=== PATIENT | male | born 1955 | race African-American/Black ===

== ENCOUNTER 2021-01-29 11:24 | Outpatient (REF) | payer OTHER, SELFPAY ==
[2021-01-29 13:28] LABS: Erythrocyte Sedimentation Rate 13 MM/HR (0-15)
[2021-01-29 13:47] LABS: Folate 12.8 ng/mL (> or = 4.0); Vitamin B12 262 pg/mL (200-900)
[2021-01-29 13:53] LABS: Alanine Aminotransferase 11 U/L (0-40); Albumin Level 4.1 g/dL (3.5-5.0); Alkaline Phosphatase 73 U/L (39-117); Anion Gap 12 (12-20); Aspartate Amino Transferase 15 U/L (5-37); Bilirubin Direct 0.2 mg/dL (0.0-0.5); Bilirubin Total 0.5 mg/dL (0.0-1.0); Blood Urea Nitrogen 13 mg/dL (9-16); Calcium 9.1 mg/dL (8.4-10.2); Carbon Dioxide 23 mmol/L (22-29); Chloride 106 mmol/L (96-108); Estimated Glomerular Filt Rate 39; Glucose Random 99 mg/dL (60-115); Potassium 3.8 mmol/L (3.3-5.1); Rheumatoid Factor < 15.0 IU/mL (<15.0); Sodium 137 mmol/L (135-145); Total Protein 6.8 g/dL (6.5-8.0)
[2021-01-30 08:43] LABS: HIV AB/AG Nonreactive (Nonreactive); HIV Num 1 0.06 S/CO (0.00-0.99)
[2021-01-30 08:47] LABS: Syphilis Screen Nonreactive (Nonreactive)
[2021-01-30 12:16] LABS: Lyme Abs Screen <0.90 index
[2021-02-02 14:41] LABS: IgA 234 mg/dL (70-320); IgG 887 mg/dL (600-1540); IgM 450 mg/dL (50-300)
== END 2021-01-29 11:25 | disposition home or self-care (01) ==
LOC: HO.LAB 11:24
PROVIDERS: Visit Provider Psychiatry & Neurology Neurology
DX: G62.9 Polyneuropathy, unspecified (principal); Z11.3 Encounter for screening for infections with a predominantly sexual mode of transmission
CPT/HCPCS: 36415; 80048; 80076; 82607; 82746; 82784; 85652; 86334; 86431; 86617; 86618; 86780; 87389

== ENCOUNTER → 2021-02-04 09:27 | Day surgery (SDC) | payer OTHER, SELFPAY ==
[2021-02-04 09:46] VITALS: BMI 32.1
--- NOTE | 2021-02-04 10:07 | PC.NURSE ---
PATIENT WAS SEEN ABOUT THREE WEEKS AGO TO HAVE HIS PACEMAKER CHECKED DENIES ANY SYMPTOMS OF WHY HE WAS GOING TO HIS APPT. ASYMPTOMATIC. VAGUE HISTORIAN.
[2021-02-04 10:43] LABS: MANUAL DIFF FLAG NO
[2021-02-04 10:45] LABS: Basophils Percent Auto 0.5 % (0-2); Eosinophils Absolute Auto 0.1 X10*3/uL (0.0-0.4); Eosinophils Percent Auto 1.4 % (0-4); Hemoglobin 9.8 g/dl (14.0-18.0); Imm Gran Abs Auto 0.02 X10*3/uL (0.00-0.03); Imm Gran Pct Auto 0.3 % (0.0-0.4); Lymphocytes Absolute Auto 1.7 X10*3/uL (1.2-4.9); Lymphocytes Percent Auto 28.4 % (20-40); Mean Corpuscular HGB Conc 29.7 g/dl (31.0-36.0); Mean Corpuscular Hemoglobin 24.9 pg (27.0-33.0); Mean Platelet Volume 10.2 fL (9.4-12.4); Monocytes Absolute Auto 0.5 X10*3/uL (0.1-1.2); Monocytes Percent Auto 9.1 % (2-11); Neutrophils Absolute Auto 3.5 X10*3/uL (2.0-8.3); Neutrophils Percent Auto 60.3 % (45-73); Platelet Count 307 X10*3/uL (160-400); Red Blood Count 3.93 X10*6/uL (4.60-5.80); Red Cell Distribution Width 17.4 % (11.0-16.0); White Blood Count 5.8 X10*3/uL (4.8-10.8)
[2021-02-04 10:55] LABS: INTERNATIONAL NORM RATIO 2.1 (0.9-1.1); Prothrombin Time 25.3 SEC (10.8-13.0)
[2021-02-04 10:57] LABS: Partial Thromboplastin Time 44.5 SEC (24.1-38.0)
== END ==
PROVIDERS: Visit Provider Radiology Diagnostic Radiology
PROC: 009U3ZZ Drainage of Spinal Canal, Percutaneous Approach (ICD-10-PCS; CPT 62270; principal; 2021-02-04 11:00)
DX: G62.9 Polyneuropathy, unspecified (principal); Z53.8 Procedure and treatment not carried out for other reasons; Z95.2 Presence of prosthetic heart valve; Z79.01 Long term (current) use of anticoagulants
CPT/HCPCS: 36415; 85025; 85610; 85730

== ENCOUNTER 2021-02-16 10:01 | Day surgery (SDC) | payer OTHER, SELFPAY ==
--- NOTE | ~2021-02-16 | FL_ITS ---
EXAMINATION: FL-GUIDED LUMBAR PUNCTURE CLINICAL INFORMATION: Polyneuropathy. COMPARISON: None TECHNIQUE: Following explaining fluoroscopy-guided lumbar puncture procedure, benefits and risk, a written consent was obtained. Patient was placed prone on fluoroscopy table and low back area was cleaned and draped in usual sterile manner. 1% lidocaine was administered in left para midline region overlying the L3-L4 disc level. A 22-gauge spinal needle was then inserted with a left-sided approach intrathecally at the 3-4 disc level. After observing CSF return following removal of stylet, the patient was placed in left lateral decubitus view, opening CSF pressure was obtained. Subsequently fluid was collected in 3 test tubes. Stylet was reintroduced and needle withdrawn. Complete hemostasis achieved at puncture site. Patient tolerated procedure extremely well. FINDINGS: The opening CSF pressure measured 14 cm/water. An approximate 9 mL of clear CSF fluid was collected in 3 test tubes. Initial test was slightly blood-tinged, likely initial traumatic puncture. FLUOROSCOPY TIME: 1.1 minute DOSE AREA PRODUCT: 8.090 uGy-m2 (microgray-meter squared) FL/FL guided lumbar puncture LP IMPRESSION: Successful fluoroscopy-guided lumbar puncture performed at L3-L4 disc level.
[2021-02-16 10:14] VITALS: BMI 32.1
[2021-02-16 10:52] LABS: Basophils Percent Auto 0.5 % (0-2); Eosinophils Absolute Auto 0.2 X10*3/uL (0.0-0.4); Eosinophils Percent Auto 2.9 % (0-4); Hematocrit 35.2 % (42-52); Hemoglobin 10.6 g/dl (14.0-18.0); Imm Gran Abs Auto 0.01 X10*3/uL (0.00-0.03); Imm Gran Pct Auto 0.2 % (0.0-0.4); Lymphocytes Absolute Auto 1.7 X10*3/uL (1.2-4.9); MANUAL DIFF FLAG NO; Mean Corpuscular HGB Conc 30.1 g/dl (31.0-36.0); Mean Corpuscular Hemoglobin 25.4 pg (27.0-33.0); Mean Corpuscular Volume 84.2 fL (80-98); Mean Platelet Volume 10.8 fL (9.4-12.4); Monocytes Absolute Auto 0.5 X10*3/uL (0.1-1.2); Monocytes Percent Auto 9.2 % (2-11); Neutrophils Absolute Auto 3.2 X10*3/uL (2.0-8.3); Neutrophils Percent Auto 57.2 % (45-73); Platelet Count 305 X10*3/uL (160-400); Red Blood Count 4.18 X10*6/uL (4.60-5.80); Red Cell Distribution Width 17.8 % (11.0-16.0); White Blood Count 5.6 X10*3/uL (4.8-10.8)
[2021-02-16 11:01] LABS: INTERNATIONAL NORM RATIO 1.2 (0.9-1.1); Prothrombin Time 13.7 SEC (10.8-13.0)
[2021-02-16 11:04] LABS: Partial Thromboplastin Time 47.8 SEC (24.1-38.0)
[2021-02-16 12:27] VITALS: BP 124/89; PULSE 64; RESP 17; TEMP 36.6; O2SAT 99
[2021-02-16 12:42] VITALS: BP 132/86; PULSE 65; RESP 17; O2SAT 96
[2021-02-16 13:12] VITALS: BP 139/82; PULSE 65; RESP 17; O2SAT 99
[2021-02-16 13:27] LABS: CSF Appearance Cloudy; CSF Tube # 1
[2021-02-16 13:38] LABS: Glucose CSF 48 mg/dL; Total Protein CSF 145.2 mg/dL (15-45)
[2021-02-16 13:42] VITALS: BP 140/92; PULSE 65; RESP 17; O2SAT 97
[2021-02-16 13:55] LABS: Appearance CSF HAZY; CSF Tube # 3; Color CSF COLORLESS; Red Blood Cell CSF 451 MM*3; White Blood Cell CSF 0 MM*3
[2021-02-16 14:09] VITALS: BP 132/83; PULSE 69; RESP 16; O2SAT 97
[2021-02-16 14:36] VITALS: BP 131/77; PULSE 74; RESP 16; O2SAT 97
== END 2021-02-16 15:10 | disposition home or self-care (01) ==
PROVIDERS: Psychiatry & Neurology Neurology; Visit Provider Radiology Diagnostic Radiology
PROC: 009U3ZZ Drainage of Spinal Canal, Percutaneous Approach (ICD-10-PCS; CPT 62270; principal; 2021-02-16 11:00)
DX: G62.9 Polyneuropathy, unspecified (principal); R20.2 Paresthesia of skin; I25.10 Atherosclerotic heart disease of native coronary artery without angina pectoris; Z95.0 Presence of cardiac pacemaker; Z95.2 Presence of prosthetic heart valve; Z79.01 Long term (current) use of anticoagulants; Z88.8 Allergy status to other drugs, medicaments and biological substances
CPT/HCPCS: 36415; 62328; 82945; 84157; 85025; 85610; 85730; 87015; 87070; 87205; 89051

== ENCOUNTER 2021-03-23 09:16 | Outpatient (REF) | payer MEDICARE, SELFPAY | END 2021-03-23 09:17 | disposition home or self-care (01) | LOC: HO.MDS 09:16 | PROVIDERS: Visit Provider Psychiatry & Neurology Neurology | DX: G61.81 Chronic inflammatory demyelinating polyneuritis (principal) | CPT/HCPCS: 96365; 96366; J1569 ==

== ENCOUNTER 2021-03-24 09:02 | Outpatient (REF) | payer MEDICARE, SELFPAY | END 2021-03-24 09:03 | disposition home or self-care (01) | LOC: HO.MDS 09:02 | PROVIDERS: Visit Provider Psychiatry & Neurology Neurology | DX: G61.81 Chronic inflammatory demyelinating polyneuritis (principal) | CPT/HCPCS: 96365; 96366; J1569 ==

== ENCOUNTER 2021-03-25 08:57 | Outpatient (REF) | payer MEDICARE, SELFPAY | END 2021-03-25 08:58 | disposition home or self-care (01) | LOC: HO.MDS 08:57 | PROVIDERS: Visit Provider Psychiatry & Neurology Neurology | DX: G61.81 Chronic inflammatory demyelinating polyneuritis (principal) | CPT/HCPCS: 96365; 96366; J1569 ==

== ENCOUNTER 2021-03-26 07:52 | Outpatient (REF) | payer MEDICARE, SELFPAY | END 2021-03-26 07:53 | disposition home or self-care (01) | LOC: HO.MDS 07:52 | PROVIDERS: Visit Provider Psychiatry & Neurology Neurology | DX: G61.81 Chronic inflammatory demyelinating polyneuritis (principal) | CPT/HCPCS: 96365; 96366; J1569 ==

== ENCOUNTER 2021-03-27 08:57 | Outpatient (REF) | payer MEDICARE, SELFPAY | END 2021-03-27 08:58 | disposition home or self-care (01) | LOC: HO.MDS 08:57 | PROVIDERS: Visit Provider Psychiatry & Neurology Neurology | DX: G61.81 Chronic inflammatory demyelinating polyneuritis (principal) | CPT/HCPCS: 96365; 96366; J1569 ==

== ENCOUNTER 2021-07-21 08:04 | Outpatient (REF) | payer MEDICARE, MEDICAID, SELFPAY | END 2021-07-21 08:05 | disposition home or self-care (01) | LOC: HO.MDS 08:04 | PROVIDERS: Visit Provider Psychiatry & Neurology Neurology | DX: G61.81 Chronic inflammatory demyelinating polyneuritis (principal) | CPT/HCPCS: 96365; 96366; J1569 ==

== ENCOUNTER 2021-10-22 10:00 | Outpatient (REF) | payer MEDICARE, SELFPAY | END 2021-10-22 10:01 | disposition home or self-care (01) | LOC: HO.MDS 10:00 | PROVIDERS: Visit Provider Psychiatry & Neurology Neurology | DX: G61.81 Chronic inflammatory demyelinating polyneuritis (principal) | CPT/HCPCS: 96365; 96366; J1569 ==

== ENCOUNTER 2022-01-20 09:48 | Outpatient (REF) | payer OTHER, SELFPAY | END 2022-01-20 09:49 | disposition home or self-care (01) | LOC: HO.MDS 09:48 | PROVIDERS: Visit Provider Psychiatry & Neurology Neurology | DX: G61.81 Chronic inflammatory demyelinating polyneuritis (principal) | CPT/HCPCS: 96365; 96366; J1569 ==

== ENCOUNTER 2022-04-05 10:04 | Outpatient (REF) | payer OTHER, SELFPAY | END 2022-04-05 10:05 | disposition home or self-care (01) | LOC: HO.MDS 10:04 | PROVIDERS: Visit Provider Psychiatry & Neurology Neurology | DX: G61.81 Chronic inflammatory demyelinating polyneuritis (principal) | CPT/HCPCS: 96365; 96366; J1569 ==

== ENCOUNTER 2022-05-07 10:33 | Outpatient (REF) | payer OTHER, SELFPAY | END 2022-05-07 10:34 | disposition home or self-care (01) | LOC: HO.MDS 10:33 | PROVIDERS: Visit Provider Psychiatry & Neurology Neurology | DX: G61.81 Chronic inflammatory demyelinating polyneuritis (principal); Z95.2 Presence of prosthetic heart valve; Z95.0 Presence of cardiac pacemaker | CPT/HCPCS: 96365; 96366; J1569 ==

== ENCOUNTER 2022-06-21 08:53 | Outpatient (REF) | payer OTHER, SELFPAY | END 2022-06-21 08:54 | disposition home or self-care (01) | LOC: HO.MDS 08:53 | PROVIDERS: Visit Provider Psychiatry & Neurology Neurology | DX: G61.81 Chronic inflammatory demyelinating polyneuritis (principal) | CPT/HCPCS: 96365; 96366; J1569 ==

== ENCOUNTER 2022-09-16 10:53 | Outpatient (REF) | payer OTHER, SELFPAY | END 2022-09-16 10:54 | disposition home or self-care (01) | LOC: HO.MDS 10:53 | PROVIDERS: Visit Provider Psychiatry & Neurology Neurology | DX: G61.81 Chronic inflammatory demyelinating polyneuritis (principal) | CPT/HCPCS: 96365; 96366; J1569 ==

== ENCOUNTER 2022-09-28 11:23 | Outpatient (REF) | payer OTHER, SELFPAY | END 2022-09-28 11:24 | disposition home or self-care (01) | LOC: HO.MDS 11:23 | PROVIDERS: Visit Provider Psychiatry & Neurology Neurology | DX: G61.81 Chronic inflammatory demyelinating polyneuritis (principal) | CPT/HCPCS: 96365; 96366; J1569 ==

== ENCOUNTER 2022-09-29 10:32 | Outpatient (REF) | payer OTHER, SELFPAY | END 2022-09-29 10:33 | disposition home or self-care (01) | LOC: HO.MDS 10:32 | PROVIDERS: Visit Provider Psychiatry & Neurology Neurology | DX: G61.81 Chronic inflammatory demyelinating polyneuritis (principal) | CPT/HCPCS: 96365; 96366; J1569 ==

== ENCOUNTER 2022-09-30 11:02 | Outpatient (REF) | payer OTHER, SELFPAY | END 2022-09-30 11:03 | disposition home or self-care (01) | LOC: HO.MDS 11:02 | PROVIDERS: Visit Provider Psychiatry & Neurology Neurology | DX: G61.81 Chronic inflammatory demyelinating polyneuritis (principal) | CPT/HCPCS: 96365; 96366; J1569 ==

== ENCOUNTER 2022-10-01 12:04 | Outpatient (REF) | payer OTHER, SELFPAY | END 2022-10-01 12:05 | disposition home or self-care (01) | LOC: HO.MDS 12:04 | PROVIDERS: Visit Provider Psychiatry & Neurology Neurology | DX: G61.81 Chronic inflammatory demyelinating polyneuritis (principal) | CPT/HCPCS: 96365; 96366; J1569 ==

== ENCOUNTER 2022-11-29 10:48 | Outpatient (REF) | payer OTHER, SELFPAY | END 2022-11-29 10:49 | disposition home or self-care (01) | LOC: HO.MDS 10:48 | PROVIDERS: Visit Provider Psychiatry & Neurology Neurology | DX: G61.81 Chronic inflammatory demyelinating polyneuritis (principal) | CPT/HCPCS: 96365; 96366; J1569 ==

== ENCOUNTER 2022-11-30 10:56 | Outpatient (REF) | payer OTHER, SELFPAY | END 2022-11-30 10:57 | disposition home or self-care (01) | LOC: HO.MDS 10:56 | PROVIDERS: Visit Provider Psychiatry & Neurology Neurology | DX: G61.81 Chronic inflammatory demyelinating polyneuritis (principal) | CPT/HCPCS: 96365; 96366; J1569 ==

== ENCOUNTER 2022-12-01 10:57 | Outpatient (REF) | payer OTHER, SELFPAY | END 2022-12-01 10:58 | disposition home or self-care (01) | LOC: HO.MDS 10:57 | PROVIDERS: Visit Provider Psychiatry & Neurology Neurology | DX: G61.81 Chronic inflammatory demyelinating polyneuritis (principal) | CPT/HCPCS: 96365; 96366; J1569 ==

== ENCOUNTER 2022-12-02 10:51 | Outpatient (REF) | payer OTHER, SELFPAY | END 2022-12-02 10:52 | disposition home or self-care (01) | LOC: HO.MDS 10:51 | PROVIDERS: Visit Provider Psychiatry & Neurology Neurology | DX: G61.81 Chronic inflammatory demyelinating polyneuritis (principal) | CPT/HCPCS: 96365; 96366; J1569 ==

== ENCOUNTER 2022-12-03 10:44 | Outpatient (REF) | payer OTHER, SELFPAY | END 2022-12-03 10:45 | disposition home or self-care (01) | LOC: HO.MDS 10:44 | PROVIDERS: Visit Provider Psychiatry & Neurology Neurology | DX: G61.81 Chronic inflammatory demyelinating polyneuritis (principal) | CPT/HCPCS: 96365; 96366; J1569 ==

== ENCOUNTER 2023-04-04 11:19 | Outpatient (REF) | payer OTHER, SELFPAY | END 2023-04-04 11:20 | disposition home or self-care (01) | LOC: HO.MDS 11:19 | PROVIDERS: Visit Provider Psychiatry & Neurology Neurology | DX: G61.81 Chronic inflammatory demyelinating polyneuritis (principal) | CPT/HCPCS: 96365; 96366; J1569 ==

== ENCOUNTER 2023-04-05 11:22 | Outpatient (REF) | payer OTHER, SELFPAY | END 2023-04-05 11:23 | disposition home or self-care (01) | LOC: HO.MDS 11:22 | PROVIDERS: Visit Provider Psychiatry & Neurology Neurology | DX: G61.81 Chronic inflammatory demyelinating polyneuritis (principal) | CPT/HCPCS: 96365; 96366; J1569 ==

== ENCOUNTER 2023-04-06 11:25 | Outpatient (REF) | payer OTHER, SELFPAY | END 2023-04-06 11:26 | disposition home or self-care (01) | LOC: HO.MDS 11:25 | PROVIDERS: Visit Provider Psychiatry & Neurology Neurology | DX: G61.81 Chronic inflammatory demyelinating polyneuritis (principal) | CPT/HCPCS: 96365; 96366; J1569 ==

== ENCOUNTER 2023-04-07 12:05 | Outpatient (REF) | payer OTHER, SELFPAY | END 2023-04-07 12:06 | disposition home or self-care (01) | LOC: HO.MDS 12:05 | PROVIDERS: Visit Provider Psychiatry & Neurology Neurology | DX: G61.81 Chronic inflammatory demyelinating polyneuritis (principal) | CPT/HCPCS: 96365; 96366; J1569 ==

== ENCOUNTER 2023-04-08 11:23 | Outpatient (REF) | payer OTHER, SELFPAY | END 2023-04-08 11:24 | disposition home or self-care (01) | LOC: HO.MDS 11:23 | PROVIDERS: Visit Provider Psychiatry & Neurology Neurology | DX: G61.81 Chronic inflammatory demyelinating polyneuritis (principal) | CPT/HCPCS: 96365; 96366; J1569 ==

== ENCOUNTER 2023-07-25 07:38 | Outpatient (REF) | payer OTHER, SELFPAY | END 2023-07-25 07:39 | disposition home or self-care (01) | LOC: HO.MDS 07:38 | PROVIDERS: Visit Provider Psychiatry & Neurology Neurology | DX: G61.81 Chronic inflammatory demyelinating polyneuritis (principal) | CPT/HCPCS: 96365; 96366; J1569 ==

== ENCOUNTER 2023-07-26 09:24 | Outpatient (REF) | payer OTHER, SELFPAY | END 2023-07-26 09:25 | disposition home or self-care (01) | LOC: HO.MDS 09:24 | PROVIDERS: Visit Provider Psychiatry & Neurology Neurology | DX: G61.81 Chronic inflammatory demyelinating polyneuritis (principal) | CPT/HCPCS: 96365; 96366; J1569 ==

== ENCOUNTER 2023-07-27 08:56 | Outpatient (REF) | payer OTHER, SELFPAY | END 2023-07-27 08:57 | disposition home or self-care (01) | LOC: HO.MDS 08:56 | PROVIDERS: Visit Provider Psychiatry & Neurology Neurology | DX: G61.81 Chronic inflammatory demyelinating polyneuritis (principal) | CPT/HCPCS: 96365; 96366; J1569 ==

== ENCOUNTER 2023-07-28 08:50 | Outpatient (REF) | payer OTHER, SELFPAY | END 2023-07-28 08:51 | disposition home or self-care (01) | LOC: HO.MDS 08:50 | PROVIDERS: Visit Provider Psychiatry & Neurology Neurology | DX: G61.81 Chronic inflammatory demyelinating polyneuritis (principal) | CPT/HCPCS: 96365; 96366; J1569 ==

== ENCOUNTER 2023-07-29 08:54 | Outpatient (REF) | payer OTHER, SELFPAY | END 2023-07-29 08:55 | disposition home or self-care (01) | LOC: HO.MDS 08:54 | PROVIDERS: Visit Provider Psychiatry & Neurology Neurology | DX: G61.81 Chronic inflammatory demyelinating polyneuritis (principal) | CPT/HCPCS: 96365; 96366; J1569 ==

== ENCOUNTER 2023-10-17 08:56 | Outpatient (REF) | payer OTHER, SELFPAY | END 2023-10-17 08:57 | disposition home or self-care (01) | LOC: HO.MDS 08:56 | PROVIDERS: Visit Provider Psychiatry & Neurology Neurology | DX: G61.81 Chronic inflammatory demyelinating polyneuritis (principal) | CPT/HCPCS: 96365; 96366; J1569 ==

== ENCOUNTER 2023-10-18 08:55 | Outpatient (REF) | payer OTHER, SELFPAY ==
[2023-10-18] VITALS (7 sets, daily range): BP systolic 101–114; BP diastolic 70–75; PULSE 57–62; RESP 18–20; TEMP 36.3; O2SAT 96; BMI 34.3
[2023-10-18] MEDS: diphenhydrAMINE HCL 25 MG CAPSULE PO (09:32)
[2023-10-18] MEDS: Immun Glob G(IgG)/Gly/IGA Ov50 300 ML IV (09:36)
== END 2023-10-18 08:56 | disposition home or self-care (01) ==
LOC: HO.MDS 08:55
PROVIDERS: Visit Provider Psychiatry & Neurology Neurology
DX: G61.81 Chronic inflammatory demyelinating polyneuritis (principal)
CPT/HCPCS: 96365; J1569

== ENCOUNTER 2023-10-19 09:23 | Outpatient (REF) | payer OTHER, SELFPAY ==
[2023-10-19] VITALS (7 sets, daily range): BP systolic 110–132; BP diastolic 70–78; PULSE 61–68; RESP 18; TEMP 37.6; O2SAT 94–95; BMI 34.3
[2023-10-19] MEDS: Immun Glob G(IgG)/Gly/IGA Ov50 300 ML IV (09:29)
[2023-10-19] MEDS: diphenhydrAMINE HCL 25 MG CAPSULE PO (09:40)
== END 2023-10-19 09:24 | disposition home or self-care (01) ==
LOC: HO.MDS 09:23
PROVIDERS: Visit Provider Psychiatry & Neurology Neurology
DX: G61.81 Chronic inflammatory demyelinating polyneuritis (principal)
CPT/HCPCS: 96365; 96366; J1569

== ENCOUNTER 2023-10-20 09:00 | Outpatient (REF) | payer OTHER, SELFPAY ==
[2023-10-20 09:09] VITALS: BP 139/87; PULSE 59; RESP 18; TEMP 36.9; O2SAT 96
[2023-10-20 09:30] VITALS: BP 134/87; PULSE 57; RESP 18
[2023-10-20] MEDS: Immun Glob G(IgG)/Gly/IGA Ov50 300 ML IV (09:31)
[2023-10-20 09:32] VITALS: BP 131/85; PULSE 58; RESP 18
[2023-10-20 10:00] VITALS: BP 139/80; PULSE 55; RESP 18
[2023-10-20 10:24] VITALS: BP 124/75; PULSE 58
[2023-10-20 10:33] VITALS: BP 124/78; PULSE 61
== END 2023-10-20 09:01 | disposition home or self-care (01) ==
LOC: HO.MDS 09:00
PROVIDERS: Visit Provider Psychiatry & Neurology Neurology
DX: G61.89 Other inflammatory polyneuropathies (principal)
CPT/HCPCS: 96365; J1569

== ENCOUNTER 2023-10-21 09:08 | Outpatient (REF) | payer OTHER, SELFPAY ==
[2023-10-21 09:15] VITALS: BP 166/100; PULSE 56; RESP 18; TEMP 36.6
[2023-10-21] MEDS: diphenhydrAMINE HCL 25 MG TABLET PO (09:43)
[2023-10-21] MEDS: Immun Glob G(IgG)/Gly/IGA Ov50 300 ML IV (09:49)
[2023-10-21 10:00] VITALS: BP 143/85; PULSE 61
[2023-10-21 10:16] VITALS: BP 143/76; PULSE 58
[2023-10-21 10:53] VITALS: BP 134/78; PULSE 64
[2023-10-21 11:20] VITALS: BP 140/81; PULSE 52
== END 2023-10-21 09:09 | disposition home or self-care (01) ==
LOC: HO.MDS 09:08
PROVIDERS: Visit Provider Psychiatry & Neurology Neurology
DX: G61.81 Chronic inflammatory demyelinating polyneuritis (principal)
CPT/HCPCS: 96365; 96366; J1569

== ENCOUNTER 2025-02-07 10:11 | Outpatient (REF) | payer OTHER, SELFPAY ==
--- OUTSIDE RECORDS SUMMARY | 2025-02-07 11:32 | XMS_ITS | Clinical Summary ---
Author Organization [facility] Address [address] [place] [address] Phone Care Team Providers Care Ticket Sorter Name Role Phone Andrea Huitron PA-C Primary Care Provider Allergies Active Allergy Reactions Criticality Noted Date Comments Bee Venom 01/20/2021 Other reaction(s): anaphalaxis Hydrochlorothiazide Other (see comments) 2012 Lisinopril Other (see comments) 05/16/2013 Losartan Other (see comments) Medium 05/22/2020 Other Other (see comments) 05/18/2005 Spironolactone 11/30/2021 Other reaction(s): gynecomastia Medications acetaminophen (TYLENOL) 500 MG tablet if needed 0 Active albuterol HFA (PROVENTIL HFA;VENTOLIN HFA) 108 (90 Base) MCG/ACT inhaler Inhale 0 Active Fluticasone-Ume clidin-Vilant (Trelegy Ellipta) 100-62.5-25 MCG/INH aerosol powder Inhale 1 puff 0 Active mometasone-form oterol (Dulera) 200-5 MCG/ACT inhaler 1 puff by Other route 2 (two) times a day Active warfarin (COUMADIN) 1 MG tablet Active torsemide (DEMADEX) 20 MG tablet Take 1 tablet by mouth 1 (one) time each day 8 Active hydrALAZINE 25 MG tablet Take 25 mg by mouth in the morning and 25 mg in the evening. 1 Active famotidine (PEPCID) 40 MG tablet Take 40 mg by mouth 1 (one) time each day 1 Active fluticasone (FLONASE) 50 MCG/ACT nasal spray Administer 100 mcg into affected nostril(s) 1 Active clotrimazole (LOTRIMIN) 1 % cream APPLY TO AFFECTED AREA TWICE A DAY FOR 14 DAYS 1 Active atorvastatin (LIPITOR) 40 MG tablet Take 40 mg by mouth 1 (one) time each day 1 Active amiodarone (PACERONE) 200 MG tablet Take 200 mg by mouth 1 (one) time each day 1 Active Rhopressa 0.02 % solution 2 Active carvedilol (COREG) 12.5 MG tablet Take 12.5 mg by mouth in the morning and 12.5 mg in the evening. Take with meals. 2 Active valsartan (DIOVAN) 80 MG tablet Take 80 mg by mouth 1 (one) time each day 2 Active latanoprost (XALATAN) 0.005 % ophthalmic solution Administer 1 drop into both eyes at bed time 2 Active fexofenadine (DEVONTE) 180 MG tablet Take 180 mg by mouth if needed 2 Active eplerenone (INSPRA) 50 MG tablet Take 50 mg by mouth 3 Active warfarin (COUMADIN) 2 MG tablet TAKE 1-2 TABLETS BY MOUTH EVERY DAY DIRECTED BY [facility] 3 Active DULoxetine (CYMBALTA) [address] capsule Take 20 mg by mouth 3 Active Jardiance 10 MG tablet Take by mouth 3 Active ketorolac (ACULAR) 0.5 % ophthalmic solution INSTILL STARTING TWO DAYS BEFORE SURGERY 1 DROP TWICE A DAY IN OPERATIVE EYE 3 Active Diclofenac Sodium 1 % gel 3 Active predniSONE 5 MG tablet TAKE 1 TABLET BY MOUTH EVERY DAY FOR 90 DAYS 3 Active ramelteon (ROZEREM) 8 MG tablet Take 8 mg by mouth at night if needed 3 Active Ozempic, 0.25 or 0.5 MG/DOSE, 2 MG/3ML solution pen-injector INJECT 0.25 MG INTO THE SKIN ONCE A WEEK FOR 28 DAYS, THEN 0.5 MG ONCE A WEEK FOR 180 DAYS. 3 Active timolol (TIMOPTIC) 0.5 % ophthalmic solution Administer 1 drop into both eyes 3 Active traZODone (DESYREL) 50 MG tablet 3 Active Active Problems Problem Noted Date Diagnosed Date Alcohol abuse 04/09/2022 Iron deficiency anemia 12/14/2021 Aneurysm of aortic root 11/30/2021 Mitral valve regurgitation 11/30/2021 Cardiac murmur 11/30/2021 Ex-smoker 11/30/2021 Fracture of humerus 11/30/2021 Obese class I 11/30/2021 Aneurysm of iliac artery 08/11/2021 Overview (07/01/2023): Last Assessment & Plan: -Status post aortic root graft repair at the time of the aortic valve replacement in November 2018, Aorta was documented to be normal in size on last echocardiogram from July 2021 Dyspnea 08/07/2021 Ventricular premature complex 08/07/2021 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 De Paz's note scanned into chart 05/2021, treated with IVIG and was better. On immunoglobulin solution, prednisone Paroxysmal ventricular tachycardia 03/09/2021 Overview (05/11/2021): Last Assessment & Plan: Patient does have a history of VT terminated with ATP. He was started on sotalol. Appears to be tolerating this. ECG from December demonstrate that the QTc interval is 498msec. We will be checking his electrolytes including potassium level. Polyneuropathy 02/26/2021 Degeneration of lumbar intervertebral disc 01/02 Vitamin D deficiency 01/02/2021 Heart failure with reduced ejection fraction 01/2021 Acute nontraumatic kidney injury 10/15/2020 Hypertension 08/27/2020 Abdominal aortic aneurysm 09/05/2018 Overview (07/01/2023): 3.1 cm, interrenal; f/u sono in aug 2019 showed no evidence of AAA 3.5 - 01/2023 Cyst of kidney 09/05/2018 Overview (10/15/2020): Right sided 3.2 cm cyst, benign appearing; f/u sono in aug 2019 showed slightly decreased in size. Repeat sono in aug 2020 Chronic kidney disease 05/19/2017 Overview (10/15/2020): Sees dr. Aguilera Sees dr. Aguilera Sees dr. Aguilera Benign essential hypertension 05/18/2005 Resolved Problems Problem Noted Date Diagnosed Date Resolved Date Aortic valve disorder 10/15/20202020 Atrial fibrillation 10/15/2020 10/15/19 Chronic systolic heart failure 10/15/2020 10/15/2020 History of polyp of colon 10/15/2020 Cardiomyopathy 07/28/2020 10/15/2020 Overview (10/15/2020): Cardiomyopathy Presence of prosthetic heart valve 07/14/2020 10/15/2020 Chest pain 05/19/2020 10/15/2020 Overview (10/15/2020): Chest pain Postnasal drip 03/27/2020 10/15/2020 Cardiac defibrillator in situ 08/09/2019 10/15/2020 Overview (10/15/2020): History of decreased ejection fraction History of decreased ejection fraction History of decreased ejection fraction Snoring 07/05/2019 10/15/2020 Overview (10/15/2020): 06/2019 Diagnostic polysomnogram did not reveal MARY or nocturnal hypoxia. + PLMD. Periodic limb movement disorder 07/05/2019 10/15/2020 Overview (10/15/2020): 06/2019 Polysomnogram History of aortic valve replacement 11/17/2018 10/15/2020 Overview (10/15/2020): 09/2018 for severe aortic insufficiency; aortic root grafting including coronary reimplantation 09/2018 for severe aortic insufficiency; aortic root grafting including coronary reimplantation 09/2018 for severe aortic insufficiency; aortic root grafting including coronary reimplantation Mural thrombus of left ventricle 10/10/2018 10/15/2020 Chronic obstructive pulmonary disease 06/10/2017 10/15/2020 Allergic rhinitis 05/25/2017 10/15/2020 Asthma 05/25/2017 10/15/2020 Congestive heart failure due to left ventricular systolic dysfunction 05/25/2017 021 Overview (10/15/2020): ECHO 2014 LVEF 15-20% Follows with Dr. Nury NELSON S/p cardiac cath 04/2015 ECHO 2014 LVEF 15-20% Follows with Dr. Nury NELSON S/p cardiac cath 04/2015 ECHO 2014 LVEF 15-20% Follows with Dr. Nury NELSON S/p cardiac cath 04/2015 History of alcohol abuse 05/25/2017 Tobacco use and exposure - finding 05/06/2017 10/15/2020 Overview (10/15/2020): Quit 2018 Quit 2018 Quit 2019 Hyperlipidemia 05/20/2008 10/15/2020 Cocaine abuse, in remission 03/05/2008 10/15/2020 Immunizations Immunization Administration Dates Next Due Influenza (IM) Preservative Free 05/14/2016 Influenza Split High Dose Pr eservative Free IM 04/29/2023,05/27/2022,07/01/2021,05/25 Influenza TIV (IM) 07/23/2020, 9,05/20/2008,06/16 Influenza, MDCK, Quadrivalen t, with preservative 06/21/2018 Influenza, Unspecified 07/01/2021,2017,05/14/2016,06/17,06/17/2014 PPD Test 02/06/2001,02/03/2001 Pfizer SARS-COV-2 06/04/2021,11/20/2020,10/31/19 21 Pneumococcal Polysaccharide 03/08/2020 Td 04/29/2023,02/03/2001 Td, Unspecified 02/03/2001 Tdap 04/24/2013,04/24/2013,02/03/2001 Family History Medical History Relation Comments Hypertension Mother Diabetes Sibling 1 sister Hypertension Sibling 2 sister Relation Status Comments Mother Sibling 1 Sibling 2 Social History Tobacco Use Types Packs/Day Years Used Date Smoking Tobacco: Former Passive Smoke Exposure: Never Smokeless Tobacco: Never Tobacco Cessation:Counseling Given: No Alcohol Use Standard Drinks/Week Comments Never 0 (1 standard drink = 0.6 oz pur e alcohol) Sex and Gender Information Value Date Recorded Sex Assigned at Not on file Legal Sex Male 4:50 PM EST Gender Identity Not on file Sexual Orientation Not on file Last Filed Vital Signs Vital Sign Reading Time Taken Comments Blood Pressure 110/70 07/01/2023 9:50 AM EST Pulse 71 07/01/2023 9:50 AM EST Temperature - - Respiratory Rate - - Oxygen Saturation 98% 07/01/2023 9:50 AM EST Inhaled Oxygen Concentration - - Weight 113 kg (249 lb) 07/01/2023 9:50 AM EST Height 180.3 cm (5' 11 ) 08/11/2020 12:00 PM EST Body Mass Index 34.73 08/11/2020 12:00 PM EST Plan of Treatment Health Maintenance Due Date Last Done Comments Colorectal Cancer Screening: Annual FOBT 2004 Colorectal Cancer Screening: Colonoscopy 2004 Colorectal Cancer Screening: Sigmoidoscopy 2004 Pneumococcal Vaccine: 50+ Years (2 of 2 - PCV) 03/08/2021 03/08/2020 Influenza Vaccine (Season Ended) 2025 04/29/2023, 05/27/2022, 07/01/2021, Additional history exists Pneumococcal Vaccine: Peds (0 to 5 Years) and At-Risk Patients (6 to 49 Years) Discontinued 03/08/2020 Hepatitis B Vaccine Aged Out No longe r eligible based on patient's age to complete this topic Insurance ([id number]) [place] [address] ([id number]) Care Teams Ticket Sorter Relationship Specialty Start Date End Date Andrea Huitron PA-C PCP - General Physician [employer] Laborer 05/11/21
[2025-02-07 11:53] LABS: Alanine Aminotransferase 11 U/L (0-40); Albumin Level 3.3 g/dL (3.5-5.0); Alkaline Phosphatase 65 U/L (39-117); Anion Gap 12 (12-20); Aspartate Amino Transferase 21 U/L (5-37); Bilirubin Direct 0.1 mg/dL (0.0-0.5); Bilirubin Total 0.3 mg/dL (0.0-1.0); Blood Urea Nitrogen 14 mg/dL (9-16); Calcium 8.8 mg/dL (8.4-10.2); Carbon Dioxide 25 mmol/L (22-29); Chloride 105 mmol/L (96-108); Estimated Glomerular Filt Rate 37; Glucose Random 84 mg/dL (60-115); Sodium 138 mmol/L (135-145)
== END 2025-02-07 10:12 | disposition home or self-care (01) ==
LOC: HO.LAB 10:11
PROVIDERS: Visit Provider Psychiatry & Neurology Neurology
DX: G61.81 Chronic inflammatory demyelinating polyneuritis (principal)
CPT/HCPCS: 36415; 80048; 80076

== ENCOUNTER 2025-05-14 15:39 | Outpatient (AMB) | payer OTHER, SELFPAY ==
[2025-05-14 15:44] VITALS: BP 112/72; PULSE 66; O2SAT 94; BMI 34.0
--- NOTE | 2025-05-14 15:44 | A.OFFVIS_ITS ---
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 Allergies hydrochlorothiazide Allergy (Mild, Verified 05/14/25 15:56) Cough Medication List - Last Reconciled 05/14/25 by Jef Mansfield MD albuterol sulfate 90 mcg/actuation 2 puffs inhalation Q6H PRN amiodarone 200 mg PO DAILY atorvastatin 40 mg PO DAILY carvedilol 25 mg PO BID codeine-guaifenesin 10-100 mg/5 mL 15 mL PO QID duloxetine 30 mg PO DAILY empagliflozin (Jardiance) 10 mg PO QAM eplerenone 50 mg PO BID ferrous sulfate 325 mg PO DAILY fluticasone propionate 50 mcg/actuation 2 sprays intranasal gdmdmduojkf-jodlavnqx-mdjajuyy 200-62.5-25 mcg (Trelegy Ellipta) 1 ea inhalation DAILY gabapentin 100 mg PO TID multivit-iron sulf-folic acid 15 mg iron- 400 mcg (Tab-A-Rashaun Multivitamin w- iron) 1 tab PO DAILY nystatin PO prednisone 2.5 mg PO DAILY PRN sacubitril-valsartan 97-103 mg (Entresto) 1 tab PO BID timolol maleate 0.5% 1 drp ophthalmic (eye) BID torsemide 20 mg PO DAILY warfarin 2 - 4 mg PO DAILY Do you need a note to return to daycare/school/sports/work: No HPI HPI copd: Details: This 69 years old gentleman is being seen for the 1st time for pulmonary evaluation and management. His primary care is being provided at [facility] in [place]( [facility]) He is a vague historian, states that his main symptom is chronic cough for which he is referred to me for pulmonary, evaluation and follow-up. He does have history of chronic obstructive pulmonary disease, from the fact that he is already on Trelegy Ellipta 1 inhalation daily, He has albuterol to be used as rescue inhaler, and he complains that it does not help his cough. In the list of his previous medications ,I see Codeine-guaifenesin syrup, listed which has been prescribed for him off and on. I suspect that he may have become somewhat dependent on this. This gentleman has significant cardiac history, apparently has had cardiac arrhythmias and has AICD in place. He is on amiodarone 200 mg daily carvedilol 25 mg b.i.d. and other medications as listed. Pertaining to his lung problem , he has history of smoking for 30+ years, 1- 1 and half pack a day. Claims that he quit smoking about 12 years ago ,. And now does not smoke anymore I asked him if he has been in lung screening program and he does not know anything about this. I asked him if he has had any CAT scan of the chest and he does not know about this . He also told me that he has past history of heavy drinking of alcohol and developed polyneuropathy . For which he has been getting infusion therapy ( probably high-dose steroids) over here at [facility]. And claimed that he quit drinking alcohol about 12 years ago However I see in the records that in February of this year he was admitted to [facility], when he was found on conscious, and the diagnosis was possible alcohol withdrawal. So this indicate that he still has the intermittent bouts of drinking. [facility] Medical History (Updated 05/15/25 @ 08:46 by Jef Mansfield MD) Restrictive lung disease Cough present for greater than 3 weeks History of smoking at least 1 pack per day for at least 30 years COPD (chronic obstructive pulmonary disease) HTN (hypertension) Chronic inflammatory demyelinating polyneuropathy Pacemaker Surgical History Heart valve replaced Social History Patient Tobacco Use Status: Former Tobacco user Review of Systems Const All systems reviewed & are unremarkable except as noted in HPI and below Eyes Reports no additional complaints ENT Reports no additional complaints Card Denies leg edema and Reports dyspnea on exertion (mild ) Resp Reports as per HPI and Reports dyspnea on exertion (mild ) GI Reports no additional complaints Reports no additional complaints Musc Reports back pain and Reports numbness Skin/Breast Reports system reviewed and no additional complaints, except as documented Neuro Reports numbness and Reports paresthesias Psych Reports no additional complaints Endo Reports no additional complaints Tommy/Lymph Reports no additional complaints Physical Exam Vital Signs: Last Vital Signs Pulse 66 05/14/25 15:44 BP 112/72 05/14/25 15:44 Pulse Ox 94 05/14/25 15:44 Oxygen Delivery Method Room Air 05/14/25 15:44 BMI result Body Mass Index 34.0 Const General: comfortable, no acute distress, alert and awake Orientation/consciousness: patient oriented x3 HEENT Head: Yes normal to inspection General nose exam: No nasal polyps present and No nasal discharge present Face and sinus: Yes sinuses nontender Mouth: oropharynx normal Teeth and gingiva: edentulous Throat: Yes posterior oropharynx normal Eyes General: appearance normal, both eyes and all related structures Neck Neck: Yes normal visual inspection, Yes no lymphadenopathy, Yes trachea midline and Yes no JVD Thyroid: Thyroid normal Chest Chest palpation & inspection: normal inspection of the chest, normal palpation of entire chest wall, no tenderness and Pacemaker present (lt. upper chest ) Resp Other: Chest is symmetrical. Percussion note is resonant. Breath sounds slightly distant. I did not hear any wheezes or crepitations. Cardio Palpation: normal PMI Rate: regular rate Rhythm: regular rhythm Heart sounds: no gallops and no murmurs GI Palpation (GI): Soft to palpation, nontender, No hepatosplenomegaly present and no masses Auscultation: normal bowel sounds Back/Spine/Pelvis Thoracic/Lumbar Spine: thoracic and lumbar spine normal to inspection Skin General skin exam: no rashes or lesions noted Neuro General: patient oriented x3 and no focal motor deficits Cranial nerves: Yes CN's II-XII intact bilaterally Extrem General: Yes normal to inspection, Yes no clubbing, cyanosis or edema and Yes no calf tenderness Psych Appearance: grossly normal Speech and movement: Normal speech and movement present Office Procedures Spirometry Testing Spirometry Comments: SPIROMETRY DONE - Spirometry Results Reviewed Results Reviewed: SPIROMETRY PERFORMED IN THE OFFICE: FVC 68%, FEV1 70% , FEV1/FVC 78. [id number] = 114% C/W MODERATE DEGREE OF RESTRICTIVE PULMONARY DISORDER, THERE IS NO EVIDENCE OF OBSTRUCTIVE DISORDER. Assessment & Plan Assessment & Plan (1) Restrictive lung disease: Comment: PATIENT IS MODERATELY OBESE. SPIROMETRY SHOWS MODERATE DEGREE OF RESTRICTIVE LUNG DISORDER, PROBABLY DUE TO MODERATE OBESITY BUT PATIENT COULD HAVE CHRONIC PARENCHYMAL DISEASE. Code(s): J98.4 - Other disorders of lung Category: Medical Plan: DISCUSSED WITH HIM ABOUT DOING DEEP BREATHING EXERCISES [address] SCAN OF THE LUNGS TO CHECK FOR ANY CHRONIC FIBROTIC DISEASE. (2) COPD (chronic obstructive pulmonary disease): Comment: THIS GENTLEMAN DOES HAVE HISTORY OF SMOKING IN THE PAST, HE HAS HISTORY OF COUGH. HE HAS BEEN TREATED FOR OBSTRUCTIVE AIRWAY DISORDER, AND IS ON MAXIMUM TREATMENT AT THIS TIME INCLUDING TRELEGY ELLIPTA 1 INHALATION DAILY Code(s): J44.9 - Chronic obstructive pulmonary disease, unspecified Category: Medical Plan: I THINK SLOWLY WE HAVE TO DOWNGRADE THE INTESITY OF TREATMENT FOR COPD . HER THE TIME BEING CONTINUE TO USE TRELEGY ELLIPTA ONCE A DAY AND ALBUTEROL 2 PUFFS Q 6 HOURS P.R.N.. ON HIS NEXT VISIT I PLAN TO DISCUSS WITH HIM ABOUT DOWN ADJUSTING THE TREATMENT REGIMEN. (3) History of smoking at least 1 pack per day for at least 30 years: Comment: THIS GENTLEMAN CLAIMS THAT HE HAS QUIT SMOKING, SINCE 2019 , BUT HE DOES HAVE PAST HISTORY OF SMOKING AT LEAST FOR 47 PACK YEARS. Code(s): Z87.891 - Personal history of nicotine dependence Category: Social Hx Plan: ADVISE THAT HE SHOULD NOT GO NEAR THE CIGARETTE. HE SHOULD BE PARTICIPATING IN ANNUAL LUNG SCREENING PROGRAM. TO START WITH I WOULD GET A REGULAR CT SCAN OF THE CHEST. (4) Cough present for greater than 3 weeks: Comment: HE HAS CHRONIC COUGH, PROBABLY RELATED TO PREVIOUS SMOKING. HE IS ON AMIODARONE AND I WOULD LIKE TO RULE OUT INTERSTITIAL LUNG DISEASE, PATIENT HAS USED CODEINE-GUAIFENESIN SYRUP IN THE PAST. I THINK HE CAME WITH THE EXPECTATION THAT HE CAN GET THIS RENEWED. Code(s): R05.8 - Other specified cough Category: Medical Plan: I EXPLAINED TO HIM THAT THERE IS NO INDICATION OF USING CODEINE-GUAIFENESIN. HE CAN USE OTC COUGH SYRUP SUCH ROBITUSSIN PLAIN ROBITUSSIN DM 1 TSP T.I.D.. HE CAN ALSO USE ALBUTEROL 1 OR 2 PUFFS IF HE HAS A PERSISTENT BOUT OF COUGH. HE CAN ALSO USE COUGH DROPS P.R.N.. Orders: Orders AMB Spirometry Testing 05/14/25 Eugenia Nichols, J44.9 - Chronic obstructive pulmonary disease, unspecified CT chest wo IV con 05/14/25 Jef Mansfield MD J44.9 - Chronic obstructive pulmonary disease, unspecified, R05.8 - Other specified cough, Z87.891 - Personal history of nicotine dependence Coding Level of Care Code New Pt Level 4 (22715) Diagnoses Restrictive lung disease J98.4 COPD (chronic obstructive pulmonary disease) J44.9 History of smoking at least 1 pack per day for at least 30 years Z87.891 Cough present for greater than 3 weeks R05.8 CPT Codes Spirometry - CPT: 20973- Spirometry ([id number])
--- OUTSIDE RECORDS SUMMARY | 2025-05-14 18:23 | XMS_ITS | Encounter Summary ---
Author Organization [facility] Address [address] [place] [address] Care Team Providers Care Credit Collections Rep Name Role Phone Andrea Huitron Primary Care Provider [phone] Reason for Visit * Reason Onset Date Comments Medication Problem 05/08/2025 Encounter Details Date Type Department Care Team ([facility] st Contact Info) Description 05/08/2025 Telephone Adult Medicine [address] [phone] Andrea Huitron PA [address] [place] [phone] Social History Tobacco Use Types Packs/Day Years Used Date Smoking Tobacco: Former Cigarettes 1 47 0 08/22/1971 - 08/22/2018 Smokeless Tobacco: Never Alcohol Use Standard Drinks/Week Comments Never 0 (1 standard drink = 0.6 oz pur e alcohol) Housing Instability Answer Date Recorde d Are you worried that in the next 2 months you may not have stable housing? No 07/13/2024 Food Access & Nutrition Answer Date Rec orded Do you have access to a vari ety of food including fruits and vegetables? Yes 07/13/2024 Access to Healthcare Answer Date Record ed Within the last 3 months, ho w many times did you visit the emergency department for your medical care? 1 07/13/2024 Health Literacy Answer Date Recorded How often do you need to hav e someone help you when you read instructions, pamphlets, or other written material from your doctor or pharmacy? Never 07/13/2024 Caregiver: How often do you need to have someone help you when you read instructions, pamphlets, or other written material from your doctor or pharmacy? Not on file 07/13/2024 Financial Risk Answer Date Recorded How hard is it for you to pa y for the very basics like food, housing, medical care, and air conditioning / heating? Not very hard 07/13/2024 Transportation Answer Date Recorded Has the lack of transportati on kept you from meetings, work, or from getting things needed for daily living? No Has the lack of transportati on kept you from medical appointments or from getting medications? No 07/13/2024 Social Isolation Answer Date Recorded How often do you feel lonely or isolated from th ose around you? Never 07/13/2024 Food Risk Answer Date Recorded Within the past 12 months we worried whether our food would run out before we got money to buy more. Never true 07/13/2024 Within the past 12 months th e food we bought just didn't last and we didn't have money to get more. Never true 07/13/2024 Dependent Care Answer Date Recorded Do you need help finding or paying for care for your loved ones. For example, children's literature professor or elderly care for an older adult? No 07/13/2024 Education Answer Date Recorded Do you think completing more education or training, like finishing a GED, going to college, or learning a trade, would be helpful for you? No 07/13/2024 Employment and Income Answer Date Recor ded During the last four weeks, have you been actively looking for work? No 07/13/2024 Living Situation Answer Date Recorded What is your living situation? 1 09/12/2023 Sex and Gender Information Value Date Recorded Sex Assigned at Male 10/26/2024 3:34 PM EST Legal Sex Male 10:37 PM EST Gender Identity Male 10/26/2024 3:34 PM EST Sexual Orientation Straight 10/26/2024 3: 34 PM EST documented as of this encounter Functional Status * Are you deaf or do you have serious difficulty hearing? Answer Date of Assessment Author No 12/28/2024 11:39 AM José Miguel Posadas, MADDIE * Are you blind or do you have serious difficulty seeing, even when wearing glasses? Answer Date of Assessment Author No 12/28/2024 11:39 AM José Miguel Posadas RN * Do you have serious difficulty walking or climbing stairs? Answer Date of Assessment Author No 12/28/2024 11:39 AM EDT José Miguel Oneil RN * Do you have serious difficulty dressing or bathing? Answer Date of Assessment Author No 12/28/2024 11:39 AM EDT José Miguel Oneil RN * Because of a physical, mental, or emotional condition, do you have serious difficulty doing errandsalone such as visiting the doctor? Answer Date of Assessment Author No 12/28/2024 11:39 AM EDT José Miguel Oneil RN documented as of this encounter Mental Status * Because of a physical, mental, or emotional condition, do you have serious difficulty concentrating, remembering, or making decisions? (5 years old or older) Answer Entry Date Author No 12/28/2024 11:39 AM EDT José Miguel Oneil RN documented in this encounter Progress Notes * Nora Jang - 05/08/2025 4:00 PM EDT Medication Problem: What is the name of the medication patient is having a problem with?: carvediloL (COREG) 25 mg tablet What is the problem?: Patient was seen at the ENT and they want to send him off for allergy testing. But they are hesitant as the patient is taking this medication and needs the all clear before doing so. He is seen at [facility]. Who is calling about the problem? : The patient Is this a NEW medication?: no How long has the patient been taking this medication? Who prescribed this medication for the patient? PETER Fink Who is patients PCP?: PETER Fink Payor: [facility] / Plan: [facility] / Product Type: *No Product type* / documented in this encounter Plan of Treatment Upcoming Encounters Date Type Department Care Team (Late st Contact Info) Description 05/23/2025 8:15 AM EDT Appointment [facility] Nuclear Medicine [address] [place] [phone] 06/05/2025 8:45 AM EDT Office Visit [address] [place] [phone] Andrea Huitron PA [address] [place] [phone] documented as of this encounter Visit Diagnoses Not on filedocumented in this encounter Additional Health Concerns Assessment Noted Time A fall risk assessment has been complete d for the patient 11/07/2024 11:28 AM EDT documented as of this encounter Care Teams Credit Collections Rep Relationship Specialty Start Date End Date Andrea Huitron PA [address] [place] [address] PCP - General Internal Medicine 07/07/24 documented as of this encounter
--- OUTSIDE RECORDS SUMMARY | 2025-05-14 18:23 | XMS_ITS | Continuity of Care Document ---
Author Name [facility], [facility] Address [address] [place] [address] Organization Unknown Address [address] [place] [address] Medications No known medications Problems No known problems
--- OUTSIDE RECORDS SUMMARY | 2025-05-14 18:23 | XMS_ITS | Encounter Summary ---
Author Organization [facility] Address [address] [place] [address] Care Team Providers Care Roller Operator Name Role Phone Andrea Huitron Primary Care Provider [phone] Encounter Details Date Type Department Care Team (Late st Contact Info) Description 03/22/2025 Lab Requisition [facility] - Main Lab [address] [facility] [place] [address] Rosa Elena Lyn PA [address] [place] [address] Benign essential microscopic hematuria Social History Tobacco Use Types Packs/Day Years [...] care for your loved ones. For example, child nutrition manager or elderly care for an older adult? [...] 11:39 AM José Miguel Posadas RN * Are you blind or do you [...] Miguel Oneil RN documented in this encounter Plan of Treatment Upcoming Encounters Date Type Department Care Team (Late st Contact Info) Description 05/23/2025 8:15 AM EDT Appointment [facility] Nuclear Medicine [address] [place] [phone] 06/05/2025 8:45 AM EDT Office Visit [facility] [address] [phone] Andrea Huitron PA [address] [place] [phone] documented as of this encounter Procedures Procedure Name Priority Date/Time Associated Diagnosis Comments NON-GYNECOLOGIC CYTOLOGY Routine 03/14/2025 12:00 AM EDT Benign essential microscopic hematuria documented in this encounter Results * Non-gynecologic cytology (03/14/2025 12:00 AM EDT) Final Diagnosis A. Urine, Voided, ([id number]): Negative for high grade urothelial carcinoma. Results of UroVysion fluorescence in situ hybridization (FISH) testing: CEP3: Normal CEP7: Normal CEP17: Normal LSI 9p21: Normal Interpretation: Normal profile Controls stained appropriately. Note: The results are intended as a screening device and should be interpreted in association with other clinical and pathological findings. 04/02/2025 9:02 AM EDT [facility] Specimen A Adequacy Satisfactory for evaluation 04/02/2025 9:02 AM EDT [facility] Clinical Information Benign essential microscopic hematuria R31.1 Urine Cytology/FISH (now) 04/02/2025 9:02 AM EDT [facility] Gross Description A. Urine, Voided, ([id number]): Received one ThinPrep slide for cytology and one ThinPrep slide for UroVysion FISH 04/02/2025 9:02 AM EDT [facility] Disclaimer Unless otherwise specified, all tissue is 10% NB formalin fixed and paraffin embedded. Technical pathology services provided by [facility] at [address] [facility] [address], [place] [address] (CLIA #[id number]/Isela Galicia MD, Government Gauger) 04/02/2025 9:02 AM EDT [facility] Urine Urine specimen from urethra / Unknown 03/14/2025 03/22/2025 1:57 PM EDT Rosa Elena [facility] CYTOLOGY ORDERABLES Final Result [facility] [address] [place] [address], documented in this encounter Visit Diagnoses Diagnosis Benign essential microscopic hematuria documented in this encounter Additional Health Concerns Assessment Noted Time A fall risk assessment has been complete d for the patient 11/07/2024 11:28 AM EDT documented as of this encounter Care Teams Roller Operator Relationship Specialty Start Date End Date Andrea Huitron PA [address] [place] [id number] PCP - General Internal Medicine 07/07/24 documented as of this encounter
--- OUTSIDE RECORDS SUMMARY | 2025-05-14 18:24 | XMS_ITS | Clinical Summary ---
Author Organization [facility] Address [address] [place] [address] Care Team Providers Care Cinder Crew Worker Name Role Phone Rocky Saha Primary Care Provider Unavailab le Medications fluticasone-ume clidinium-vilan terol (Trelegy Ellipta) 100-62.5-25 mcg blister with device Inhale 1 puff by mouth. 0 Active triamcinolone acetonide (NASACORT AQ NASAL) Administer 2 sprays into affected nostril(s). 0 Active acetaminophen (TYLENOL) 500 mg tablet TAKE 1 TAB BY MOUTH EVERY 6 HOURS NEEDED FOR PAIN FOR UP TO 10 DAYS. 0 Active albuterol (Ventolin HFA) 90 mcg inhaler Inhale 2 puffs by mouth. 0 Active carvediloL (COREG) 25 mg tablet Take 25 mg by mouth 2 times a day. 0 Active furosemide (LASIX) 40 mg tablet Take 40 mg by mouth 2 times a day. 0 Active hydrALAZINE (APRESOLINE) 50 mg tablet Take 50 mg by mouth. 0 Active metOLazone (ZAROXOLYN) 2.5 mg tablet TAKE 1 TAB BY MOUTH DAILY. NEEDED FOR FLUID RETENTION 0 Active ondansetron (ZOFRAN) 4 mg tablet TAKE 1 TABLET BY MOUTH EVERY 8 HOURS NEEDED FOR NAUSEA FOR 10 DAYS 0 Active gabapentin (NEURONTIN) 300 mg capsule Take 1 capsule (300 mg total) by mouth 2 (two) times a day. Increase to thrice daily after 1 week if no sleepiness 60 capsule Active Active Problems Problem Noted Date Diagnosed Date Hypertension 08/27/2020 Presence of prosthetic heart valve 07/14/2020 Presence of cardiac defibrillator 08/09/2019 Overview (08/27/2020): History of decreased ejection fraction H/O aortic valve replacement 11/17/2018 Overview (08/27/2020): 09/2018 for severe aortic insufficiency; aortic root grafting including coronary reimplantation Chronic cough 09/20/2017 Chronic obstructive pulmonary disease 06/10/2017 Congestive heart failure wit h left ventricular systolic dysfunction 05/25/2017 Overview (08/27/2020): ECHO 2014 LVEF 15-20% Follows with Dr. Nury NELSON S/p cardiac cath 04/2015 History of alcohol abuse 05/25/2017 CKD (chronic kidney disease) stage 3, GFR 30-59 ml/min 05/19/2017 Overview (08/27/2020): Sees dr. Aguilera History of tobacco abuse 05/06/2017 Overview (08/27/2020): Quit 2019 Hyperlipidemia 05/20/2008 Cocaine abuse, in remission 03/05/2008 Essential hypertension, benign 05/18/2005 Social History Tobacco Use Types Packs/Day Years Used Date Smoking Tobacco: Never Assessed Sex and Gender Information Value Date Recorded Sex Assigned at Not on file Legal Sex Male 10:31 AM EST Gender Identity Not on file Sexual Orientation Not on file Last Filed Vital Signs Vital Sign Reading Time Taken Comments Blood Pressure 150/78 10/20/2020 4:15 PM EST Pulse 90 10/20/2020 4:15 PM EST Temperature - - Respiratory Rate 18 10/20/2020 4:15 PM EST Oxygen Saturation 99% 10/20/2020 4:15 PM EST Inhaled Oxygen Concentration - - Weight 112.5 kg (248 lb) 10/20/2020 4:15 PM EST Height 175.3 cm (5' 9 ) 10/20/2020 4:15 PM EST Body Mass Index 36.62 10/20/2020 4:15 PM EST Plan of Treatment Health Maintenance Due Date Last Done Comments Cologuard 1955 Colon Cancer Screening 1955 Colonoscopy 1955 FOBT / Fit Test 1955 Hepatitis C Screening 1955 Sigmoidoscopy 1955 Pneumococcal Vaccine: 50+ Years (1 of 2 - PCV) 1974 Zoster Vaccines (1 of 2) 2005 RSV Vaccine (60+ years old and patients) (1 - Risk 60-74 years 1-dose series) 2015 Basic Metabolic Panel 09/23/2021 09/23/2020, 020 DTaP,Tdap,and Td Vaccines (3 - Td or Tdap) 04/24/2023 04/24/2013, 02/03/2001, 02/03/2001 Alcohol/Substance Use Screening 08/22/2024 Depression Screening and Follow-Up 08/22/2024 Health Care Proxy Review 08/22/2024 Social Drivers of Health Annual Screening 08/22/2024 COVID-19 Vaccine (1 - season) 2025 Influenza Vaccine (#1) 2025 , 06/17/2019, 06/21/2018, Additional history exists Hepatitis B Vaccines Aged Out No long er eligible based on patient's age to complete this topic Insurance [employer] Care Teams Cinder Crew Worker Relationship Specialty Start Date End Date Rocky Saha PCP - General Internal Medicine 08/05/20
--- OUTSIDE RECORDS SUMMARY | 2025-05-14 18:24 | XMS_ITS | Clinical Summary ---
Author Organization [facility] Address [address] [place] [address] Phone Care Team Providers Care Medical Research Associate Name Role Phone Andrea Huitron Primary Care Provider [phone] Allergies Active Allergy Reactions Criticality Noted Date Comments Bee Venom Protein (Honey Bee) Hives 2004 Hydrochlorothiazide 05/16/2013 Lisinopril 05/16/2013 Losartan Cough Medium 05/22/2020 Medications albuterol HFA (Ventolin HFA) 90 mcg/actuation inhaler INHALE 2 PUFFS INTO THE LUNGS EVERY 6 HOURS NEEDED FOR COUGH, WHEEZING OR SHORTNESS OF BREATH. 12/28/19 24 Active amiodarone (PACERONE) 200 mg tablet Take 0.5 Tablets by mouth daily. 11/28/19 24 Active carvediloL (COREG) 25 mg tablet Take 1 Tablet by mouth. 11/23/19 24 Active cholecalciferol (VITAMIN D-3) 25 mcg (1,000 unit) tablet Take 1 Tablet by mouth daily. 03/27/20 24 Active empagliflozin (Jardiance) 10 mg tablet Jardiance 10 mg tablet TAKE 1 TABLET BY MOUTH EVERY MORNING Active eplerenone (INSPRA) 50 mg tablet eplerenone 50 mg tablet TAKE 1 TABLET BY MOUTH TWICE A DAY Active latanoprost (XALATAN) 0.005 % ophthalmic solution at bedtime 02/10/20 24 Active netarsudiL (Rhopressa) 0.02 % drops apply 1 Drop to the eye. 11/13/19 22 Active sacubitriL-vals prasad (Entresto) 97-103 mg per tablet 2 (two) times a day. 09/08/19 24 Active timoloL (BetimoL) 0.5 % ophthalmic solution 1 Drop 2 times daily. Active warfarin (COUMADIN) 2 mg tablet TAKE 1-2 TABLETS BY MOUTH EVERY DAY DIRECTED BY [facility] 04/12/20 22 Active DULoxetine (CYMBALTA) [address] capsule Take 1 capsule (30 mg total) by mouth 2 (two) times a day. Do not crush or chew. 60 each 5 08/06/20 24 Active atorvastatin (LIPITOR) 40 mg tablet TAKE 1 TABLET BY MOUTH EVERY DAY 90 tablet 1 08/14/20 24 Active famotidine (PEPCID) 20 mg tablet Take 1 tablet (20 mg total) by mouth 2 (two) times a day. 60 tablet 5 09/26/19 25 Active Trelegy Ellipta 200-62.5-25 mcg inhalerIndicati ons:Moderate persistent asthma, uncomplicated,C hronic obstructive pulmonary disease, unspecified (CMS/HCC V24, CMS/HCC V28) TAKE 1 PUFF BY MOUTH EVERY DAY 180 each 3 12/04/19 25 Active triamcinolone (KENALOG) 0.1 % cream Apply to affected area 1-2 times daily as needed. 30 g 5 12/08/19 25 025 Active azelastine (ASTELIN) 137 mcg (0.1 %) nasal spray 2 SPRAYS BY EACH NARE ROUTE 2 TIMES DAILY. USE IN EACH NOSTRIL DIRECTED 137 mL 5 01/10/20 25 Active fluticasone propionate (FLONASE) 50 mcg/actuation nasal sprayIndication s:Moderate persistent asthma, uncomplicated,C hronic obstructive pulmonary disease, unspecified (CMS/HCC V24, CMS/HCC V28) 2 SPRAYS IN EACH NOSTRIL 48 mL 1 01/16/20 25 Active torsemide (DEMADEX) 20 mg tablet Take 1 tablet (20 mg total) by mouth 1 (one) time each day. 01/10/20 25 Active esomeprazole (NexIUM) [address] capsuleIndicati ons:Gastroesoph ageal reflux disease without esophagitis Take 1 capsule (40 mg total) by mouth 2 (two) times a day. Do not open capsule. 180 each 3 03/13/20 25 Active metoclopramide (REGLAN) 5 mg tablet Take 1 tablet (5 mg total) by mouth 4 (four) times a day. 240 each 03/19/20 25 025 Active guaiFENesin-cod eine (ROBITUSSIN-AC) 100-10 mg/5 mL syrup Take 5 mL by mouth every 6 (six) hours if needed for cough. Max Daily Amount: 20 mL 750 mL 04/10/20 25 Active ferrous sulfate 325 mg (65 mg elemental iron) tablet TAKE 1 TABLET BY MOUTH EVERY DAY 90 tablet 1 05/02/20 25 Active modafiniL (PROVIGIL) 100 mg tabletIndicatio ns:MARY (obstructive sleep apnea) TAKE 1 TABLET (100 MG TOTAL) BY MOUTH 1 (ONE) TIME EACH DAY. MAX DAILY AMOUNT: 100 MG 30 tablet 05/09/20 25 025 Active ferrous sulfate 325 mg (65 mg elemental iron) tablet TAKE 1 TABLET BY MOUTH EVERY DAY 90 tablet 02/05/20 25 025 Discontinued modafiniL (PROVIGIL) 100 mg tabletIndicatio ns:MARY (obstructive sleep apnea) Take 1 tablet (100 mg total) by mouth 1 (one) time each day. Max Daily Amount: 100 mg 30 tablet 04/11/20 25 025 Discontinued Active Problems Problem Noted Date Diagnosed Date MARY (obstructive sleep apnea) 06/25/2024 Iliac artery aneurysm, bilateral ([facility] V24) 0 01/21/2023 ETOH abuse 04/09/2022 Iron deficiency anemia 12/14/2021 Nocturnal hypoxemia 11/16/2021 Overview (07/02/2024): [facility] Home sleep test 11/03/2021 weight 245; BMI 34. AHI 3 with all hypopneas. Average oxygen saturation 90% with oxygen theodora 83%. Oxygen saturations less than 88% for 21% of the study (67 minutes). Nocturnal hypoxemia based on 2021 home sleep study without sleep apnea diagnosis. Last Assessment & Plan: 2L sent to [facility]. Aortic aneurysm ([facility]/HCC V24) 08/11/2021 Overview (07/02/2024): Last Assessment & Plan: -Status post aortic root graft repair at the time of the aortic valve replacement in November 2018, Aorta was documented to be normal in size on last echocardiogram from July 2021 Left heart failure (CMS/HCC V24, CMS/HCC V28) PVC's (premature ventricular contractions) 08/07 SOB (shortness of breath) 08/07/2021 CIDP (chronic inflammatory d emyelinating polyneuropathy) (CMS/HCC V24, CMS/HCC V28) 06/23/2021 Overview (07/02/2024): Dr. De Paz's note scanned into chart 05/2021, treated with IVIG and was better. On immunoglobulin solution, prednisone Ventricular tachycardia (par oxysmal) (CMS/[facility] V24, CMS/HCC V28) 03/09/2021 Overview (07/02/2024): Last Assessment & Plan: Status post VT ablation in February 2021. Holter monitor does not show any sustained arrhythmias. Continue suppression with amiodarone. PFTs, LFTs, TFTs stable. Peripheral polyneuropathy 02/26/2021 DDD (degenerative disc disease), cervical 2020 DDD (degenerative disc disease), lumbar 01/03/20 21 Vitamin D deficiency 01/02/2021 Chronic combined systolic an d diastolic heart failure (CMS/HCC V24, CMS/HCC V28) 11/14/2020 Overview (07/02/2024): Last Assessment & Plan: Patient does have a history of chronic diastolic and systolic heart failure. Today I do think he is volume overloaded. His weight is up 3 pounds compared to the last time he was here. This time he is on Bumex 2 mg twice a day. I have given him a slip for blood work and after reviewing the blood work I may either add metolazone or spironolactone to his medical therapy. He was on spironolactone in the past I do need to see why this was stopped. Also may put her back on torsemide. I do think she could benefit maybe from Jardiance however with his renal insufficiency need to see if this is okay or not. Dilated cardiomyopathy (CMS/HCC V24, CMS/HCC V28 ) 07/28/2020 Overview (07/02/2024): Last Assessment & Plan: -As above, s/p Biotronik ICD, continue carvedilol, hydralazine, and new addition of Bumex. Spironolactone was previously discontinued. Chest pain 07/28/2020 Overview (07/02/2024): Chest pain PLMD (periodic limb movement disorder) 9 Overview (07/02/2024): 06/2019 Polysomnogram Snoring 07/05/2019 Overview (07/02/2024): 06/2019 Diagnostic polysomnogram did not reveal MARY or nocturnal hypoxia. + PLMD. 10/2021 HSAT showed no MARY with significant desaturations. LV (left ventricular) mural thrombus 10/10/2018 AAA (abdominal aortic aneurysm) ([facility] V24) Overview (07/02/2024): 3.5 - 01/2023 Kidney cyst, acquired 09/05/2018 Overview (07/02/2024): Right sided 3.2 cm cyst, benign appearing; f/u sono in aug 2019 showed slightly decreased in size. Repeat sono in aug 2020 Chronic cough 09/20/2017 Chronic obstructive pulmonar y disease ([facility] V24, [facility] V28) 06/10/2017 Allergic rhinitis 05/25/2017 Asthma 05/25/2017 Congestive heart failure wit h left ventricular systolic dysfunction ([facility] V24, [facility] V28) 05/25/2017 Overview (07/02/2024): ECHO 2014 LVEF 15-20% Follows with Dr. Nury NELSON S/p cardiac cath 04/2015 History of alcohol abuse 05/25/2017 CKD (chronic kidney disease) stage 3, GFR 30-59 ml/min ([facility] V24, [facility] V28) 05/19/2017 Overview (07/02/2024): Sees dr. Aguilera Hyperlipidemia 05/20/2008 Overview (07/02/2024): Last Assessment & Plan: Last lipid panel from June 2021 revealing a total cholesterol 172, HDL 40, LDL 102. Continue statin therapy. Cocaine abuse, in remission (CMS/HCC V24, CMS/HC C V28) 03/05/2008 Essential hypertension 05/18/2005 Overview (07/02/2024): Last Assessment & Plan: 140/70 in office today, Mildly elevated in the setting of volume overload. Continue regimen as above. Encounters Date Type Department Care Team Description 05/08/2025 Telephone Adult Medicine [address] [phone] Andrea Huitron PA 04/16/2025 Telephone Adult Medicine [address] [phone] Andrea Huitron PA 04/05/2025 Telephone Adult Medicine [address] [phone] Andrea Huitron PA 04/03/2025 Telephone Adult Medicine [address] [phone] Andrea Huitron PA 03/26/2025 Telephone Pulmonology - [place] [address] [facility] [address] [place] [address] Amee Jones NP 03/22/2025 Lab Requisition [facility] - Main Lab [address] [facility] [place] [address] Rosa Elena Lyn PA Benign essential microscopic hematuria 03/19/2025 2:40 PM EDT Office Visit Gastroenterology [facility] [address] [facility] [address] [facility] [address] [place] [address] Savanna Dumont NP Early satiety (Primary Dx); Chronic nausea; Abdominal bloating; Gastroesophageal reflux disease without esophagitis 03/13/2025 9:30 AM EDT Office Visit Adult Medicine [address] [phone] Andrea Huitron PA Hospital discharge follow-up (Primary Dx); ETOH abuse; Alcoholic encephalopathy ([facility] V24); Gastroesophageal reflux disease without esophagitis; Chronic obstructive pulmonary disease, unspecified COPD type ([facility] V24, [facility] V28); Stage 3a chronic kidney disease ([facility] V24, [facility] V28); CIDP (chronic inflammatory demyelinating polyneuropathy) ([facility] [place]24, [facility] [place]28); Chronic combined systolic and diastolic heart failure ([facility] V24, [facility] V28) 03/04/2025 Telephone Adult Medicine [address] [phone] Andrea Huitron PA 02/14/2025 Telephone Gastroenterology - [place] 175 [facility] [address] [facility] [address] [place] [address] Savanna Dumont NP from Last 3 Months Immunizations Name Administration Dates Next Due COVID-19 (Pfizer/Comirnaty) 12yo and older 07/11/2023 Influenza Quadravalent, MDCK , 0.5ml, with preservative (Flucelvax) 6mo and older 06/21/2018 Influenza trivalent, 0.5mL ( Fluad) 65yo and older 04/29/2023,05/27/2022,07/01/2021,05/25 Influenza trivalent, 0.5mL, preservative free (Fluarix; FluLaval; Fluzone) ages 6mo and older (Afluria) 3 years and older 05/20/2008,06/16/2007 Influenza trivalent, with pr eservative (Fluzone; Afluria) 6mo and older 07/23/2020,06/17/2019,05/14/2016,06/17 PPD Test 02/06/2001,02/03/2001 Pfizer (ages 12 & older) Biv alent, COVID-19 07/01/2022 Pneumococcal polysaccharide 23 valent (Pneumovax 23) 2yo and older 03/08/2020 Td Tetanus diptheria (Tdvax) 7yo and older 04/29/2023,02/03/2001 Tdap Tetanus diptheria acell ular pertussis (Boostrix; Adacel) 7yo and older 04/24/2013,02/03/2001 Zoster recombinant (Shingrix ) 19yo and older 03/26/2024 Surgical History Surgery Date Site/Laterality Comments OTHER SURGICAL HISTORY PROCEDURE: ---- OTHER ----; COMMENT: jaw surgery CARDIAC CATHETERIZATION 07/19/2018 PROCEDURE: HISTORICAL CARDIAC CATH; COMMENT: mild CAD, dilated cardiomyopathy OTHER SURGICAL HISTORY PROCEDURE: HISTORICAL ICD OTHER SURGICAL HISTORY 09/2008 PROCEDURE: UT RPLCMT AORTIC VALVE ANNULUS ENLGMENT NONC SINUS; 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 smith VENTRAL HERNIA REPAIR 02/07/2023 PROCEDURE: HISTORICAL VTRL WALL HERNIA RE; COMMENT: Incisional hernia repair Dr. Tracey Medical History Medical History Date Comments Presence of cardiac defibrillator 08/09/2019 DX:Presence of cardiac defibrillator; COMMENT: History of decreased ejection fraction History of colon polyps DX:Histo ry of colon polyps COPD (chronic obstructive pu lmonary disease) (CMS/HCC V24, [facility] V28) Hypertension Deficient knowledge of heart valve replacement Chronic kidney disease Family History Medical History Relation Name Comments Alcohol/Drug Father Other cancer Father throat cancer Hypertension Mother Lung cancer Neg Hx Relation Name Status Comments Brother Alive x2, healthy Daughter x4 Alive Father (Age 50s) throat ca ncer, smoker Mother Alive HTN, pulm embol ism, leg DVT Sister Alive x5, healthy Social History Tobacco Use Types Packs/Day Years Used Date Smoking Tobacco: Former Cigarettes 1 47 0 08/22/1971 - 08/22/2018 Smokeless Tobacco: Never Tobacco Cessation:Counseling Given: Not Answered Alcohol Use Standard Drinks/Week Comments Never 0 [...] for your loved ones. For example, child specialist or elderly care for an older adult? [...] Orientation Straight 10/26/2024 3: 34 PM EST Obstetrics History Last Filed Vital Signs Vital Sign Reading Time Taken Comments Blood Pressure 110/80 03/19/2025 2:55 PM EDT Pulse 62 03/19/2025 2:55 PM EDT Temperature 36.9 C (98.5 F) 03/13/2025 9:24 AM EDT Respiratory Rate 16 03/13/2025 9:24 AM EDT Oxygen Saturation 97% 03/19/2025 2:55 PM EDT Inhaled Oxygen Concentration - - Weight 111 kg (244 lb) 03/19/2025 2:55 PM EDT Height 180.3 cm (5' 11 ) 03/19/2025 2:55 PM EDT Body Mass Index 34.03 03/19/2025 2:55 PM EDT Plan of Treatment Upcoming Encounters Date Type Department Care Team (Late st Contact Info) Description 05/23/2025 8:15 AM EDT Appointment [facility] Nuclear Medicine [address] [place] [address] 06/05/2025 8:45 AM EDT Office Visit Adult Medicine [address] [phone] Andrea Huitron, [address] [phone] Health Maintenance Due Date Last Done Comments Hepatitis A Vaccines (1 of 2 - Risk 2-dose series) 1974 RSV Immunization Adult Patients (1 - Risk 60-74 years 1-dose series) 2015 Zoster Vaccines (2 of 2) 05/21/2024 03/26/2024 Depression Screening 08/22/2024 03/27/2024 COVID-19 Vaccine ( season) 2025 07/11/2023, 07/01/2022, 06/04/2021, Additional history exists Social Influencers of Health Screening 07/13/2025 07/13/2024 Lung Cancer Screening (Low Dose CT) 10/12/2025 10/12/2024, 10/04/2022, 12/16/2020 Colorectal Cancer Screening: Colonoscopy 11/13/2025 11/13/2020 Falls Risk Assessment 02/04/2026 02/04/2025 , 11/07/2024, 08/26/2023 Hypertension/CHF/CAD Annual BMP Blood Test 03/13/2026 03/13/2025, 12/28/2024, 09/26/2024, Additional history exists Cholesterol Screening (Lipid Panel) 09/26/2029 09/26/2024, 02/22/2024, 02/22/2024 DTaP,Tdap,and Td Vaccines (5 - Td or Tdap) 04/29/2033 04/29/2023, 04/24/2013, 02/03/2001, Additional history exists Influenza Vaccine Discontinued 04/29/2023, , 07/01/2021, Additional history exists Pneumococcal Vaccine: 50+ Years Completed 03/26/2024, 03/08/2020 Medicare Annual Wellness Visit Discontinued 03/27/2024 Hepatitis C Screening Completed 07/06/2024, 008 HIB Vaccines Aged Out No longer eligi ble based on patient's age to complete this topic HPV Vaccines Aged Out No longer eligi ble based on patient's age to complete this topic Hepatitis B Vaccines Aged Out No long er eligible based on patient's age to complete this topic IPV Vaccines Aged Out No longer eligi ble based on patient's age to complete this topic MMR Vaccines Aged Out No longer eligi ble based on patient's age to complete this topic Meningococcal ACWY Vaccine Aged Out N o longer eligible based on patient's age to complete this topic Meningococcal B Vaccine Aged Out No l onger eligible based on patient's age to complete this topic RSV Immunization Patients Under 20 months Aged Out No longer eligible based on patient's age to complete this topic Varicella Vaccines Aged Out No longer eligible based on patient's age to complete this topic Procedures Procedure Name Priority Date/Time Associated Diagnosis Comments HELICOBACTER PYLORI ANTIGEN, STOOL Routine 03/14/2025 12:24 PM EDT Nasal itching Chronic combined systolic and diastolic heart failure (CMS/HCC V24, CMS/HCC V28) Abdominal aortic aneurysm (AAA) without rupture, unspecified part (CMS/HCC V24) Stage 3a chronic kidney disease (CMS/HCC V24, CMS/HCC V28) NON-GYNECOLOGIC CYTOLOGY Routine 03/14/2025 12:00 AM EDT Benign essential microscopic hematuria CBC WITH AUTO DIFFERENTIAL Routine 03/13/2025 10:27 AM EDT Gastroesophageal reflux disease without esophagitis Hospital discharge follow-up Chronic obstructive pulmonary disease, unspecified COPD type (CMS/HCC V24, CMS/HCC V28) CBC AND DIFFERENTIAL Routine 03/13/2025 10:27 AM EDT Gastroesophageal reflux disease without esophagitis Hospital discharge follow-up Chronic obstructive pulmonary disease, unspecified COPD type (CMS/HCC V24, CMS/HCC V28) COMPREHENSIVE METABOLIC PANEL Routine 03/13/2025 10:27 AM EDT Gastroesophageal reflux disease without esophagitis Hospital discharge follow-up Chronic obstructive pulmonary disease, unspecified COPD type (CMS/HCC V24, CMS/HCC V28) ETHANOL Routine 03/13/2025 10:27 AM EDT Gastroesophageal reflux disease without esophagitis Hospital discharge follow-up Chronic obstructive pulmonary disease, unspecified COPD type (CMS/HCC V24, CMS/HCC V28) IRON AND TIBC Routine 03/13/2025 10:27 AM EDT Gastroesophageal reflux disease without esophagitis Hospital discharge follow-up Chronic obstructive pulmonary disease, unspecified COPD type (CMS/HCC V24, CMS/HCC V28) CT LUNG SCREENING Routine 10/12/2024 11:57 AM EST Encounter for screening for malignant neoplasm of respiratory organs Personal history of nicotine dependence LIPID PANEL WITH REFLEX TO DIRECT LDL Routine 09/26/2024 2:35 PM EST Pure hypercholesterolemia HEPATITIS C ANTIBODY Routine 07/06/2024 5:16 PM EST Other fatigue DEPRESSION SCREENING Routine 03/27/2024 FALLS RISK ASSESSMENT Routine 08/26/2023 COLONOSCOPY Routine 11/13/2020 from Last 3 Months or Most Recently Relevant to Health Maintenance Results * Helicobacter pylori antigen, stool (03/14/2025 12:24 PM EDT) Helicobacter Pylori Ag Not detected Not detected 03/19/2025 2:28 PM EDT [facility] Comment: This test was performed at [facility] using a chemiluminescent immunoassay intended for the qualitative determination of helicobacter pylori (H. pylori) antigen in human stool. The test is an aid in the diagnosis of patients suspected of H. pylori infection and to measure post therapy response from patients. Assay results should be used in conjunction with other clinical and laboratory data to assist the clinician in making individual patient management decisions. A negative test result does not preclude the possibility of the presence of H. pylori antigen in the specimen, which may occur if the level of antigen is below the detection limit of the test. Antimicrobials, proton pump inhibitors, and bismuth preparations are known to suppress H. pylori and, if ingested, may give a false negative result. In these cases a new fecal sample should be collected and tested 14 days after treatment has stopped. Positive results from patients that have used antibiotics, PPIs, or bismuth compounds in the 14 days prior to fecal sample collection are still considered accurate. This assay has not been evaluated in a pediatric population. This test has been approved as an in vitro diagnostic by the [place] Food and Drug Administration. Test performed at [facility], [address], [place] [address] Mary Galdamez MD, PhD - Economics Instructor Stool Rectum structure / Unknown Non-blood Collection / Unknown 03/14/2025 12:24 PM EDT 03/14/2025 12:24 PM EDT Andrea GREEN LAB BODY FLUIDS AND STOOL S ORDERABLES Final Result [facility] [address] [place] [address] * Non-gynecologic cytology (03/14/2025 12:00 AM EDT) Final Diagnosis A. Urine, Voided, ([id number]): Negative for high grade urothelial carcinoma. Results of [employer] fluorescence in situ hybridization (FISH) testing: CEP3: Normal CEP7: Normal CEP17: Normal LSI 9p21: Normal Interpretation: Normal profile Controls stained appropriately. Note: The results are intended as a screening device and should be interpreted in association with other clinical and pathological findings. 04/02/2025 9:02 AM EDT [facility] Specimen A Adequacy Satisfactory for evaluation 04/02/2025 9:02 AM EDT [facility] Clinical Information Benign essential microscopic hematuria R31.1 Urine Cytology/FISH (now) 04/02/2025 9:02 AM EDT [facility] Gross Description A. Urine, Voided, ([id number]): Received one ThinPrep slide for cytology and one ThinPrep slide for [employer] FISH 04/02/2025 9:02 AM EDT [facility] Disclaimer Unless otherwise specified, all tissue is 10% NB formalin fixed and paraffin embedded. Technical pathology services provided by [facility] at [address] [place] [address] [address], [place] [address] (CLIA #[id number]/Isela Galicia MD, Economics Instructor) 04/02/2025 9:02 AM EDT [facility] Urine Urine specimen from urethra / Unknown 03/14/2025 03/22/2025 1:57 PM EDT us Rosa Elena GREEN LAB CYTOLOGY ORDERABLES Final Result [facility] [address] [place] [address], [place] [phone] * (ABNORMAL) CBC auto differential (03/13/2025 10:27 AM EDT) [facility] WBC 6.8 4.8 - 10.8 K/mcL LAB HEMETOLOGY METHOD [facility] RBC 4.10(L) 4.50 - 5.50 M/mcL LAB HEMETOLOGY METHOD 03/13/2025 12:44 PM EDT [facility] Hemoglobin 13.5 13.5 - 17.5 g/dL LAB HEMETOLOGY METHOD 03/13/2025 12:44 PM [facility] Hematocrit 41.7(L) 42.0 - 54.0 % LAB HEMETOLOGY METHOD 03/13/2025 12:44 PM [facility] MCV 102.5(H) 79.0 - 98.0 FL LAB HEMETOLOGY METHOD 03/13/2025 12:44 [facility] MCH 33.2(H) 27.0 - 32.0 pcg LAB HEMETOLOGY METHOD 03/13/2025 12:44 [facility] MCHC 32.4 32.0 - 37.0 g/dL LAB HEMETOLOGY METHOD 03/13/2025 12:44 PM [facility] RDW 14.5 11.0 - 15.0 % LAB HEMETOLOGY METHOD 03/13/2025 12:44 [facility] Platelets 340 130 - 400 K/mcL LAB HEMETOLOGY METHOD 03/13/2025 12:44 [facility] MPV 10.2 7.0 - 11.0 FL LAB HEMETOLOGY METHOD 03/13/2025 12:44 [facility] NRBC 0.0 <1.0 % LAB HEMETOLOGY METHOD 03/13/2025 12:44 PM [facility] NRBC Absolute 0.00 <0.10 K/mcL LAB HEMETOLOGY METHOD 03/13/2025 12:44 [facility] Neutrophils Relative 65.0 % LAB HEMETOLOGY METHOD 03/13/2025 12:44 PM [facility] LAB Lymphocytes Relative 23.8 % [facility] Mon[facility] Relative 8.6 % LAB HEMETOLOGY METHOD 03/13/2025 12:44 PM [facility] Eosinophils Relative 1.2 % LAB HEMETOLOGY METHOD 03/13/2025 12:44 PM [facility] Basophils Relative 1.0 % LAB HEMETOLOGY METHOD 03/13/2025 12:44 PM [facility] Immature Granulocytes Relative 0.4 % LAB HEMETOLOGY METHOD 03/13/2025 12:44 PM [facility] Neutrophils Absolute 4.39 1.50 - 7.00 K/mcL LAB HEMETOLOGY METHOD 03/13/2025 12:44 PM [facility] Lymphocytes Absolute 1.61 1.00 - 5.00 K/mcL LAB HEMETOLOGY METHOD 03/13/2025 12:44 PM [facility] Monocytes Absolute 0.58 0.20 - 1.00 K/mcL LAB HEMETOLOGY [facility] Eosinophils Absolute 0.08 0.00 - 0.50 K/mcL LAB HEMETOLOGY METHOD 03/13/2025 12:44 PM [facility] Basophils Absolute 0.07 0.00 - 0.20 K/mcL LAB HEMETOLOGY METHOD 03/13/2025 12:44 PM [facility] Immature Granulocytes Absolute 0.03 0.00 - 0.03 K/mcL LAB HEMETOLOGY METHOD 03/13/2025 12:44 PM EDT [facility] Blood Venous blood specimen / Unknown Venipuncture / Unknown 03/13/2025 10:27 AM EDT 03/13/2025 10:27 AM EDT Andrea GREEN LAB BLOOD ORDERABLES Janie l Result Performing Organization Address [facility] Co de Phone Number [facility] [address] [place] [address], [place] [phone] * Iron and TIBC (03/13/2025 10:27 AM EDT) Iron 81 50 - 160 mcg/dL LAB CHEMISTRY METHOD 03/13/2025 1:22 PM EDT [facility] Comment:Hemolysis present TIBC 282 250 - 450 mcg/dL LAB CHEMISTRY METHOD 03/13/2025 1:22 PM EDT [facility] Iron Saturation 29 20 - 50 % LAB CHEMISTRY METHOD 03/13/2025 1:22 PM EDT [facility] Blood Venous blood specimen / Unknown Venipuncture / Unknown 03/13/2025 10:27 AM EDT 03/13/2025 10:27 AM EDT Andrea GREEN LAB BLOOD ORDERABLES Janie l Result Performing Organization Address City/[facility]/ZIP Co de Phone Number [facility] [address] [place] [address], [place] [phone] * Ethanol (03/13/2025 10:27 AM EDT) Ethanol Level <3 0 - 10 mg/dL LAB CHEMISTRY METHOD 03/13/2025 1:22 PM EDT [facility] Blood Venous blood specimen / Unknown Venipuncture / Unknown 03/13/2025 10:27 AM EDT 03/13/2025 10:27 AM EDT us Andrea GREEN LAB BLOOD ORDERABLES Janie sandhu Result [facility] [address] [place] [address], [place] [phone] * (ABNORMAL) Comprehensive metabolic panel (03/13/2025 10:27 AM EDT) Sodium 139 133 - 145 mmol/L LAB CHEMISTRY METHOD 03/13/2025 1:22 PM [facility] Potassium 4.4 3.5 - 5.5 mmol/L LAB CHEMISTRY METHOD 03/13/2025 1:22 PM [facility] Comment:Hemolysis present Chloride 110 96 - 110 mmol/L LAB CHEMISTRY METHOD 03/13/2025 1:22 PM [facility] CO2 23 21 - 32 mmol/L LAB CHEMISTRY METHOD 03/13/2025 1:22 PM [facility] Anion Gap 6 3 - 11 LAB CHEMISTRY METHOD 03/13/2025 1:22 PM [facility] Glucose 99 70 - 100 mg/dL LAB CHEMISTRY METHOD 03/13/2025 1:22 PM [facility] BUN 16 5 - 25 mg/dL LAB CHEMISTRY METHOD 03/13/2025 1:22 PM [facility] Creatinine 1.72(H) 0.70 - 1.30 mg/dL LAB CHEMISTRY METHOD 03/13/2025 1:22 PM [facility] eGFR 42(L) >=60 mL/min/1. 73m2 LAB CHEMISTRY METHOD 03/13/2025 1:22 PM [facility] Comment:Calculation based on the Chronic Kidney Disease Epidemiology Collaboration (CKD-EPI) equation refit without adjustment for race. BUN/Creatinine Ratio 9.3 LAB CHEMISTRY METHOD 03/13/2025 1:22 PM [facility] Calcium 9.2 8.5 - 10.5 mg/dL LAB CHEMISTRY METHOD 03/13/2025 1:22 PM EDT [facility] AST (SGOT) 24 10 - 42 unit/L LAB CHEMISTRY METHOD 03/13/2025 1:22 PM EDT [facility] Comment:Hemolysis present ALT (SGPT) 19 10 - 60 unit/L LAB CHEMISTRY METHOD 03/13/2025 1:22 PM EDT [facility] Alkaline Phosphatase 71 42 - 121 unit/L LAB CHEMISTRY METHOD 03/13/2025 1:22 PM EDT [facility] Total Protein 7.1 6.0 - 8.0 g/dL LAB CHEMISTRY METHOD 03/13/2025 1:22 PM EDT [facility] Albumin 3.4 3.2 - 5.0 g/dL LAB CHEMISTRY METHOD 03/13/2025 1:22 PM [facility] Total Bilirubin 0.4 0.0 - 1.4 mg/dL LAB CHEMISTRY METHOD 03/13/2025 1:22 PM T [facility] Blood Venous blood specimen / Unknown Venipuncture / Unknown 03/13/2025 10:27 AM EDT 03/13/2025 10:27 AM EDT Andrea GREEN LAB BLOOD ORDERABLES Janie l Result [facility] [address] [place] [address], * CT Lung Screening (10/12/2024 11:57 AM EST) Anatomical Region Laterality Modality Chest Computed Tomogra phy 10/17/2024 5:37 AM EST Impressions 10/17/2024 5:50 AM EST No suspicious pulmonary nodules Lung RADS 2: Benign Appearance or Behavior - Continue annual screening with LDCT in 12 months. -------- FINAL REPORT -------- Dictated By: Bekah Zuleta Dictated Date: 10/17/2024 05:37 ET Assigned Physician: Bekah Zuleta Reviewed and Electronically Signed By: Bekah Zuleta Signed Date: 10/17/2024 05:50 ET Workstation ID: [id number] Transcribed By: Self Edit Transcribed Date: 10/17/2024 05:37 ET Narrative 10/17/2024 5:50 AM EST Indication: Greater than 20 total pack-year smoking history, asymptomatic former smoker Technique: Low-dose CT scan of the chest obtained as a lung cancer screening study. Multiplanar reformatted images were obtained. Dose reduction technique: ASIR (Adaptive statistical iterative reconstruction) and/or AEC (automated exposure control) DLP: 166 mGy-cm COMPARISON: September 2022. FINDINGS: Lack of intravenous contrast limits evaluation of the ivette, vascular structures and visualized abdominal viscera. Lungs/airways: Trachea and central airways are patent. Bronchial wall thickening. Atelectasis in the medial aspect of the right lower lobe; similar to prior. Patchy groundglass opacities/centrilobular nodules which may represent stigmata of prior postinfectious/postinflammatory process or bronchiolitis. Calcified granulomata. Trace bilateral pleural effusions. 3 mm solid nodule in the superior segment of the right lower lobe (image 118); similar to prior Base of the neck, mediastinum, heart, chest wall, vessels: The assessment of hilar lymphadenopathy is difficult without the use of IV contrast. Pacing device with sternotomy cerclage wires and vascular clips. Aortic valve prosthesis. Coronary artery calcifications. Nonenlarged mediastinal lymph nodes. Ectasia of the descending thoracic aorta. Upper abdomen: This study was performed without contrast and with lower than standard dose. These factors reduce the sensitivity for detection of small lesions in the upper abdomen. No significant abnormality is seen Bones/soft tissues: Degenerative changes Procedure Note Bekah Zuleta MD - 10/17/2024 Indication: Greater than 20 total pack-year smoking history, asymptomaticformer smoker Technique: Low-dose CT scan of the chest obtained as a lung cancerscreening study. Multiplanar reformatted images were obtained. Dosereduction technique: ASIR (Adaptive statistical iterative reconstruction)and/or AEC (automated exposure control) DLP: 166 mGy-cm COMPARISON: September 2022. FINDINGS: Lack of intravenous contrast limits evaluation of the ivette,vascular structures and visualized abdominal viscera. Lungs/airways: Trachea and central airways are patent. Bronchial wallthickening. Atelectasis in the medial aspect of the right lower lobe;similar to prior. Patchy groundglass opacities/centrilobular nodules which may representstigmata of prior postinfectious/postinflammatory process orbronchiolitis. Calcified granulomata. Trace bilateral pleural effusions. 3 mm solid nodule in the superior segment of the right lower lobe (); similar to prior Base of the neck, mediastinum, heart, chest wall, vessels: The assessmentof hilar lymphadenopathy is difficult without the use of IV contrast.Pacing device with sternotomy cerclage wires and vascular clips. Aorticvalve prosthesis. Coronary artery calcifications. Nonenlargedmediastinal lymph nodes. Ectasia of the descending thoracic aorta. Upper abdomen: This study was performed without contrast and with lowerthan standard dose. These factors reduce the sensitivity for detection ofsmall lesions in the upper abdomen. No significant abnormality is seen Bones/soft tissues: Degenerative changes IMPRESSION: No suspicious pulmonary nodules Lung RADS 2: Benign Appearance or Behavior - Continue annual screeningwith LDCT in 12 months. -------- FINAL REPORT -------- Dictated By: Bekah Zuleta Dictated Date: 10/17/2024 05:37 ET Assigned Physician: Bekah Zuleta Reviewed and Electronically Signed By: Bekah Zuleta Signed Date: 10/17/2024 05:50 ET Workstation ID: [id number] Transcribed By: Self Edit Transcribed Date: 10/17/2024 05:37 ET us Eduarda Chua MD [facility] [place] [place] CT PROCEDURES Final Result * (ABNORMAL) Lipid panel with reflex to direct LDL (09/26/2024 2:35 PM EST) Cholesterol 207(H) 0 - 200 mg/dL LAB CHEMISTRY METHOD 09/26/2024 7:09 PM EST [facility] Triglycerides 299(H) 0 - 150 mg/dL LAB CHEMISTRY METHOD 09/26/2024 7:[address] [facility] HDL 49 >=40 mg/dL LAB CHEMISTRY METHOD 09/26/2024 7:[address] [facility] LDL Calculated 98 0 - 100 mg/dL LAB CHEMISTRY METHOD 09/26/2024 7:[address] [facility] VLDL Cholesterol Rex 59.8 mg/dL LAB CHEMISTRY METHOD 09/26/2024 7:[address] [facility] Non HDL Chol. (LDL+VLDL) 158(H) <145 mg/dL LAB CHEMISTRY METHOD 09/26/2024 7:[address] [facility] Chol/HDL Ratio 4.2 0.0 - 4.4 LAB CHEMISTRY METHOD 09/26/2024 7:[address] [facility] Blood Venous blood specimen / Unknown Venipuncture / Unknown 09/26/2024 2:35 PM EST 09/26/2024 2:35 PM EST Niru Herron PA LAB BLOOD ORDERABLES Final Resul t [facility] [address] [place] [address], [place] [phone] * Hepatitis C antibody (07/06/2024 5:16 PM EST) Hepatitis C Antibody Negative Negative LAB CHEMISTRY METHOD 07/06/2024 8:49 PM EST [facility] Blood Venous blood specimen / Unknown Venipuncture / Unknown 07/06/2024 5:16 PM EST 07/06/2024 5:16 PM EST Hal Mendoza NP LAB BLOOD ORDERABLES Final Re sult [facility] [address] [place] [address], [place] [phone] * Hm Depression Screening (03/27/2024) Depression Screening Abstracted Historical Provider HEALTH MAINTENANCE Final Result * Falls Risk Assessment (08/26/2023) Pathologist [facility] Falls Risk Assessment Abstracted Historical Provider HEALTH MAINTENANCE Final Result * Colonoscopy (11/13/2020) Pathologist [facility] Colonoscopy No Interpretation , Abstracted Anatomical Region Laterality Modality Other Historical Provider HEALTH MAINTENANCE Final Result from Last 3 Months or Most Recently Relevant to Health Maintenance Insurance [facility] Member Subscriber Plan / Payer (Ef fective 2021-Present) Name:Valdez Khalil Jr Relation to Subscriber:Self Name:Valdez Khalil Jr. Payer ID:[id number] Group ID:[id number] Type:Not on file Address: 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 Health Care Decision (hx) 11/28/2017 AD SAPP DIRECTIVE Health Care Decision (hx) 11/28/2017 AD SAPP DIRECTIVE Health Care Decision (hx) 11/28/2017 AD SAPP DIRECTIVE Health Care Decision (hx) 11/28/2017 AD SAPP DIRECTIVE Health Care Decision (hx) 11/28/2017 AD SAPP DIRECTIVE Health Care Decision (hx) 11/28/2017 AD SAPP DIRECTIVE Health Care Decision (hx) 11/28/2017 AD SAPP DIRECTIVE Health Care Decision (hx) 11/28/2017 AD SAPP DIRECTIVE Health Care Decision (hx) 11/28/2017 AD SAPP DIRECTIVE Health Care Decision (hx) 11/28/2017 AD SAPP DIRECTIVE Health Care Decision (hx) 11/28/2017 AD SAPP DIRECTIVE Health Care Decision (hx) 11/28/2017 AD SAPP DIRECTIVE Health Care Decision (hx) 11/28/2017 AD SAPP DIRECTIVE Health Care Decision (hx) 11/28/2017 AD SAPP DIRECTIVE Health Care Decision (hx) 11/28/2017 AD SAPP DIRECTIVE Health Care Decision (hx) 11/28/2017 AD SAPP DIRECTIVE Health Care Decision (hx) 11/28/2017 AD SAPP DIRECTIVE Health Care Decision (hx) 11/28/2017 AD SAPP DIRECTIVE Health Care Decision (hx) 11/28/2017 AD SAPP DIRECTIVE Health Care Decision (hx) 11/28/2017 AD SAPP DIRECTIVE Health Care Decision (hx) 11/28/2017 AD SAPP DIRECTIVE Health Care Decision (hx) 11/28/2017 AD SAPP DIRECTIVE Health Care Decision (hx) 11/28/2017 AD SAPP DIRECTIVE Health Care Decision (hx) 11/28/2017 AD SAPP DIRECTIVE Health Care Decision (hx) 11/28/2017 AD SAPP DIRECTIVE Health Care Decision (hx) 11/28/2017 AD SAPP DIRECTIVE Health Care Decision (hx) 11/28/2017 AD SAPP DIRECTIVE Health Care Decision (hx) 11/28/2017 AD SAPP DIRECTIVE Health Care Decision (hx) 11/28/2017 AD SAPP DIRECTIVE Health Care Decision (hx) 11/28/2017 AD SAPP DIRECTIVE Health Care Decision (hx) 11/28/2017 AD SAPP DIRECTIVE Health Care Decision (hx) 11/28/2017 AD SAPP DIRECTIVE Health Care Decision (hx) 11/28/2017 AD SAPP DIRECTIVE Health Care Decision (hx) 11/28/2017 AD SAPP DIRECTIVE Health Care Decision (hx) 11/28/2017 AD SAPP DIRECTIVE Health Care Decision (hx) 11/28/2017 AD SAPP DIRECTIVE Health Care Decision (hx) 11/28/2017 AD SAPP DIRECTIVE Health Care Decision (hx) 11/28/2017 AD SAPP DIRECTIVE Health Care Decision (hx) 11/28/2017 AD SAPP DIRECTIVE Health Care Decision (hx) 11/28/2017 AD SAPP DIRECTIVE Health Care Decision (hx) 11/28/2017 AD SAPP DIRECTIVE Health Care Decision (hx) 11/28/2017 AD SAPP DIRECTIVE Health Care Decision (hx) 11/28/2017 AD SAPP DIRECTIVE Health Care Decision (hx) 11/28/2017 AD SAPP DIRECTIVE Health Care Decision (hx) 11/28/2017 AD SAPP DIRECTIVE Health Care Decision (hx) 11/28/2017 AD SAPP DIRECTIVE Care Teams Medical Research Associate Relationship Specialty Start Date End Date Andrea Huitron PA [address] [place] [address] PCP - General Internal Medicine 07/07/24
--- OUTSIDE RECORDS SUMMARY | 2025-05-14 18:24 | XMS_ITS | Encounter Summary ---
Author Organization [facility] Address [address] [place] [address] Encounters * CPT with Medical instED at [employer] on 2025-04-06 { reasonForRequest : cough , patientReports : Cough, fever greater than 2 days ; History of asthma, increased use of inhaler; COPD; Cough , denies :[& quot;Increased work of breathing/labored with or without fever , Unable to speak in full sentences without distress , Discoloration of skin -cyanosis , Needs to sleep sitting up, can t catch breath , Shortness of breath in setting of confusion ,"Lower extremity swelling , COVID Exposure , Sputum increase , Shortness of breath with exertion , Pain with inspiration ], chiefComplaints :&q uot;Cough , pmh : Hypertension, COPD/Asthma , allergies : Li sinopril , otherAllergies : , painAssessment : ,&quot ;visitOutcome : , additionalComments : 69 y.o male complains of Cough \n\nProductive cough x1 week - clear thin \nDenies headache, fever, shortness of breath, chest pain\nMuscles in chest sore from frequent coughing\nDenies recent sick contact \nTaking prescribed inhaler and OTC cough syrup and cough drops with no effect\nRequesting instED visit \n\n\nI provided information on the mobile health provider response time and advised the patient and/or caregiver to monitor reported signs and symptoms. I discussed the warning signs of when to seek emergency care. } MASHA responds to the listed address for a 69 yom w/ a c/c of cough. Upon arrival on scene, pt calls to [facility] from inside his apartment to come in. He is sitting on the sofa w/ his head resting in his hand. He is generally well appearing w/ p/w/d skin. He is not in acute distress, no stridor or sonorous respirations are present. He is tracking [facility] on approach and no facial droop or one-sided weakness are observed. Pt is able to answer questions appropriately and hasno teeth, so his speech is slightly slurred at baseline. Pt is endorsing a dry hacking cough for about a week. He is coughing up thin, clear mucous when he does get something up and his chest wall muscles are getting sore from all the coughin' . Pt is denying any recent sick contacts. He denies fevers/chills, night sweats, n/v/d, sob, abd pain, and bladder/bowel issues. He says he has been tryin' everthin' and nothing is working. He is not sleeping well due tothe cough. He has a hx of aortic valve replacement, COPD, and seasonal allergies. Pt consents to evaluation and treatment today. [facility] obtains pt consent. Vital signs are gathered and pt is assessed. Physical exam is unremarkable and lung sounds are mildly diminished, but clear to auscultation bilaterally. Aortic valve can be heard clearly w/ auscultation of heart sounds and abdomen is benign. [facility] contacts [facility] and discusses the above. [facility] recommends Robitussin DM and/or Tessalon pearls. [facility] asks pt's opinion about what he wants and he says the pearls did not work for him previously, but he is willing to try the Robitussin.[facility] orders a trial of a duoneb to r/o reactive airway issue. [facility] administers one duoneb w/ a neb pipe at 8 lpm. Pt's lung sounds improve and he subjectively feels he can breathe better and his coughing has dissipated. He is excited to try the ipatropium inhaler w/ spacer that [facility] prescribes. [facility] gives pt a brief instruction on how to use the spacer and informs him of the warning signs of when to seek emergency care. Pt thanks [facility] for coming. [facility] is clear. Report completed by RAUDEL Caba [id number]. ORAL_MEDICATION, POC_FLU_STREP, COVID_TEST Written by [email or web address] [facility] on 2025-04-06
--- OUTSIDE RECORDS SUMMARY | 2025-05-14 18:24 | XMS_ITS | Clinical Summary ---
Author Organization [facility] Address [address] [place] [address] Phone Care Team Providers Care Family Program Specialist Name Role Phone Andrea Huitron PA-C Primary [...] TABLETS BY MOUTH EVERY DAY DIRECTED BY [facility] 3 Active DULoxetine (CYMBALTA) 20 MG [...] 2 - PCV) 03/08/2021 03/08/2020 Influenza Vaccine (#1) 2025 3, 05/27/2022, 07/01/2021, Additional history exists Pneumococcal Vaccine: Peds (0 to 5 Years) and At-Risk Patients (6 to 49 Years) Discontinued 03/08/2020 Hepatitis B Vaccine Aged Out No longe r eligible based on patient's age to complete this topic Insurance ([id number]) [place] [address] ([id number]) Care Teams Family Program Specialist Relationship Specialty Start Date End Date Andrea Huitron PA-C PCP - General Physician Rock Room Worker 05/11/21
--- OUTSIDE RECORDS SUMMARY | 2025-05-14 18:24 | XMS_ITS | Clinical Summary ---
Author Organization [address] Address [address] [place] [address] Phone Care Team Providers Care Health Promoter Name Role Phone No, Pcp (Do Not Change Name) Primary Care Provid er Unavailable Allergies No known active allergies Medications metoprolol (TOPROL-XL) 50 MG 24 hr tablet Take 50 mg by mouth daily. Take with or immediately following a meal. Active hydrOXYzine (VISTARIL) 50 MG capsule Take 50 mg by mouth 2 (two) times daily. Active traZODone (DESYREL) 50 MG tablet Take 50 mg by mouth nightly. Active Active Problems Problem Noted Date Diagnosed Date Depression 10/10/2012 COPD (chronic obstructive pulmonary disease) (HC Code) 10/10/2012 Alcohol dependence 10/10/2012 Alcohol withdrawal (HC Code) 10/10/2012 Hypertension 10/08/2012 Social History Tobacco Use Types Packs/Day Years Used Date Smoking Tobacco: Some Days Cigarettes Tobacco Cessation:Ready to Q uit: No Alcohol Use Standard Drinks/Week Comments Yes 0 (1 standard drink = 0.6 oz pur e alcohol) does not know Sex and Gender Information Value Date Recorded Sex Assigned at Not on file Legal Sex Male 7:25 AM EST Gender Identity Not on file Sexual Orientation Not on file Last Filed Vital Signs Vital Sign Reading Time Taken Comments Blood Pressure 156/104 11/02/2012 11:10 AM EDT Pulse 90 11/02/2012 11:10 AM EDT Temperature 36.4 C (97.5 F) 11/02/2012 11:10 AM EDT Respiratory Rate 18 10/21/2012 1:08 PM EST Oxygen Saturation 98% 11/02/2012 11:10 AM EDT Inhaled Oxygen Concentration - - Weight 95 kg (209 lb 8 oz) 11/02/2012 11:10 AM E DT Height 180.3 cm (5' 11 ) 11/02/2012 11:10 AM EDT Body Mass Index 29.22 11/02/2012 11:10 AM EDT Plan of Treatment Health Maintenance Due Date Last Done Comments HIV screening 1968 Hepatitis C screening 1973 Tetanus adult (Td q 10,TDAP once) 1975 Lipid disorder screening 1995 Colon cancer screening, Colonoscopy 2000 Pneumococcal Vaccine (50+ years) (1 of 1 - PCV) 2005 Shingles vaccine (Shingrix) (1 of 2 - Shingrix (RZV) 2 Dose Standard Series) 2005 Diabetes screening 10/11/2015 10/11/2012, 0 10/10/2012, 10/09/2012, Additional history exists Influenza vaccine 03/22/2025 Covid-19 vaccine series () 04/22/2025 RSV Immunization (1 - 1-dose 75+ series) 2030 Meningococcal B Vaccine Aged Out No l onger eligible based on patient's age to complete this topic Meningococcal Vaccine Aged Out No roz toy eligible based on patient's age to complete this topic Procedures Procedure Name Priority Date/Time Associated Diagnosis Comments BASIC METABOLIC PANEL Timed 10/11/2012 4:52 AM EST from Last 3 Months or Most Recently Relevant to Health Maintenance Results * Basic metabolic panel (10/11/2012 4:52 AM EST) Glucose 89 70 - 100 mg/dL [facility] BUN 12 7 - 20 mg/dL [facility] Creatinine 1.0 0.5 - 1.2 mg/dL [facility] BUN/Creatinine Ratio 12.0 10.0 - 20.0 [facility] Anion Gap 10 7 - 16 [facility] CO2 22.9 22.0 - 30.0 mmol/L [facility] Chloride 104 96 - 106 mmol/L [facility] Sodium 137 135 - 145 mmol/L [facility] Potassium 3.6 3.5 - 5.0 mmol/L [facility] Blood specimen (specimen) 10/11/2012 4:52 AM EST us Anna GREEN LAB BLOOD ORDERABLES Final Result [facility] [address] [place] [id number] from Last 3 Months or Most Recently Relevant to Health Maintenance Advance Directives * Full Interventions (Latest Code Status on File) Date Activated Date Inactivated Comments 10/07/2012 10:34 PM 10/11/2012 2:58 PM Care Teams Health Promoter Relationship Specialty Start Date End Date No, Pcp (Do Not Change Name) PCP - General 10/06/12
== END 2025-05-14 16:36 | disposition home or self-care (01) ==
LOC: HO.HPS 15:40
PROVIDERS: PCP Physician Assistant Medical; Visit Provider Internal Medicine
DX: J44.9 Chronic obstructive pulmonary disease, unspecified (principal)
CPT/HCPCS: 94010; 99204

== ENCOUNTER → 2025-05-14 15:39 | Outpatient (BNVA) | payer OTHER, SELFPAY | PROVIDERS: PCP Physician Assistant Medical; Visit Provider Internal Medicine | DX: J98.4 Other disorders of lung (principal); J44.9 Chronic obstructive pulmonary disease, unspecified; R05.8 Other specified cough; Z87.891 Personal history of nicotine dependence | CPT/HCPCS: 94010; 99202 ==

== ENCOUNTER 2025-06-06 09:25 | Outpatient (AMB) | payer OTHER, SELFPAY ==
--- NOTE | 2025-06-06 09:42 | A.OFFVIS_ITS ---
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 Diagnosis was made in December of 2020 when he presented with bilateral leg numbness, and weakness. EMG/NCS revealed axonal and demylinating type peripheral neuropathy. CSF protein was 145. He was treated wtih prednisone and ivIg.IVIG was helping him to maintain strength andminimize leg pain. He is presenting with complaints of inadequate control of neuropathic pain mainly in his legs and hands. He has been managing his symptoms with 100 mg of gabapentin but reports this dose is insufficient. He also tried increasing the dosage, finding no significant benefit. Current symptoms include pain in the legs and hands with no significant impact on the feet, along with phantom sensa tions. He has been taking duloxetine and there are discussions regarding increasing its dosage. A previous prescription for prednisone was not taken due to availability issues. The patient seeks adjustments to better manage his symptoms. [facility] Medical History (Updated 06/06/25 @ 09:44 by Kelley De Paz MD) Restrictive lung disease Cough present for greater than 3 weeks History of smoking at least 1 pack per day for at least 30 years COPD (chronic obstructive pulmonary disease) HTN (hypertension) Chronic inflammatory demyelinating polyneuropathy Pacemaker Surgical History Heart valve replaced Social History Patient Tobacco Use Status: Former Tobacco user Review of Systems Const Details: - Neurologic: Reports neuropathy, pain in legs and hands; denies pain in feet. - Musculoskeletal: Reports leg and hand pain. - General: Reports fatigue. - Psychiatric: Reports sensation experiences in eyes and hands. Physical Exam Neuro Other: Mental Status: Alert and oriented to person, place, and time. Normal attention. Normal spontaneous speech, fluency, and comprehension. No obvious issues with mood and memory. Affect is appropriate. Cranial Nerves: CN II: Visual jay full to confrontation, visual acuity intact. CN III, IV, : Pupils equal, round, reactive to light and accommodation. Extraocular movements are normal. CN V: Facial sensation is normal. CN VII: Facial movements symmetrical. CN VIII: Hearing intact to bedside conversation is normal. CN IX, X: Palate elevates symmetrically. CN XI: Shoulder shrug and head turn symmetrical. CN XII: Tongue midline without atrophy or fasciculations. Speech: Normal; no dysarthria or tremor. Assessment & Plan Assessment & Plan (1) Neuropathic pain: Code(s): M79.2 - Neuralgia and neuritis, unspecified Category: Medical (2) Chronic inflammatory demyelinating polyneuropathy: Comment: Meds tried for leg pain: gabapentin, duloxetine, carbamazepine NCV/EMG LEs in off in Oct 2022: Moderate to severe sensory and motor peripheral neuropathy with features of demyelination and axonal loss. NCV/EMG all 4 in December 2020: Moderate to sever sensory and motor peripheral neuropathy with features of demyelinating and axonal loss. Labs at [facility] in January 2021: RPR, RF, CMP, HIV, Lyme, ESR, IF, RED ok. B12 262, Folate ok CSF analysis at [facility] in January 2021: OP 14cm, WBCs 0, RBCs 451, Glu 48, Pro 145.2. Code(s): G61.81 - Chronic inflammatory demyelinating polyneuritis Category: Medical Plan Impression: 1. Chronic inflammatory demyelinating polyneuropathy 2. Neuropathic pain related to neuropathy Recommendations: 1. Prednisone 2.5 mg daily 2. Duloxetine 30 mg daily 3. Gabapentin 300 mg 3 times a day 4. IVIG 400 mg per kg for 5 days on periodic basis, as needed Medications: New gabapentin 300 mg PO TID 270 caps 0RF Changed From prednisone 2.5 mg PO DAILY PRN To prednisone 2.5 mg PO DAILY 90 tabs 0RF Refilled duloxetine 30 mg PO DAILY 90 caps 0RF Discontinued gabapentin Discontinued Reason: Doctor's Order 100 mg PO TID 270 caps 0RF Coding Level of Care Code Est Pt Level 4 (91620) Diagnoses Neuropathic pain M79.2 Chronic inflammatory demyelinating polyneuropathy G61.81
--- OUTSIDE RECORDS SUMMARY | 2025-06-06 10:43 | XMS_ITS | Encounter Summary ---
Author Organization [facility] Address [address] [place] [address] Care Team Providers Care Director Product Name Role Phone Andrea Huitron Primary Care Provider [phone] Reason for Visit * Reason Onset Date Comments Prior Authorization 05/23/2025 Encounter Details Date Type Department Care Team ([facility] st Contact Info) Description 05/23/2025 Telephone Adult Medicine [address] [phone] Andrea Huitron PA [address] [place] [phone] Social History Tobacco Use Types Packs/Day Years [...] for your loved ones. For example, children's minister or elderly care for an older adult? [...] Date Recorded What is your living situation? Unrecognized valu e 07/13/2024 Sex and Gender Information Value Date Recorded [...] Author No 12/28/2024 11:39 AM EDT José Miugel Oneil RN documented as of this encounter Mental Status * Because of a physical, mental, or emotional condition, do you have serious difficulty concentrating, remembering, or making decisions? (5 years old or older) Answer Entry Date Author No 12/28/2024 11:39 AM EDJosé Miguel Schneider RN documented in this encounter Progress Notes * Татьяна Denney MA - 05/23/2025 1:15 PM EDT PA for modafinil approved from 02/22/2025-05/23/2026 * Татьяна Denney MA - 05/23/2025 9:04 AM EDT PA for Modafinil initiated on cmm Dx G47.33 * Marcos Navarrete - 05/23/2025 8:43 AM EDT Prior Authorization for Medication-do not complete and send this encounter unless you have the fax from the pharmacy. Is this a Cover My Meds request: Yes -- Meyer Code [id number] Name of Medication modafiniL (PROVIGIL) 100 mg tablet Sig: TAKE 1 TABLET (100 MG TOTAL) BY MOUTH 1 (ONE) TIME EACH DAY. MAX DAILY AMOUNT: 100 MG Sent to pharmacy as: modafiniL 100 mg tablet (PROVIGIL) Class: Normal Notes to Pharmacy: Not to exceed 5 additional fills before 10/08/2025 DX Code: G47.33 Route: oral E-Prescribing Status: Receipt confirmed by pharmacy (05/09/2025 1:06 PM EDT) What Pharmacy did the fax come from: [facility] fax #: [phone] documented in this encounter Plan of Treatment Upcoming Encounters Date Type Department Care Team (Late st Contact Info) Description 06/18/2025 8:15 AM EDT Appointment [facility] Nuclear Medicine [address] [place] [phone] 06/20/2025 1:15 PM EDT Office Visit Adult Medicine [facility] [address] [place], [place] [phone] Abimbola Rice PA [address] [place], [place] documented as of this encounter Visit Diagnoses Not on filedocumented in this encounter Additional Health Concerns Assessment Noted Time A fall risk assessment has been complete d for the patient 11/07/2024 11:28 AM EDT documented as of this encounter Care Teams Director Product Relationship Specialty Start Date End Date Andrea Huitron PA [address] [place] [address] PCP - General Internal Medicine 07/07/24 documented as of this encounter
--- OUTSIDE RECORDS SUMMARY | 2025-06-06 10:43 | XMS_ITS | Clinical Summary ---
Author Organization [facility] Address [address] [place] [address] Care Team Providers Care Environmental Communications Specialist Name Role Phone Rocky Saha Primary Care [...] Annual Screening 08/22/2024 COVID-19 Vaccine (1 - 2024- season) 2025 Influenza Vaccine (#1) 2025 , 06/17/2019, 06/21/2018, Additional history exists Hepatitis B Vaccines Aged Out No long er eligible based on patient's age to complete this topic Insurance [employer] Care Teams Environmental Communications Specialist Relationship Specialty Start Date End Date Rocky Saha PCP - General Internal Medicine 08/05/20
--- OUTSIDE RECORDS SUMMARY | 2025-06-06 10:43 | XMS_ITS | Encounter Summary ---
Author Organization [facility] Address [address] [place] [address] Care Team Providers Care New Car Get Ready Mechanic Name Role Phone Andrea Huitron Primary Care Provider [phone] Reason for Visit * Reason Onset Date Comments Medication Problem 05/08/2025 Encounter Details Date Type Department Care Team ([facility] st Contact Info) Description 05/08/2025 Telephone Adult Medicine [address] [phone] Andrea Huitron PA [address] [place] [phone] Social History Tobacco Use Types Packs/Day Years [...] care for your loved ones. For example, childcare teacher or elderly care for an older adult? [...] before doing so. He is seen at [facility]. Who is calling about the problem? : [...] Info) Description 06/18/2025 8:15 AM EDT Appointment [facility] Nuclear Medicine [address] [place] [phone] 06/20/2025 1:15 PM EDT Office Visit [facility] Medicine [address], [place] [phone] Abimbola Rice PA [address] [place], [place] documented as of this encounter Visit Diagnoses Not on filedocumented in this encounter Additional Health Concerns Assessment Noted Time A fall risk assessment has been complete d for the patient 11/07/2024 11:28 AM EDT documented as of this encounter Care Teams New Car Get Ready Mechanic Relationship Specialty Start Date End Date Andrea Huitron PA [address] [place], [place] PCP - General Internal Medicine 07/07/24 documented as of this encounter
--- OUTSIDE RECORDS SUMMARY | 2025-06-06 10:43 | XMS_ITS | Encounter Summary ---
Author Organization [facility] Address [address] [place] [address] Care Team Providers Care Police Commanding Officer Name Role Phone Andrea Huitron Primary Care Provider [phone] Encounter Details Date Type Department Care Team (Late st Contact Info) Description 03/22/2025 Lab Requisition [facility] - Main Lab [address] [facility] [place] [phone] Rosa Elena Lyn PA [address] [place] [address] Benign essential microscopic hematuria Social History Tobacco [...] for your loved ones. For example, child care coordinator or elderly care for an older adult? [...] Info) Description 06/18/2025 8:15 AM EDT Appointment [facility] Nuclear Medicine [address] [place] [phone] 06/20/2025 1:15 PM EDT Office Visit Adult Medicine [facility] [address] [place], [place] [phone] Abimbola Rice PA [address] [place] [address] documented as of this encounter Procedures Procedure Name Priority Date/Time Associated Diagnosis Comments NON-GYNECOLOGIC CYTOLOGY Routine 03/14/2025 12:00 AM EDT Benign essential microscopic hematuria documented in this encounter Results * Non-gynecologic cytology (03/14/2025 12:00 AM EDT) Final Diagnosis A. Urine, Voided, ([id number]): Negative for high grade urothelial carcinoma. Results of UroVysion fluorescence in situ hybridization (FISH) testing: CEP3: Normal CEP7: Normal CEP17: Normal LSI 9p21: Normal Interpretation: Normal profile Controls stained appropriately. Note: The results are intended as a screening device and should be interpreted in association with other clinical and pathological findings. 04/02/2025 9:02 AM EDT [facility] Specimen A Adequacy Satisfactory for evaluation 04/02/2025 9:02 AM [facility] Clinical Information Benign essential microscopic hematuria R31.1 Urine Cytology/FISH (now) 04/02/2025 9:02 AM EDT [facility] Gross Description A. Urine, Voided, ([id number]): Received one ThinPrep slide for cytology and one ThinPrep slide for UroVysion FISH 04/02/2025 9:02 AM EDT [facility] Disclaimer Unless otherwise specified, all tissue is 10% NB formalin fixed and paraffin embedded. Technical pathology services provided by [facility] at [address] [facility] [address], [place] [address] (CLIA #[id number]/Isela Galicia MD, Telephone Order Supervisor) 04/02/2025 9:02 AM EDT [facility] Urine Urine specimen from urethra / Unknown 03/14/2025 03/22/2025 1:57 PM EDT us Rosa Elena [facility] CYTOLOGY ORDERABLES Final Result [facility] [address] [place] [address], documented in this encounter Visit Diagnoses Diagnosis Benign essential microscopic hematuria documented in this encounter Additional Health Concerns Assessment Noted Time A fall risk assessment has been complete d for the patient 11/07/2024 11:28 AM EDT documented as of this encounter Care Teams Police Commanding Officer Relationship Specialty Start Date End Date Andrea Huitron PA [address] [place] [phone] PCP - General Internal Medicine 07/07/24 documented as of this encounter
--- OUTSIDE RECORDS SUMMARY | 2025-06-06 10:43 | XMS_ITS | Clinical Summary ---
Author Organization [facility] Address [address] [place] [address] Phone Care Team Providers Care Kiln Placer Name Role Phone Andrea Huitron Primary Care Provider [phone] Allergies Active Allergy Reactions Criticality Noted Date [...] TABLETS BY MOUTH EVERY DAY DIRECTED BY [facility] 04/12/20 22 Active DULoxetine (CYMBALTA) 30 [...] capsule. 180 each 3 03/13/20 25 Active guaiFENesin-cod eine (ROBITUSSIN-AC) 100-10 mg/5 mL syrup Take 5 mL by mouth every 6 (six) hours if needed for cough. Max Daily Amount: 20 mL 750 mL 04/10/20 Active ferrous sulfate 325 mg (65 mg elemental iron) tablet TAKE 1 TABLET BY MOUTH EVERY DAY 90 tablet 1 05/02/20 25 Active modafiniL (PROVIGIL) 100 mg tabletIndicatio ns:MARY (obstructive sleep apnea) TAKE 1 TABLET (100 MG TOTAL) BY MOUTH 1 (ONE) TIME EACH DAY. MAX DAILY AMOUNT: 100 MG 30 tablet 05/09/20 25 025 Active metoclopramide (REGLAN) 5 mg tablet Take 1 tablet (5 mg total) by mouth 4 (four) times a day (before meals and nightly). 240 each 05/15/20 25 025 Active metoclopramide (REGLAN) 5 mg tablet Take 1 tablet (5 mg total) by mouth 4 (four) times a day. 240 each 03/19/20 25 025 Discontinued modafiniL (PROVIGIL) 100 mg tabletIndicatio ns:MARY (obstructive sleep apnea) Take 1 tablet (100 mg total) by mouth 1 (one) time each day. Max Daily Amount: 100 mg 30 tablet 04/11/20 25 025 Discontinued predniSONE (DELTASONE) 20 mg tablet Take 2 tablets (40 mg total) by mouth 1 (one) time each day for 5 days. 10 each 05/27/20 25 025 Active Problems Problem Noted Date Diagnosed Date MARY (obstructive sleep apnea) 06/25/2024 Iliac artery aneurysm, bilateral ([facility] V24) 0 01/21/2023 ETOH abuse 04/09/2022 Iron deficiency anemia 12/14/2021 Nocturnal hypoxemia 11/16/2021 Overview (07/02/2024): [facility] Home sleep test 11/03/2021 weight 245; BMI 34. AHI 3 with all hypopneas. Average oxygen saturation 90% with oxygen theodora 83%. Oxygen saturations less than 88% for 21% of the study (67 minutes). Nocturnal hypoxemia based on 2021 home sleep study without sleep apnea diagnosis. Last Assessment & Plan: 2L sent to [facility]. Aortic aneurysm ([facility] V24) 08/11/2021 Overview (07/02/2024): Last Assessment & Plan: -Status post aortic root graft repair at the time of the aortic valve replacement in November 2018, Aorta was documented to be normal in size on last echocardiogram from July 2021 Left heart failure ([facility] V24, [facility] V28) PVC's (premature ventricular contractions) 08/07 SOB (shortness of breath) 08/07/2021 CIDP (chronic inflammatory d emyelinating polyneuropathy) ([facility] V24, [facility] V28) 06/23/2021 Overview (07/02/2024): Dr. De Paz's note scanned into chart 05/2021, treated with IVIG and was better. On immunoglobulin solution, prednisone Ventricular tachycardia (par oxysmal) ([facility] V24, [facility] V28) 03/09/2021 Overview (07/02/2024): Last Assessment & Plan: Status post VT ablation in February 2021. Holter monitor does not show any sustained arrhythmias. Continue suppression with amiodarone. PFTs, LFTs, TFTs stable. Peripheral polyneuropathy 02/26/2021 DDD (degenerative disc disease), cervical 2020 DDD (degenerative disc disease), lumbar 01/03/20 Vitamin D deficiency 01/02/2021 Chronic combined systolic an d diastolic heart failure ([facility] V24, [facility] V28) 11/14/2020 Overview (07/02/2024): Last Assessment & [...] this is okay or not. Dilated cardiomyopathy ([facility] V24, CMS/HCC V28 ) 07/28/2020 Overview (07/02/2024): [...] mural thrombus 10/10/2018 AAA (abdominal aortic aneurysm) ([facility] V24) Overview (07/02/2024): 3.5 - 01/2023 Kidney cyst, acquired 09/05/2018 Overview (07/02/2024): Right sided 3.2 cm cyst, benign appearing; f/u sono in aug 2019 showed slightly decreased in size. Repeat sono in aug 2020 Chronic cough 09/20/2017 Chronic obstructive pulmonar y disease ([facility] V24, [facility] V28) 06/10/2017 Allergic rhinitis 05/25/2017 Asthma 05/25/2017 Congestive heart failure wit h left ventricular systolic dysfunction ([facility] V24, [facility] V28) 05/25/2017 Overview (07/02/2024): ECHO 2014 LVEF 15-20% Follows with Dr. Nury NELSON S/p cardiac cath 04/2015 History of alcohol abuse 05/25/2017 CKD (chronic kidney disease) stage 3, GFR 30-59 ml/min ([facility] V24, [facility] V28) 05/19/2017 Overview (07/02/2024): Sees dr. Aguilera Hyperlipidemia 05/20/2008 Overview (07/02/2024): Last Assessment & Plan: Last lipid panel from June 2021 revealing a total cholesterol 172, HDL 40, LDL 102. Continue statin therapy. Cocaine abuse, in remission ([facility] V24, [facility]/ C V28) 03/05/2008 Essential hypertension 05/18/2005 Overview (07/02/2024): Last Assessment & Plan: 140/70 in office today, Mildly elevated in the setting of volume overload. Continue regimen as above. Encounters Date Type Department Care Team Description 05/27/2025 3:04 PM EDT - 05/27/2025 11:59 PM EDT Hospital Encounter [facility] [address] [place] [address] Subacute cough Discharge Disposition: Home or Self Care 05/27/2025 2:45 PM EDT Office Visit Walk-In Clinic - [address] [phone] Hal Mendoza, [place] Subacute cough (Primary Dx) 05/27/2025 Telephone Adult Medicine [address] [phone] Andrea Huitron, PA 05/23/2025 Telephone Adult Medicine [address] [phone] Andrea Huitron PA 05/21/2025 Telephone Adult Medicine [address] [phone] Andrea Huitron, PA 05/08/2025 Telephone Adult Medicine [address] [phone] Andrea Huitron PA 04/16/2025 Telephone Adult Medicine [address] [phone] Andrea Huitron PA 04/05/2025 Telephone Adult Medicine [address] [phone] Andrea Huitron PA 04/03/2025 Telephone Adult Medicine [address] [phone] Andrea Huitron PA 03/26/2025 Telephone Pulmonology [facility] [address] [phone] Amee Jones NP 03/22/2025 Lab Requisition [facility] Main Lab [address] [facility] [place] [phone] Rosa Elena Lyn PA Benign essential microscopic hematuria 03/19/2025 2:40 PM EDT Office Visit Gastroenterology [facility] [address] [phone] Savanna Dumont NP Early satiety (Primary Dx); Chronic nausea; Abdominal bloating; Gastroesophageal reflux disease without esophagitis 03/13/2025 9:30 AM EDT Office Visit Adult [address] [phone] Andrea Huitron PA Hospital discharge follow-up (Primary Dx); ETOH abuse; Alcoholic encephalopathy ([facility]CC V24); Gastroesophageal reflux disease without esophagitis; Chronic obstructive pulmonary disease, unspecified COPD type (CMS/HCC V24, CMS/HCC V28); Stage 3a chronic kidney disease (CMS/HCC V24, CMS/HCC V28); CIDP (chronic inflammatory demyelinating polyneuropathy) (CMS/HCC V24, CMS/HCC V28); Chronic combined systolic and diastolic heart failure (CMS/HCC V24, CMS/HCC V28) from Last 3 Months Immunizations Immunization Administration Dates Next Due COVID-19 (Pfizer/Comirnaty) 12yo [...] HISTORICAL ICD OTHER SURGICAL HISTORY 09/2008 PROCEDURE: DC RPLCMT AORTIC VALVE ANNULUS ENLGMENT NONC SINUS; COMMENT: 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 smith VENTRAL HERNIA REPAIR 02/07/2023 PROCEDURE: HISTORICAL VTRL WALL HERNIA RE; COMMENT: Incisional hernia repair Dr. Tracey Medical History Medical History Date Comments Presence of cardiac defibrillator 08/09/2019 DX:Presence of cardiac defibrillator; COMMENT: History of decreased ejection fraction History of colon polyps DX:Histo ry of colon polyps COPD (chronic obstructive pu lmonary disease) (CMS/HCC V24, CMS/HCC V28) Hypertension Deficient knowledge of heart valve [...] for your loved ones. For example, child welfare social worker or elderly care for an older adult? [...] 3:34 PM EST Sexual Orientation Straight 10/26/2024 3 :34 PM EST Obstetrics History Last Filed Vital Signs Vital Sign Reading Time Taken Comments Blood Pressure 105/75 05/27/2025 2:55 PM EDT Pulse 74 05/27/2025 2:55 PM EDT Temperature 36.7 C (98.1 F) 05/27/2025 2:55 PM EDT Respiratory Rate 16 03/13/2025 9:24 AM EDT Oxygen Saturation 96% 05/27/2025 2:55 PM EDT Inhaled Oxygen Concentration - - Weight 111 kg (244 lb) 03/19/2025 2:55 PM EDT Height 180.3 cm (5' 11 ) 03/19/2025 2:55 PM EDT Body Mass Index 34.03 03/19/2025 2:55 PM EDT Plan of Treatment Upcoming Encounters Date Type Department Care Team (Late st Contact Info) Description 06/18/2025 8:15 AM EDT Appointment [facility] Nuclear Medicine [address] [place] [phone] 06/20/2025 1:15 PM EDT Office Visit Adult Medicine [facility] [address] [place], [place] [phone] Abimbola Rice PA [address] [place], [place] Health Maintenance Due Date Last Done Comments Hepatitis A Vaccines (1 of 2 - Risk 2-dose series) 1974 Zoster Vaccines (2 of 2) 05/21/2024 03/26/2024 [...] 04/29/2033 04/29/2023, 04/24/2013, 02/03/2001, Additional history exists Pneumococcal Vaccine: 50+ Years Completed 03/26/2024, 03/08/2020 Medicare Annual Wellness Visit Discontinued 03/27/2024 Hepatitis C Screening Completed 07/06/2024, 008 Influenza Vaccine Discontinued 05/05/2025, , 05/27/2022, Additional history exists RSV Immunization Adult Patients Completed 05/05/2025 HIB Vaccines Aged Out No longer eligi [...] Procedure Name Priority Date/Time Associated Diagnosis Comments XR CHEST 2 VIEWS STAT 05/27/2025 3:09 PM EDT Subacute cough HELICOBACTER PYLORI ANTIGEN, STOOL Routine 03/14/2025 12:24 [...] Recently Relevant to Health Maintenance Results * XR Chest 2 Views (05/27/2025 3:09 PM EDT) Anatomical Region Laterality Modality Body Radiographic Edith ging 05/27/2025 3:11 PM EDT Impressions 05/27/2025 3:20 PM EDT No evidence of an acute chest process. POS - [id number] -------- FINAL REPORT -------- Dictated By: Cynthia Foy Dictated Date: 05/27/2025 15:11 ET Assigned Physician: Cynthia Foy Reviewed and Electronically Signed By: Cynthia Foy Signed Date: 05/27/2025 15:20 ET Workstation ID: [id number] Transcribed By: Self Edit Transcribed Date: 05/27/2025 15:11 ET Narrative 05/27/2025 3:20 PM EDT EXAM: Chest x-ray HISTORY: Productive cough for 2 weeks. COMPARISON: 01/09/2025, 12/26/2023, 08/04/2023, and 12/14/2021, CT chest 10/10/2023 FINDINGS: PA and lateral views of the chest were performed. No focal infiltrate, pleural effusion, or evidence of pulmonary edema. Heart is top normal in size as before. Aortic valve prosthesis again noted. Stable position of the AICD lead entering from the left. Stable tiny ovoid radiodense device just posterior to the heart on the left side. Stable dilated tortuous appearance of the thoracic aorta which corresponds with known aneurysmal dilatation on CT. Mediastinal contours are unchanged. No compression deformities. Sternotomy wires. Chronic deformity and patchy sclerotic appearance of the partially imaged proximal right humerus. Procedure Note Cynthia Foy MD - 05/27/2025 EXAM: Chest x-ray HISTORY: Productive cough for 2 weeks. COMPARISON: 01/09/2025, 12/26/2023, 08/04/2023, and 12/14/2021, CT chest10/10/2023 FINDINGS: PA and lateral views of the chest were performed. No focal infiltrate, pleural effusion, or evidence of pulmonary edema.Heart is top normal in size as before. Aortic valve prosthesis againnoted. Stable position of the AICD lead entering from the left. Stabletiny ovoid radiodense device just posterior to the heart on the left side.Stable dilated tortuous appearance of the thoracic aorta which correspondswith known aneurysmal dilatation on CT. Mediastinal contours areunchanged. No compression deformities. Sternotomy wires. Chronic deformityand patchy sclerotic appearance of the partially imaged proximal righthumerus. IMPRESSION: No evidence of an acute chest process. POS - [id number] -------- FINAL REPORT -------- Dictated By: Cynthia Foy Dictated Date: 05/27/2025 15:11 ET Assigned Physician: Cynthia Foy Reviewed and Electronically Signed By: Cynthia Foy Signed Date: 05/27/2025 15:20 ET Workstation ID: [id number] Transcribed By: Self Edit Transcribed Date: 05/27/2025 15:11 ET Hal Mendoza STAKEHOLDER MANAGER IMG XR PROCEDURES Final Resul t * Helicobacter pylori antigen, stool (03/14/2025 12:24 PM EDT) Helicobacter Pylori Ag Not detected Not detected 03/19/2025 2:28 PM EDT [facility] Comment: This test was performed at [facility] using a chemiluminescent immunoassay intended for the [...] Food and Drug Administration. Test performed at [facility], [address] , [place] [address] Mary Galdamez MD, PhD - International Coordinator Stool Rectum structure / Unknown Non-blood Collection / Unknown 03/14/2025 12:24 PM EDT 03/14/2025 12:24 PM EDT Andrea GREEN LAB BODY FLUIDS AND STOOL S ORDERABLES Final Result [facility] [address] [place], [place] [id number] * Non-gynecologic cytology (03/14/2025 12:00 AM EDT) Final Diagnosis A. Urine, Voided, ([id number]): Negative for high grade urothelial carcinoma. Results of UroVysion fluorescence in situ hybridization (FISH) testing: CEP3: Normal CEP7: Normal CEP17: Normal LSI 9p21: Normal Interpretation: Normal profile Controls stained appropriately. Note: The results are intended as a screening device and should be interpreted in association with other clinical and pathological findings. 04/02/2025 9:02 AM EDT [facility] Specimen A Adequacy Satisfactory for evaluation 04/02/2025 9:02 AM T [facility] Clinical Information Benign essential microscopic hematuria R31.1 Urine Cytology/FISH (now) 04/02/2025 9:02 AM EDT [facility] Gross Description A. Urine, Voided, ([id number]): Received one ThinPrep slide for cytology and one ThinPrep slide for UroVysion FISH 04/02/2025 9:02 AM EDT [facility] Disclaimer Unless otherwise specified, all tissue is 10% NB formalin fixed and paraffin embedded. Technical pathology services provided by [facility] at [address], [place] [address] (CLIA #[id number]/Isela Galicia MD, International Coordinator) 04/02/2025 9:02 AM EDT [facility] Urine Urine specimen from urethra / Unknown 03/14/2025 03/22/2025 1:57 PM EDT us Rosa Elena GREEN LAB CYTOLOGY ORDERABLES Final Result [facility] [address] [place] [address], * (ABNORMAL) CBC auto differential (03/13/2025 10:27 AM EDT) [facility] WBC 6.8 4.8 - 10.8 K/mcL LAB HEMETOLOGY METHOD 03/[facility]20[facility] RBC 4.10(L) 4.50 - 5.50 M/mcL LAB HEMETOLOGY METHOD 03/13/2025 12:44 PM [facility] Hemoglobin 13.5 13.5 - 17.5 g/dL LAB HEMETOLOGY METHOD 03/13/2025 12:44 PM [facility] Hematocrit 41.7(L) 42.0 - 54.0 % LAB HEMETOLOGY METHOD 03/13/2025 12:44 PM [facility] MCV 102.5(H) 79.0 - 98.0 FL LAB HEMETOLOGY METHOD 03/13/2025 12:44 PM [facility] MCH 33.2(H) 27.0 - 32.0 pcg LAB HEMETOLOGY METHOD 03/13/2025 12:44 PM [facility] MCHC 32.4 32.0 - 37.0 g/dL LAB HEMETOLOGY METHOD 03/13/2025 12:44 PM [facility] RDW 14.5 11.0 - 15.0 % LAB HEMETOLOGY METHOD 03/13/2025 12:44 PM [facility] Platelets 340 130 - 400 K/mcL LAB HEMETOLOGY METHOD 03/13/2025 12:44 [facility] MPV 10.2 7.0 - 11.0 FL LAB HEMETOLOGY METHOD 03/13/2025 12:44 PM [facility] NRBC 0.0 <1.0 % LAB HEMETOLOGY METHOD 03/13/2025 12:44 PM [facility] NRBC Absolute 0.00 <0.10 K/mcL LAB HEMETOLOGY METHOD 03/13/2025 12:44 PM EDT [facility] Neutrophils Relative 65.0 % LAB HEMETOLOGY METHOD 03/13/2025 12:44 PM [facility] Lymphocytes Relative 23.8 % LAB HEMETOLOGY METHOD 03/13/2025 12:44 PM [facility] Monocytes Relative 8.6 % LAB HEMETOLOGY METHOD 03/13/2025 12:44 PM [facility] Eosinophils Relative 1.2 % LAB HEMETOLOGY METHOD 03/13/2025 12:44 PM [facility] Basophils Relative 1.0 % LAB HEMETOLOGY METHOD 03/13/2025 12:44 PM [facility] Immature Granulocytes Relative 0.4 % LAB HEMETOLOGY METHOD 03/13/2025 12:44 PM [facility] Neutrophils Absolute 4.39 1.50 - 7.00 K/mcL LAB HEMETOLOGY METHOD 03/13/2025 12:44 PM [facility] Lymphocytes Absolute 1.61 1.00 - 5.00 K/mcL LAB HEMETOLOGY METHOD 03/13/2025 12:44 PM [facility] Monocytes Absolute 0.58 0.20 - 1.00 K/mcL LAB HEMETOLOGY METHOD 03/13/2025 12:44 PM [facility] Eosinophils Absolute 0.08 0.00 - 0.50 K/mcL LAB HEMETOLOGY METHOD 03/13/2025 12:44 PM [facility] Basophils Absolute 0.07 0.00 - 0.20 K/mcL LAB HEMETOLOGY METHOD 03/13/2025 12:44 PM [facility] Immature Granulocytes Absolute 0.03 0.00 - 0.03 K/mcL LAB HEMETOLOGY METHOD 03/13/2025 12:44 PM [facility] Blood Venous blood specimen / Unknown Venipuncture / Unknown 03/13/2025 10:27 AM EDT 03/13/2025 10:27 AM EDT Andrea GREEN LAB BLOOD ORDERABLES Janie l Result Performing Organization Address [facility] de Phone Number [facility] [address] [place] [address], [place] [phone] * Iron and TIBC (03/13/2025 10:27 AM EDT) Iron 81 50 - 160 mcg/dL LAB CHEMISTRY METHOD 03/13/2025 1:22 PM EDT [facility] Comment:Hemolysis present TIBC 282 250 - 450 mcg/dL LAB CHEMISTRY METHOD 03/13/2025 1:22 PM EDT [facility] Iron Saturation 29 20 - 50 % LAB CHEMISTRY METHOD 03/13/2025 1:22 PM EDT [facility] Blood Venous blood specimen / Unknown Venipuncture / Unknown 03/13/2025 10:27 AM EDT 03/13/2025 10:27 AM EDT Andrea GREEN LAB BLOOD ORDERABLES Janie l Result Performing Organization Address [facility] de Phone Number [facility] [address] [place] [address], [place] [phone] * Ethanol (03/13/2025 10:27 AM EDT) Ethanol Level <3 0 - 10 mg/dL LAB CHEMISTRY METHOD 03/13/2025 1:22 PM EDT [facility] Blood Venous blood specimen / Unknown Venipuncture / Unknown 03/13/2025 10:27 AM EDT 03/13/2025 10:27 AM EDT Andrea GREEN LAB BLOOD ORDERABLES Janie l Result [facility] [address] [place] [address], * (ABNORMAL) Comprehensive metabolic panel (03/13/2025 10:27 AM EDT) Sodium 139 133 - 145 mmol/L LAB CHEMISTRY METHOD 03/13/2025 1:22 PM [facility] Potassium 4.4 3.5 - 5.5 mmol/L LAB CHEMISTRY METHOD 03/13/2025 1:22 PM [facility] Comment:Hemolysis present Chloride 110 96 - 110 mmol/L LAB CHEMISTRY METHOD 03/13/2025 1:22 PM [facility] CO2 23 21 - 32 mmol/L LAB CHEMISTRY METHOD 03/13/2025 1:22 PM [facility] Anion Gap 6 3 - 11 LAB CHEMISTRY METHOD 03/13/2025 1:22 PM [facility] Glucose 99 70 - 100 mg/dL LAB CHEMISTRY METHOD 03/13/2025 1:22 PM [facility] BUN 16 5 - 25 mg/dL LAB CHEMISTRY METHOD 03/13/2025 1:22 PM [facility] Creatinine 1.72(H) 0.70 - 1.30 mg/dL LAB CHEMISTRY METHOD 03/13/2025 1:22 PM [facility] eGFR 42(L) >=60 mL/min/1. 73m2 LAB CHEMISTRY METHOD 03/13/2025 1:22 PM [facility] Comment:Calculation based on the Chronic Kidney Disease Epidemiology Collaboration (CKD-EPI) equation refit without adjustment for race. BUN/Creatinine Ratio 9.3 LAB CHEMISTRY METHOD 03/13/2025 1:22 PM [facility] Calcium 9.2 8.5 - 10.5 mg/dL LAB CHEMISTRY METHOD 03/13/2025 1:22 PM EDT [facility] AST (SGOT) 24 10 - 42 unit/L LAB CHEMISTRY METHOD 03/13/2025 1:22 PM EDT [facility] Comment:Hemolysis present ALT (SGPT) 19 10 - 60 unit/L LAB CHEMISTRY METHOD 03/13/2025 1:22 PM EDT [facility] Alkaline Phosphatase 71 42 - 121 unit/L LAB CHEMISTRY METHOD 03/13/2025 1:22 PM EDT [facility] Total Protein 7.1 6.0 - 8.0 g/dL LAB CHEMISTRY METHOD 03/13/2025 1:22 PM EDT [facility] Albumin 3.4 3.2 - 5.0 g/dL LAB CHEMISTRY METHOD 03/13/2025 1:22 PM T [facility] Total Bilirubin 0.4 0.0 - 1.4 mg/dL LAB CHEMISTRY METHOD 03/13/2025 1:22 PM EDT [facility] Blood Venous blood specimen / Unknown Venipuncture / Unknown 03/13/2025 10:27 AM EDT 03/13/2025 10:27 AM EDT Andrea GREEN LAB BLOOD ORDERABLES Janie l Result [facility] [address] [place] [address], * CT Lung Screening (10/12/2024 11:57 AM [...] Signed Date: 10/17/2024 05:50 ET Workstation ID: [id number] Transcribed By: Self Edit Transcribed Date: 10/17/2024 [...] superior segment of the right lower lobe ([id number]); similar to prior Base of the neck, [...] Signed Date: 10/17/2024 05:50 ET Workstation ID: [id number] Transcribed By: Self Edit Transcribed Date: 10/17/2024 05:37 ET us Eduarda Chua MD [facility] CT PROCEDURES Final Result * (ABNORMAL) Lipid panel with reflex to direct LDL (09/26/2024 2:35 PM EST) Cholesterol 207(H) 0 - 200 mg/dL LAB CHEMISTRY METHOD 09/26/2024 7:09 PM EST [facility] Triglycerides 299(H) 0 - 150 mg/dL LAB CHEMISTRY METHOD 09/26/2024 7:09 PM EST [facility] HDL 49 >=40 mg/dL LAB CHEMISTRY METHOD 09/26/2024 7:09 PM EST [facility] LDL Calculated 98 0 - 100 mg/dL LAB CHEMISTRY METHOD 09/26/2024 7:09 PM EST [facility] VLDL Cholesterol Rex 59.8 mg/dL LAB CHEMISTRY METHOD 09/26/2024 7:09 PM [facility] Non HDL Chol. (LDL+VLDL) 158(H) <145 mg/dL LAB CHEMISTRY METHOD 09/26/2024 7:09 PM [facility] Chol/HDL Ratio 4.2 0.0 - 4.4 LAB CHEMISTRY METHOD 09/26/2024 7:09 PM [facility] Blood Venous blood specimen / Unknown Venipuncture / Unknown 09/26/2024 2:35 PM EST 09/26/2024 2:35 PM EST Niru Herron PA LAB BLOOD ORDERABLES Final Resul t Performing Organization Address City/[facility]/ZIP Co de Phone Number [facility] [address] [place] [address], [place] [phone] * Hepatitis C antibody (07/06/2024 5:16 PM EST) [facility] Hepatitis C Antibody Negative Negative LAB CHEMISTRY METHOD 07/06/2024 8:49 PM EST [facility] Blood Venous blood specimen / Unknown Venipuncture / Unknown 07/06/2024 5:16 PM EST 07/06/2024 5:16 PM EST Hal Mendoza NP LAB BLOOD ORDERABLES Final Re sult [facility] [address] [place] [address], [place] [phone] * Depression Screening (03/27/2024) [facility] Depression Screening Abstracted Historical Provider HEALTH MAINTENANCE Final Result * Falls Risk Assessment (08/26/2023) Falls Risk Assessment Abstracted Historical Provider HEALTH MAINTENANCE Final Result * Colonoscopy (11/13/2020) Colonoscopy No Interpretation , Abstracted Anatomical Region Laterality Modality Other Historical Provider HEALTH MAINTENANCE Final Result from Last 3 Months or Most Recently Relevant to Health Maintenance Insurance [facility] Member Subscriber Plan / Payer (Ef fective 2021-Present) Name:Valdez Khalil Jr Relation to Subscriber:Self Name:Valdez Khalil Jr. Payer ID:[id number] Group ID:[id number] Type:Not on file Address: [place] [address] [address] [phone] Advance Directives Documents on File Type Date Recorded Patient Mixer Slagman Expl anation Health Care Decision (hx) 11/28/2017 [...] DIRECTIVE Health Care Decision (hx) 11/28/2017 AD SPAP DIRECTIVE Health Care Decision (hx) 11/28/2017 AD [...] (hx) 11/28/2017 AD SAPP DIRECTIVE Care Teams Kiln Placer Relationship Specialty Start Date End Date Andrea Huitron PA [address] [place] [address] PCP - General Internal Medicine 07/07/24
--- OUTSIDE RECORDS SUMMARY | 2025-06-06 10:43 | XMS_ITS | Clinical Summary ---
Author Organization [address] Address [address] [place] [address] Phone Care Team Providers Care 1St Grade Teacher Name Role Phone No, Pcp (Do Not [...] Depression 10/10/2012 COPD (chronic obstructive pulmonary disease) Alcohol dependence 10/10/2012 Alcohol withdrawal (HC Code) [...] exists Influenza vaccine 03/22/2025 Covid-19 vaccine series ( - season) 2025 RSV Immunization (1 - 1-dose 75+ series) [...] EST) Glucose 89 70 - 100 mg/dL [facility] BUN 12 7 - 20 mg/dL [facility] Creatinine 1.0 0.5 - 1.2 mg/dL [facility] BUN/Creatinine Ratio 12.0 10.0 - 20.0 [facility] Anion Gap 10 7 - 16 [facility] CO2 22.9 22.0 - 30.0 mmol/L [facility] Chloride 104 96 - 106 mmol/L [facility] Sodium 137 135 - 145 mmol/L [facility] Potassium 3.6 3.5 - 5.0 mmol/L [facility] Blood specimen (specimen) 10/11/2012 4:52 AM EST Anna GREEN LAB BLOOD ORDERABLES Final Result Performing Organization Address City/State/[facility] Co de Phone Number [facility] [address] [place] [phone] from Last 3 Months or Most Recently Relevant to Health Maintenance Advance Directives * Full Interventions (Latest Code Status on File) Date Activated Date Inactivated Comments 10/07/2012 10:34 PM 10/11/2012 2:58 PM Care Teams 1St Grade Teacher Relationship Specialty Start Date End Date No, Pcp (Do Not Change Name) PCP - General 10/06/12
== END 2025-06-06 09:53 | disposition home or self-care (01) ==
LOC: HO.HSM 09:25
PROVIDERS: PCP Physician Assistant Medical; Referring Provider Physician Assistant Medical; Visit Provider Psychiatry & Neurology Neurology
DX: M79.2 Neuralgia and neuritis, unspecified (principal); G61.81 Chronic inflammatory demyelinating polyneuritis
CPT/HCPCS: 99214

== ENCOUNTER → 2025-06-06 09:25 | Outpatient (BNVA) | payer OTHER, SELFPAY | PROVIDERS: PCP Physician Assistant Medical; Referring Provider Physician Assistant Medical; Visit Provider Psychiatry & Neurology Neurology | DX: G61.81 Chronic inflammatory demyelinating polyneuritis (principal) | CPT/HCPCS: 99212 ==

== ENCOUNTER 2025-06-17 10:47 | Outpatient (AMB) | payer OTHER, SELFPAY ==
[2025-06-17 11:00] VITALS: BP 92/70; PULSE 72; O2SAT 97; BMI 33.2
--- NOTE | 2025-06-17 11:00 | MHC.OFFVIS ---
Vital Signs 06/17/25 11:00 Height 5 ft 11 in Weight 238 lb 1.588 oz BMI 33.2 BP 92/70 Blood Pressure Location Lt brachial Position Sitting Pulse 72 Pulse Source Pulse Oximeter Pulse Oximetry (%) 97 Oxygen Delivery Method Room Air Intake Visit Reasons: COPD Intake Note: pt is here for follow up and states he states he has a cough with on/off phlegm, this occurs night and day Optician Apprentice Dispensing Required: No Services Delivery Driver: Services Delivery Driver offered & declined Allergies hydrochlorothiazide Allergy (Mild, Verified 06/17/25 11:16) Cough Medication List - Last Reconciled 06/17/25 by Jef Mansfield MD albuterol sulfate 90 mcg/actuation 2 puffs inhalation Q6H PRN amiodarone 200 mg PO DAILY atorvastatin 40 mg PO DAILY carvedilol 25 mg PO BID codeine-guaifenesin 10-100 mg/5 mL 15 mL PO QID duloxetine 30 mg PO DAILY empagliflozin (Jardiance) 10 mg PO QAM eplerenone 50 mg PO BID ferrous sulfate 325 mg PO DAILY fluticasone propionate 50 mcg/actuation 2 sprays intranasal mmnvgpzweau-zjbviayux-jymvnlmb 200-62.5-25 mcg (Trelegy Ellipta) 1 ea inhalation DAILY gabapentin 300 mg PO TID multivit-iron sulf-folic acid 15 mg iron- 400 mcg (Tab-A-Rashaun Multivitamin w-iron) 1 tab PO DAILY nystatin PO prednisone 2.5 mg PO DAILY sacubitril-valsartan 97-103 mg (Entresto) 1 tab PO BID timolol maleate 0.5% 1 drp ophthalmic (eye) BID torsemide 20 mg PO DAILY warfarin 2 - 4 mg PO DAILY Do you need a note to return to daycare/school/sports/work: No HPI HPI COPD: Details: MR. GORDON, 69 YEARS OLD GENTLEMAN, WITH PAST HISTORY OF SMOKING BUT QUIT 8-9 YEARS AGO, HE IS HERE FOR FOLLOW-UP AFTER 1 MONTH AND WAS SUPPOSED TO HAVE CT SCAN DONE BEFORE THE VISIT. HOWEVER IT HAS NOT BEEN DONE HIS MAIN COMPLAINT IS SHORTNESS OF BREATH ON EXERTION AND VERY FREQUENT BOUTS OF COUGH. PER SPIROMETRY HE WAS FOUND TO HAVE RESTRICTIVE PULMONARY DISORDER AND ONLY MILD OBSTRUCTIVE DISORDER. HE HAS BEEN ON TRELEGY ELLIPTA 1 INHALATION DAILY , AND USES ALBUTEROL HFA ONLY ONCE OR TWICE A DAY. HE HAS PREVIOUSLY USED COUGH MEDICINE WITH CODEINE, GUAIFENESIN-CODEINE SYRUP AND IS ASKING FOR REFILLS . HIS CT SCAN OF THE CHEST IS SCHEDULED TO BE DONE ON 07/20 [facility] Medical History Restrictive lung disease Cough present for greater than 3 weeks History of smoking at least 1 pack per day for at least 30 years COPD (chronic obstructive pulmonary disease) HTN (hypertension) Chronic inflammatory demyelinating polyneuropathy Pacemaker Surgical History Heart valve replaced Social History Patient Tobacco Use Status: Former Tobacco user Review of Systems Const All systems reviewed & are unremarkable except as noted in HPI and below Eyes Reports no additional complaints ENT Reports no additional complaints Card Denies leg edema and Reports dyspnea on exertion (mild ) Resp Reports as per HPI and Reports dyspnea on exertion (mild ) GI Reports no additional complaints Reports no additional complaints Musc Reports back pain and Reports numbness Skin/Breast Reports system reviewed and no additional complaints, except as documented Neuro Reports numbness and Reports paresthesias Psych Reports no additional complaints Endo Reports no additional complaints Tommy/Lymph Reports no additional complaints Physical Exam Vital Signs: Last Vital Signs Pulse 72 06/17/25 11:00 BP 92/70 06/17/25 11:00 Pulse Ox 97 06/17/25 11:00 Oxygen Delivery Method Room Air 06/17/25 11:00 BMI result Body Mass Index 33.2 Const General: comfortable, no acute distress, alert and awake Orientation/consciousness: patient oriented x3 HEENT Head: Yes normal to inspection General nose exam: No nasal polyps present and No nasal discharge present Face and sinus: Yes sinuses nontender Mouth: oropharynx normal Teeth and gingiva: edentulous Throat: Yes posterior oropharynx normal Eyes General: appearance normal, both eyes and all related structures Neck Neck: Yes normal visual inspection, Yes no lymphadenopathy, Yes trachea midline and Yes no JVD Thyroid: Thyroid normal Chest Chest palpation & inspection: normal inspection of the chest, normal palpation of entire chest wall, no tenderness and Pacemaker present (lt. upper chest ) Resp Other: Chest is symmetrical. Percussion note is resonant. Breath sounds slightly distant. I did not hear any wheezes but there are scattered inspiratory crackles over the mid chest. Cardio Palpation: normal PMI Rate: regular rate Rhythm: regular rhythm Heart sounds: no gallops and no murmurs GI Palpation (GI): Soft to palpation, nontender, No hepatosplenomegaly present and no masses Auscultation: normal bowel sounds Back/Spine/Pelvis Thoracic/Lumbar Spine: thoracic and lumbar spine normal to inspection Skin General skin exam: no rashes or lesions noted Neuro General: patient oriented x3 and no focal motor deficits Cranial nerves: Yes CN's II-XII intact bilaterally Extrem General: Yes normal to inspection, Yes no clubbing, cyanosis or edema and Yes no calf tenderness Psych Appearance: grossly normal Speech and movement: Normal speech and movement present Assessment & Plan Assessment & Plan (1) COPD (chronic obstructive pulmonary disease): Comment: Patient has past history of smoking, He does have features of chronic obstructive pulmonary disease, mainly presenting as shortness of breath on exertion and frequent cough. Has been treated with Trelegy Ellipta 1 inhalation daily and albuterol p.r.n.. Code(s): J44.9 - Chronic obstructive pulmonary disease, unspecified Category: Medical Plan: I was planning. To downgrade his medical regimen for COPD But he continues to complain of cough and shortness of breath, and I think it will be better to leave him on this inhalor. (2) History of smoking at least 1 pack per day for at least 30 years: Comment: THIS GENTLEMAN CLAIMS THAT HE HAS QUIT SMOKING, SINCE 2019 , BUT HE DOES HAVE PAST HISTORY OF SMOKING AT LEAST FOR 47 PACK YEARS. Code(s): Z87.891 - Personal history of nicotine dependence Category: Social Hx Plan: He should his still be participating in annual lung screening program (3) Cough present for greater than 3 weeks: Comment: HE HAS CHRONIC COUGH, PROBABLY RELATED TO PREVIOUS SMOKING. HE IS ON AMIODARONE AND I WOULD LIKE TO RULE OUT INTERSTITIAL LUNG DISEASE, PATIENT HAS USED CODEINE-GUAIFENESIN SYRUP IN THE PAST. I THINK HE CAME WITH THE EXPECTATION THAT HE CAN GET THIS RENEWED. Code(s): R05.8 - Other specified cough Category: Medical Plan: Awaiting the CT scan of the chest. In the meantime he needs to have control of cough . Symptomatically I did renew the prescription for guaifenesin-codeine syrup to use sparingly . (4) Restrictive lung disease: Comment: PATIENT IS MODERATELY OBESE. SPIROMETRY SHOWS MODERATE DEGREE OF RESTRICTIVE LUNG DISORDER, PROBABLY DUE TO MODERATE OBESITY BUT PATIENT COULD HAVE CHRONIC PARENCHYMAL DISEASE. Code(s): J98.4 - Other disorders of lung Category: Medical Plan: I advised him to do deep breathing exercises. 2 to 3 times a day He sees when he takes a deep breath it causes more cough. Medications: New codeine-guaifenesin 10-200 mg/5 mL 10 mL PO Q4-6H PRN 473 mL 1RF severe cough 60 days Coding Level of Care Code Est Pt Level 3 (26250) Diagnoses COPD (chronic obstructive pulmonary disease) J44.9 History of smoking at least 1 pack per day for at least 30 years Z87.891 Cough present for greater than 3 weeks R05.8 Restrictive lung disease J98.4
--- OUTSIDE RECORDS SUMMARY | 2025-06-17 13:22 | XMS_ITS | Clinical Summary ---
Author Organization [facility] Address [address] [place] [address] Phone Care Team Providers Care Song Plugger Name Role Phone Andrea Huitron PA-C Primary [...] TABLETS BY MOUTH EVERY DAY DIRECTED BY [facility] 3 Active DULoxetine (CYMBALTA) [...] - finding 05/06/2017 10/15/2020 Overview (10/15/2020): Quit 2019 Quit 2018 Quit 2019 Hyperlipidemia 05/20/2008 10/15/2020 [...] age to complete this topic Insurance ([id number]) ([id number]) Care Teams Song Plugger Relationship Specialty Start Date End Date Andrea Huitron PA-C PCP - General Physician Senior Analyst Programmer 05/11/21
--- OUTSIDE RECORDS SUMMARY | 2025-06-17 13:22 | XMS_ITS | Clinical Summary ---
Author Organization [facility] Address [address] [place] [address] Phone Care Team Providers Care Dictionary Editor Name Role Phone Andrea Huitron Primary Care Provider [phone] Allergies Active Allergy Reactions Criticality Noted Date Comments Bee Venom Protein (Honey Bee) Hives 2004 Hydrochlorothiazide 05/16/2013 Lisinopril 05/16/2013 Losartan Cough Medium 05/22/2020 Medications albuterol HFA (Ventolin HFA) 90 mcg/actuation inhaler INHALE 2 PUFFS INTO THE LUNGS EVERY 6 HOURS NEEDED FOR COUGH, WHEEZING OR SHORTNESS OF BREATH. 4 Active amiodarone (PACERONE) 200 mg tablet Take 0.5 Tablets by mouth daily. 4 Active carvediloL (COREG) 25 mg tablet Take 1 Tablet by mouth. 4 Active cholecalciferol (VITAMIN D-3) 25 mcg (1,000 unit) tablet Take 1 Tablet by mouth daily. 4 Active empagliflozin (Jardiance) 10 mg tablet Jardiance 10 mg tablet TAKE 1 TABLET BY MOUTH EVERY MORNING Active eplerenone (INSPRA) 50 mg tablet eplerenone 50 mg tablet TAKE 1 TABLET BY MOUTH TWICE A DAY Active latanoprost (XALATAN) 0.005 % ophthalmic solution at bedtime 4 Active netarsudiL (Rhopressa) 0.02 % drops apply 1 Drop to the eye. 2 Active sacubitriL-valsa rtan (Entresto) 97-103 mg per tablet 2 (two) times a day. 4 Active timoloL (BetimoL) 0.5 % ophthalmic solution 1 Drop 2 times daily. Active warfarin (COUMADIN) 2 mg tablet TAKE 1-2 TABLETS BY MOUTH EVERY DAY DIRECTED BY [facility] 2 Active DULoxetine (CYMBALTA) [address] capsule Take 1 capsule (30 mg total) by mouth 2 (two) times a day. Do not crush or chew. 60 each 5 4 Active atorvastatin (LIPITOR) 40 mg tablet TAKE 1 TABLET BY MOUTH EVERY DAY 90 tablet 1 4 Active famotidine (PEPCID) 20 mg tablet Take 1 tablet (20 mg total) by mouth 2 (two) times a day. 60 tablet 5 5 Active Trelegy Ellipta 200-62.5-25 mcg inhalerIndicatio ns:Moderate persistent asthma, uncomplicated,Ch ronic obstructive pulmonary disease, unspecified (CMS/HCC V24, CMS/HCC V28) TAKE 1 PUFF BY MOUTH EVERY DAY 180 each 3 5 Active triamcinolone (KENALOG) 0.1 % cream Apply to affected area 1-2 times daily as needed. 30 g 5 5 08/04/20 25 Active azelastine (ASTELIN) 137 mcg (0.1 %) nasal spray 2 SPRAYS BY EACH NARE ROUTE 2 TIMES DAILY. USE IN EACH NOSTRIL DIRECTED 137 mL 5 5 Active fluticasone propionate (FLONASE) 50 mcg/actuation nasal sprayIndications :Moderate persistent asthma, uncomplicated,Ch ronic obstructive pulmonary disease, unspecified (CMS/HCC V24, CMS/HCC V28) 2 SPRAYS IN EACH NOSTRIL 48 mL 1 5 Active torsemide (DEMADEX) 20 mg tablet Take 1 tablet (20 mg total) by mouth 1 (one) time each day. 5 Active esomeprazole (NexIUM) [address] capsuleIndicatio ns:Gastroesophag eal reflux disease without esophagitis Take 1 capsule (40 mg total) by mouth 2 (two) times a day. Do not open capsule. 180 each 3 5 Active guaiFENesin-code ine (ROBITUSSIN-AC) 100-10 mg/5 mL syrup Take 5 mL by mouth every 6 (six) hours if needed for cough. Max Daily Amount: 20 mL 750 mL 5 Active ferrous sulfate 325 mg (65 mg elemental iron) tablet TAKE 1 TABLET BY MOUTH EVERY DAY 90 tablet 1 5 Active modafiniL (PROVIGIL) 100 mg tabletIndication s:MARY (obstructive sleep apnea) TAKE 1 TABLET (100 MG TOTAL) BY MOUTH 1 (ONE) TIME EACH DAY. MAX DAILY AMOUNT: 100 MG 30 tablet 5 Active metoclopramide (REGLAN) 5 mg tablet Take 1 tablet (5 mg total) by mouth 4 (four) times a day (before meals and nightly). 240 each 5 07/14/20 25 Active predniSONE (DELTASONE) 20 mg tablet Take 2 tablets (40 mg total) by mouth 1 (one) time each day for 5 days. 10 each 5 06/01/20 Active Problems Problem Noted Date Diagnosed Date MARY (obstructive sleep apnea) 06/25/2024 Iliac artery aneurysm, bilateral ([facility] V24) 0 01/21/2023 ETOH abuse 04/09/2022 Iron deficiency anemia 12/14/2021 Nocturnal hypoxemia 11/16/2021 Overview (07/02/2024): [facility] Home sleep test 11/03/2021 weight 245; BMI 34. AHI 3 with all hypopneas. Average oxygen saturation 90% with oxygen theodora 83%. Oxygen saturations less than 88% for 21% of the study (67 minutes). Nocturnal hypoxemia based on 2021 home sleep study without sleep apnea diagnosis. Last Assessment & Plan: 2L sent to [facility] [place]. Aortic aneurysm ([facility] V24) 08/11/2021 Overview (07/02/2024): Last Assessment & Plan: -Status post aortic root graft repair at the time of the aortic valve replacement in November 2018, Aorta was documented to be normal in size on last echocardiogram from July 2021 Left heart failure (CMS/HCC V24, CMS/HCC V28) PVC's (premature ventricular contractions) 08/07 SOB (shortness of breath) 08/07/2021 CIDP (chronic inflammatory d emyelinating polyneuropathy) ([facility] V24, [facility] V28) 06/23/2021 Overview (07/02/2024): Dr. De Paz's note scanned into chart 05/2021, treated with IVIG and was better. On immunoglobulin solution, prednisone Ventricular tachycardia (par oxysmal) ([facility] V24, [facility] V28) 03/09/2021 Overview (07/02/2024): Last Assessment & Plan: Status post VT ablation in February 2021. Holter monitor does not show any sustained arrhythmias. Continue suppression with amiodarone. PFTs, LFTs, TFTs stable. Peripheral polyneuropathy 02/26/2021 DDD (degenerative disc disease), cervical 2020 DDD (degenerative disc disease), lumbar 01/03/20 21 Vitamin D deficiency 01/02/2021 Chronic combined systolic an d diastolic heart failure ([facility] V24, [facility] V28) 11/14/2020 Overview (07/02/2024): Last Assessment [...] this is okay or not. Dilated cardiomyopathy ([facility] V24, [facility] V28 ) 07/28/2020 Overview (07/02/2024): Last Assessment [...] mural thrombus 10/10/2018 AAA (abdominal aortic aneurysm) ([facility] V24) Overview (07/02/2024): 3.5 - 01/2023 Kidney cyst, acquired 09/05/2018 Overview (07/02/2024): Right sided 3.2 cm cyst, benign appearing; f/u sono in aug 2019 showed slightly decreased in size. Repeat sono in aug 2020 Chronic cough 09/20/2017 Chronic obstructive pulmonar y disease ([facility] V24, [facility] V28) 06/10/2017 Allergic rhinitis 05/25/2017 Asthma 05/25/2017 Congestive heart failure wit h left ventricular systolic dysfunction ([facility] V24, [facility] V28) 05/25/2017 Overview (07/02/2024): ECHO 2014 LVEF 15-20% Follows with Dr. Nury NELSON S/p cardiac cath 04/2015 History of alcohol abuse 05/25/2017 CKD (chronic kidney disease) stage 3, GFR 30-59 ml/min ([facility] V24, [facility] V28) 05/19/2017 Overview (07/02/2024): Sees dr. [...] 11:59 PM EDT Hospital Encounter Xray - [address] [phone] Subacute cough Discharge Disposition: Home or Self Care 05/27/2025 2:45 PM EDT Office Visit Walk-In Clinic - [address] [phone] Hal Mendoza, [place] Subacute cough (Primary Dx) 05/27/2025 Telephone Adult Medicine [address] [phone] Andrea Huitron, PA 05/23/2025 Telephone Adult Medicine [address] [phone] Andrea Huitron PA 05/21/2025 Telephone Adult Medicine [address] [phone] Andrea Huitron, PA 05/08/2025 Telephone Adult Medicine [address] [phone] Andrea Huitron, PA 04/16/2025 Telephone Adult Medicine [address] [phone] Andrea Huitron PA 04/05/2025 Telephone Adult Medicine [address] [phone] Andrea Huitron PA 04/03/[address] [facility] [address] [place] [phone] Andrea Huitron PA 03/26/2025 Telephone Pulmonology [facility] [address] [facility] [address] [place] [address] Amee Jones NP 03/19/2025 2:40 PM EDT Office Visit Gastroenterology - [employer] [address] [facility] [address] [place] [address] Savanna Dumont NP Early satiety (Primary Dx); Chronic nausea; Abdominal bloating; Gastroesophageal reflux disease without esophagitis from Last 3 Months Immunizations Immunization Administration [...] HISTORICAL ICD OTHER SURGICAL HISTORY 09/2008 PROCEDURE: MO RPLCMT AORTIC VALVE ANNULUS ENLGMENT NONC SINUS; 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 [...] Record ed Within the last 3 months, daron burt many times did you visit the emergency [...] Info) Description 06/18/2025 8:15 AM EDT Appointment [facility] Nuclear Medicine [address] [place] [phone] 06/20/2025 1:15 PM EDT Office Visit Adult Medicine [facility] [address] [place], [place] [phone] Abimbola Rice PA [address] [place], [place] Health Maintenance Due Date Last Done Comments Hepatitis A Vaccines (1 of 2 - Risk 2-dose series) 1974 Zoster Vaccines (2 of 2) 05/21/2024 03/26/2024 COVID-19 Vaccine ( season) 2025 07/11/2023, 07/01/2022, [...] exists RSV Immunization Adult Patients Completed 05/05/2025 Depression Screening Completed 06/13/2025, 03/27/20 24 HIB Vaccines Aged Out No longer eligi [...] STAT 05/27/2025 3:09 PM EDT Subacute cough COMPREHENSIVE METABOLIC PANEL Routine 03/13/2025 10:27 AM [...] of an acute chest process. POS - [id number] -------- FINAL REPORT -------- Dictated By: Cynthia Foy Dictated Date: 05/27/2025 15:11 ET Assigned Physician: Cynthia Foy Reviewed and Electronically Signed By: Cynthia Foy Signed Date: 05/27/2025 15:20 ET Workstation ID: [id number] Transcribed By: Self Edit Transcribed Date: 05/27/2025 [...] of an acute chest process. POS - [id number] -------- FINAL REPORT -------- Dictated By: Cynthia Foy Dictated Date: 05/27/2025 15:11 ET Assigned Physician: Cynthia Foy Reviewed and Electronically Signed By: Cynthia Foy Signed Date: 05/27/2025 15:20 ET Workstation ID: [id number] Transcribed By: Self Edit Transcribed Date: 05/27/2025 15:11 ET Hal Mendoza NP IMG XR PROCEDURES Final Resul t * (ABNORMAL) Comprehensive metabolic panel (03/13/2025 10:27 AM EDT) Sodium 139 133 - 145 mmol/L LAB CHEMISTRY METHOD 03/13/2025 1:22 PM EDT [facility] Potassium 4.4 3.5 - 5.5 mmol/L LAB CHEMISTRY METHOD 03/13/2025 1:22 PM EDT [facility] Comment:Hemolysis present Chloride 110 96 - 110 mmol/L LAB CHEMISTRY METHOD 03/13/2025 1:22 PM [facility] CO2 23 21 - 32 mmol/L LAB CHEMISTRY METHOD 03/13/2025 1:22 PM [facility] Anion Gap 6 3 - 11 LAB CHEMISTRY METHOD 03/13/2025 1:22 PM [facility] Glucose 99 70 - 100 mg/dL LAB CHEMISTRY METHOD 03/13/2025 1:22 PM [facility] BUN 16 5 - 25 mg/dL LAB CHEMISTRY METHOD 03/13/2025 1:22 PM [facility] Creatinine 1.72(H) 0.70 - 1.30 mg/dL LAB CHEMISTRY METHOD 03/13/2025 1:22 PM [facility] eGFR 42(L) >=60 mL/min/1. 73m2 LAB CHEMISTRY METHOD 03/13/2025 1:22 PM [facility] Comment:Calculation based on the Chronic Kidney Disease Epidemiology Collaboration (CKD-EPI) equation refit without adjustment for race. BUN/Creatinine Ratio 9.3 LAB CHEMISTRY METHOD 03/13/2025 1:22 PM [facility] Calcium 9.2 8.5 - 10.5 mg/dL LAB CHEMISTRY METHOD 03/13/2025 1:22 PM [facility] AST (SGOT) 24 10 - 42 unit/L LAB CHEMISTRY METHOD 03/13/2025 1:22 PM [facility] Comment:Hemolysis present ALT (SGPT) 19 10 - 60 unit/L LAB CHEMISTRY METHOD 03/13/2025 1:22 PM [facility] Alkaline Phosphatase 71 42 - 121 unit/L LAB CHEMISTRY METHOD 03/13/2025 1:22 PM [facility] Total Protein 7.1 6.0 - 8.0 g/dL LAB CHEMISTRY METHOD 03/13/2025 1:22 PM [facility] Albumin 3.4 3.2 - 5.0 g/dL LAB CHEMISTRY METHOD 03/13/2025 1:22 PM EDT [facility] Total Bilirubin 0.4 0.0 - 1.4 mg/dL LAB CHEMISTRY METHOD 03/13/2025 1:22 PM EDT [facility] Blood Venous blood specimen / Unknown Venipuncture / Unknown 03/13/2025 10:27 AM EDT 03/13/2025 10:27 AM EDT us Andrea GREEN LAB BLOOD ORDERABLES Janie l Result [facility] [address] [place] [address], * CT Lung Screening (10/12/2024 11:57 AM [...] Signed Date: 10/17/2024 05:50 ET Workstation ID: [id number] Transcribed By: Self Edit Transcribed Date: 10/17/2024 [...] superior segment of the right lower lobe ([id number]); similar to prior Base of the neck, [...] Signed Date: 10/17/2024 05:50 ET Workstation ID: [id number] Transcribed By: Self Edit Transcribed Date: 10/17/2024 05:37 ET Eduarda Chua MD IM CT PROCEDURES Final Result * (ABNORMAL) Lipid panel with reflex to direct LDL (09/26/2024 2:35 PM EST) Cholesterol 207(H) 0 - 200 mg/dL LAB CHEMISTRY METHOD 09/26/2024 7:09 PM [facility] Triglycerides 299(H) 0 - 150 mg/dL LAB CHEMISTRY METHOD 09/26/2024 7:09 PM [facility] HDL 49 >=40 mg/dL LAB CHEMISTRY METHOD 09/26/2024 7:09 PM [facility] LDL Calculated 98 0 - 100 mg/dL LAB CHEMISTRY METHOD 09/26/2024 7:09 PM [facility] VLDL Cholesterol Rex 59.8 mg/dL LAB CHEMISTRY METHOD 09/26/2024 7:09 PM [facility] Non HDL Chol. (LDL+VLDL) 158(H) <145 mg/dL LAB CHEMISTRY METHOD 09/26/2024 7:09 PM [facility] Chol/HDL Ratio 4.2 0.0 - 4.4 LAB CHEMISTRY METHOD 09/26/2024 7:09 PM [facility] Blood Venous blood specimen / Unknown Venipuncture / Unknown 09/26/2024 2:35 PM EST 09/26/2024 2:35 PM EST Niru Herron PA LAB BLOOD ORDERABLES Final Resul t Performing Organization Address [facility]/ZIP Co de Phone Number [facility] [address] [place] [address], [place] [phone] * Hepatitis C antibody (07/06/2024 5:16 PM EST) [facility] Hepatitis C Antibody Negative Negative LAB CHEMISTRY METHOD 07/06/2024 8:49 PM EST [facility] Blood Venous blood specimen / Unknown Venipuncture / Unknown 07/06/2024 5:16 PM EST 07/06/2024 5:16 PM EST Hal Mendoza NP LAB BLOOD ORDERABLES Final Re sult Performing Organization Address [facility]/ZIP Co de Phone Number [facility] [address] [place] [address], [place] [phone] * Depression Screening (03/27/2024) Pathologist [facility] Depression Screening Abstracted Historical Provider HEALTH MAINTENANCE Final Result * Falls Risk Assessment (08/26/2023) [facility] Falls Risk Assessment Abstracted Historical Provider HEALTH MAINTENANCE Final Result * Colonoscopy (11/13/2020) [facility] Colonoscopy No Interpretation , Abstracted Anatomical Region Laterality Modality Other Historical Provider HEALTH MAINTENANCE Final Result from Last 3 Months or Most Recently Relevant to Health Maintenance Insurance [facility] Member Subscriber Plan / Payer (Ef fective 2021-Present) Name:Valdez Khalil Jr Relation to Subscriber:Self Name:Valdez Khalil Jr. 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
--- OUTSIDE RECORDS SUMMARY | 2025-06-17 13:22 | XMS_ITS | Clinical Summary ---
Author Organization [facility] Address [address] [place] [address] Care Team Providers Care Business Practices Supervisor Name Role Phone Rocky Saha Primary Care [...] complete this topic Insurance [employer] Care Teams Business Practices Supervisor Relationship Specialty Start Date End Date Rocky Saha PCP - General Internal Medicine 08/05/20
--- OUTSIDE RECORDS SUMMARY | 2025-06-17 13:22 | XMS_ITS | Encounter Summary ---
Author Organization [facility] Address [address] [place] [address] Care Team Providers Care Dishwashing Machine Repairer Name Role Phone Andrea Huitron Primary Care Provider [phone] Encounter Details Date Type Department Care Team (Late st Contact Info) Description 03/22/2025 Lab Requisition [facility] - Main Lab [address] [facility] [place] [address] Rosa Elena Lyn PA [address] [place] [address] Benign essential microscopic hematuria Social History Tobacco [...] care for your loved ones. For example, manager child or elderly care for an older adult? [...] Appointment [facility] Nuclear Medicine [address] [place] [phone] 06/20/2025 1:15 PM EDT Office Visit Adult Medicine [facility] [address] [place], [place] [phone] Abimbola Rice PA [address] [place] [address] documented as of this encounter Procedures Procedure Name Priority Date/Time Associated Diagnosis Comments NON-GYNECOLOGIC CYTOLOGY Routine 03/14/2025 12:00 AM EDT Benign essential microscopic hematuria documented in this encounter Results * Non-gynecologic cytology (03/14/2025 12:00 AM EDT) Final Diagnosis A. Urine, Voided, ([id number]): Negative for high grade urothelial carcinoma. Results of UroVysion fluorescence in situ hybridization (FISH) testing: CEP3: Normal CEP7: Normal CEP17: Normal LSI 9p21: Normal Interpretation: Normal profile Controls stained appropriately. Note: The results are intended as a screening device and should be interpreted in association with other clinical and pathological findings. 04/02/2025 9:02 AM EDT [facility] Specimen A Adequacy Satisfactory for evaluation 04/02/2025 9:02 AM [facility] Clinical Information Benign essential microscopic hematuria R31.1 Urine Cytology/FISH (now) 04/02/2025 9:02 AM EDT [facility] Gross Description A. Urine, Voided, ([id number]): Received one ThinPrep slide for cytology and one ThinPrep slide for UroVysion FISH 04/02/2025 9:02 AM EDT [facility] Disclaimer Unless otherwise specified, all tissue is 10% NB formalin fixed and paraffin embedded. Technical pathology services provided by [facility] at [address] [facility] [address], [place] [address] (CLIA #[id number]/Isela Galicia MD, Associate Professor Of Sociology) 04/02/2025 9:02 AM EDT [facility] Urine Urine specimen from urethra / Unknown 03/14/2025 03/22/2025 1:57 PM EDT us Rosa Elena GREEN LAB CYTOLOGY ORDERABLES Final Result [facility] [address] [place] [address], documented in this encounter Visit Diagnoses Diagnosis Benign essential microscopic hematuria documented in this encounter Additional Health Concerns Assessment Noted Time A fall risk assessment has been complete d for the patient 11/07/2024 11:28 AM EDT documented as of this encounter Care Teams Dishwashing Machine Repairer Relationship Specialty Start Date End Date Andrea Huitron PA [address] [place] [id number] PCP - General Internal Medicine 07/07/24 documented as of this encounter
--- OUTSIDE RECORDS SUMMARY | 2025-06-17 13:22 | XMS_ITS | Encounter Summary ---
Author Organization [facility] Address [address] [place] [address] Care Team Providers Care Shutdown Coordinator Name Role Phone Andrea Huitron Primary Care Provider [phone] Reason for Visit * Reason Onset Date Comments Prior Authorization 05/23/2025 Encounter Details Date Type Department Care Team ([facility] st Contact Info) Description 05/23/2025 Telephone Adult Medicine [address] [phone] Andrea Huitron PA [address] [place] [phone] Social History Tobacco Use Types Packs/Day Years [...] your loved ones. For example, child care education coordinator or elderly care for an older [...] What Pharmacy did the fax come from: [facility] Pharmacy fax #: [phone] documented in this encounter Plan of Treatment Upcoming Encounters Date Type Department Care Team (Late st Contact Info) Description 06/18/2025 8:15 AM EDT Appointment [facility] Nuclear Medicine [address] [place] [address] 06/20/2025 1:15 PM EDT Office Visit Adult Medicine [facility] [address] [place], [place] [phone] Abimbola Rice PA [address] [place], [place] documented as of this encounter Visit Diagnoses Not on filedocumented in this encounter Additional Health Concerns Assessment Noted Time A fall risk assessment has been complete d for the patient 11/07/2024 11:28 AM EDT documented as of this encounter Care Teams Shutdown Coordinator Relationship Specialty Start Date End Date Andrea Huitron PA [address] [place] [address] PCP - General Internal Medicine 07/07/24 documented as of this encounter
--- OUTSIDE RECORDS SUMMARY | 2025-06-17 13:22 | XMS_ITS | Clinical Summary ---
Author Organization [address] Address [address] [place] [address] Phone Care Team Providers Care Industrial Electrical Engineer Name Role Phone No, Pcp (Do Not [...] vaccine 03/22/2025 Covid-19 vaccine series ( - 2024- season) 2025 RSV Immunization (1 - 1-dose [...] EST) Glucose 89 70 - 100 mg/dL [facility] BUN 12 7 - 20 mg/dL [facility] Creatinine 1.0 0.5 - 1.2 mg/dL [facility] BUN/Creatinine Ratio 12.0 10.0 - 20.0 [facility] Anion Gap 10 7 - 16 [facility] CO2 22.9 22.0 - 30.0 mmol/L [facility] Chloride 104 96 - 106 mmol/L [facility] Sodium 137 135 - 145 mmol/L [facility] Potassium 3.6 3.5 - 5.0 mmol/L [facility] Blood specimen (specimen) 10/11/2012 4:52 AM EST Anna GREEN LAB BLOOD ORDERABLES Final Result Performing Organization Address City/State/[facility] Co de Phone Number [facility] [address] [place] [phone] from Last 3 Months or Most Recently Relevant to Health Maintenance Advance Directives * Full Interventions (Latest Code Status on File) Date Activated Date Inactivated Comments 10/07/2012 10:34 PM 10/11/2012 2:58 PM Care Teams Industrial Electrical Engineer Relationship Specialty Start Date End Date No, Pcp (Do Not Change Name) PCP - General 10/06/12
== END 2025-06-17 11:26 | disposition home or self-care (01) ==
LOC: HO.HPS 10:48
PROVIDERS: PCP Physician Assistant Medical; Visit Provider Internal Medicine
DX: J44.9 Chronic obstructive pulmonary disease, unspecified (principal); Z87.891 Personal history of nicotine dependence; R05.8 Other specified cough; J98.4 Other disorders of lung
CPT/HCPCS: 99213

== ENCOUNTER → 2025-06-17 10:47 | Outpatient (BNVA) | payer OTHER, SELFPAY | PROVIDERS: PCP Physician Assistant Medical; Visit Provider Internal Medicine | DX: J44.9 Chronic obstructive pulmonary disease, unspecified (principal); Z87.891 Personal history of nicotine dependence; R05.3 Chronic cough | CPT/HCPCS: 99212 ==

== ENCOUNTER 2025-08-16 22:33 | Observation (INO) | payer OTHER, SELFPAY ==
--- OUTSIDE RECORDS SUMMARY | 2025-08-12 14:00 | XMS_ITS | Encounter Summary ---
Author Organization [facility] Address [address] [place] [address] Care Team Providers Care Elevator Supervisor Name Role Phone Andrea Huitron Primary Care Provider [phone] Reason for Visit * Reason Comments Hospital Follow-up [facility] 08/01 Encounter Details Date Type Department Care Team (Latest Contact Info) Description 08/12/2025 2:00 PM EST Office Visit Adult Medicine [address] [phone] Andrea Huitron PA [address] [place] [phone] Hospital discharge follow-up (Primary Dx); Dilated cardiomyopathy (CMS/HCC V24, CMS/HCC V28); Stage 3b chronic kidney disease (CMS/HCC V24, CMS/HCC V28); Congestive heart failure with left ventricular systolic dysfunction (CMS/HCC V24, CMS/HCC V28); Essential hypertension; Iron deficiency anemia, unspecified iron deficiency anemia type; Pure hypercholesterolemia; Left heart failure (CMS/HCC V24, CMS/HCC V28); ETOH abuse Social History Tobacco Use Types Packs/Day Years Used Date Smoking Tobacco: Former Cigarettes 1 47 0 08/22/1971 - 08/22/2018 Smokeless Tobacco: Never Tobacco Cessation:Counseling Given: Not Answered Alcohol Use Standard Drinks/Week Comments Not Currently 0 (1 standard drink = 0.6 oz pure alcohol) hx of Abuse; quit 2 years ago (2022) Housing Instability Answer Date Recorde d Are you worried that in the next 2 months you may not have stable housing? No 07/31/2025 Food Access & Nutrition Answer Date Rec orded Do you have access to a vari ety of food including fruits and vegetables? Yes 07/31/2025 Access to Healthcare Answer Date Record ed Within the last 3 months, ho w many times did you visit the emergency department for your medical care? 2 07/31/2025 Health Literacy Answer Date Recorded How often do you need to hav e someone help you when you read instructions, pamphlets, or other written material from your doctor or pharmacy? Never 07/31/2025 Caregiver: How often do you need to have someone help you when you read instructions, pamphlets, or other written material from your doctor or pharmacy? Not on file 07/31/2025 Financial Risk Answer Date Recorded How hard is it for you to pa y for the very basics like food, housing, medical care, and air conditioning / heating? Not very hard 07/31/2025 Transportation Answer Date Recorded Has the lack of transportati on kept you from meetings, work, or from getting things needed for daily living? No Has the lack of transportati on kept you from medical appointments or from getting medications? No 07/31/2025 Social Isolation Answer Date Recorded How often do you feel lonely or isolated from th ose around you? Never 07/31/2025 Food Risk Answer Date Recorded Within the past 12 months we worried whether our food would run out before we got money to buy more. Patient declined 025 Within the past 12 months th e food we bought just didn't last and we didn't have money to get more. Patient declined 07/22 Dependent Care Answer Date Recorded Do you need help finding or paying for care for your loved ones. For example, director of early childhood or elderly care for an older adult? No 07/31/2025 Education Answer Date Recorded Do you think completing more education or training, like finishing a GED, going to college, or learning a trade, would be helpful for you? No 07/31/2025 Employment and Income Answer Date Recor ded During the last four weeks, have you been actively looking for work? No 07/31/2025 Living Situation Answer Date Recorded What is your living situation? Unrecognized valu e 07/31/2025 Interpersonal Safety Answer Date Record ed Physical Abuse Unrecognized value 07/31/2025 Verbal Abuse Unrecognized value 07/31/2025 Sex and Gender Information Value Date Recorded Sex Assigned at Male 10/26/2024 3:34 PM EST Legal Sex Male 10:37 PM EST Gender Identity Male 10/26/2024 3:34 PM EST Sexual Orientation Straight 10/26/2024 3: 34 PM EST documented as of this encounter Last Filed Vital Signs Vital Sign Reading Time Taken Comments Blood Pressure 130/80 08/12/2025 3:19 PM EST Pulse 72 08/12/2025 2:07 PM EST Temperature 35.7 C (96.2 F) 08/12/2025 2:07 PM EST Respiratory Rate 17 08/12/2025 2:07 PM EST Oxygen Saturation 94% 08/12/2025 2:07 PM EST Inhaled Oxygen Concentration - - Weight 106 kg (234 lb) 08/12/2025 2:07 PM EST Height 180.3 cm (5' 11 ) 08/12/2025 2:07 PM EST Body Mass Index 32.64 08/12/2025 2:07 PM EST documented in this encounter Functional Status * Are you [...] 11:39 AM José Miguel Posadas RN * Because of a physical, mental, or emotional condition, do you have serious difficulty doing errandsalone such as visiting the doctor? Answer Date of Assessment Author No 12/28/2024 11:39 AM José Miguel Posadas RN documented as of this encounter Mental Status * Because of a physical, mental, or emotional condition, do you have serious difficulty concentrating, remembering, or making decisions? (5 years old or older) Answer Entry Date Author No 12/28/2024 11:39 AM José Miguel Posadas, RN documented in this encounter Ordered Prescriptions Prescription Sig Dispense Quantity Refills Last Filled Start Date End Date sacubitriL-valsarta n (ENTRESTO) 24-26 mg per tablet Take 1 tablet by mouth 2 (two) times a day. 180 tablet 3 08/12/2025 gabapentin (NEURONTIN) 600 mg tablet Take 1 tablet (600 mg total) by mouth 3 (three) times a day. 90 each 11 08/12/2025 documented in this encounter Progress Notes * PETER John - 08/12/2025 2:00 PM EST CHIEF COMPLAINT: Hospital Follow-up ([facility] 08/01) IDENTIFIER: Valdez Khalil is a 70 y.o. old male. HPI: This pleasant gentleman presents today for hospital discharge follow-up. He has had multiple ER encounters recently. Was actually transferred to [facility] for psych admission actually after the last 1 has apparently had suicidal ideation. He feels that this might have been overstated a little bit. He does have a history of alcohol abuse and he was apparently struggling with this as well. It sounds like the hospital course was uncomplicated and he was discharged in stable condition. He isnot taking anything for the alcohol and he declines to do so at this point although we did discuss medications. He is going to be following up with behavioral health. He does have some home services i ncluding a nurse through his insurance plan, does not wish to get any other home services such as VNA at this point. He was prescribed some gabapentin which seems to be helping with pain he did request to increase the dose to a little, I also talked about Entresto which he has been holding. ROS: GENERAL: Negative for malaise, significant weight loss and fever RESPIRATORY: No cough, wheezing or shortness of breath CARDIOVASCULAR: Negative for chest pain, leg swelling and palpitations ENDOCRINE: Negative for cold or heat intolerance, polyuria, polydipsia and goiter NEURO: No persistent headache, fainting, seizures, strokes, TIAs, weakness, numbness or tingling PAST MEDICAL HISTORY: Patient Active Problem List Diagnosis Date Noted Postoperative abdominal pain 07/21/2025 Umbilical hernia without obstruction and without gangrene 07/21/2025 Generalized abdominal pain 07/09/2025 Abdominal pain 07/06/2025 Right upper quadrant abdominal pain 07/05/2025 MARY (obstructive sleep apnea) 06/25/2024 Iliac artery aneurysm, bilateral ([facility] V24) 01/21/2023 ETOH abuse 04/09/2022 Iron deficiency anemia 12/14/2021 Nocturnal hypoxemia 11/16/2021 Aortic aneurysm ([facility] V24) 08/11/2021 Left heart failure ([facility] V24, [facility] V28) 08/07/2021 PVC's (premature ventricular contractions) 08/07/2021 SOB (shortness of breath) 08/07/2021 CIDP (chronic inflammatory demyelinating polyneuropathy) ([facility] V24, [facility] V28) 06/23/2021 Ventricular tachycardia (paroxysmal) ([facility] V24, [facility] V28) 03/09/2021 Peripheral polyneuropathy 02/26/2021 DDD (degenerative disc disease), cervical 01/02/2021 DDD (degenerative disc disease), lumbar 01/02/2021 Vitamin D deficiency 01/02/2021 Chronic combined systolic and diastolic heart failure ([facility] V24, [facility] V28) 11/14/2020 Dilated cardiomyopathy ([facility] V24, [facility] V28) 07/28/2020 Chest pain 07/28/2020 PLMD (periodic limb movement disorder) 07/05/2019 Snoring 07/05/2019 LV (left ventricular) mural thrombus 10/10/2018 AAA (abdominal aortic aneurysm) ([facility] V24) 09/05/2018 Kidney cyst, acquired 09/05/2018 Chronic cough 09/20/2017 Chronic obstructive pulmonary disease ([facility] V24, [facility] V28) 06/10/2017 Allergic rhinitis 05/25/2017 Asthma 05/25/2017 Congestive heart failure with left ventricular systolic dysfunction ([facility] V24, [facility] V28) 05/25/2017 History of alcohol abuse 05/25/2017 CKD (chronic kidney disease) stage 3, GFR 30-59 ml/min ([facility] V24, [facility] V28) 05/19/2017 Hyperlipidemia 05/20/2008 Cocaine abuse, in remission ([facility] V24, [facility] V28) 03/05/2008 Essential hypertension 05/18/2005 Surgical History[1] SOCIAL HISTORY: Social History Tobacco Use Smoking status: Former Current packs/day: 0.00 Average packs/day: 1 pack/day for 47.0 years (47.0 ttl pk-yrs) Types: Cigarettes Start date: 08/22/1971 Quit date: 08/22/2018 Years since quittin.9 Smokeless tobacco: Never Substance Use Topics Alcohol use: Not Currently Comment: hx of Abuse; quit 2 years ago (2022) FAMILY HISTORY: Family History[2] Family Status Relation Name Status Mother Alive HTN, pulm embolism, leg DVT Father at age 50s throat cancer, smoker Sister Alive x5, healthy Brother Alive x2, healthy Daughter x4 Alive Neg Hx (Not Specified) No partnership data on file MEDICATIONS DISCONTINUED/REORDERED: Medications Discontinued During This Encounter Medication Reason gabapentin (NEURONTIN) 100 mg capsule sacubitriL-valsartan (ENTRESTO) 24-26 mg per tablet Reorder ACTIVE MEDICATIONS: Medications Taking[3] ALLERGIES: Allergies[4] PHYSICAL EXAM: Visit Vitals BP 130/80 Pulse 72 Temp 35.7 ??C (96.2 ??F) (Temporal) Resp 17 Ht 1.803 m (71 ) Wt 106 kg (234 lb) SpO2 94% BMI 32.64 kg/m?? Smoking Status Former BSA 2.25 m?? General appearance: alert and oriented, in no acute distress Lungs: clear to auscultation bilaterally Heart: regular rate and rhythm, S1, S2 normal, no murmur, click, rub or gallop Extremities: extremities normal, warm and well-perfused; no cyanosis, clubbing, or edema Neurologic: Grossly normal LABS/IMAGING: Hospital notes reviewed IMPRESSION: 1. Hospital discharge follow-up 2. Dilated cardiomyopathy (CMS/HCC V24, CMS/HCC V28) 3. Stage 3b chronic kidney disease (CMS/HCC V24, CMS/HCC V28) 4. Congestive heart failure with left ventricular systolic dysfunction (CMS/HCC V24, CMS/HCC V28) 5. Essential hypertension 6. Iron deficiency anemia, unspecified iron deficiency anemia type 7. Pure hypercholesterolemia 8. Left heart failure (CMS/HCC V24, CMS/HCC V28) 9. ETOH abuse PLAN: 1. Patient status post multiple ER and hospital visits most recently for suicidal ideation but it sounds like the hospital course was overall uncomplicated. He does have a history of alcohol abuse but he declines any medication at this time to treat that. We did discuss naltrexone and Campral, but he declines a prescription at this point. He does have an appointment with his therapist set up already will follow-up with the specialist. I did recommend that he follow-up with cardiology as well. Iordered some follow-up blood work for him. He has been holding Entresto ever since it was held at the hospital due to IRENE I am going to have him restart a low dose and recheck labs in a week or 2 we will keep our scheduled follow-up for next month as well. I did increase his gabapentin for pain discussed adverse effects. I also brought up home services with him but he feels that he is doing okay with medications at the present time I have applied the code G2211 to this patient???s visit as the primary care provider dealing with (list the condition that is/are complex) leading to the extensive work up, and management associated with the medical care of this patient. This patient???s serious conditions and complex medical conditions also required several consultants needing management and coordination through my office. I have reviewed all information as it pertains to the management of this patient for final approval. I have spent 44 minutes during this encounter including preparing to see the patient, reviewing notes from specialists among previous encounter notes, reviewing hospital notes,labs and imaging, performing a medically appropriate examination, extensive counseling/education on the above issues, discussing benefits/side effects of pharmacologic therapeutic options and documenting clinical information in the electronic health record including today's office note. Advised the patient to call me if any problems. Patient understands the plan. Patient is in agreement with the plan. 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 smith UPPER GASTROINTESTINAL ENDOSCOPY 11/24/2020 PROCEDURE: SD UPPER GI ENDOSCOPY PERFORMED; COMMENT: poss esophageal candidiasis: VENTRAL HERNIA REPAIR 02/07/2023 PROCEDURE: HISTORICAL VTRL WALL HERNIA RE; COMMENT: Incisional hernia repair Dr. Tracey [2] Family History Problem Relation Name Age of Onset Hypertension Mother Gallbladder disease Mother Other cancer Father throat cancer Alcohol/Drug Father Lung cancer Neg Hx [3] Outpatient Medications Marked as Taking for the 08/12/25 encounter (Office Visit) with PETER John Medication Sig Dispense Refill acetaminophen (TYLENOL) 500 mg tablet Take 2 tablets (1,000 mg total) by mouth every 8 (eight) hours. 24 tablet 0 amiodarone (PACERONE) 200 mg tablet Take 0.5 tablets (100 mg total) by mouth 1 (one) time each day. amoxicillin-clavulanate (AUGMENTIN) 875-125 mg per tablet Take 1 tablet by mouth 2 (two) times a day for 7 days. 14 tablet 0 carvediloL (COREG) 12.5 mg tablet Take 1 tablet (12.5 mg total) by mouth 2 (two) times a day. 60 each 0 DULoxetine (CYMBALTA) [address] capsule Take 1 capsule (30 mg total) by mouth 1 (one) time each day.Do not crush or chew. 30 each 5 eplerenone (INSPRA) 50 mg tablet Take 1 tablet (50 mg total) by mouth 1 (one) time each day. predniSONE (DELTASONE) 2.5 mg tablet Take 1 tablet (2.5 mg total) by mouth 1 (one) time each day. sacubitriL-valsartan (ENTRESTO) 24-26 mg per tablet Take 1 tablet by mouth 2 (two) times a day. 180tablet 3 warfarin (COUMADIN) 2 mg tablet Take 2 tablets (4 mg total) by mouth 1 (one) time each day. Take 2 tablets daily until INR is 2 or higher, after that resume usual regimen as per your warfarin clinic. [4] Allergies Allergen Reactions Losartan Cough Bee Venom Protein (Honey Bee) Hives Hydrochlorothiazide Lisinopril documented in this encounter Plan of Treatment Upcoming Encounters Date Type Department Care Team (Late st Contact Info) Description 09/10/2025 10:45 AM EST Office Visit [address] [phone] Andrea Huitron PA [address] [place] [phone] Scheduled Orders Name Type Priority Associated Diagnoses Orde r Schedule Lipid panel with reflex to direct LDL Lab Routine Dilated cardiomyopathy (CMS/HCC V24, CMS/HCC V28) Stage 3b chronic kidney disease (CMS/HCC V24, CMS/HCC V28) Congestive heart failure with left ventricular systolic dysfunction (CMS/HCC V24, CMS/HCC V28) Essential hypertension Iron deficiency anemia, unspecified iron deficiency anemia type Pure hypercholesterolemia Left heart failure (CMS/HCC V24, CMS/HCC V28) 1 Occurrences starting 08/12/2025 until 08/12/2026 Comprehensive metabolic panel Lab Routine Dilated cardiomyopathy (CMS/HCC V24, CMS/HCC V28) Stage 3b chronic kidney disease (CMS/HCC V24, CMS/HCC V28) Congestive heart failure with left ventricular systolic dysfunction (CMS/HCC V24, CMS/HCC V28) Essential hypertension Iron deficiency anemia, unspecified iron deficiency anemia type Pure hypercholesterolemia Left heart failure (CMS/HCC V24, CMS/HCC V28) 1 Occurrences starting 08/12/2025 until 08/12/2026 CBC and differential Lab Routine Dilated cardiomyopathy (CMS/HCC V24, CMS/HCC V28) Stage 3b chronic kidney disease (CMS/HCC V24, CMS/HCC V28) Congestive heart failure with left ventricular systolic dysfunction (CMS/HCC V24, CMS/HCC V28) Essential hypertension Iron deficiency anemia, unspecified iron deficiency anemia type Pure hypercholesterolemia Left heart failure (CMS/HCC V24, CMS/HCC V28) 1 Occurrences starting 08/12/2025 until 08/12/2026 B-type natriuretic peptide Lab Routine Dilated cardiomyopathy (CMS/HCC V24, CMS/HCC V28) Stage 3b chronic kidney disease (CMS/HCC V24, CMS/HCC V28) Congestive heart failure with left ventricular systolic dysfunction (CMS/HCC V24, [facility] V28) Essential hypertension Iron deficiency anemia, unspecified iron deficiency anemia type Pure hypercholesterolemia Left heart failure ([facility] V24, [facility] V28) 1 Occurrences starting 08/12/2025 until 08/12/2026 documented as of this encounter Goals Goal Patient Goal Type Associated Problems Recent Progress Patient-Stated? Author Autogenerat ed Goal Care Plan Autogenerated Problem No Betsy Lay PA Autogenerat ed Goal Care Plan Autogenerated Problem No Tammy Hines PA documented as of this encounter Visit Diagnoses Diagnosis Hospital discharge follow-up- Primary Other follow-up examination Dilated cardiomyopathy ([facility] V24, [facility] V28) Other primary cardiomyopathies Stage 3b chronic kidney disease ([facility] V24, [facility] V28) Congestive heart failure with left ventricular systolic dysfunction ([facility] V24, [facility] V28) Essential hypertension Unspecified essential hypertension Iron deficiency anemia, unspecified iron deficiency anemia type Pure hypercholesterolemia Left heart failure ([facility] V24, [facility] V28) Left heart failure ETOH abuse Nondependent alcohol abuse, unspecified drinking behavior documented in this encounter Discontinued Medications Medication Sig Discontinue Reason Start Date End Da te gabapentin (NEURONTIN) 100 mg capsule Take 1 capsule (100 mg total) by mouth every 8 (eight) hours. 06/23/2025 08/12/2025 sacubitriL-valsartan (ENTRESTO) 24-26 mg per tablet Take 1 tablet by mouth 2 (two) times a day. Reorder 07/24/2025 08/12/2025 documented as of this encounter Additional Health Concerns Active Problems Noted Date Diagnosed Date Autogenerated Problem 07/09/2025 Autogenerated Problem 07/23/2025 Assessment Noted Time PHQ-9 Depression Total Score: 0 06/21/20 9:48 AM EDT A fall risk assessment has been complete d for the patient 11/07/2024 11:28 AM EDT documented as of this encounter Care Teams Elevator Supervisor Relationship Specialty Start Date End Date Andrea Huitron PA [address] [place] [address] PCP - General Internal Medicine 06/24/25 documented as of this encounter
--- NOTE | ~2025-08-16 | XR_ITS ---
CLINICAL HISTORY: cough, recent pneumonia 2 view chest x-ray Comparison: None provided Findings: Left chest wall pacemaker/AICD with single lead overlying the right ventricle. Median sternotomy wires status post aortic valve replacement. Normal size heart. Ectatic aorta. No focal consolidation, pleural effusion, or pneumothorax. Cholecystectomy clips in the right upper quadrant. Chronic appearing deformity of the right humeral head. IMPRESSION: No acute findings. This document has been electronically signed by: Antony Johnston MD on 08/17/2025 03:53:33
--- OUTSIDE RECORDS SUMMARY | 2025-08-16 14:00 | XMS_ITS | Encounter Summary ---
Author Organization [facility] Address [address] [place] [address] Care Team Providers Care Robotics Software Engineer Name Role Phone Andrea Huitron Primary Care Provider [phone] Reason for Visit * Reason Comments Elbow Pain Rt elbow pain no inj ury x 2 wks Encounter Details Date Type Department Care Team (Late st Contact Info) Description 08/16/2025 2:00 PM EST Office Visit Walk-In Clinic - [facility] [address], [place] [phone] NP [address], [place] Right elbow pain (Primary Dx) Social History Tobacco Use Types Packs/Day Years Used Date Smoking Tobacco: Former Cigarettes 1 47 0 08/22/1971 - 08/22/2018 Smokeless Tobacco: Never Alcohol Use Standard Drinks/Week Comments Not Currently [...] care for your loved ones. For example, exceptional children teacher assistant or elderly care for an older adult? [...] Sign Reading Time Taken Comments Blood Pressure 144/88 08/16/2025 2:02 PM EST Pulse 67 08/16/2025 2:02 PM EST Temperature 36.6 C (97.8 F) 08/16/2025 2:02 PM EST Respiratory Rate - - Oxygen Saturation - - Inhaled Oxygen Concentration - - Weight - - Height - - Body Mass Index - - documented in this encounter Functional Status * [...] 11:39 AM José Miguel Posadas RN documented in this encounter Ordered Prescriptions Prescription Sig Dispense Quantity Refills Last Filled Start Date End Date predniSONE (DELTASONE) 20 mg tablet Take 2 tablets (40 mg total) by mouth 1 (one) time each day for 5 days. 10 each 08/16/2025 documented in this encounter Progress Notes * Aydee Way NP - 08/16/2025 2:00 PM EST CHIEF COMPLAINT: Elbow Pain (Rt elbow pain no injury x 2 wks ) HPI: Valdez Khalil is a 70 y.o. old male who presents with right elbow pain no known injury ROS: Remainder of the 12 point review of symptoms unremarkable except for those idenitified in the HPI. PAST MEDICAL HISTORY: Patient Active Problem List Diagnosis Date Noted Postoperative abdominal pain 07/21/2025 Umbilical hernia without obstruction and without gangrene 07/21/2025 Generalized abdominal pain 07/09/2025 Abdominal pain 07/06/2025 Right upper quadrant abdominal pain 07/05/2025 MARY (obstructive sleep apnea) 06/25/2024 Iliac artery aneurysm, bilateral ([facility] V24) 01/21/2023 ETOH abuse 04/09/2022 Iron deficiency anemia 12/14/2021 Nocturnal hypoxemia 11/16/2021 Aortic aneurysm ([facility] V24) 08/11/2021 Left heart failure [place] [place] [facility]) 08/07/2021 PVC's (premature ventricular contractions) 08/07/2021 SOB (shortness of breath) 08/07/2021 CIDP (chronic inflammatory demyelinating polyneuropathy) ([facility] [place] [facility]) 06/23/2021 Ventricular tachycardia (paroxysmal) ([facility] [place]) 03/09/2021 Peripheral polyneuropathy 02/26/2021 DDD (degenerative disc disease), cervical 01/02/2021 DDD (degenerative disc disease), lumbar 01/02/2021 Vitamin D deficiency 01/02/2021 Chronic combined systolic and diastolic heart failure ([facility] [place]) 11/14/2020 Dilated cardiomyopathy ([facility]) 07/28/2020 Chest pain 07/28/2020 PLMD (periodic limb movement disorder) 07/05/2019 Snoring 07/05/2019 LV (left ventricular) mural thrombus 10/10/2018 AAA (abdominal aortic aneurysm) ([facility] V24) 09/05/2018 Kidney cyst, acquired 09/05/2018 Chronic cough 09/20/2017 Chronic obstructive pulmonary disease ([facility]) 06/10/2017 Allergic rhinitis 05/25/2017 Asthma 05/25/2017 Congestive heart failure with left ventricular systolic dysfunction ([facility]) 05/25/2017 History of alcohol abuse 05/25/2017 CKD (chronic kidney disease) stage 3, GFR 30-59 ml/min ([facility] [place]) 05/19/2017 Hyperlipidemia 05/20/2008 Cocaine abuse, in remission ([facility]) 03/05/2008 Essential hypertension 05/18/2005 Surgical History[1] [...] No partnership data on file MEDICATIONS DISCONTINUED/REORDERED: There are no discontinued medications. ACTIVE MEDICATIONS: Medications Taking[3] ALLERGIES: Allergies[4] PHYSICAL EXAM: Vitals: 08/16/25 1402 BP: (!) 144/88 Pulse: 67 Temp: 36.6 ??C (97.8 ??F) TempSrc: Temporal CONSTITUTIONAL: alert, calm, cooperative, in no acute distress SKIN: warm and dry HEART: S1, S2 normal, regular rate and rhythm, no murmurs, rubs, gallops LUNGS: clear to auscultation bilaterally, no wheezes, rales, rhonchi EXTREMITIES: no clubbing, cyanosis, or edema positive tenderness over lateral epicondyles grasp equal and strong DTRs intact PSYCH: mood/affect full range, speech clear, good eye contact, cooperative with exam LABS/IMAGING: IMPRESSION: Tendinitis PLAN: The patient's PMH, problem list and medications were reviewed in reference to the above diagnosis/diagnoses. Prednisone sent to pharmacy (patient on Coumadin) Ice to affected area Advised to follow up with PCP if symptoms do not improve. Advised to follow up with UC or PCP immediately for new or worsening symptoms. Educated on red flags symptoms. Advised to go to the ER or call 911 for these symptoms. Patient understands the plan. Patient verbalizes agreement with the plan. No orders of the defined types were placed in this encounter. Aydee Way NP on 08/16/2025 at 2:14 PM EST Today's documentation was made using voice recognition software. This note may contain grammatical errors secondary to this software. 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 smith UPPER GASTROINTESTINAL ENDOSCOPY 11/24/2020 PROCEDURE: WA UPPER GI ENDOSCOPY PERFORMED; COMMENT: poss esophageal candidiasis: VENTRAL HERNIA REPAIR 02/07/2023 PROCEDURE: HISTORICAL VTRL WALL HERNIA RE; COMMENT: Incisional hernia repair Dr. Tracey [2] Family History Problem Relation Name Age of Onset Hypertension Mother Gallbladder disease Mother Other cancer Father throat cancer Alcohol/Drug Father Lung cancer Neg Hx [3] Outpatient Medications Marked as Taking for the 08/16/25 encounter (Office Visit) with Aydee Way NP Medication Sig Dispense Refill acetaminophen (TYLENOL) 500 [...] (two) times a day. 60 each 0 docusate sodium (COLACE) 100 mg capsule Take 1 capsule (100 mg total) by mouth 2 (two) times a day.14 each 0 DULoxetine (CYMBALTA) [address] capsule Take 1 capsule (30 mg total) by mouth 1 (one) time each day.Do not crush or chew. 30 each 5 empagliflozin (Jardiance) 10 mg tablet Take 1 tablet (10 mg total) by mouth 1 (one) time each day in the morning. eplerenone (INSPRA) 50 mg tablet Take 1 tablet (50 mg total) by mouth 1 (one) time each day. gabapentin (NEURONTIN) 600 mg tablet Take 1 tablet (600 mg total) by mouth 3 (three) times a day. 90 each 11 latanoprost (XALATAN) 0.005 % ophthalmic solution Administer 1 drop into both eyes at bedtime. oxyCODONE (ROXICODONE) 5 mg immediate release tablet Take 1 tablet (5 mg total) by mouth every 6 (six) hours if needed for severe pain. Max Daily Amount: 20 mg 8 tablet 0 predniSONE (DELTASONE) 2.5 mg tablet Take 1 tablet (2.5 mg total) by mouth 1 (one) time each day. sacubitriL-valsartan (ENTRESTO) 24-26 mg per tablet Take 1 tablet by mouth 2 (two) times a day. 180tablet 3 tamsulosin (FLOMAX) 0.4 mg 24 hr capsule Take 1 capsule (0.4 mg total) by mouth 1 (one) time each day. Capsules should be taken 30 minutes following the same meal each day. 30 each 0 warfarin (COUMADIN) 2 mg tablet Take 2 [...] Description 09/10/2025 10:45 AM EST Office Visit Adult Medicine [address] [phone] Andrea Huitron PA [facility] [place] [address] documented as of this encounter Goals Goal Patient Goal Type Associated Problems Recent Progress Patient-Stated? Author Autogenerat ed Goal Care Plan Autogenerated Problem No Betsy Lay PA Autogenerat ed Goal Care Plan Autogenerated Problem No Tammy Hines PA documented as of this encounter Visit Diagnoses Diagnosis Right elbow pain- Primary Pain in joint, upper arm documented in this encounter Additional Health Concerns Active Problems Noted Date Diagnosed Date Autogenerated Problem 07/09/2025 Autogenerated Problem 07/23/2025 Assessment Noted Time PHQ-9 Depression Total Score: 0 06/21/20 9:48 AM EDT A fall risk assessment has been complete d for the patient 11/07/2024 11:28 AM EDT documented as of this encounter Care Teams Robotics Software Engineer Relationship Specialty Start Date End Date Andrea Huitron PA [address] [place] [address] PCP - General Internal Medicine 06/24/25 documented as of this encounter
[2025-08-16 22:38] VITALS: BP 173/109; PULSE 79; RESP 20; TEMP 36.6; O2SAT 98; BMI 33.1
--- NOTE | 2025-08-16 22:39 | ED_ITS ---
HPI - General Adult General Chief complaint: General Medical Stated complaint: leg pain, needed injection Time Seen by Provider: 08/17/25 00:35 Source: patient Mode of arrival: ambulatory Limitations: no limitations History of Present Illness ED Provider: Dr. Hillary Crawford HPI narrative: 70-year-old male with a known history of chronic inflammatory demyelinating polyneuropathy (CIDP) who presents with worsening bilateral leg pain and hand pain consistent with his prior CIDP flares. He reports that the pain has progressed to the point where he can only walk short distances before needing to stop. He is followed by Neurology at this hospital and receives IVIG infusions during flares of his CIDP; he currently needs an infusion due to a flare. Associated symptoms today include chills, episodic sweating, nausea without vomiting, and mild, non-significant diarrhea. He denies fever within the last 24 hours. He had a recent episode of pneumonia diagnosed earlier this month and feels he is ?getting over? it. He denies chest pain, palpitations, or sensation of an irregular heartbeat. Current medications: Ozempic 6 (units unclear), duloxetine daily (took yesterday), warfarin for a heart valve; timing and type not specified. He tried gabapentin for pain but stopped due to shakiness, nervousness, and a bitter taste. No known medication allergies were identified during the encounter. Related Data Home Medications ?Medication ?Instructions ?Recorded ?Confirmed albuterol sulfate 90 mcg/actuation 2 puff inhalation Q 6H PRN wheezing 05/14/25 08/17/25 aerosol inhaler amiodarone 200 mg tablet 100 mg PO DAILY 05/14/25 atorvastatin 40 mg tablet 40 mg PO DAILY 05/14/2507/23 empagliflozin 10 mg tablet 10 mg PO QAM 05/14/2508/17 (Jardiance) fluticasone propionate 50 2 spray intranasal DAILY PRN 05/14/25 08/17/25 mcg/actuation nasal allergies spray,suspension multivitamin-iron sulfate 15 1 tab PO DAILY 05/14/25 1 10/18/24 mg-folic acid 400 mcg tablet (Tab-A-Rashaun Multivitamin w-iron) torsemide 20 mg tablet 20 mg PO DAILY PRN Weight Ga in 05/14/25 08/17/25 warfarin 2 mg tablet 3 mg PO Q48H 05/14/25 folic acid 1 mg tablet 1 mg PO DAILY 08/17/2508/17 ondansetron 8 mg disintegrating 8 mg PO TID 08/17/25 1 10/18/24 tablet prednisone 20 mg tablet 20 mg PO BID 08/17/25 warfarin 2 mg tablet 4 mg PO Q48H 08/17/25 Previous Rx's ?Medication ?Instructions ?Recorded duloxetine 30 mg capsule,delayed 30 mg PO DAILY #90 ca ps 06/06/25 release gabapentin 300 mg capsule 600 mg (2 x 300 mg) PO TID P RN 08/18/25 nerve pain 7 days #42 caps Allergies Allergy/AdvReac Type Severity Reaction Status Date / Time hydrochlorothiazide Allergy Mild Cough Verified 08/16/25 22:43 Review of Systems 2 Review of Systems: as per HPI, full review of systems performed and negative but for the above mentioned pertinent positives and negatives. [facility] Past Medical History Medical History Hyperlipidemia Alcohol use disorder Restrictive lung disease Cough present for greater than 3 weeks History of smoking at least 1 pack per day for at least 30 years COPD (chronic obstructive pulmonary disease) HTN (hypertension) Chronic inflammatory demyelinating polyneuropathy Pacemaker Surgical History AICD (automatic cardioverter/defibrillator) present Heart valve replaced Social History Social History Patient Tobacco Use Status: Former Tobacco user service: No Physical Exam ED Exam Exam: GENERAL: Chronically ill-appearing, conversant, appears uncomfortable. SKIN: Normal skin color for ethnicity, warm, dry, no rashes noted. HEENT: Normocephalic, atraumatic, no stridor, posterior oropharynx nonerythematous, EOMI. NECK: Soft, supple, full ROM, midline structures nontender, no step-offs, no deformities, no lymphadenopathy. CHEST: Heart regular rate and rhythm, no murmurs, symmetric chest rise and fall. PULMONARY: Clear to auscultation bilaterally, no labored breathing, no wheezes/rhales/ rhonchi. ABDOMINAL: Soft, nondistended, nontender, positive bowel sounds in all quadrants. : Deferred. MUSCULOSKELETAL: Normal tone, full range of motion, no deformities, no peripheral edema. NEURO: Alert and oriented to person, CN II through XII intact, no focal neurologic deficits. PSYCHIATRIC: Flat affect, fluid speech, appropriate demeanor. Vital Signs: Vital Signs - 24 hr 08/16/25 22:38 08/17/25 01:52 08/17/25 02:07 Temperature 97.9 F 97.9 F Pulse Rate 79 66 72 Respiratory Rate 20 14 23 H Blood Pressure 173/109 H 170/101 H 156/93 H Pulse Oximetry 98 93 95 Oxygen Delivery Method Room Air Nasal Cannula Room Air Nasal Cannula Oxygen Flow Rate 2 2 08/17/25 04:19 08/17/25 04:21 Temperature 97.9 F Pulse Rate 74 Respiratory Rate 16 19 Blood Pressure 168/96 H Pulse Oximetry Oxygen Delivery Method Room Air Oxygen Flow Rate BMI result Body Mass Index 33.1 Course Course Course Narrative: Gloriafran Stern DRUG ABUSE RESISTANCE EDUCATION OFFICER 08/16 2240 This is a rapid medical exam. Defer additional HPI, ROS and PE to primary provider. 70-year-old male with a history of HTN, TAVR on coumadin, COPD, chronic inflammatory demyelinating polyneuropathy followed by neurology presents the ER with complaints of pain in both thighs and hands x 1 week. Patient reports when he has these flares he is typically treated with IVIG. See note by Neurology. Will obtain labs. VSS Medications Administered Discontinued Medications Generic Name Dose Route Start Last Admin Trade Name Freq PRN Reason Stop Dose Admin Acetaminophen 650 mg 08/17/25 05:37 08/18/25 09:59 Acetaminophen 325 Mg Tablet PO 650 mg Q6H PRN Administration Pain, Mild 1-3,fever,headache Amiodarone HCl 100 mg 08/18/25 09:00 08/18/25 09:55 Amiodarone Hcl 200 Mg Tablet PO 100 mg DAILY BRICE Administration Atorvastatin Calcium 40 mg 08/17/25 14:00 08/18/25 09:54 Atorvastatin Calcium 40 Mg Tablet PO 40 mg DAILY BRICE Administration Diazepam 5 mg 08/17/25 00:52 08/17/25 01:49 Diazepam 10 Mg/2 Ml Cartridge IVPUSH 08/17/25 00:53 5 mg STAT STA Administration Duloxetine HCl 30 mg 08/17/25 14:00 08/18/25 09:54 Duloxetine Hcl 30 Mg Capsule.Dr PO 30 mg DAILY BRICE Administration Empagliflozin 10 mg 08/17/25 13:15 08/18/25 09:55 Empagliflozin 10 Mg Tablet PO 10 mg DAILY BRICE Administration Folic Acid 1 mg 08/17/25 09:00 08/18/25 09:54 Folic Acid 1 Mg Tablet PO 1 mg DAILY BRICE Administration Folic Acid 1 mg 08/17/25 14:00 08/17/25 14:04 Folic Acid 1 Mg Tablet PO Not Given DAILY BRICE Gabapentin 300 mg 08/17/25 00:52 08/17/25 01:11 Gabapentin 300 Mg Capsule PO 08/17/25 00:53 300 mg ONCE ONE Administration Gabapentin 300 mg 08/17/25 06:19 08/17/25 07:50 Gabapentin 300 Mg Capsule PO 08/17/25 06:20 300 mg ONCE ONE Administration Gabapentin 600 mg 08/17/25 13:13 08/18/25 12:09 Gabapentin 300 Mg Capsule PO 600 mg TID PRN Administration nerve pain Hydralazine HCl 10 mg 08/17/25 06:12 08/17/25 12:21 Hydralazine Hcl 20 Mg/Ml Vial IVPUSH 10 mg Q6H PRN Administration SBP > 160 Protocol Immune Globulin 30 gm in 300 mls @ 53.9 mls/hr 08/17/25 07:00 08/17/25 13:03 Gammagard 10% IV 08/17/25 14:34 Infused DAILY BRICE Infusion As Directed Immune Globulin 30 gm in 300 mls @ 53.9 mls/hr 08/18/25 07:00 08/18/25 14:52 Gammagard 10% IV 08/18/25 12:34 Infused DAILY@0700 BRICE Infusion As Directed Morphine Sulfate 4 mg 08/17/25 04:08 08/17/25 04:19 Morphine Sulfate 4 Mg/Ml Cartridge IVPUSH 08/17/25 04:09 4 mg ONCE ONE Administration Protocol Multivitamins/Vitamin C 1 tab 08/17/25 14:00 08/18/25 09:54 Multivitamin Tablet PO 1 tab DAILY BRICE Administration Oxycodone HCl 5 mg 08/17/25 21:20 08/17/25 21:33 Oxycodone Hcl Immed Release 5 Mg Tablet PO 08/17/25 21:21 5 mg ONCE STA Administration Prednisone 20 mg 08/17/25 21:00 08/18/25 09:54 Prednisone 20 Mg Tablet PO 20 mg BID BRICE Administration Senna 17.2 mg 08/17/25 21:00 08/17/25 20:37 Sennosides 8.6 Mg Tablet PO Not Given BEDTIME BRICE Sodium Chloride 3 ml 08/17/25 08:00 08/18/25 09:02 0.9 % Sodium Chloride Flush 3 Ml Syringe IVFLUSH 3 ml QSHIFT BRICE Administration Thiamine HCl 100 mg 08/17/25 09:00 08/18/25 09:54 Thiamine Hcl 100 Mg Tablet PO 100 mg DAILY BRICE Administration Warfarin Sodium 3 mg 08/17/25 18:00 08/17/25 17:39 Warfarin Sodium 3 Mg Tablet PO 3 mg Q48H BRICE Administration Medical Decision Making Medical Decision Making [facility] Narrative: The patient presents with a flare of known CIDP causing significant extremity pain, with associated systemic symptoms (chills, sweats, nausea). Exam notable for bigeminy but he denies symptoms of arrhythmia and blood pressure is stable. Problem #1: CIDP flare with severe neuropathic pain Assessment: Acute exacerbation of baseline CIDP manifested by bilateral leg and hand pain, limiting ambulation. Patient typically responds to IVIG but is overdue for infusion. Plan: * Admit to hospitalist service for inpatient IVIG infusion. * Neurology consult during admission to guide IVIG dosing and schedule. * Pain management while inpatient; continue home duloxetine. Gabapentin not tolerated by patient. * Monitor systemic symptoms (chills, sweats, nausea) during admission. Problem #2: Irregular rhythm (bigeminy) noted during encounter Assessment: Provider informed patient of irregular rhythm (bigeminy) during encounter. Patient denies chest pain, palpitations, or dizziness; blood pressure okay. Plan: * Instruct patient to report any new chest pain, dizziness, or fluttering sensations. Follow-up: Inpatient management as above; outpatient Neurology appointment already scheduled for August once discharged. Differential Diagnosis Differential Diagnoses: The differential diagnosis associated with the presentation includes (DVT, chronic pain, CIDP flare, neuralgia, among others) Admission/Observation Consideration of admission/observation: Escalation of care including admission/observation considered Consult Healthcare Provider Management of the patient was discussed with: Hospitalist Lab Data [facility] Lab Attestation statement: I reviewed the patient's lab results. 08/18/25 05:33 08/18/25 05:33 Labs: Lab Results 08/16/25 08/17/25 Range/Units 22:49 03:31 WBC 6.6 (4.8-10.8) X10*3/uL RBC 4.36 L (4.60-5.80) X10*6/uL Hgb 14.3 (14.0-18.0) g/dl Hct 41.7 L (42.0-52.0) % MCV 95.6 (80.0-98.0) fL MCH 32.8 (27.0-33.0) pg MCHC 34.3 (31.0-36.0) g/dl RDW 13.1 (11.0-16.0) % Plt Count 263 (160-400) X10*3/uL MPV 9.7 (9.4-12.4) fL Immature Gran % (Auto) 0.3 (0.0-0.4) % Neut % (Auto) 87.3 H (45-73) % Lymph % (Auto) 10.4 L (20-40) % Glenn % (Auto) 1.4 L (2-11) % Eos % (Auto) 0.3 (0-4) % Baso % (Auto) 0.3 (0-2) % Lymph # (Auto) 0.7 L (1.2-4.9) X10*3/uL Glenn # (Auto) 0.1 (0.1-1.2) X10*3/uL Eos # (Auto) 0.0 (0.0-0.4) X10*3/uL Baso # (Auto) 0.0 (0.0-0.2) X10*3/uL Abs Immat Gran (auto) 0.02 (0.00-0.03) X10*3/uL Absolute Neuts (auto) 5.8 (2.0-8.3) x10*3/uL Absolute Nucleated RBC 0.000 (0.0-0.012) X10*3/uL Nucleated RBC % (auto) 0.0 (0.0-0.2) /100WBC PT 28.1 H (11.2-13.5) SEC INR 2.3 H (0.9-1.1) Sodium 137 (135-145) mmol/L Potassium 4.0 (3.3-5.1) mmol/L Chloride 108 (96-108) mmol/L Carbon Dioxide 19 L (22-29) mmol/L Anion Gap 14 (12-20) BUN 13 (9-16) mg/dL Creatinine 1.42 H (0.5-1.4) mg/dL Estim Creat Clear Calc 60.4 Estimated GFR 49 Random Glucose 117 H (60-115) mg/dL Calcium 9.3 (8.4-10.2) mg/dL Total Bilirubin 0.5 (0.0-1.0) mg/dL Direct Bilirubin 0.2 (0.0-0.5) mg/dL AST 24 (5-37) U/L ALT 15 (0-40) U/L Alkaline Phosphatase 79 (39-117) U/L Total Protein 7.2 (6.5-8.0) g/dL Albumin 4.1 (3.5-5.0) g/dL COVID-19 (YARELIS) Negative (Negative) COVID-19 Clin Com See Note Influenza Type A (KATHERIN) Negative (Negative) Influenza Type B (KATHERIN) Negative (Negative) Influenza A & B Note See Note External Record Review External record reviewed: Inpatient record Prescription Management I considered prescription management with: Pain Medication Chronic Conditions Patient?s care impacted by: Diabetes, Hypertension and Other (CIDP) Social Determinants Patient?s care significantly limited by Social Determinants of Health including: Other Social Determinant of Health Discharge Plan Discharge Clinical Impression: Chronic inflammatory demyelinating polyneuropathy, Neuropathic pain Patient Disposition: Admitted As Inpatient Interventions: Admission Worksheet (ED) Last Done: 08/18/25 00:03 Discharge Date/Time: 08/18/25 00:54
[2025-08-16 22:54] LABS: MANUAL DIFF FLAG NO
[2025-08-16 22:55] LABS: Hematocrit 41.7 % (42.0-52.0); Hemoglobin 14.3 g/dl (14.0-18.0); Imm Gran Abs Auto 0.02 X10*3/uL (0.00-0.03); Imm Gran Pct Auto 0.3 % (0.0-0.4); Lymphocytes Absolute Auto 0.7 X10*3/uL (1.2-4.9); Mean Corpuscular HGB Conc 34.3 g/dl (31.0-36.0); Mean Corpuscular Hemoglobin 32.8 pg (27.0-33.0); Mean Corpuscular Volume 95.6 fL (80.0-98.0); NRBC Abs Auto 0.000 X10*3/uL (0.0-0.012); NRBC Pct Auto 0.0 /100WBC (0.0-0.2); Platelet Count 263 X10*3/uL (160-400); Red Blood Count 4.36 X10*6/uL (4.60-5.80); White Blood Count 6.6 X10*3/uL (4.8-10.8)
[2025-08-16 23:00] LABS: INTERNATIONAL NORM RATIO 2.3 (0.9-1.1); Prothrombin Time 28.1 SEC (11.2-13.5)
[2025-08-16 23:09] LABS: Alanine Aminotransferase 15 U/L (0-40); Albumin Level 4.1 g/dL (3.5-5.0); Alkaline Phosphatase 79 U/L (39-117); Anion Gap 14 (12-20); Aspartate Amino Transferase 24 U/L (5-37); Blood Urea Nitrogen 13 mg/dL (9-16); Calcium 9.3 mg/dL (8.4-10.2); Carbon Dioxide 19 mmol/L (22-29); Chloride 108 mmol/L (96-108); Creatinine Clr Calc Pharmacy 60.4; Estimated Glomerular Filt Rate 49; Potassium 4.0 mmol/L (3.3-5.1); Sodium 137 mmol/L (135-145); Total Protein 7.2 g/dL (6.5-8.0)
[2025-08-17] VITALS (9 sets, daily range): BP systolic 127–170; BP diastolic 78–105; PULSE 66–77; RESP 14–23; TEMP 36.6; O2SAT 93–97; BMI 30.2
--- OUTSIDE RECORDS SUMMARY | 2025-08-17 00:22 | XMS_ITS | Data Portability ---
Author Organization [place] - [facility] Former[facility], Allergy Address [address] [place] [address] Care Team Providers Care Sql Report Developer Name Role Phone DAMIAN BREWER Primary Care Provider Assessment Encounter Date Assessment Date Assessment LastModified by Organization Details LastModified Time 04/01/2025 04/01/2025 69 year old male presents for evaluation of nasal pruritus. RAST from August 2022 showed positive reactions to cockroach, weeds, dust, and mold. Anterior rhinoscopy is unremarkable without evidence of dryness, erythema, edema, or infection. We discussed that RAST is typically not specific for the severity of allergens, however he may trial azelastine to see if this helps with the itching. Otherwise, follow up as needed for any new or worsening concerns. [email or web address] Not available 04/01/2025 12:53:53 05/01/2025 05/01/2025 69-year-old male presents for follow-up of allergic rhinitis and nasal pruritus. RAST from August 2022 showed positive reactions to cockroach, weeds, dust, and mold. Anterior rhinoscopy with clear rhinorrhea, mild turbinate hypertrophy, and blue and boggy turbinates. We discussed that as he is on a beta-berta for hypertension, we would not be able to proceed with skin allergy testing unless cleared by his PCP. Patient is interested in skin testing and he will need medical clearance from his PCP prior to testing. He will follow-up after allergy testing if he is able to hold his beta-berta. Otherwise, he may consider trialing Flonase and azelastine daily in addition to antihistamines to minimize allergy symptoms. [email or web address] Not available 05/01/2025 09:52:14 08/14/2025 08/14/2025 70 year old male presents for review of RAST. RAST + pteronyssinus. Exam today without turbinate hypertrophy, rhinorrhea, or purulence. Given improvement in symptoms, recommended that he continue with Flonase. He will follow-up if symptoms persist or worsen. CT sinus may be considered in the future for persistent or worsening symptoms. [email or web address] Not available 08/14/2025 12:06:23 Plan of Treatment Reminders Order Date Submit Date Provider Last Modified By Organization Details Last Modified Time Details Appointments None recorded. Lab None recorded. Referral None recorded. Procedures allergy testing, skin prick (PROC) - IS ON A TeralyticsE R AND WILL NEED CLEARANCE TO HOLD FOR TESTING 2024 025 [email or web address] Not available 15:26:23 intraderma l allergy skin testing (PROC) 2024 025 [email or web address] Not available 5 15:26:23 pulmonary function test procedure (PROC) 2024 025 [email or web address] Not available 5 15:26:23 pulse oximetry (PROC) 2024 025 [email or web address] Not available 15:26:23 Surgeries None recorded. Imaging None recorded. Medication Orders Flonase Allergy Relief 50 mcg/actuat ion nasal spray,susp ension 2024 025 [facility]acy #[id number], [address] [place], [address], 5 12:07:19 azelastine 137 mcg (0.1 %) nasal spray 2024 025 [facility]armacy #[id number], [address] [place], [address], 5 10:32:33 Patient TargetsNo targets recorded. Patient InstructionsNo instructions recorded. Reason for Referral None Reported. Results Created Date Observation Date Name Description Value Unit Range Abnormal Flag Note LastModifiedBy Organization Detail LastModifiedTime 05/27/2005/27/2025 ALLER GENS, ZONE 1 class description Commen t Level s of Speci fic IgE Class Descr iptio n of Class ----- ----- ----- ----- ----- -- ----- ----- ----- ----- ----- < 0.10 0 Negat demetrius 0.10 - 0.31 0/I Equiv ocal/ Low 0.32 - 0.55 I Low 0.56 - 1.40 II Moder ate 1.41 - 3.90 III High 3.91 - 19.00 IV Very High 19.01 - 100.0 0 V Very High >100. 00 Very High Not Available [facility] ([facility]) [address] [place], [address], 05/29/2025 21:16:55 05/27/20 25 05/28/2025 ALLER GENS, ZONE 1 Y357-UjF D pteronyssinu s 0.12 kU/L class 0/I abnormal Not Available [facility] ([facility]) [address] [place], [address], 05/29/2025 21:16:55 05/27/20 25 05/28/2025 ALLER GENS, ZONE 1 J511-JsT D farinae <0.10 kU/L class 0 Not Available [facility] ([facility]) [address] [place], [address], 05/29/2025 21:16:55 05/27/20 25 05/28/2025 ALLER GENS, ZONE 1 U351-NcN CAT dander <0.10 kU/L class 0 Not Available [facility] ([facility]) [address] [place], [address], 05/29/2025 21:16:55 05/27/20 25 05/28/2025 ALLER GENS, ZONE 1 P066-GrZ dog dander <0.10 kU/L class 0 Not Available [facility] ([facility]) [address] [facility], [place], [address], 05/29/2025 21:16:55 05/27/2005/28/2025 ALLER GENS, ZONE 1 w384-SxM bermuda grass <0.10 kU/L class 0 Not Available [facility] ([facility]) [address] [facility], [place], [address], 05/29/2025 21:16:55 05/27/2005/28/2025 ALLER GENS, ZONE 1 p463-TsO bluegrass, juancarlostrinity healthy <0.10 kU/L class 0 Not Available [facility] ([facility]) [address] [place], [address], 05/29/2025 21:16:55 05/27/20 25 05/28/2025 ALLER GENS, ZONE 1 j075-AjN bahia grass <0.10 kU/L class 0 Not Available [facility] ([facility]) [address] [facility], [place], [address], 05/29/2025 21:16:55 05/27/2005/28/2025 ALLER GENS, ZONE 1 S273-YnC cockroach, ugandan <0.10 kU/L class 0 Not Available [facility] ([facility]) [address] [place], [address], 05/29/2025 21:16:55 05/27/2005/28/2025 ALLER GENS, ZONE 1 F043-UpL penicillium chrysogen <0.10 kU/L class 0 Not Available [facility] ([facility]) [address] [place], [address], 05/29/2025 21:16:55 05/27/20 25 05/28/2025 ALLER GENS, ZONE 1 B585-DcZ cladosporium herbarum <0.10 kU/L class 0 Not Available [facility] ([facility]) [address] [place], [address], 05/29/2025 21:16:55 05/27/20 25 05/28/2025 ALLER GENS, ZONE 1 V623-BzA aspergillus fumigatus <0.10 kU/L class 0 Not Available [facility] ([facility]) [address] [facility], [place], [address], 05/29/2025 21:16:55 05/27/20 25 05/28/2025 ALLER GENS, ZONE 1 K141-IsI alternaria alternata <0.10 kU/L class 0 Not Available [facility] ([facility]) [address] [facility], [place], [address], 05/29/2025 21:16:55 05/27/20 25 05/28/2025 ALLER GENS, ZONE 1 B878-GfD common silver birch <0.10 kU/L class 0 Not Available [facility] ([facility]) [address] [facility], [place], [address], 05/29/2025 21:16:55 05/27/20 25 05/28/2025 ALLER GENS, ZONE 1 X763-ZcV oak, white <0.10 kU/L class 0 Not Available [facility] ([facility]) [address] [facility], [place], [address], 05/29/2025 21:16:55 05/27/20 25 05/28/2025 ALLER GENS, ZONE 1 P203-KoT elm, ugandan <0.10 kU/L class 0 Not Available [facility] ([facility]) [address] [facility], [place], [address], 05/29/2025 21:16:55 05/27/20 25 05/28/2025 ALLER GENS, ZONE 1 M227-DiF maple/box elder <0.10 kU/L class 0 Not Available [facility] ([facility]) [address] [facility], [place], [address], 05/29/2025 21:16:55 05/27/20 25 05/28/2025 ALLER GENS, ZONE 1 K744-AsT hickory, white <0.10 kU/L class 0 Not Available [facility] ([facility]) [address] [facility], [place], [address], 05/29/2025 21:16:55 05/27/20 25 05/28/2025 ALLER GENS, ZONE 1 S433-CaO ragweed, short <0.10 kU/L class 0 Not Available [facility] ([facility]) [address] [facility], [place], [address], 05/29/2025 21:16:55 05/27/2005/28/2025 ALLER GENS, ZONE 1 D994-UuX pigweed, common <0.10 kU/L class 0 Not Available [facility] ([facility]) [address] [facility], [place], [address], 05/29/2025 21:16:55 05/27/20 25 05/28/2025 ALLER GENS, ZONE 1 N466-LgZ nettle <0.10 kU/L class 0 Not Available [facility] ([facility]) [address] [facility], [place], [address], 05/29/2025 21:16:55 05/27/20 25 05/29/2025 ALLER GENS, ZONE 1 F671-BdL mucor racemosus <0.10 kU/L class 0 Not Available [facility] ([facility]) [address] [facility], [place], [address], 05/29/2025 21:16:55 05/27/20 25 05/29/2025 ALLER GENS, ZONE 1 U154-QsS stemphylium herbarum <0.10 kU/L class 0 Not Available [facility] ([facility]) [address] [facility], [place], [address], 05/29/2025 21:16:55 05/27/20 25 05/29/2025 ALLER GENS, ZONE 1 Q226-FuP shalonda, white <0.10 kU/L class 0 Not Available [facility] ([facility]) [address], [place], [address], 05/29/2025 21:16:55 05/27/20 25 05/29/2025 ALLER GENS, ZONE 1 U482-AzI hazelnut tree <0.10 kU/L class 0 Not Available [facility] ([facility]) [address], [place], [address], 05/29/2025 21:16:55 05/27/2005/29/2025 ALLER GENS, ZONE 1 G267-FvH white mulberry <0.10 kU/L class 0 Not Available [facility] ([facility]) [address], [place], [address], 05/29/2025 21:16:55 05/27/2005/29/2025 ALLER GENS, ZONE 1 Y989-YaU cedar, mountain <0.10 kU/L class 0 Not Available [facility] ([facility]) [address], [place], [address], 05/29/2025 21:16:55 05/27/20 25 05/29/2025 ALLER GENS, ZONE 1 H030-OjS mugwort <0.10 kU/L class 0 Not Available [facility] ([place] [facility]) [address], [place], [address], 05/29/2025 21:16:55 05/27/20 25 05/29/2025 ALLER GENS, ZONE 1 O844-AwM plantain, montserratian <0.10 kU/L class 0 Not Available [facility] ([facility]) [address], [place], [address], 05/29/2025 21:16:55 05/27/20 25 05/29/2025 ALLER GENS, ZONE 1 M172-CvC sheep sorrel <0.10 kU/L class 0 Not Available [facility] ([facility]) [address] [facility], [place], [address], 05/29/2025 21:16:55 05/27/20 25 05/28/2025 IMMUN OGLOB ULIN E, TOTAL immunoglobul in E, total 204 IU/mL 6-495 Not Available [facility]) [address] [facility], [place], [address], 05/29/2025 21:16:55 Result Notes None recorded. Problems Name Problem SNOMED Code Status Onset Date Resolution Date Notes Provider Name and Address Organization Details Recorded Time Cough 33615783 Active 2019 Cough, unspecifi ed; Note: Date Diagnosed : 0 11:06 AM (R05) Not Available [facility] 4 03:20:02 Dysphagia 98073509 Active 2021 Dysphagia , unspecifi ed; Note: Date Diagnosed : 05/20/2022 4:48 PM (R13.10) Not Available [facility] 4 03:20:01 Itching of skin 663874767 Active 2022 Other pruritus; Note: Date Diagnosed : 09/17/2022 10:11 AM (L29.8) Not Available [facility] 4 03:20:02 Pharyngea l dysphagia 64242060153 105 Active 2022 Dysphagia , pharyngea l phase; Note: Date Diagnosed : 02/03/2022 5:46 PM (R13.13) Not Available [facility] 4 03:20:02 Finding of resonance of voice 898023278 Active 2022 Other voice and resonance disorders ; Note: Date Diagnosed : 02/03/2022 5:46 PM (R49.8) Not Available [facility] 4 03:20:02 Dysphonia 84478940 Active 2022 Hoarsenes s; Note: Date Diagnosed : 10/06/2022 12:56 PM (R49.0) Not Available [facility] 4 03:20:01 Seasonal allergic rhinitis 817738061 Active 2024 PETER ONOFRE [address], [place], [address] , [facility] - [facility] 5 10:31:19 Nasal symptom 420102319 Active 2024 PETER ONOFRE [address], [place], [address] , [place] 5 12:55:39 Perennial allergic rhinitis 501965171 Active 2024 FABIAN HAAS PA-C [address] [facility] [address], [place], [address] , [place] 5 12:06:37 Problem Notes None recorded. Medical Equipment None Reported. Allergies Allergen ID Allergen Name Allergen Category Reaction Reaction Severity Criticality Documentation Date Start Date Code Code System Note Provider Name and Address Organization Details Recorded Time 308437 lisinopri l medicatio n Not available Not available Not available 08/14/2025 95295 RxNorm Not Available [facility] 5 03:03:54 552236 spironola ctone medicatio n Not available Not available Not available 08/14/2025 9997 RxNorm Not Available [facility] 5 03:03:54 465420 hydrochlo rothiazid e medicatio n Not available Not available Not available 08/14/2025 5487 RxNorm Not Available [facility] 5 03:03:54 245966 losartan medicatio n Not available Not available [facility] 08/14/20252019 73627 RxNorm Not Available [employer] [facility] 5 03:03:59 966124 honey bee venom environme nt hives Not available [facility] 08/14/20252004 97833 7 RxNorm Not Available [facility] 5 03:03:59 Medications Name Sig Start Date Stop Date Status Note LastModified by Organization Details LastModified Time latanopro st 0.005 % eye drops INSTILL 1 DROP INTO BOTH EYES IN THE EVENING active Not Available Not Available No t Available atorvasta tin 40 mg tablet TAKE 1 TABLET BY MOUTH EVERY DAY active Not Available Not Available No t Available fluticaso ne propionat e 50 mcg/actua tion blister powder for inhalatio n INHALE 1 PUFF BY MOUTH TWICE A DAY active Not Available Not Available No t Available carvedilo l 25 mg tablet TAKE 1 TABLET BY MOUTH TWICE A DAY 08/14 completed Not Available Not Available Not Available nystatin 100,000 unit/mL oral suspensio n TAKE 5 ML (500,000 UNITS TOTAL) BY MOUTH 4 (FOUR) TIMES A DAY FOR 14 DAYS. SWISH & SWALLOW 08/14 completed Not Available Not Available Not Available acetamino phen 325 mg tablet TAKE 2 TABS BY MOUTH EVERY 6 HOURS NEEDED MILD PAIN ,:NOT TO EXCEED 4000 MG/DAY active Not Available Not Available No t Available gabapenti n 600 mg tablet TAKE 1 TABLET BY MOUTH THREE TIMES DAILY active Not Available Not Available No t Available carvedilo l 12.5 mg tablet active Not Available Not Available Not Available torsemide 20 mg tablet TAKE 1 TABLET BY MOUTH EVERY DAY active Not Available Not Available No t Available polyethyl sally glycol 3350 17 gram oral powder packet TAKE 1 PACKET BY MOUTH DAILY FOR 14 DAYS. 08/14 completed Not Available Not Available Not Available azithromy rosemarie 250 mg tablet TK 2 TS PO ON DAY 1, THEN TK 1 T PO D FOR 4 DAYS 08/11 completed Not Available Not Available Not Available cefpodoxi me 100 mg tablet TAKE 1 TABLET BY MOUTH TWICE A DAY FOR 10 DAYS 08/14 completed Not Available Not Available Not Available amiodaron e 200 mg tablet TAKE 1 TABLET BY MOUTH EVERY DAY active Not Available Not Available No t Available naltrexon e 50 mg tablet TAKE 1 TABLET BY MOUTH EVERY DAY 08/14 completed Not Available Not Available Not Available prednison e 20 mg tablet PLEASE SEE ATTACHED FOR DETAILED DIRECTIO NS 08/14 completed Not Available Not Available Not Available prednison e 5 mg tablet TAKE 1 TABLET BY MOUTH EVERY DAY FOR 30 DAYS active Not Available Not Available No t Available sumatript an 50 mg tablet TAKE 1 TABLET AT LEAST 2 HOURS BETWEEN DOSES NEEDED ONCE A DAY FOR 30 DAYS 08/14 completed Not Available Not Available Not Available thiamine HCl (vitamin B1) 100 mg tablet TAKE 1 TABLET BY MOUTH TWICE A DAY 08/14 completed Not Available Not Available Not Available hydralazi ne 25 mg tablet 08/14 completed Medicati on ID: [id number] B rand Name: hydralaz ine Send Method: E-Prescr ibed Sub s Allowed: subs OK Medic ationGen ericName : hydralaz ine Not Available Not Available Not Available potassium chloride ER 10 mEq tablet,ex tended release 08/14 completed Medicati on ID: [id number] B rand Name: potassiu m chloride Send Method: E-Prescr ibed Sub s Allowed: subs OK Medic ationGen ericName : potassiu m chloride Not Available Not Available Not Available fexofenad ine 180 mg tablet TAKE 1 TABLET BY MOUTH EVERY DAY 08/14 completed Not Available Not Available Not Available triamcino lone acetonide 0.1 % topical cream APPLY TOPICALL Y TO THE AFFECTED AREA 1 TO 2 TIMES DAILY NEEDED 08/14 completed Not Available Not Available Not Available ondansetr on 8 mg disintegr ating tablet DISSOLVE 1 TABLET ON TOP OF THE TONGUE EVERY 8 HOURS NEEDED FOR NAUSEA OR VOMITING 08/14 completed Not Available Not Available Not Available famotidin e 20 mg tablet TAKE 1 TABLET BY MOUTH TWICE A DAY 08/14 completed Not Available Not Available Not Available prednisol one acetate 1 % eye drops,mili pension INSTILL 1 DROP INTO LEFT EYE THREE TIMES A DAY USE FOR THREE DAYS THEN STOP 08/14 completed Not Available Not Available Not Available metoclopr amide 5 mg tablet TAKE 1 TABLET BY MOUTH 4 TIMES A DAY. 08/14 completed Not Available Not Available Not Available dicyclomi ne 20 mg tablet TAKE 1 TABLET BY MOUTH 2 TIMES A DAY FOR 10 DAYS. 08/14 completed Not Available Not Available Not Available doxycycli ne monohydra te 100 mg capsule TAKE 1 CAPSULE BY MOUTH TWICE A DAY FOR 7 DAYS 08/14 completed Not Available Not Available Not Available prednison e 2.5 mg tablet TAKE 1 TABLET BY MOUTH EVERY DAY 08/14 completed Not Available Not Available Not Available pantopraz ole 40 mg tablet,de layed release TAKE 1 TABLET BY MOUTH TWICE DAILY ON AN EMPTY STOMACH AND THEN EAT TO ACTIVATE IT 08/14 completed Not Available Not Available Not Available ferrous sulfate 325 mg (65 mg iron) tablet TAKE 1 TABLET BY MOUTH DAILY FOR 14 DAYS 08/14 completed Not Available Not Available Not Available prednison e 50 mg tablet TAKE 1 TABLET BY MOUTH DAILY FOR 5 DAYS 08/14 completed Not Available Not Available Not Available warfarin 2 mg tablet TAKE 1-2 TABLETS BY MOUTH DAILY DIRECTED BY THE [facility] active Not Available Not Available No t Available triamcino lone acetonide 55 mcg nasal spray aerosol USE 2 SPRAY INTO EACH NOSTRIL EVERY DAY 08/14 completed Not Available Not Available Not Available pyridoxin e (vitamin B6) 50 mg tablet TAKE 1 TABLET BY MOUTH EVERY DAY active Not Available Not Available No t Available gabapenti n 300 mg capsule TAKE 1 CAPSULE BY MOUTH THREE TIMES A DAY 08/14 completed Not Available Not Available Not Available omeprazol e 20 mg capsule,d elayed release TAKE 1 CAPSULE BY MOUTH 1 TIME EACH DAY. DO NOT CRUSH OR CHEW. 08/14 completed Not Available Not Available Not Available folic acid 1 mg tablet TAKE 1 TABLET BY MOUTH DAILY FOR 14 DAYS 08/14 completed Not Available Not Available Not Available enoxapari n 150 mg/mL subcutane ous syringe 150 MG SUBCUTAN EOUS INJECTIO N DAILY,IN STR: DIRECTED BY [facility] CLIN[facility] FOR PROCEDUR E 16 08/14 completed Not Available Not Available Not Available monteluka st 10 mg tablet TAKE 1 TABLET BY MOUTH EVERY DAY FOR 30 DAYS 08/14 completed Not Available Not Available Not Available codeine 10 mg-guaife nesin 100 mg/5 mL oral liquid TAKE 10 ML BY MOUTH EVERY 4-6 HOURS NEEDED FOR CHRONIC COUGH *NOT COVERED* 08/14 completed Not Available Not Available Not Available gabapenti n 100 mg capsule TAKE 1 CAPSULE ORALLY 3 TIMES A DAY 08/14 completed Not Available Not Available Not Available azelastin e 137 mcg (0.1 %) nasal spray Administ er 2 sprays into each nostril twice a day by intranas al route. 2024 active Not Available Not Available Not Avai lable albuterol sulfate HFA 90 mcg/actua tion aerosol inhaler TAKE 2 PUFFS BY MOUTH EVERY 6 HOURS NEEDED FOR WHEEZE OR SHORTNES S OF BREATH active Not Available Not Available No t Available timolol maleate 0.5 % eye drops INSTILL 1 DROP INTO BOTH EYES TWICE A DAY 08/14 completed Not Available Not Available Not Available ondansetr on 4 mg disintegr ating tablet DISSOLVE 1 TABLET ON TONGUE EVERY 8 HOURS NEEDED FOR NAUSEA FOR 3 DAYS 08/14 completed Not Available Not Available Not Available amoxicill in 875 mg-potass ium clavulana te 125 mg tablet TAKE 1 TABLET BY MOUTH TWICE DAILY FOR 7 DAYS 08/14 completed Not Available Not Available Not Available modafinil 100 mg tablet TAKE 1 TABLET (100 MG TOTAL) BY MOUTH 1 (ONE) TIME EACH DAY. MAX DAILY AMOUNT: 100 MG 08/14 completed Not Available Not Available Not Available enoxapari n 100 mg/mL subcutane ous syringe INJECT 1 ML UNDER THE SKIN TWICE DAILY 08/14 completed Not Available Not Available Not Available eplerenon e 50 mg tablet TAKE 1 TABLET BY MOUTH EVERY DAY active Not Available Not Available No t Available duloxetin e 30 mg capsule,d elayed release TAKE 1 CAPSULE BY MOUTH EVERY DAY active Not Available Not Available No t Available cholecalc iferol (vitamin D3) 25 mcg (1,000 unit) tablet TAKE 1 TABLET BY MOUTH DAILY 08/14 completed Not Available Not Available Not Available omeprazol e 20 mg tablet,de layed release by mouth 08/14 completed Medicati on ID: [id number] rand Name: mirta sloan Send Method: E-Prescr ibed Sub s Allowed: subs OK Speci al Instruct ion: Take 1 tablet by mouth every day before breakfas t Medica tionGene ricName: omeprazo le Not Available Not Available Not Available diclofena c 1 % topical gel APPLY 2 GRAMS EXTERNAL LY FOUR TIMES A DAY NEEDED FOR PAIN 30 DAYS 08/14 completed Not Available Not Available Not Available Antacid-A ntigas 200 mg-200 mg-20 mg/5 mL oral suspensio n TAKE 30 ML BY MOUTH 4 TIMES A DAY BEFORE MEALS AND EVERY NIGHT 08/14 completed Not Available Not Available Not Available Jardiance 10 mg tablet TAKE 1 TABLET BY MOUTH EVERY MORNING active Not Available Not Available No t Available Flonase Allergy Relief 50 mcg/actua tion nasal spray,mili pension Arcade 2 sprays every day by intranas al route for 30 days. 2024 active Not Available Not Available Not Avai lable sacubitri l 97 mg-valsar ellsworth 103 mg tablet TAKE 1 TABLET BY MOUTH TWICE A DAY 08/14 completed Not Available Not Available Not Available sacubitri l 49 mg-valsar ellsworth 51 mg tablet TAKE 1 TABLET BY MOUTH TWICE A DAY 08/14 completed Not Available Not Available Not Available sacubitri l 24 mg-valsar ellsworth 26 mg tablet TAKE 1 TABLET BY MOUTH TWICE DAILY 08/14 completed Not Available Not Available Not Available multivita min with minerals- ferrous fumarate 15 mg iron tablet TAKE 1 TABLET BY MOUTH EVERY DAY active Not Available Not Available No t Available Trelegy Ellipta 200 mcg-62.5 mcg-25 mcg powder for inhalatio n TAKE 1 PUFF BY MOUTH EVERY DAY active Not Available Not Available No t Available Tab-A-Vit e Multivita min w-iron 15 mg iron-400 mcg tablet TAKE 1 TABLET BY MOUTH EVERY DAY active Not Available Not Available No t Available Daily-Vit e (with folic acid) 400 mcg tablet TAKE 1 TABLET BY MOUTH EVERY DAY 08/14 completed Not Available Not Available Not Available Mounjaro 2.5 mg/0.5 mL subcutane ous pen injector INJECT 2.5 MG SUBCUTAN EOUSLY WEEKLY 08/14 completed Not Available Not Available Not Available Vitals Date Recorded Body height Body mass index (BMI) Body weight Provider Name and Address Organization Details Last Updated DateTime 04/01/2025 180.34 cm 33.5 kg/m2 043278.17 g Neela Chua [place] [facility] 04/01/2025 10:03:52 Date Recorded Body height Body mass index (BMI) Body weight Provider Name and Address Organization Details Last Updated DateTime 05/01/2025 180.34 cm 32.1 kg/m2 757524.25 g Juan Orellana [address] [place] [address], [id number], [place] - [facility] 05/01/2025 09:14:24 Date Recorded Body height Body mass index (BMI) Body weight Provider Name and Address Organization Details Last Updated DateTime 08/14/2025 180.34 cm 32.1 kg/m2 065878.25 g Beth Orozco [place] - [facility] 08/14/2025 10:57:18 Social History None recorded. Functional Status None recorded. Mental Status None recorded. Family History Nothing Reported Notes:Mother: Hypertension F ather (): Throat cancer Sister: Diabetes mellitus type II Medical History No medical history recorded. Past Encounters Encounter ID Performer Location Encounter Start Date Encounter Closed Date Diagnosis/Indication Diagnosis SNOMED-CT Code Diagnosis ICD10 Code Diagnosis IMO Codes Diagnosis Note [id number] PETER ONOFRE [facility] [address] [address] 04/01/2025 09:37:34 04/01/2025 10:49:18 Seasonal allergic rhinitis 168738423 J30.89 [id number] Nasal symptom 147431251 L29.89 3632077 [id number] FABIAN HAAS PA-C [facility] [address] [address] 05/01/2025 08:56:23 05/01/2025 09:25:43 Nasal symptom [id number] L29.89 [id number] Seasonal a llergic rhinitis 607444539 J30.89 [id number] FABIAN HAAS PA-C [facility] [address] [address] 08/14/2025 10:46:11 08/14/2025 11:18:01 Perennial allergic rhinitis 727937066 J30.89 [id number] Health Concerns Section Related Observation LastModified by Organization Detai ls LastModified Time None Recorded Concern Status LastModified by Organization Details LastModified Time None Recorded Advance Directives Directive None Recorded Payers Insurance Date Sequence Insurance Name Policy Number Policy Siddiqui Covered Member ID Siddiqui Member ID Guarantor Name 04/01/2025 1 [facility] - DOS ON OR AFTER 2022 - DUAL ELIGIBLE - MEDICARE [place]AGE [place]PLACEMENT/ADV ANTAGE - HMO) Valdez Khalil [id number] Valdez Khalil 04/01/2025 1 [facility] - DOS ON OR AFTER 2022 - [employer] (MEDICARE REPLACEMENT/ADV ANTAGE - HMO) Valdez Khalil [id number] Valdez Khalil 08/14/2025 1 [facility] - DOS ON OR AFTER 2022 - [facility] OPTIONS AND ONE CARE (MEDICARE REPLACEMENT/ADV ANTAGE - PPO) Valdez Khalil [id number] Valdez Khalil Jr Notes Date Note Type Note Provider Name and Address Organization Details Recorded Time 04/01/2025 text/html ROS as noted in the [facility] 69 year old male presents for evaluation of nasal pruritus. Patient was last seen by Olga Coto PA-C for throat itching and clearing. RAST was ordered at that time which showed positive reactions to cockroach, weeds, dust, and mold. Patient reports an itching sensation involving the inside and outside of his nose which started 4-5 months ago. He states it is constant, but not accompanied by other symptoms such as nasal pain, epistaxis, nasal congestion, rhinorrhea, and postnasal drip. Patient has tried multiple nasal sprays, including Flonase and saline, without much improvement. He was also prescribed an ointment which he cannot remember the name of. Sergei Stokes DO [address], [address], [facility] - [facility] 04/01/2025 15:27:28 05/01/2025 text/html ROS as noted in the [facility] 69 year old male presents for reevaluation of nasal pruritus and allergic rhintis. RAST in 2022 showed positive reactions to cockroach, weeds, dust, and mold. He reports he continues to have persistent nasal itching for many years. Has trialed Flonase, Azelastine, and antihistamines without improvement. He is on a beta berta for hypertension. Denies nasal pain, epistaxis, nasal congestion, rhinorrhea, and postnasal drip. Has also tried saline nasal spray. SERGEI CORDOVA MD 100 [facility],[address], [address], [facility] - [facility] 05/01/2025 17:40:59 08/14/2025 text/html ROS as noted in the HPI 70 year old male presents for review of RAST. He is currently on a beta-berta for hypertension and was unable to hold this for skin testing. RAST was ordered. Reports improvement in nasal pruritus with Flonase and saline spray. Has trialed azelastine in the past. Denies nasal pain, epistaxis, nasal congestion, rhinorrhea, and postnasal drip. Has also tried saline nasal spray. SCOTT BASS MD [address] [place] [address], [address], [facility] - [facility] 08/16/2025 14:47:53
--- OUTSIDE RECORDS SUMMARY | 2025-08-17 00:22 | XMS_ITS | Clinical Summary ---
Author Organization [facility] Address [address] [place] [address] Phone Care Team Providers Care Post Graduate Internship Name Role Phone Andrea Huitron PA-C Primary [...] TABLETS BY MOUTH EVERY DAY DIRECTED BY [facility] 3 Active DULoxetine (CYMBALTA) 20 [...] this topic Insurance ([id number]) (A2793) Care Teams Post Graduate Internship Relationship Specialty Start Date End Date Andrea Huitron PA-C PCP - General Physician [employer] Science [employer] 05/11/21
--- OUTSIDE RECORDS SUMMARY | 2025-08-17 00:22 | XMS_ITS | Continuity of Care Document ---
Author Organization [place] - [facility], [facility] Address [address] [place] [address] Care Team Providers Care Manager Basketball Name Role Phone DAMIAN BREWER Primary Care Provider Assessment Encounter Date Assessment Date Assessment LastModified by Organization Details LastModified Time 08/14/2025 08/14/2025 70 year old male presents for review of RAST. RAST + pteronyssinus. Exam today without turbinate hypertrophy, rhinorrhea, or purulence. Given improvement in symptoms, recommended that he continue with Flonase. He will follow-up if symptoms persist or worsen. CT sinus may be considered in the future for persistent or worsening symptoms. megan Not available 08/14/2025 12:06:23 Plan of Treatment Reminders Order Date Submit Date Provider Last Modified By Organization Details Last Modified Time Details Appointments None recorded. Lab None recorded. Referral None recorded. Procedures None recorded. Surgeries None recorded. Imaging None recorded. Medication Orders Flonase Allergy Relief 50 mcg/actua tion nasal spray,mili pension 025 025 SH[facility]I [id number], [address] [place], [address], 5 12:07:19 Patient TargetsNo targets recorded. Patient InstructionsNo instructions recorded. Reason for Referral None Reported. Problems Name Problem SNOMED Code Status Onset Date Resolution Date Notes Provider Name and Address Organization Details Recorded Time Cough 90360072 Active 2019 Cough, unspecifi ed; Note: Date Diagnosed : 0 11:06 AM (R05) Not Available [facility] 4 03:20:02 Dysphagia 18581609 Active 2021 Dysphagia , unspecifi ed; Note: Date Diagnosed : 05/20/2022 4:48 PM (R13.10) Not Available [facility] 4 03:20:01 Itching of skin 618833657 Active 2022 Other pruritus; Note: Date Diagnosed : 09/17/2022 10:11 AM (L29.8) Not Available [facility] 4 03:20:02 Pharyngea l dysphagia 87246286997 105 Active 2022 Dysphagia , pharyngea l phase; Note: Date Diagnosed : 02/03/2022 5:46 PM (R13.13) Not Available [facility] 4 03:20:02 Finding of resonance of voice 692093112 Active 2022 Other voice and resonance disorders ; Note: Date Diagnosed : 02/03/2022 5:46 PM (R49.8) Not Available [facility] 4 03:20:02 Dysphonia 80757784 Active 2022 Hoarsenes s; Note: Date Diagnosed : 10/06/2022 12:56 PM (R49.0) Not Available [facility] 4 03:20:01 Seasonal allergic rhinitis 793131292 Active 2024 PETER ONOFRE [address] [facility] [place] [address], [place], [address] , [facility] - [facility] 5 10:31:19 Nasal symptom 650605517 Active 2024 PETER ONOFRE [address], [place], [address] , [facility] - [facility] 5 12:55:39 Perennial allergic rhinitis 613695530 Active 2024 FABIAN HAAS PA-C [address], [place], [address] , [facility] - [facility] 5 12:06:37 Problem Notes None recorded. Medical Equipment None Reported. Allergies Allergen ID Allergen Name Allergen Category Reaction Reaction Severity Criticality Documentation Date Start Date Code Code System Note Provider Name and Address Organization Details Recorded Time 048651 lisinopri l medicatio n Not available Not available Not available 08/14/2025 77886 RxNorm Not Available [facility] - prod 5 03:03:54 251312 spironola ctone medicatio n Not available Not available Not available 08/14/2025 9997 RxNorm Not Available [facility] - [facility] - prod 5 03:03:54 243908 hydrochlo rothiazid e medicatio n Not available Not available Not available 08/14/2025 5487 RxNorm Not Available [employer] [facility] - prod 5 03:03:54 487562 losartan medicatio n Not available Not available [facility] 08/14/20252019 06929 RxNorm Not Available [facility] 5 03:03:59 700651 honey bee venom environme nt hives Not available [facility] 08/14/20252004 15588 7 RxNorm Not Available [employer] - prod 5 03:03:59 Medications Name Sig Start Date [...] mg tablet 08/14 completed Medicati on ID: [id number] B rand Name: hydralaz ine Send Method: E-Prescr ibed Sub s Allowed: subs OK Medic ationGen ericName : hydralaz ine Not Available Not Available Not Available potassium chloride ER 10 mEq tablet,ex tended release 08/14 completed Medicati on ID: [id number] B rand Name: potassiu m chloride Send [...] DIRECTED BY [facility] FOR [facility]EDUR E 02/04 completed Not Available Not Available Not Available [...] by mouth 08/14 completed Medicati on ID: [id number] B rand Name: omeprazo le Send Method: E-Prescr ibed Sub s Allowed: [...] Relief 50 mcg/actua tion nasal spray,mili pension [place] 2 sprays every day by intranas al [...] Updated DateTime 08/14/2025 180.34 cm 32.1 kg/m2 364967.25 g Beth Orozco [place] - [facility] 08/14/2025 10:57:18 Social History None recorded. Functional Status None recorded. Mental Status None recorded. Family History Nothing Reported Notes:Mother: Hypertension F ather (): Throat cancer Sister: Diabetes mellitus type II Medical History No medical history recorded. Past Encounters Encounter ID Performer Location Encounter Start Date Encounter Closed Date Diagnosis/Indication Diagnosis SNOMED-CT Code Diagnosis ICD10 Code Diagnosis IMO Codes Diagnosis Note [id number] FABIAN HAAS PA-C [facility] [address] [address] 08/14/2025 10:46:11 08/14/2025 11:18:01 Perennial allergic rhinitis 829516470 J30.89 [id number] Health Concerns Section Related Observation LastModified by Organization Detai ls LastModified Time None Recorded Concern Status LastModified by Organization Details LastModified Time None Recorded Payers Encounter Date Sequence Insurance Name Policy Number Policy Siddiqui Covered Member ID Siddiqui Member ID Guarantor Name 08/14/2025 1 [facility] - DOS ON OR AFTER 2022 - [facility] OPTIONS AND ONE CARE (MEDICARE REPLACEMENT/ADV ANTAGE - PPO) Valdez Khalil Jr [id number] Valdez Khalil Jr Notes Date Note Type Note Provider Name and Address Organization Details Recorded Time 08/14/2025 text/html ROS as noted in the [...] tried saline nasal spray. SCOTT BASS MD [address] [place] [address], [place], [address], [facility] - [facility] 08/16/2025 14:47:53
--- OUTSIDE RECORDS SUMMARY | 2025-08-17 00:22 | XMS_ITS | Data Portability ---
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 Primary Care Provider Assessment Encounter Date Assessment Date Assessment LastModified by Organization Details LastModified Time 11/11/2022 11/11/2022 service called f or left ankle pain found 67 yom c/o 2d isolated L ankle swelling no trauma, falls difficult to bear weight no hx gout +anticoagulation VSS L ankle swollen, not red, more tender medial maleolous pain on passive ankle movent #Ankle effusion most likely OA trial 1g acetaminophen tid avoid increased NSAIDs 2/2 incresae bleeding risk return to primary team notify servie if new complaint or worsenng [email or web address] Not available 11/11/2022 19:08:07 07/27/2025 07/27/2025 As noted, timothy dunn called to see this patient regarding concerns of vomiting and diarrhea. Evaluation in the field was performed by my sheeter machine operator colleague, as noted above, I provided real-time direction and supervision for this visit. Patient had one episode of vomiting yesterday. He also states he had a soft bowel movement. Today he only has nausea. He has been drinking broth and able to hold it down. Medic states the patient does not appear dehydrated. He received ODT zofran. Patient feels better. Prescription was provided. Impression: Viral gastroenteritis Plan: follow up PCP Primary care, consider labs, CT Disposition: We discussed the diagnostic uncertainty of home visits and the risk associated with this. In this case, the patient and I felt this to be an acceptable and reasonable amount of risk given the benefit of avoiding an ED visit. We discussed the need to seek care urgently/emergentl y in the setting of any new or worsening serious symptoms, particularly dehydration, shortness of breath, fever. [email or web address] Not available 07/27/2025 13:32:00 Plan of Treatment Reminders Order Date Submit Date Provider Last Modified By Organization Details Last Modified Time Details Appointments None recorded. Lab rapid SARS CoV 2 Ag, QL IA, respiratory specimen 2024 [facility], [address] [place] [address], [id number] 20:54:02 rapid flu (A+B) 2024 [facility], [address] [place] [address], [id number] 20:54:02 rapid flu (A+B) [address], [phone] 16:19:46 rapid SARS CoV 2 Ag, QL IA, respiratory specimen 2021 022 [facility], [address] [place] [address], [id number] 16:19:46 Referral None recorded. Procedures None recorded. Surgeries None recorded. Imaging None recorded. Medication Orders ondansetron 4 mg disintegrat ing tablet 2024 [facility][id number], [address] [facility], [place], [address], 05:02:04 ondansetron 4 mg disintegrat ing tablet 2024 025 [facility], [address] [place] [address], [address], 5 05:02:04 dextrometho rphan-guaif enesin ER 60 mg-1,200 mg tab,extend release,12h r 2024 [facility] [address], [address] [place] [address], [address], 5 05:02:09 ipratropium bromide 17 mcg/actuati on HFA aerosol inhaler 2024 025 [facility] 1967, [address] [facility], [place], [address], 5 05:02:09 ipratropium 0.5 mg-albutero l 3 mg (2.5 mg base)/3 mL nebulizatio n soln [email or web address] [facility] 1967, [address] [facility], [place], [address], 5 20:37:06 benzonatate 200 mg capsule 2022 023 [email or web address] Not available 3 16:28:05 benzonatate 200 mg capsule 2022 023 [facility] #[id number], [address] [facility] [place], [address], 3 16:28:09 Patient TargetsNo targets recorded. Patient InstructionsNo instructions recorded. Reason for Referral None Reported. Results Created Date Observation Date Name Description Value Unit Range Abnormal Flag Note LastModifiedBy Organization Detail LastModifiedTime 07/12/20 22 07/12/2022 rapid SARS CoV 2 Ag, QL IA, respi rator y speci men rapid SARS CoV 2 Ag, QL IA, respiratory specimen negati ve Not Available [facility] ed [address] [place] [address], [phone] 07/12/2022 16:19:14 07/12/20 22 07/12/2022 rapid flu (A+B) Flu negati ve Not Available [facility] ed [address] [place] [address], [phone] 07/12/2022 16:19:08 Result Notes None recorded. Medical Equipment None Reported. Allergies Allergen ID Allergen Name Allergen Category Reaction Reaction Severity Criticality Documentation Date Start Date Code Code System Note Provider Name and Address Organization Details Recorded Time 62369 lisinopri l medicatio n Not available Not available Not available 04/05/2025 90760 RxNorm Not Available [facility] - production 18:32:47 02580 spironola ctone medicatio n Not available Not available Not available 07/27/2025 9997 RxNorm Not Available [facility] - [employer] - prod 13:23:30 36690 hydrochlo rothiazid e medicatio n Not available Not available Not available 07/27/2025 5487 RxNorm Not Available [facility] - External Data Service - prod 13:23:30 51463 losartan medicatio n other Not available [facility] 07/27/20252019 20184 RxNorm Not Available [facility] - External Data Service - prod 13:24:49 58026 honey bee venom environme nt hives Not available Not available 07/27/20252004 69098 7 RxNorm Not Available [facility] - External Data Service - prod 13:24:57 Medications Name Sig Start Date Stop Date Status Note LastModified by Organization Details LastModified Time latanoprost 0.005 % eye drops INSTILL 1 DROP INTO BOTH EYES IN THE EVENING active Not Available Not Available No t Available atorvastati n 40 mg tablet TAKE 1 TABLET BY MOUTH EVERY DAY active Not Available Not Available No t Available fluticasone propionate 50 mcg/actuati on blister powder for inhalation INHALE 1 PUFF BY MOUTH TWICE A DAY active Not Available Not Available No t Available carvedilol 25 mg tablet TAKE 1 TABLET BY MOUTH TWICE A DAY active Not Available Not Available No t Available nystatin 100,000 unit/mL oral suspension TAKE 5 ML (500,000 UNITS TOTAL) BY MOUTH 4 (FOUR) TIMES A DAY FOR 14 DAYS. SWISH & SWALLOW active Not Available Not Available No t Available acetaminoph en 325 mg tablet TAKE 2 TABS BY MOUTH EVERY 6 HOURS NEEDED MILD PAIN ,:NOT TO EXCEED 4000 MG/DAY active Not Available Not Available No t Available prednisone 10 mg tablet TAKE 4 TABLETS BY MOUTH EVERY DAY FOR 5 DAYS active Not Available Not Available No t Available gabapentin 600 mg tablet TAKE 1 TABLET BY MOUTH TWICE A DAY active Not Available Not Available No t Available carvedilol 12.5 mg tablet TAKE 1 TABLET BY MOUTH TWICE A DAY active Not Available Not Available No t Available torsemide 20 mg tablet TAKE 1 TABLET BY MOUTH EVERY DAY active Not Available Not Available No t Available bumetanide 2 mg tablet TAKE 1 TABLET BY MOUTH TWICE A DAY active Not Available Not Available No t Available trazodone 50 mg tablet TAKE 1 TABLET BY MOUTH EVERY DAY AT BEDTIME NEEDED FOR SLEEP active Not Available Not Available No t Available amiodarone 200 mg tablet TAKE 1 TABLET BY MOUTH EVERY DAY active Not Available Not Available No t Available benzonatate 200 mg capsule Take 1 capsule 3 times a day by oral route. 2022 active Not Available Not Available Not Avai lable naltrexone 50 mg tablet TAKE 1/2 TAB BY MOUTH DAILY active Not Available Not Available No t Available prednisone 20 mg tablet PLEASE SEE ATTACHED FOR DETAILED DIRECTION S active Not Available Not Available No t Available prednisone 5 mg tablet TAKE 1 TABLET BY MOUTH EVERY DAY FOR 30 DAYS active Not Available Not Available No t Available metolazone 5 mg tablet PLEASE SEE ATTACHED FOR DETAILED DIRECTION S active Not Available Not Available No t Available sumatriptan 50 mg tablet TAKE 1 TABLET AT LEAST 2 HOURS BETWEEN DOSES NEEDED ONCE A DAY FOR 30 DAYS active Not Available Not Available No t Available thiamine HCl (vitamin B1) 100 mg tablet TAKE 1 TABLET BY MOUTH TWICE A DAY active Not Available Not Available No t Available valsartan 80 mg tablet TAKE 1 TABLET BY MOUTH TWICE A DAY active Not Available Not Available No t Available hydralazine 25 mg tablet TAKE 1 TABLET BY MOUTH TWICE A DAY active Not Available Not Available No t Available fexofenadin e 180 mg tablet TAKE 1 TABLET BY MOUTH EVERY DAY active Not Available Not Available No t Available doxycycline monohydrate 100 mg tablet TAKE 1 TABLET BY MOUTH TWICE A DAY FOR 10 DAYS active Not Available Not Available No t Available tramadol 50 mg tablet TAKE 1 TABLET BY MOUTH EVERY 8 HOURS NEEDED FOR PAIN active Not Available Not Available No t Available acetaminoph en 500 mg tablet TAKE 2 TABLETS BY MOUTH EVERY 8 HOURS NEEDED FOR PAIN (HEADACHE S). active Not Available Not Available No t Available sildenafil 100 mg tablet TAKE 1/4 TO 1 TABLET 45 TO 60 MINUTES PRIOR TO INTERCOUR SE ON AN EMPTY STOMACH active Not Available Not Available No t Available triamcinolo ne acetonide 0.1 % topical cream APPLY TOPICALLY TO THE AFFECTED AREA 1 TO 2 TIMES DAILY NEEDED active Not Available Not Available No t Available spironolact one 25 mg tablet TAKE 0.5 TABLETS BY MOUTH DAILY. PLEASE TAKE THE 0.5 TABLET 30 MINUTES BEFORE TAKING YOUR BUMEX active Not Available Not Available No t Available ondansetron 8 mg disintegrat ing tablet DISSOLVE 1 TABLET ON THE TONGUE EVERY 8 HOURS IF NEEDED FOR NAUSEA OR VOMITING active Not Available Not Available No t Available carbamazepi ne 200 mg tablet TAKE 1 TABLET BY MOUTH TWICE A DAY FOR 30 DAYS active Not Available Not Available No t Available famotidine 20 mg tablet TAKE 1 TABLET BY MOUTH TWICE A DAY active Not Available Not Available No t Available metoclopram henrik 5 mg tablet TAKE 1 TABLET BY MOUTH 4 TIMES A DAY. active Not Available Not Available No t Available dicyclomine 20 mg tablet TAKE 1 TABLET BY MOUTH 2 TIMES A DAY FOR 10 DAYS. active Not Available Not Available No t Available amlodipine 10 mg tablet TAKE 1 TABLET BY MOUTH EVERY DAY active Not Available Not Available No t Available benzonatate 100 mg capsule TAKE 1 CAPSULE BY MOUTH 3 TIMES DAILY NEEDED FOR COUGH FOR UP TO 7 DAYS. active Not Available Not Available No t Available doxycycline monohydrate 100 mg capsule TAKE 1 CAPSULE BY MOUTH TWICE A DAY FOR 7 DAYS active Not Available Not Available No t Available prednisone 2.5 mg tablet TAKE 1 TABLET BY MOUTH EVERY DAY FOR 90 DAYS active Not Available Not Available No t Available pantoprazol e 40 mg tablet,dima yed release TAKE 1 TABLET BY MOUTH TWICE DAILY ON AN EMPTY STOMACH AND THEN EAT TO ACTIVATE IT active Not Available Not Available No t Available ferrous sulfate 325 mg (65 mg iron) tablet TAKE 1 TABLET BY MOUTH EVERY DAY active Not Available Not Available No t Available warfarin 2 mg tablet TAKE 1-2 TABLETS BY MOUTH DAILY DIRECTED BY THE [facility]IN [facility] active Not Available Not Available No t Available triamcinolo ne acetonide 55 mcg nasal spray aerosol USE 2 SPRAY INTO EACH NOSTRIL EVERY DAY active Not Available Not Available No t Available pyridoxine (vitamin B6) 50 mg tablet TAKE 1 TABLET BY MOUTH EVERY DAY active Not Available Not Available No t Available gabapentin 300 mg capsule TAKE 1-2 CAPSULES BY MOUTH ONCE A DAY active Not Available Not Available No t Available omeprazole 20 mg capsule,del ayed release TAKE 1 CAPSULE BY MOUTH 1 TIME EACH DAY. DO NOT CRUSH OR CHEW. active Not Available Not Available No t Available dextrometho joaohan-frederickf enesin ER 60 mg-1,200 mg tab,extend release,12h r Take 1 tablet every 12 hours by oral route as needed for 14 days, for cough. 04/26 completed Not Available Not Available Not Available folic acid 1 mg tablet TAKE 1 TABLET BY MOUTH EVERY DAY active Not Available Not Available No t Available enoxaparin 150 mg/mL subcutaneou s syringe 150 MG SUBCUTANE OUS INJECTION DAILY,INS TR: DIRECTED BY COUMADIN CLINIC FOR PROCEDURE 02/04 active Not Available Not Available No t Available montelukast 10 mg tablet TAKE 1 TABLET BY MOUTH EVERY DAY FOR 30 DAYS active Not Available Not Available No t Available codeine 10 mg-guaifene sin 100 mg/5 mL oral liquid TAKE 5 ML BY MOUTH 3 TIMES A DAY IF NEEDED FOR COUGH. MAX DAILY AMOUNT: 15 ML active Not Available Not Available No t Available gabapentin 100 mg capsule TAKE 1 CAPSULE BY MOUTH THREE TIMES A DAY active Not Available Not Available No t Available azelastine 137 mcg (0.1 %) nasal spray SPRAY 2 SPRAYS BY INTRANASA L ROUTE TWICE A DAY active Not Available Not Available No t Available albuterol sulfate HFA 90 mcg/actuati on aerosol inhaler USE2 PUFFS INHALATIO N EVERY 6 HOURS, NEEDED :WHEEZING /SHORTNES S OF BREATH active Not Available Not Available No t Available timolol maleate 0.5 % eye drops INSTILL 1 DROP INTO BOTH EYES TWICE A DAY active Not Available Not Available No t Available ondansetron 4 mg disintegrat ing tablet DISSOLVE 1 TABLET ON TONGUE EVERY 8 HOURS NEEDED FOR NAUSEA FOR 3 DAYS active Not Available Not Available No t Available fluticasone propionate 50 mcg/actuati on nasal spray,suspe nsion 2 SPRAYS IN EACH NOSTRIL active Not Available Not Available No t Available clotrimazol e 1 % topical cream APPLY TO AFFECTED AREA DAILY NEEDED active Not Available Not Available No t Available doxycycline hyclate 100 mg tablet TAKE 1 TABLET BY MOUTH TWICE A DAY FOR 5 DAYS active Not Available Not Available No t Available amoxicillin 875 mg-potassiu m clavulanate 125 mg tablet TAKE 1 TABLET BY MOUTH EVERY 12 HOURS FOR 7 DAYS active Not Available Not Available No t Available oxycodone 5 mg tablet active Not Available Not Available No t Available modafinil 100 mg tablet TAKE 1 TABLET (100 MG TOTAL) BY MOUTH 1 (ONE) TIME EACH DAY. MAX DAILY AMOUNT: 100 MG active Not Available Not Available No t Available enoxaparin 100 mg/mL subcutaneou s syringe INJECT 100 MG (1 SYRINGE) INTO THE SKIN 2 TIMES DAILY. active Not Available Not Available No t Available valsartan 40 mg tablet TAKE 1 TABLET BY MOUTH TWICE A DAY FOR 30 DAYS active Not Available Not Available No t Available eplerenone 25 mg tablet TAKE 2 TABLETS BY MOUTH EVERY DAY active Not Available Not Available No t Available eplerenone 50 mg tablet TAKE 1 TABLET BY MOUTH EVERY DAY active Not Available Not Available No t Available Klor-Con M20 mEq tablet,exte nded release TAKE 1 TABLET BY MOUTH EVERY DAY active Not Available Not Available No t Available topiramate 50 mg tablet TAKE 1 TABLET ORALLY AT BEDTIME FOR 30 DAYS active Not Available Not Available No t Available acamprosate 333 mg tablet,dima yed release TAKE 2 TABLETS BY MOUTH THREE TIMES A DAY WITH MEALS active Not Available Not Available No t Available duloxetine 20 mg capsule,del ayed release TAKE 1 CAPSULE BY MOUTH TWICE A DAY active Not Available Not Available No t Available duloxetine 30 mg capsule,del ayed release TAKE 1 CAPSULE BY MOUTH EVERY DAY FOR 90 DAYS active Not Available Not Available No t Available ipratropium bromide 17 mcg/actuati on HFA aerosol inhaler Inhale 2 puffs 4 times a day by inhalatio n route for 14 days, for COPD. 04/26 completed Not Available Not Available Not Available timolol maleate 0.5 % once daily eye drops INSTILL 1 DROP INTO BOTH EYES EVERY DAY active Not Available Not Available No t Available azelastine 205.5 mcg (0.15 %) nasal spray SPARY 1-2 SPRAYS BY NASAL ROUTE 2 TIMES DAILY. active Not Available Not Available No t Available Antacid-Ant igas 200 mg-200 mg-20 mg/5 mL oral suspension TAKE 30 ML BY MOUTH 4 TIMES A DAY BEFORE MEALS AND EVERY NIGHT active Not Available Not Available No t Available potassium chloride ER 20 mEq tablet,exte nded release TAKE 1 TABLET BY MOUTH 2 TIMES DAILY. DOSE INCREASED 10/22/21 active Not Available Not Available No t Available Jardiance 10 mg tablet TAKE 1 TABLET BY MOUTH EVERY MORNING active Not Available Not Available No t Available Entresto 97 mg-103 mg tablet TAKE 1 TABLET BY MOUTH TWICE A DAY active Not Available Not Available No t Available Rhopressa 0.02 % eye drops INSTILL 1 DROP INTO BOTH EYES EVERY DAY active Not Available Not Available No t Available multivitami n with minerals-fe rrous fumarate 15 mg iron tablet TAKE 1 TABLET BY MOUTH EVERY DAY active Not Available Not Available No t Available Trelegy Ellipta 200 mcg-62.5 mcg-25 mcg powder for inhalation TAKE 1 PUFF BY MOUTH EVERY DAY active Not Available Not Available No t Available Tab-A-Rashaun Multivitami n w-iron 15 mg iron-400 mcg tablet TAKE 1 TABLET BY MOUTH EVERY DAY active Not Available Not Available No t Available Daily-Rashaun (with folic acid) 400 mcg tablet TAKE 1 TABLET BY MOUTH EVERY DAY active Not Available Not Available No t Available Vitals Date Recorded Body weight Respiratory rate Oxygen saturation Heart rate Oxygen saturation Heart rate Body weight Respiratory rate Systolic And Diastolic Systolic And Diastolic Provider Name and Address Organization Details Last Updated DateTime 3 839052. 304 g 16 /min 98 % 75 /min 98 % 75 /min 155131. 304 g 16 /min 115/70 mm[Hg] 115/70 mm[Hg] Not Available [employer] [facility] [employer] 3 12:18:03 Date Recorded Body temperature Respiratory rate Heart rate Body weight Oxygen saturation Systolic And Diastolic Provider Name and Address Organization Details Last Updated DateTime 3 97 [degF] 18 /min 62 /min 102016. 16 g 97 % 124/80 mm[Hg] Not Available [employer] 3 16:24:02 Date Recorded Body height Heart rate Body temperature Oxygen saturation Respiratory rate Body weight Systolic And Diastolic Provider Name and Address Organization Details Last Updated DateTime 5 180.34 cm 65 /min 97.8 [degF] 97 % 20 /min 221335. 528 g 131/77 mm[Hg] Not Available [employer] 5 19:26:36 Date Recorded Body temperature Heart rate Oxygen saturation Respiratory rate Heart rate Oxygen saturation Respiratory rate Body temperature Systolic And Diastolic Systolic And Diastolic Provider Name and Address Organization Details Last Updated DateTime 2 98.1 [degF] 64 /min 97 % 18 /min 64 /min 97 % 18 /min 98.1 [degF] 151/87 mm[Hg] 151/87 mm[Hg] Not Available [employer] 2 16:19:47 Date Recorded Heart rate Respiratory rate Body temperature Oxygen saturation Systolic And Diastolic Provider Name and Address Organization Details Last Updated DateTime 5 66 /min 18 /min 97.9 [degF] 95 % 155/93 mm[Hg] Not Available [facility] - [facility] 13:12:26 Social History None recorded. Functional Status None recorded. Mental Status None recorded. Family History Nothing Reported. Medical History No medical history recorded. Past Encounters Encounter ID Performer Location Encounter Start Date Encounter Closed Date Diagnosis/Indication Diagnosis SNOMED-CT Code Diagnosis ICD10 Code Diagnosis IMO Codes Diagnosis Note [id number] Fei Romero MD [address] [address] 07/12/2022 16:09:12 07/14/2022 12:27:34 Cough 00769784 R05.9 He reports about three weeks of cough, productive for the last three days. He is taking Delsym, Tessalon, and just went to urgent care and was started on Augmentin. He is requesting codeine as a third line antitussiv e. Advised [facility] does not prescribe controlled substances . Advised PCP follow-up if he would lke to get codeine prescribed . [id number] Rocael Hardin MD [address] [address] 11/11/2022 11:50:12 11/15/2022 12:49:02 Pain of left ankle joint [id number] M25.572 [id number] Tong Sy MD [address] [address] 12/14/2022 16:24:00 12/16/2022 11:39:45 Cough 13569557 R05.9 Patient treated for pneumonia 3 weeks ago presents with persistent productive cough. He has rhonchi but not wheezing on exam. He is not short of breath.Ass essment: Persistent cough after URI. 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 Denies fevers. No improvemen t with OTC Robitussin . Cannot sleep at night. Denies chest pain, hemoptysis . Taking albuterol without sig improvemen t. Received Tessalon pearls in the past w/o improvemen t. VS: sat 97% RA rest wnlParamed ic exam: decreased breath sounds throughout POC testing: COVID and flu negativePO C tx: symptoms much improved after DuoNeb x1 Impression : sub-acute cough, likely 2/2 poorly controlled COPDe vs viral URIPlan: rx for ipratropiu m inhaler and spacer given, trial DM cough syrup, d/w PCP if qualifies for neb machineRed flags reviewed, pt expressed understand ing For PCP: consider neb machine We discussed the diagnostic uncertaint y of home visits and the risk associated with this. In this case, the patient and I felt this to be an acceptable and reasonable amount of risk given the benefit of avoiding an ED visit. We discussed the need to seek care urgently/e mergently in the setting of any new or worsening serious symptoms, shortness of breath, cough, chest pain, fever. [id number] [facility] [address] [phone] 07/27/2025 13:12:24 07/27/2025 17:31:41 Nausea, vomiting and diarrhea [id number] R11.2 R19.7 [id number] Health Concerns Section Related Observation LastModified by Organization Detai ls LastModified Time None Recorded Concern Status LastModified by Organization Details LastModified Time None Recorded Advance Directives Directive None Recorded Payers Insurance Date Sequence Insurance Name Policy Number Policy Siddiqui Covered Member ID Siddiqui Member ID Guarantor Name 11/14/2023 1 [facility] - DOS PRIOR TO 2022 - DUAL ELIGIBLE (MEDICARE REPLACEMENT/ADV ANTAGE - HMO) Valdez Khalil [id number] Valdez Khalil 07/27/2025 1 [facility] - DOS ON OR AFTER 2022 - DUAL ELIGIBLE - SNF OPTIONS AND ONE CARE (MEDICARE REPLACEMENT/ADV ANTAGE - HMO) Valdez Khalil [id number] Valdez Khalil Notes Date Note Type Note Provider Name and Address Organization Details Recorded Time 07/12/2022 text/html [facility] Nursing Assessment: Reason For Request: Patient is experiencing a cough for 2 weeks Mucus and phlegm has developed in the last 3 days. Slight chest pain when cough is active. Chief Complaints: Cough, Chest Pain PMH: Hypertension Allergies: Lisinopril, Comments: Spoke with member requesting [facility] visit for eval cough x 2 weeks states CP with cough only deny other symptoms no fever/chills no SOB attempt cough med without relief Discuss should symptoms progress to seek the ED .................... .................... .................... .................... .................... .................... .................... . Manager Actuarial Note: Pt presents awake and alert c/o cough x2 weeks/productive x3 days. Pt denies f/n/v/d, cp, sob. Pt sts ED and UC visit in last 2 days and was prescribed augmentin for 10 days. Pt sts no cough relief from delsym and tessalon perles. Clear/equal LS. Covid & flu negative. Pt educated on supportive care. .................... .................... .................... .................... .................... .................... .................... . Disposition: Fulfilled Fei Romero MD [address] [facility], [place], [address], [employer] [employer] [facility] 07/12/2022 16:37:42 11/11/2022 text/html [facility] Nursing Assessment: Reason For Request: pt is experiencing left ankle pain. Pt is unable to provide further detail other than pain starting 2 days ago. Chief Complaints: Pain PMH: Hypertension Allergies: Unknown Comments: Member denies any falls or injury to the ankle. Member has had it in the past. Member has had this pain in the past. Member stated that last time that the pain went away on its own but this time it is staying. Member is unsure if it is swollen. Member tried ice and elevation. Tylenol also did not help . Member is on coumadin. Members INR on Tuesday was therapeutic. Verified identity by .................... .................... .................... .................... .................... .................... .................... . Manager Actuarial Note From Damian Mensah: pt presenting with left ankle pain and edema X2 days. pt states he did not suffer any trauma to the affected extremity ie, fall, trip, or roll his ankle. pt has been taking 500mg of tylenol twice a day and icing the ankle with no relief of pain. ankle is warm to the touch but not red with non pitting edema. pt denies f/n/v/d. pt denies pain when moving his toes or with passive movement of the foot, pt did have pain upon passive movement of the ankle. no edema noted in the leg, lle was normal in temperature to the touch. +pedal pulses . pt unable to bear weight on the extremity. [facility] contacted and informed that the pt is on coumadin. [facility] recommended the pt takes 1g of tylenol twice a day as well as icing and elevating the ankle; if after five days this continues pt was informed to call back for revaluation. .................... .................... .................... .................... .................... .................... .................... . Disposition: Fulfilled Rocael Hardin MD [address] [place] [address],[address], [place], [address], [employer] 11/11/2022 19:08:18 12/14/2022 text/html ROS as noted in the HPI CRC Nursing Assessment: Reason For Request: pt is experiencing wheezing, coughing, congestion. Wheezing has been going on for 3 weeks. Reports no shortness of breathe. Phlegm (light yellow). No flu like symptoms to report of in the last 3 weeks. Chief Complaints: Cough PMH: Hypertension, COPD/Asthma Comments: Wheezing x3 week, + productive cough, light yellow. Denies fever. Diagnosed with Pneumonia 2-3 weeks ago. Finished antibiotics. No shortness of breath. Using inhalers as prescribed. Speaking full sentences. Tong Sy MD [address] [facility],[address], [place], [address], [employer] 12/14/2022 16:28:32 04/05/2025 text/html CRC Nurse Triage Notes (Deana Lazaro): Reason For Request: cough Patient Reports: Cough, fever greater than 2 days ; History of asthma, increased use of inhaler; COPD; Cough Denies: Increased work of breathing/labored with or without fever Unable to speak in full sentences without distress Discoloration of skin -cyanosis Needs to sleep sitting up, can t catch breath Shortness of breath in setting of confusion Lower extremity swelling COVID Exposure Sputum increase Shortness of breath with exertion Pain with inspiration Chief Complaints: Cough PMH: Hypertension, COPD/Asthma PMH Reviewed at 04/05/2025:32 Allergies Reviewed at 04/05/2025:32 Comments: 69 y.o male complains of Cough Productive cough x1 week - clear thin Denies headache, fever, shortness of breath, chest pain Muscles in chest sore from frequent coughing Denies recent sick contact Taking prescribed inhaler and OTC cough syrup and cough drops with no effect Requesting instED visit I provided information on the mobile health provider response time and advised the patient and/or caregiver to monitor reported signs and symptoms. I discussed the warning signs of when to seek emergency care. Manager Actuarial Organization Information for Yovanny [employer] Business Legal Name: [employer]. Address: [address] [place] [id number], Audio Visual Aids Director: Marquez Nogueira MD [place] No.: [id number] Manager Actuarial POC Test Results from Yovanny Caba Rapid COVID antigen (19:17:02) COVID: - Attachments uploaded as part of this test result can be found under Documents section. Rapid influenza antigen (19:17:03) Flu: - .................... .................... .................... .................... .................... .................... .................... . Manager Actuarial Note From Gertrudis Ofeflash: SC6 responds to the listed address for a 69 yom w/ a c/c of cough. Upon arrival on scene, pt calls to [facility] from inside his apartment to come in. He is sitting on the sofa w/ his head resting in his hand. He is generally well appearing w/ p/w/d skin. He is not in acute distress, no stridor or sonorous respirations are present. He is tracking [facility] on approach and no facial droop or one-sided weakness are observed. Pt is able to answer questions appropriately and has no teeth, so his speech is slightly slurred [...] working. He is not sleeping well due to the cough. He has a hx of aortic valve replacement, COPD, and seasonal allergies. Pt consents to evaluation and treatment today. [facility] obtains pt consent. Vital signs are gathered and pt is assessed. Physical exam is unremarkable and lung sounds are mildly diminished, but clear to auscultation bilaterally. Aortic valve can be heard clearly w/ auscultation of heart sounds and abdomen is benign. [facility] contacts [facility] and discusses the above. [facility] recommends Robitussin DM and/or Tessalon pearls. [facility] asks pt's opinion about what he wants and he says the pearls did not work for him previously, but he is willing to try the Robitussin. [facility] orders a trial of a duoneb to r/o reactive airway issue. [facility] administers one duoneb w/ a neb pipe at 8 lpm. Pt's lung sounds improve and he subjectively feels he can breathe better and his coughing has dissipated. He is excited to try the ipatropium inhaler w/ spacer that [facility] prescribes. [facility] gives pt a brief instruction on how to use the spacer and informs him of the warning signs of when to seek emergency care. Pt thanks [facility] for coming. [facility] is clear. Report completed by RAUDEL Caba [id number]. [facility] Lab Orders: rapid SARS CoV 2 Ag, QL IA, respiratory specimen: Performed rapid flu (A+B): Performed .................... .................... .................... .................... .................... .................... .................... . [facility] Consulted: Danae Hinojosa .................... .................... .................... .................... .................... .................... .................... . Disposition: Fulfilled Danae Hinojosa MD [address] [place] [address],[address], [place], [address] [employer] 04/05/2025 20:41:46 07/27/2025 text/html ROS as noted in the HPI CRC Nurse Triage Notes (Connie Hancock): Reason For Request: Pt reporting hot/cold chills>noting he is very nauseous>symptoms going on 1 week Denies: Sharp focal or diffuse abdominal pain Vomiting blood/coffee ground material Bloating, jaundice new onset with pain Nausea and vomiting greater than 2 hours with abdominal pain Tearing pain that radiates to back Food Impaction Chief Complaints: Nausea / Vomiting PMH: Hypertension, COPD/Asthma PMH Reviewed at 07/27/2025 - 12:39 (ET) Allergies Reviewed at 07/27/2025 - 12:39 (ET) Comments: 69 y.o male complains of Nausea / Vomiting Patient reporting a week of feeling hot/cold, denies fever He has also been nauseous, had vomiting and diarrhea yesterday, none today, did not endorse hematamesis or melena He did have hernia repait surgery last week, has soreness from that, but no pain, does not feel bloated or distended Denies back pain No chest pain or shortness of breath No headaches or dizziness No known sick contacts He would like to be evaluated I provided information on the mobile health provider response time and advised the patient and/or caregiver to monitor reported signs and symptoms. I discussed the warning signs of when to seek emergency care. .................... .................... .................... .................... .................... .................... .................... . Manager Actuarial Note From Ottoniel Way: Arrived at patients residence. Patient aox4, GCS 15 skin pink warm and dry. Patient recently had hiatal hernia surgery last week. No complications. Patient endorsing occasional chills. Had one episode of vomiting yesterday and one episode of diarrhea yesterday. None today. Patient endorses nausea. VS as noted. Abd s ore but not painful. Picture uploaded of surgery. Patient stated he has been drinking broth and liquids and tolerating it well. [facility] contacted approved 4mg of ODT zofran and he is going to send over a RX to patient. RN to follow up with patient in a. Couple of days. No red flag symptoms. [facility] Medication Orders: ondansetron 4 mg disintegrating tablet: Administered .................... .................... .................... .................... .................... .................... .................... . [facility] Consulted: Jamal Bee .................... .................... .................... .................... .................... .................... .................... . Disposition: Fulfilled Jamal Bee MD [address] [facility],[address], [place], [address], [employer] [employer] [employer] 07/27/2025 13:33:24
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
--- OUTSIDE RECORDS SUMMARY | 2025-08-17 00:23 | XMS_ITS | Encounter Summary ---
Author Organization [facility] Address [address] [place] [address] Care Team Providers Care Real Estate Closer Name Role Phone Andrea Huitron Primary Care Provider [phone] [phone] Encounter Details Date Type Department Care Team ([facility] Contact Info) Description 06/19/2025 Results Follow-Up Gastroenterology - [place] [address] [facility] 175 [facility] [address] [place] [phone] Savanna Dumont, [place] [address] [facility] [address] [place] [address] Social History Tobacco Use Types Packs/Day Years [...] for your loved ones. For example, director child or elderly care for an older [...] 12/28/2024 11:39 AM José Miguel Posadas, RN * Are you blind or do [...] 10:45 AM EST Office Visit Adult Medicine [address] [phone] Andrea Huitron PA [address] [place] [phone] documented as of this encounter Visit Diagnoses [...] documented as of this encounter Care Teams Real Estate Closer Relationship Specialty Start Date End Date Anrdea Huitron PA [address] [place] [address] PCP - General Internal Medicine 06/24/25 documented as of this encounter
--- OUTSIDE RECORDS SUMMARY | 2025-08-17 00:23 | XMS_ITS | Encounter Summary ---
Author Organization [facility] Address [address] [place] [address] Care Team Providers Care Student Education Specialist Name Role Phone Andrea Huitron Primary Care Provider [phone] [phone] Encounter Details Date Type Department Care Team ([facility] st Contact Info) Description 07/16/2025 Results Follow-Up Adult Medicine [address] [phone] Andrea Huitron PA [address] [place] [address] Social History Tobacco Use Types Packs/Day Years [...] for your loved ones. For example, child life assistant or elderly care for an older [...] 10:45 AM EST Office Visit Adult Medicine [address] [phone] Andrea Huitron PA [address] [place] [phone] documented as of this encounter Goals Goal Patient Goal Type Associated Problems Recent Progress Patient-Stated? Author Autogenerat ed Goal Care Plan Autogenerated Problem No Betsy Lay PA documented as of this encounter Visit Diagnoses Not on filedocumented in this encounter Additional Health Concerns Active Problems Noted Date Diagnosed Date Autogenerated Problem 07/09/2025 Infection Onset Date Last Indicated Resolved Time Respiratory Rule-Out 07/26/2025 07/26/2025 025 2:48 PM [...] documented as of this encounter Care Teams Student Education Specialist Relationship Specialty Start Date End Date Andrea Huitron PA [address] [place] [address] PCP - General Internal Medicine 06/24/25 documented as of this encounter
--- OUTSIDE RECORDS SUMMARY | 2025-08-17 00:23 | XMS_ITS | Encounter Summary ---
Author Organization [facility] Address [address] [place] [address] Care Team Providers Care Licensed Land Surveyor Name Role Phone Andrea Huitron Primary Care Provider [phone] [phone] Reason for Visit * Reason Onset Date Comments Medication Problem 08/16/2025 Encounter Details Date Type Department Care Team ([facility] Contact Info) Description 08/16/2025 Telephone Adult Medicine [address] [phone] Andrea Huitron PA [address] [place] [address] Social History Tobacco Use Types Packs/Day Years [...] care for your loved ones. For example, early childhood coordinator or elderly care for an older [...] Miguel Posadas RN documented in this encounter Progress Notes * Beth Kohler - 08/16/2025 3:32 PM EST Medication Problem: Asking that I thom this with high priority and see if covering Dr could review for him today? What is the name of the medication patient is having a problem with?: Gabapentin What is the problem?: Patient states he takes Gabapentin 300 mg 1 capsule. States there was a script sent for 600 mg tablet form with instructions of 1 tab 3x daily Who is calling about the problem? : The patient Is this a NEW medication?: no How long has the patient been taking this medication? Unknown Who prescribed this medication for the patient? PETER Fink Who is patients PCP?: PETER Fink Payor: [employer] LONG TERM [employer] / Plan: [facility] TER[facility] / Product Type: *No Product type* / documented in this encounter Plan of Treatment Upcoming Encounters Date Type Department Care Team (Late st Contact Info) Description 09/10/2025 10:45 AM EST Office Visit [address] [phone] Andrea Huitron PA [address] [place] [address] documented as of this encounter Goals Goal [...] documented as of this encounter Care Teams Licensed Land Surveyor Relationship Specialty Start Date End Date Andrea Huitron PA [address] [place] [address] PCP - General Internal Medicine 06/24/25 documented as of this encounter
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
--- OUTSIDE RECORDS SUMMARY | 2025-08-17 00:24 | XMS_ITS | Clinical Summary ---
Author Organization [facility] Address [address] [place] [address] Phone Care Team Providers Care Soil Specialist Name Role Phone Obtain, Unable To Primary Care Provider Unavaila ble Allergies No known active allergies Medications metoprolol (TOPROL-XL) 50 MG 24 hr tablet Take 50 mg by mouth daily. Take with or immediately following a meal. Active hydrOXYzine (VISTARIL) 50 MG capsule Take 50 mg by mouth 2 (two) times daily. Active traZODone (DESYREL) 50 MG tablet Take 50 mg by mouth nightly. Active Active Problems Problem Noted Date Diagnosed Date Failure to thrive in adult 08/02/2025 Depression 10/10/2012 COPD (chronic obstructive pulmonary disease) Alcohol dependence 10/10/2012 Alcohol withdrawal (HC Code) 10/10/2012 Hypertension 10/08/2012 Encounters Date Type Department Care Team Description 08/01/2025 9:37 PM EST - 08/02/2025 7:48 AM EST Emergency Day [facility] Emergency Department [address] [place] [address] Vic Preciado MD Colucci, Juliana Marie MD Abdominal pain, unspecified abdominal location (Primary Dx); Chest pain, unspecified type; Shortness of breath; Diarrhea, unspecified type Discharge Disposition: Home or Self Care 08/01/2025 Travel from Last 3 Months Social History Tobacco Use Types Packs/Day Years Used Date Smoking Tobacco: Some Days Cigarettes Tobacco Cessation:Ready to Q uit: No Alcohol Use Standard Drinks/Week Comments Yes 0 (1 standard drink = 0.6 oz pur e alcohol) does not know Interpersonal Safety Answer Date Record ed Is there anyone in your life that is hurting or threatening you in anyway? no 08/01/2025 Physical Indicators of Abuse No evidence of phys ical abuse 08/01/2025 Sex and Gender Information Value Date Recorded Sex Assigned at Not on file Legal Sex Male 7:25 AM EST Gender Identity Not on file Sexual Orientation Not on file Last Filed Vital Signs Vital Sign Reading Time Taken Comments Blood Pressure 142/90 08/02/2025 5:43 AM EST Pulse 84 08/02/2025 5:43 AM EST Temperature 36.6 C (97.9 F) 08/02/2025 5:43 AM EST Respiratory Rate 16 08/02/2025 5:43 AM EST Oxygen Saturation 98% 08/02/2025 5:43 AM EST Inhaled Oxygen Concentration - - Weight 95 kg (209 lb 7 oz) 08/02/2025 5:43 AM ES T Height 180.3 cm (5' 11 ) 11/02/2012 11:10 AM EDT Body Mass Index - - Plan of Treatment Health Maintenance Due Date Last Done Comments HIV screening 1968 Lipid disorder screening 1995 Colon cancer screening, Colonoscopy 2000 RSV Immunization (1 - Risk 50-74 years 1-dose series) 2005 Pneumococcal Vaccine (50+ years) (2 of 2 - PCV) 03/08/2021 03/08/2020 Tetanus adult (Td q 10,TDAP once) 04/24/2023 04/24/2013, 02/03/2001 Shingles vaccine (Shingrix) (2 of 2 - Shingrix (RZV) 2 Dose Standard Series) 05/26/2024 03/26/2024 Influenza vaccine 03/22/2025 04/29/2023, , 07/01/2021, Additional history exists Covid-19 vaccine series ( season) 2025 07/11/2023, 07/01/2022, 06/04/2021, Additional history exists Diabetes screening 08/02/2028 08/02/2025, 0 10/11/2012, 10/10/2012, Additional history exists Hepatitis C screening Completed 07/06/2024 Meningococcal B Vaccine Aged Out No l onger eligible based on patient's age to complete this topic Meningococcal Vaccine Aged Out No orz toy eligible based on patient's age to complete this topic Procedures Procedure Name Priority Date/Time Associated Diagnosis Comments TROPONIN T HIGH SENSITIVITY, 1 HOUR WITH REFLEX ([facility]) STAT - Timed 08/02/2025 6:08 AM EST CHEM8, ISTAT ([facility]) Routine 08/02/2025 5:06 AM EST CHEM8, ISTAT ([facility]) Routine 08/02/2025 4:47 AM EST TROPONIN T HIGH SENSITIVITY, 0 HOUR BASELINE WITH REFLEX ([facility]) STAT 08/02/2025 2:12 AM EST CBC AND DIFFERENTIAL STAT 08/02/2025 1:32 AM EST BASIC METABOLIC PANEL STAT 08/02/2025 1:32 AM EST CBC WITH AUTO DIFFERENTIAL STAT 08/02/2025 1:32 AM EST BASIC METABOLIC PANEL STAT 08/02/2025 1:32 AM EST HEPATIC FUNCTION PANEL STAT 08/02/2025 1:32 AM EST LIPASE STAT 08/02/2025 1:32 AM EST MAGNESIUM STAT 08/02/2025 1:32 AM EST NT-PROBRAIN NATRIURETIC PEPTIDE STAT 08/02/2025 1:32 AM EST XR CHEST PA AND LATERAL STAT 08/01/2025 11:26 PM EST SARS-COV-2 (COVID-19)/INFLUENZA A+B/RSV BY RT-PCR ([facility]) Urgent 08/01/2025 10:39 PM EST EKG STAT 08/01/2025 8:24 PM EST from Last 3 Months Results * (ABNORMAL) Troponin T High Sensitivity, 1 Hour With Reflex ([facility]) (08/02/2025 6:08 AM EST) [facility] High Sensitivity Troponin T 21(H) See Comment ng/L 08/02/2025 7:16 AM EST [facility] DEPARTMENT OF LABORATORY MEDICINE Comment: Treat as a 3 hr value in the clinical pathway as this specimen was drawn more than or equal to 3 hours from baseline. High Sensitivity Troponin T levels should be interpreted in the context of the [facility] Care [facility] pathway. 1 hour Delta from 0 Hour, HS-Troponin T 0 ng/L 08/02/2025 7:16 AM EST [facility] DEPARTMENT OF LABORATORY MEDICINE Comment:Use 3 hr delta cutof f in the clinical pathway as this specimen was drawn more than or equal to 3 hours from baseline. Blood Venipuncture / Unknown 08/02/2025 6:08 AM EST 08/02/2025 6:47 AM EST us Megan GREEN LAB BLOOD ORDERABLES Final Res ult Performing Organization Address City/State/[facility] Co de Phone Number [facility] DEPARTMENT OF LABORATORY MEDICINE [address] [place] [address] * (ABNORMAL) Chem8, iSTAT ([facility]) (08/02/2025 5:06 AM EST) Only the most recent of2 resultswithin the time period is included. [facility] POC Sodium 142 135 - 145 mmol/L 08/02/2025 5:06 AM EST [facility] DEPARTMENT OF LABORATORY MEDICINE POC Potassium 3.8 3.3 - 5.0 mmol/L 08/02/2025 5:06 AM EST [facility] DEPARTMENT OF LABORATORY MEDICINE POC Ionized Calcium 4.70 4.48 - 5.28 mg/dL 08/02/2025 5:06 AM EST [facility] DEPARTMENT OF LABORATORY MEDICINE POC Glucose 93 70 - 100 mg/dL 08/02/2025 5:06 AM EST [facility] DEPARTMENT OF LABORATORY MEDICINE POC BUN 13 8 - 18 mg/dL 08/02/2025 5:06 AM EST [facility] DEPARTMENT OF LABORATORY MEDICINE POC Creatinine 2.2(H) 0.5 - 1.2 mg/dL 08/02/2025 5:06 AM [facility] DEPARTMENT OF LABORATORY MEDICINE POC Hematocrit 45.0 40.0 - 52.0 %PCV 08/02/2025 5:06 AM EST [facility] DEPARTMENT OF LABORATORY MEDICINE CO2, POC 23.0 22.0 - 30.0 mmol/L 08/02/2025 5:06 AM [facility] DEPARTMENT OF LABORATORY MEDICINE POC eGFR (Creatinine) 31(L) >=60 mL/min/1.7 3m2 08/02/2025 5:06 AM [facility] DEPARTMENT OF LABORATORY MEDICINE Comment: [facility] utilizes CKD-EPI Creatinine 2020 to report eGFR. Values < 60 mL/min/1.73 m2 may indicate CKD if present for more than three months AND creatinine is at steady state. The eGFR provides a rough estimate of kidney function. For further guidance, please refer to the CKD: Adult Transit Operator Signature pathway. Blood 08/02/2025 5:06 AM EST 08/02/2025 5:07 AM EST us Provider Not In System POCT ORDERABLES - DEVICE Final Result [facility] DEPARTMENT OF LABORATORY MEDICINE [address] [place] [address] * (ABNORMAL) Troponin T High Sensitivity, Emergency; 0 hour baseline with reflex (1 hour and 3 hour) (08/02/2025 2:12 AM EST) High Sensitivity Troponin T 21(H) See Comment ng/L 08/02/2025 3:42 AM EST [facility] DEPARTMENT OF LABORATORY MEDICINE Comment:High Sensitivity Tro ponin T levels should be interpreted in the context of the [facility] Care Signature pathway. Blood Venipuncture / Unknown 08/02/2025 2:12 AM EST 08/02/2025 3:14 AM EST us Megan GREEN LAB BLOOD ORDERABLES Final Res ult [facility] DEPARTMENT OF LABORATORY MEDICINE [address] [place] [address], [facility] [phone] * (ABNORMAL) Basic metabolic panel (08/02/2025 1:32 AM EST) Sodium 137 136 - 144 mmol/L 08/02/2025 2:06 AM [facility] DEPARTMENT OF LABORATORY MEDICINE Comment:Sample slightly hemo lyzed. Results may be falsely decreased due to hemolysis. Potassium 08/02/2025 2:06 AM [facility] DEPARTMENT OF LABORATORY MEDICINE Comment:Sample Hemolyzed. Chloride 104 98 - 107 mmol/L 08/02/2025 2:06 AM [facility] DEPARTMENT OF LABORATORY MEDICINE CO2 20 20 - 30 mmol/L 08/02/2025 2:06 AM [facility] DEPARTMENT OF LABORATORY MEDICINE Anion Gap 13 7 - 17 08/02/2025 2:06 AM [facility] DEPARTMENT OF LABORATORY MEDICINE Glucose 95 70 - 100 mg/dL 08/02/2025 2:06 AM [facility] DEPARTMENT OF LABORATORY MEDICINE BUN 12 8 - 23 mg/dL 08/02/2025 2:06 AM [facility] DEPARTMENT OF LABORATORY MEDICINE Creatinine 2.00(H) 0.40 - 1.30 mg/dL 08/02/2025 2:06 AM [facility] DEPARTMENT OF LABORATORY MEDICINE Calcium 9.6 8.8 - 10.2 mg/dL 08/02/2025 2:06 AM [facility] DEPARTMENT OF LABORATORY MEDICINE BUN/Creatinine Ratio 6.0(L) 8.0 - 23.0 08/02/2025 2:06 AM [facility] DEPARTMENT OF LABORATORY MEDICINE eGFR (Creatinine) 35(L) >=60 mL/min/1.7 3m2 08/02/2025 2:06 AM [facility] DEPARTMENT OF LABORATORY MEDICINE Comment: [facility] utilizes CKD-EPI Creatinine 2020 to report eGFR. Values < 60 mL/min/1.73 m2 may indicate CKD if present for more than three months AND creatinine is at steady state. The eGFR provides a rough estimate of kidney function. For further guidance, please refer to the CKD: Adult Transit Operator Signature pathway. Creatinine Delta 08/02/2025 2:06 AM EST [facility] DEPARTMENT OF LABORATORY MEDICINE Comment:No previous creatini ne <5.00 mg/dL is available within the previous 12 months to calculate a delta creatinine. Blood Venipuncture / Unknown 08/02/2025 1:32 AM EST 08/02/2025 1:44 AM EST Megan GREEN LAB BLOOD ORDERABLES Final Res ult Performing Organization Address City/[facility]/ZIP Co de Phone Number [facility] DEPARTMENT OF LABORATORY MEDICINE [address] [place] [address] * (ABNORMAL) NT-proBrain natriuretic peptide (08/02/2025 1:32 AM EST) NT-proBNP 289.0(H) <125.0 pg/mL 08/02/2025 2:06 AM EST [facility] DEPARTMENT OF LABORATORY MEDICINE Comment: For proBNP <300 pg/mL, acute CHF is an unlikely cause of dyspnea. (Ref: Dixie RIOS, et al. AmJCardiol 95:948; 2004) proBNP and BNP values cannot be numerically interconverted; however, the two tests are comparable in distinguishing among the causes of dyspnea. Blood Venipuncture / Unknown 08/02/2025 1:32 AM EST 08/02/2025 1:44 AM EST Megan GREEN LAB BLOOD ORDERABLES Final Res ult Performing Organization Address City/[facility]/ZIP Co de Phone Number [facility] DEPARTMENT OF LABORATORY MEDICINE [address] [place] [address] * (ABNORMAL) CBC auto differential (08/02/2025 1:32 AM EST) WBC 6.3 4.0 - 11.0 x1000/ L 08/02/2025 1:50 AM EST [facility] DEPARTMENT OF LABORATORY MEDICINE RBC 4.44 4.00 - 6.00 M/ L 08/02/2025 1:50 AM EST [facility] DE[facility]MENT OF LABORATORY MEDICINE Hemoglobin 15.0 13.2 - 17.1 g/dL 08/02/2025 1:50 AM EST [facility] Hematocrit 43.80 38.50 - 50.00 % 08/02/2025 1:50 AM [facility] DEPARTMENT OF LABORATORY MEDICINE MCV 98.6 80.0 - 100.0 fL 08/02/2025 1:50 AM [facility] DEPARTMENT OF LABORATORY MEDICINE MCH 33.8(H) 27.0 - 33.0 pg 08/02/2025 1:50 AM [facility] DEPARTMENT OF LABORATORY MEDICINE MCHC 34.2 31.0 - 36.0 g/dL 08/02/2025 1:50 AM [facility] OF LABORATORY MEDICINE RDW-CV 13.5 11.0 - 15.0 % 08/02/2025 1:50 AM [facility] DEPARTMENT OF LABORATORY MEDICINE Platelets 417 150 - 420 x1000/ L 08/02/2025 1:50 AM [facility] MEDICINE MPV 10.1 8.0 - 12.0 fL 08/02/2025 1:50 AM [facility] DEPARTMENT OF LABORATORY MEDICINE Neutrophils 53.8 39.0 - 72.0 % 08/02/2025 1:50 AM [facility] DEPARTMENT OF LABORATORY MEDICINE Lymphocytes 32.6 17.0 - 50.0 % 08/02/2025 1:50 AM [facility] DEPARTMENT OF LABORATORY MEDICINE Monocytes 8.9 4.0 - 12.0 % 08/02/2025 1:50 AM [facility] DEPARTMENT OF LABORATORY MEDICINE Eosinophils 3.3 0.0 - 5.0 % 08/02/2025 1:50 AM [facility] DEPARTMENT OF LABORATORY MEDICINE Basophil 0.9 0.0 - 1.4 % 08/02/2025 1:50 AM [facility] DEPARTMENT OF LABORATORY MEDICINE Immature Granulocytes 0.5 0.0 - 1.0 % 08/02/2025 1:50 AM [facility] DEPARTMENT OF LABORATORY MEDICINE nRBC 0.0 0.0 - 1.0 % 08/02/2025 1:50 AM [facility] DEPARTMENT OF LABORATORY MEDICINE Absolute Lymphocyte Count 2.06 0.60 - 3.70 x 1000/ L 08/02/2025 1:50 AM [facility] DEPARTMENT OF LABORATORY MEDICINE Monocyte Absolute Count 0.56 0.00 - 1.00 x 1000/ L 08/02/2025 1:50 AM EST [facility] DEPARTMENT OF LABORATORY MEDICINE Eosinophil Absolute Count 0.21 0.00 - 1.00 x 1000/ L 08/02/2025 1:50 AM [facility] DEPARTMENT OF LABORATORY MEDICINE Basophil Absolute Count 0.06 0.00 - 1.00 x 1000/ L 08/02/2025 1:50 AM [facility] DEPARTMENT OF LABORATORY MEDICINE Absolute Immature Granulocyte Count 0.03 0.00 - 0.30 x 1000/ L 08/02/2025 1:50 AM [facility] DEPARTMENT OF LABORATORY MEDICINE Absolute nRBC 0.00 0.00 - 1.00 x 1000/ L 08/02/2025 1:50 AM [facility] DEPARTMENT OF LABORATORY MEDICINE ANC (Abs Neutrophil Count) 3.40 2.00 - 7.60 x 1000/ L 08/02/2025 1:50 AM [facility] DEPARTMENT OF LABORATORY MEDICINE Blood Venipuncture / Unknown 08/02/2025 1:32 AM EST 08/02/2025 1:43 AM EST Megan Sickle PA LAB BLOOD ORDERABLES Final Res ult [facility] DEPARTMENT OF LABORATORY MEDICINE [address] [place] [address] * Magnesium (08/02/2025 1:32 AM EST) Magnesium 2.1 1.7 - 2.4 mg/dL 08/02/2025 2:06 AM [facility]ORY MEDICINE Blood Venipuncture / Unknown 08/02/2025 1:32 AM EST 08/02/2025 1:44 AM EST Megan Sickle PA LAB BLOOD ORDERABLES Final Res ult [facility] OF LABORATORY MEDICINE [address] [place] [address] * Lipase (08/02/2025 1:32 AM EST) Lipase 49 11 - 55 U/L 08/02/2025 2:06 AM EST [facility] DEPARTMENT OF LABORATORY MEDICINE Blood Venipuncture / Unknown 08/02/2025 1:32 AM EST 08/02/2025 1:44 AM EST us Megan GREEN LAB BLOOD ORDERABLES Final Res ult Performing Organization Address City/State/[facility] Co de Phone Number [facility] DEPARTMENT OF LABORATORY MEDICINE [address] [place] [address] * Hepatic function panel (08/02/2025 1:32 AM EST) Total Bilirubin 0.4 <=1.2 mg/dL 08/02/2025 2:06 AM [facility] DEPARTMENT OF LABORATORY MEDICINE Bilirubin, Direct 0.1 <=0.2 mg/dL 08/02/2025 2:06 AM [facility] DEPARTMENT OF LABORATORY MEDICINE Comment: Effective 05/09/2025 [facility] [place]-Chemistry changed the Direct Bilirubin testing method from the Sheryl method to the Randox method. Alkaline Phosphatase 60 9 - 122 U/L 08/02/2025 2:06 AM [facility] DEPARTMENT OF LABORATORY MEDICINE Alanine Aminotransferase (ALT) 21 9 - 59 U/L 08/02/2025 2:06 AM [facility] DEPARTMENT OF LABORATORY MEDICINE Comment:Calcium dobesilate c an cause artificially low ALT results at therapeutic concentrations Aspartate Aminotransferase (AST) 08/02/2025 2:06 AM [facility] DEPARTMENT OF LABORATORY MEDICINE Comment:Sample Hemolyzed. AST/ALT Ratio 08/02/2025 2:06 AM [facility] DEPARTMENT OF LABORATORY MEDICINE Comment:Calculation cannot b e determined. Total Protein 7.9 5.9 - 8.3 g/dL 08/02/2025 2:06 AM [facility] DEPARTMENT OF LABORATORY MEDICINE Albumin 4.2 3.6 - 5.1 g/dL 08/02/2025 2:06 AM [facility] DEPARTMENT OF LABORATORY MEDICINE Globulin 3.7 2.0 - 3.9 g/dL 08/02/2025 2:06 AM [facility] DEPARTMENT OF LABORATORY MEDICINE A/G Ratio 1.1 1.0 - 2.2 08/02/2025 2:06 AM [facility] DEPARTMENT OF LABORATORY MEDICINE Blood Venipuncture / Unknown 08/02/2025 1:32 AM EST 08/02/2025 1:44 AM EST us Megan Lakeshia GREEN LAB BLOOD ORDERABLES Final Res ult [facility] DEPARTMENT OF LABORATORY MEDICINE [address] [place] [address], [facility] [phone] * CXR (08/01/2025 11:26 PM EST) Anatomical Region Laterality Modality Chest Digital Radiogra phy 08/01/2025 11:4 6 PM EST Impressions 08/02/2025 1:28 AM EST No acute cardiothoracic abnormality. [facility] Radiology Notify System Classification: Routine. Report initiated by: KATELYNN Meyers Reported and signed by: Clem Da Silva MD [facility] Narrative 08/02/2025 1:28 AM EST XR CHEST PA AND LATERAL INDICATION: chest tightness, flu like symptoms COMPARISON: X-ray 2012. FINDINGS: Since 2011, there has been interval placement of an left sided AICD with expected lead positioning as well as aortic valve prosthesis and a cardioMEMS device. The cardiac silhouette is mildly enlarged, yet stable for size. Tortuous and ectatic appearing thoracic aorta. Lung volumes are low. No obvious focal consolidation, overt pulmonary edema, pneumothorax or large pleural effusion. Chronic appearing significant degenerative changes and remodeling of the right glenohumeral joint. Surgical clips noted in the right upper quadrant of the abdomen. Procedure Note Clem Da Silva MD - 08/02/2025 XR CHEST PA AND LATERAL INDICATION: chest tightness, flu like symptoms COMPARISON: X-ray 2012. FINDINGS: Since 2011, there has been interval placement of an left sided AICD withexpected lead positioning as well as aortic valve prosthesis and acardioMEMS device. The cardiac silhouette is mildly enlarged, yet stable for size. Tortuousand ectatic appearing thoracic aorta. Lung volumes are low. No obvious focal consolidation, overt pulmonaryedema, pneumothorax or large pleural effusion. Chronic appearing significant degenerative changes and remodeling of theright glenohumeral joint. Surgical clips noted in the right upper quadrant of the abdomen. IMPRESSION: No acute cardiothoracic abnormality. [facility] Radiology Notify System Classification: Routine. Report initiated by: KATELYNN Meyers Reported and signed by: Clem Da Silva MD [facility] us Megan GREEN IMG DIAGNOSTIC IMAGING ORDERAB LES Final Result * Symptomatic 4 Plex -Order only on patients highly likely to be admitted. (08/01/2025 10:39 PM EST) Influenza A Negative Negative 08/01/2025 11:34 PM EST [facility] DEPARTMENT OF LABORATORY MEDICINE Comment:Negative results do not preclude infection from influenza or other respiratory viruses and should not be used as the sole basis for treatment or management. Influenza may exhibit genomic variation among circulating and newly emerging strains that may lead to unexpected falsely negative results for some tests. For all respiratory pathogens, falsely negative results may also arise from poorly collected specimens. If concerns remain high, providers should contact the laboratory for potential testing by an alternative testing method and/or submit a new well-collected nasopharyngeal specimen. Influenza B Negative Negative 08/01/2025 11:34 PM EST [facility] DEPARTMENT OF LABORATORY MEDICINE Respiratory Syncytial Virus Negative Negative 08/01/2025 11:34 PM EST [facility] DEPARTMENT OF LABORATORY MEDICINE SARS-CoV-2 RNA (COVID-19) Negative Negative 08/01/2025 11:34 PM EST [facility] DEPARTMENT OF LABORATORY MEDICINE Comment:Test performance has not been evaluated in asymptomatic patients. Negative results do not preclude SARS-CoV-2, Influenza A, Influenza B and/or RSV infection. The results of these tests should not be used as the sole basis for diagnosis, treatment, or other patient management decisions. Viral NASOPHARYNGEAL STRUCTURE / Unknown Collection / Unknown 08/01/2025 10:39 PM EST 08/01/2025 10:55 PM EST us Megan GREEN MICROBIOLOGY - GENERAL ORDERAB LES Final Result [facility] DEPARTMENT OF LABORATORY MEDICINE [address] [place] [address], [facility] [phone] * EKG (08/01/2025 8:24 PM EST) Heart Rate 73 bpm [facility] EKG QRS Interval 131 ms [facility] EKG QT Interval 448 ms [facility] EKG QTC Interval 494 ms [facility] EKG P [place] -10 deg [facility] EKG QRS [place] -56 deg [facility] EKG T Wave [place] 65 deg [facility] EKG P-R Interval 215 msec [facility] EKG SEVERITY Abnormal ECG severity [facility] EKG Comment::Sinus rhythm:Border line prolonged [place] interval:Nonspecific IVCD with LAD:Left ventricular hypertrophy:Anterior ST elevation, probably due to LVH:Electronically Signed On 08-01-2025 20:28:29 EST by Vic Preciado MD OTHER / Unknown 08/01/2025 8 :24 PM EST Carlos Marques MD ECG ORDERABLES Final Result [facility] EKG from Last [address] [place] [address] MEDICAID MANAG[facility] MEDICARE MANAG[facility] [address] [place] [phone] MEDICAID MANAG[facility] MEDICARE [facility] [address] [place] [phone] MEDICAID [facility] [place] [id number] MEDICARE MANAGED [facility] Advance Directives * Full Interventions (Latest Code Status on File) Date Activated Date Inactivated Comments 10/07/2012 10:34 PM 10/11/2012 2:58 PM Care Teams Soil Specialist Relationship Specialty Start Date End Date Obtain, Unable To PCP - General 08/01/25
--- OUTSIDE RECORDS SUMMARY | 2025-08-17 00:24 | XMS_ITS ---
Author Name [facility] Organization Unknown Results Test Name/Text Value Interpretation Date Range Source Troponin T SerPl HS-mCnc 0.0 ng/L 08/02/2025 [facility] Troponin T SerPl HS-mCnc 21.0 ng/L Above high normal 08/02/2025 - [facility] GFR SerPlBld Creatinine-bsd fmla CKD-EPI 35.0 mL/min/1.73m2 Below low normal 08/02/2025 - [facility] Potassium SerPl-sCnc 08/02/2025 [facility] BUN SerPl-mCnc 12.0 mg/dL 08/02/2025 8 - 23 [facility] Chloride SerPl-sCnc 104.0 mmol/L 08/02/2025 98 - 1 07 [facility] Sodium SerPl-sCnc 137.0 mmol/L 08/02/2025 136 - 14 4 [facility] BKR CREATININE DELTA 08/02/2025 [facility] Calcium SerPl-mCnc 9.6 mg/dL 08/02/2025 8.8 - 10.2 [facility] Anion Gap SerPl Calculated.3Ions-sCnc 13.0 08/02/2025 7 - 17 [facility] T Creat SerPl-mCnc 2.0 mg/dL Above high normal 08/02/2025 0.4 - 1.3 [facility] BUN/Creat SerPl 6.0 Below low normal 08/02/2025 8 - 23 [facility] HCO3 SerPl-sCnc 20.0 mmol/L 08/02/2025 20 - 30 [facility] Glucose SerPl-mCnc 95.0 mg/dL 08/02/2025 70 - 100 [facility] NT-proBNP SerPl-mCnc 289.0 pg/mL Above high normal 5 - 125 [facility] Lipase SerPl-cCnc 49.0 U/L 08/02/2025 11 - 55 [facility] Globulin Plas-mCnc 3.7 g/dL 08/02/2025 2 - 3.9 [facility] Albumin SerPl BCG-mCnc 4.2 g/dL 08/02/2025 3.6 - 5.1 [facility] ALT SerPl w/o P-5'-P-cCnc 21.0 U/L 08/02/2025 9 - 59 [facility] AST/ALT SerPl-cRto 08/02/2025 [facility] Prot SerPl-mCnc 7.9 g/dL 08/02/2025 5.9 - 8.3 [facility] Bilirub Direct SerPl-mCnc 0.1 mg/dL 08/02/2025 - [facility] AST SerPl w P-5'-P-cCnc 08/02/2025 [facility] ALP SerPl-cCnc 60.0 U/L 08/02/2025 9 - 122 [facility] Bilirub SerPl-mCnc 0.4 mg/dL 08/02/2025 - [facility] Albumin/Glob SerPl 1.1 08/02/2025 1 - 2.2 [facility] Magnesium SerPl-mCnc 2.1 mg/dL 08/02/2025 1.7 - 2. 4 [facility] nRBC Bld Auto-Rto 0.0 % 08/02/2025 0 - 1 [facility] Basophils NFr Bld Auto 0.9 % 08/02/2025 0 - 1. 4 [facility] WBC # Bld Auto 6.3 x1000/uL 08/02/2025 4 - 11 [facility] Monocytes NFr Bld Auto 8.9 % 08/02/2025 4 - 12 [facility] Eosinophil # Bld Auto 0.21 x 1000/uL 08/02/2025 0 - 1 [facility] Platelet # Bld Auto 417.0 x1000/uL 08/02/2025 150 - 420 [facility] PMV Bld Auto 10.1 fL 08/02/2025 8 - 12 [facility] T Imm Granulocytes # Bld Auto 0.03 x 1000/uL 08/02/2025 0 - 0.3 [facility] RBC Auto 98.6 fL 08/02/2025 80 - 100 [facility] Basophils # Bld Auto 0.06 x 1000/uL 08/02/2025 0 - 1 [facility] Eosinophil NFr Bld Auto 3.3 % 08/02/2025 0 - 5 [facility] Neutrophils # Bld Auto 3.4 x 1000/uL 08/02/2025 2 - 7.6 [facility] MCHC RBC Auto-EntMCnc 34.2 g/dL 08/02/2025 31 - 36 [facility] Hgb Bld-mCnc 15.0 g/dL 08/02/2025 13.2 - 17.1 [facility] Neutrophils NFr Bld Auto 53.8 % 08/02/2025 39 - 72 [facility] RDW RBC Auto 13.5 % 08/02/2025 11 - 15 [facility] T MCH RBC Qn Auto 33.8 pg Above high normal 08/02/2025 27 - 33 [facility] Lymphocytes # Bld Auto 2.06 x 1000/uL 08/02/2025 0 .6 - 3.7 [facility] Lymphocytes NFr Bld Auto 32.6 % 08/02/2025 17 - 50 [facility] Hct VFr Bld Auto 43.8 % 08/02/2025 38.5 - 50 [facility] Imm Granulocytes NFr Bld Auto 0.5 % 08/02/2025 0 - 1 [facility] RBC # Bld Auto 4.44 M/uL 08/02/2025 4 - 6 [facility] Monocytes # Bld Auto 0.56 x 1000/uL 08/02/2025 0 - 1 [facility] nRBC # Bld Auto 0.0 x 1000/uL 08/02/2025 0 - 1 [facility] Encounters Encounter Type Encounter Reason Primary Diagnosis Location Date Emergency Abdominal pain, unspecified site Abdominal pain, unspecified site [facility] 08/01/2025 Care Team Organization Name Specialty Phone Email Start Date End Da te [facility] 08/02/20 25 [facility] 08/02/20 25
--- OUTSIDE RECORDS SUMMARY | 2025-08-17 00:24 | XMS_ITS | Encounter Summary ---
Author Organization [facility] Address [address] [place] [address] Encounters * CPT with [facility] at [facility] on 2025-07-27 { reasonForRequest : Pt reporting hot/cold chills>noting he is very nauseous> symptoms going on 1 week , patientReports : , denies :[ Sharp focal or diffuse abdominal pain , Vomiting blood/coffee ground material , Bloating, jaundice new onset with pain , Nausea and vomiting greater than 2 hours with abdominal pain , Tearing pain that radiates to back , Food Impaction ], chi efComplaints : Nausea / Vomiting , pmh : Hypertension, COPD/Asthma&quo t;, allergies : Lisinopril , otherAllergies :null, painAssessment : , visitOutcome : , additionalComments : 69 y.o male complains of Nausea / Vomiting\n\nPatient reporting a week of feeling hot/cold, denies fever\nHe has also been nauseous, had vomiting and diarrhea yesterday, none today, did not endorse hematamesis or melena\nHe did have hernia repait surgery last week, has soreness from that, but no pain, does not feel bloated or distended\nDenies back pain\nNo chest pain or shortness of breath\nNo headaches or dizziness\nNo known sick contacts\nHe would like to be evaluated\n\nI provided information onthe mobile health provider response time and advised the patient and/or caregiver to monitor reported signs and symptoms. I discussed the warning signs of when to seek emergency care. } Arrived at patients residence. Patient aox4, GCS 15 skin pink warm and dry. Patient recently had hiatal hernia surgery last week. No complications. Patient endorsing occasional chills. Had one episode of vomiting yesterday and one episode of diarrhea yesterday. None today. Patient endorses nausea. VS as noted. Abd ???sore?? but not painful. Picture uploaded of surgery. Patient stated he has beendrinking broth and liquids and tolerating it well. [facility] contacted approved 4mg of ODT zofran and he is going to send over a RX to patient. RN to follow up with patient in a. Couple of days. No red flag symptoms. EKG, POC_BLOODWORK, URINE_DIPSTICK Written by Medical [facility] on 2025-07-27
--- OUTSIDE RECORDS SUMMARY | 2025-08-17 00:24 | XMS_ITS | Encounter Summary ---
Author Organization [facility] Address [address] [place] [address] Care Team Providers Care Refrigerator Assembler Name Role Phone Andrea Huitron Primary Care Provider [phone] Encounter Details Date Type Department Care Team (Late st Contact Info) Description 03/22/2025 Lab Requisition [facility] [address] [place] [phone] Rosa Elena Lyn PA [address] [place] [address] Benign essential microscopic hematuria Social History Tobacco [...] your loved ones. For example, early childhood or elderly care for an [...] of Assessment Author No 12/28/2024 11:39 AM EDJosé Miguel Schneider RN documented as of this encounter Mental [...] Description 09/10/2025 10:45 AM EST Office Visit [address] [phone] Andrea Huitron PA [address] [place] [phone] documented as of this encounter Procedures Procedure Name Priority Date/Time Associated Diagnosis Comments NON-GYNECOLOGIC CYTOLOGY Routine 03/14/2025 12:00 AM EDT Benign essential microscopic hematuria documented in this encounter Results * Non-gynecologic cytology (03/14/2025 12:00 AM EDT) Final Diagnosis A. Urine, Voided, ([id number]): Negative for high grade urothelial carcinoma. Results of [employer] fluorescence in situ hybridization (FISH) testing: CEP3: Normal CEP7: Normal CEP17: Normal LSI 9p21: Normal Interpretation: Normal profile Controls stained appropriately. Note: The results are intended as a screening device and should be interpreted in association with other clinical and pathological findings. 04/02/2025 9:02 AM EDT [facility] at 0902 EDT Specimen A Adequacy Satisfactory for evaluation 04/02/2025 9:02 AM EDT [facility] Clinical Information Benign essential microscopic hematuria R31.1 Urine Cytology/FISH (now) 04/02/2025 9:02 AM EDT [facility] Gross Description A. Urine, Voided, ([id number]): Received one ThinPrep slide for cytology and one ThinPrep slide for UroVysion FISH 04/02/2025 9:02 AM EDT [facility] Disclaimer Unless otherwise specified, all tissue is 10% NB formalin fixed and paraffin embedded. Technical pathology services provided by [facility] at [address], [place] [address] (CLIA #[id number]/Isela Galicia MD, Pusher Runner) 04/02/2025 9:02 AM EDT [facility] Urine Urine specimen from urethra / Unknown 03/14/2025 03/22/2025 1:57 PM EDT us Rosa Elena [facility] CYTOLOGY ORDERABLES Final Result [facility] [address] [place] [address], documented in this encounter Visit Diagnoses Diagnosis Benign essential microscopic hematuria documented in this encounter Additional Health Concerns Infection [...] 07/31/2025 12:34 PM EST Assessment Noted Time A fall risk assessment has been complete d for the patient 11/07/2024 11:28 AM EDT documented as of this encounter Care Teams Refrigerator Assembler Relationship Specialty Start Date End Date Andrea Huitron PA [address] [place] [id number] PCP - General Internal Medicine 06/24/25 documented as of this encounter
--- OUTSIDE RECORDS SUMMARY | 2025-08-17 00:24 | XMS_ITS | Clinical Summary ---
Author Organization [facility] Address [address] [place] [address] Care Team Providers Care Costume Shop Coordinator Name Role Phone Rocky Saha Primary Care [...] Years (1 of 2 - PCV) 1974 RSV Vaccine (60+ years old and patients) (1 - Risk 50-74 years 1-dose series) 2005 Zoster Vaccines (1 of 2) 2005 Basic Metabolic Panel 09/23/2021 09/23/2020, 020 DTaP,Tdap,and Td Vaccines (3 - Td or Tdap) 04/24/2023 04/24/2013, 02/03/2001, 02/03/2001 Alcohol/Substance Use Screening 08/22/2024 Depression Screening and Follow-Up 08/22/2024 Fall Risk Screening 08/22/2024 Health Care Proxy Review 08/22/2024 Social Drivers of Health Annual Screening 08/22/2024 Influenza Vaccine (#1) 2025 , 06/17/2019, 06/21/2018, Additional history exists COVID-19 Vaccine ( season) 2025 Hepatitis B Vaccines Aged Out No long er eligible based on patient's age to complete this topic Insurance Care Teams Costume Shop Coordinator Relationship Specialty Start Date End Date Rocky Saha PCP - General Internal Medicine 08/05/20
--- OUTSIDE RECORDS SUMMARY | 2025-08-17 00:24 | XMS_ITS | Clinical Summary ---
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 024 Active DULoxetine (CYMBALTA) [address] capsule Take 1 capsule (30 mg total) by mouth 1 (one) time each day. Do not crush or chew. 30 each 5 025 2025 Active warfarin (COUMADIN) 2 mg tablet Take 2 tablets (4 mg total) by mouth 1 (one) time each day. Take 2 tablets daily until INR is 2 or higher, after that resume usual regimen as per your warfarin clinic. 025 Active carvediloL (COREG) 12.5 mg tablet Take 1 tablet (12.5 mg total) by mouth 2 (two) times a day. 60 each 025 2025 Active oxyCODONE (ROXICODONE) 5 mg immediate release tablet Take 1 tablet (5 mg total) by mouth every 6 (six) hours if needed for severe pain. Max Daily Amount: 20 mg 8 tablet Active acetaminophen (TYLENOL) 500 mg tablet Take 2 tablets (1,000 mg total) by mouth every 8 (eight) hours. 24 tablet Active docusate sodium (COLACE) 100 mg capsule Take 1 capsule (100 mg total) by mouth 2 (two) times a day. 14 each Active latanoprost (XALATAN) 0.005 % ophthalmic solution Administer 1 drop into both eyes at bedtime. Active predniSONE (DELTASONE) 2.5 mg tablet Take 1 tablet (2.5 mg total) by mouth 1 (one) time each day. Active eplerenone (INSPRA) 50 mg tablet Take 1 tablet (50 mg total) by mouth 1 (one) time each day. Active empagliflozin (Jardiance) 10 mg tablet Take 1 tablet (10 mg total) by mouth 1 (one) time each day in the morning. Active tamsulosin (FLOMAX) 0.4 mg 24 hr capsule Take 1 capsule (0.4 mg total) by mouth 1 (one) time each day. Capsules should be taken 30 minutes following the same meal each day. 30 each 2025 Active gabapentin (NEURONTIN) 600 mg tablet Take 1 tablet (600 mg total) by mouth 3 (three) times a day. 90 each Active sacubitriL-valsar ellsworth (ENTRESTO) 24-26 mg per tablet Take 1 tablet by mouth 2 (two) times a day. 180 tablet 3 Active predniSONE (DELTASONE) 20 mg tablet Take 2 tablets (40 mg total) by mouth 1 (one) time each day for 5 days. 10 each 2024 Active albuterol HFA (Ventolin HFA) 90 mcg/actuation inhaler INHALE 2 PUFFS INTO THE LUNGS EVERY 6 HOURS NEEDED FOR COUGH, WHEEZING OR SHORTNESS OF BREATH. 2024 Discontinued(T herapy completed) carvediloL (COREG) 25 mg tablet Take 1 Tablet by mouth. 2024 Discontinued(S top Taking at Discharge) empagliflozin (Jardiance) 10 mg tablet Jardiance 10 mg tablet TAKE 1 TABLET BY MOUTH EVERY MORNING 2024 Discontinued(T herapy completed) eplerenone (INSPRA) 50 mg tablet Take 1 tablet (50 mg total) by mouth 1 (one) time each day. 2024 Discontinued(S top Taking at Discharge) torsemide (DEMADEX) 20 mg tablet Take 1 tablet (20 mg total) by mouth 1 (one) time each day. 2024 Discontinued(S top Taking at Discharge) guaiFENesin-codei ne (ROBITUSSIN-AC) 100-10 mg/5 mL syrup Take 5 mL by mouth every 6 (six) hours if needed for cough. Max Daily Amount: 20 mL 750 mL 2024 Discontinued(T herapy completed) ferrous sulfate 325 mg (65 mg elemental iron) tablet TAKE 1 TABLET BY MOUTH EVERY DAY 90 tablet 1 2024 Discontinued(T herapy completed) folic acid (FOLVITE) 1 mg tablet Take 1 tablet (1,000 mcg total) by mouth 1 (one) time each day. 2024 Discontinued(T herapy completed) predniSONE (DELTASONE) 2.5 mg tablet Take 1 tablet (2.5 mg total) by mouth 1 (one) time each day. 2024 Discontinued(T herapy completed) gabapentin (NEURONTIN) 100 mg capsule Take 1 capsule (100 mg total) by mouth every 8 (eight) hours. 90 each 2024 Discontinued tamsulosin (FLOMAX) 0.4 mg 24 hr capsule Take 1 capsule (0.4 mg total) by mouth 1 (one) time each day. Capsules should be taken 30 minutes following the same meal each day. 30 each 025 2024 Discontinued(T herapy completed) ondansetron ODT (ZOFRAN-ODT) 8 mg disintegrating tabletIndications :Hospital discharge follow-up,IRENE (acute kidney injury) (CMS/HCC V24),Gallbladder sludge Dissolve 1 tablet (8 mg total) on top of the tongue every 8 (eight) hours if needed for nausea or vomiting. 30 tablet 11 025 2024 Discontinued(T herapy completed) sacubitriL-valsar ellsworth (Entresto) 24-26 mg per tablet Take 1 tablet by mouth 2 (two) times a day. 180 tablet 3 025 2024 Discontinued(T herapy completed) gabapentin (NEURONTIN) 300 mg capsule Take 1 capsule (300 mg total) by mouth 3 (three) times a day. 2024 Discontinued(T herapy completed) acetaminophen (TYLENOL) 325 mg tablet Take 2 tablets (650 mg total) by mouth every 4 (four) hours if needed for mild pain, headaches or fever - temperature GREATER than 38 C (100.4 F) for up to 10 days. 30 tablet 2024 Discontinued(S top Taking at Discharge) enoxaparin (LOVENOX) 100 mg/mL syringe Inject 1 mL (100 mg total) under the skin 2 (two) times a day for 14 doses. 14 each 2024 Discontinued fluticasone propionate (FLONASE) 50 mcg/actuation nasal sprayIndications: Moderate persistent asthma, uncomplicated,Chr onic obstructive pulmonary disease, unspecified (CMS/HCC V24, CMS/HCC V28) 2 SPRAYS IN EACH NOSTRIL 48 mL 1 2024 Discontinued(T herapy completed) HYDROmorphone (Dilaudid) 2 mg tablet Take 1 tablet (2 mg total) by mouth every 6 (six) hours if needed for severe pain. Max Daily Amount: 8 mg 28 tablet 2024 Discontinued(T herapy completed) enoxaparin (LOVENOX) 100 mg/mL syringe Inject 1 mL (100 mg total) under the skin 2 (two) times a day for 14 doses. 14 each 025 2024 Discontinued(S top Taking at Discharge) sacubitriL-valsar ellsworth (ENTRESTO) 24-26 mg per tablet Take 1 tablet by mouth 2 (two) times a day. 180 tablet 3 2024 Discontinued(R eorder) amoxicillin-clavu lanate (AUGMENTIN) 875-125 mg per tablet Take 1 tablet by mouth 2 (two) times a day for 7 days. 14 tablet 025 2024 doxycycline (VIBRAMYCIN) 100 mg capsule Take 1 capsule (100 mg total) by mouth 2 (two) times a day for 10 days. Take with at least 8 ounces (large glass) of water, do not lie down for 30 minutes after. Administer 2 hours before or after multivitamins, antacids, or other products containing polyvalent cations (i.e., calcium, iron, magnesium, selenium, zinc). 20 each 025 2024 Discontinued Active Problems Problem Noted Date Diagnosed Date Postoperative abdominal pain 07/21/2025 Umbilical hernia without obstruction and without gangrene 07/21/2025 Generalized abdominal pain 07/09/2025 Abdominal pain 07/06/2025 Right upper quadrant abdominal pain 07/05/2025 MARY (obstructive sleep apnea) 06/25/2024 Iliac artery aneurysm, bilateral 01/21/2023 ETOH abuse 04/09/2022 Iron deficiency anemia 12/14/2021 Nocturnal hypoxemia 11/16/2021 Overview (07/02/2024): [facility] Home sleep test 11/03/2021 weight 245; BMI 34. AHI 3 with all hypopneas. Average oxygen saturation 90% with oxygen theodora 83%. Oxygen saturations less than 88% for 21% of the study (67 minutes). Nocturnal hypoxemia based on 2021 home sleep study without sleep apnea diagnosis. Last Assessment & Plan: 2L sent to [facility]. Aortic aneurysm 08/11/2021 Overview (07/02/2024): Last Assessment & Plan: -Status post aortic root graft repair at the time of the aortic valve replacement in November 2018, Aorta was documented to be normal in size on last echocardiogram from July 2021 Left heart failure 08/07/2021 PVC's (premature ventricular contractions) 08/07 SOB (shortness of breath) 08/07/2021 CIDP (chronic inflammatory demyelinating polyneu ropathy) 06/23/2021 Overview (07/02/2024): Dr. De Paz's note scanned into chart 05/2021, treated with IVIG and was better. On immunoglobulin solution, prednisone Ventricular tachycardia (paroxysmal) 03/09/2021 Overview (07/02/2024): Last Assessment & Plan: Status post VT ablation in February 2021. Holter monitor does not show any sustained arrhythmias. Continue suppression with amiodarone. PFTs, LFTs, TFTs stable. Peripheral polyneuropathy 02/26/2021 DDD (degenerative disc disease), cervical 2020 DDD (degenerative disc disease), lumbar 01/03/20 21 Vitamin D deficiency 01/02/2021 Chronic combined systolic and diastolic heart fa ilure 11/14/2020 Overview (07/02/2024): Last Assessment & Plan: [...] this is okay or not. Dilated cardiomyopathy 07/28/2020 Overview (07/02/2024): Last Assessment & Plan: -As above, s/p Biotronik ICD, continue carvedilol, hydralazine, and new addition of Bumex. Spironolactone was previously discontinued. Chest pain 07/28/2020 Overview (07/02/2024): Chest pain PLMD (periodic limb movement disorder) Overview (07/02/2024): 06/2019 Polysomnogram Snoring 07/05/2019 Overview (07/02/2024): 06/2019 Diagnostic polysomnogram did not reveal MARY or nocturnal hypoxia. + PLMD. 10/2021 HSAT showed no MARY with significant desaturations. LV (left ventricular) mural thrombus 10/10/2018 AAA (abdominal aortic aneurysm) 09/05/2018 Overview (07/02/2024): 3.5 - 01/2023 Kidney cyst, acquired 09/05/2018 Overview (07/02/2024): Right sided 3.2 cm cyst, benign appearing; f/u sono in aug 2019 showed slightly decreased in size. Repeat sono in aug 2020 Chronic cough 09/20/2017 Chronic obstructive pulmonary disease 06/10/2017 Allergic rhinitis 05/25/2017 Asthma 05/25/2017 Congestive heart failure wit h left ventricular systolic dysfunction 05/25/2017 Overview (07/02/2024): ECHO 2014 LVEF 15-20% Follows with Dr. Nury NELSON S/p cardiac cath 04/2015 History of alcohol abuse 05/25/2017 CKD (chronic kidney disease) stage 3, GFR 30-59 ml/min 05/19/2017 Overview (07/02/2024): Sees dr. Aguilera Hyperlipidemia 05/20/2008 Overview (07/02/2024): Last Assessment & Plan: Last lipid panel from June 2021 revealing a total cholesterol 172, HDL 40, LDL 102. Continue statin therapy. Cocaine abuse, in remission 03/05/2008 Essential hypertension 05/18/2005 Overview (07/02/2024): Last Assessment & Plan: 140/70 in office today, Mildly elevated in the setting of volume overload. Continue regimen as above. Resolved Problems Problem Noted Date Diagnosed Date Resolved Date IRENE (acute kidney injury) 06/22/2025 Pain in the abdomen 06/21/2025 06/23/20 25 Encounters Date Type Department Care Team Description 08/16/2025 2:00 PM EST Office Visit Walk[facility] - [facility] [address] [place], [place] [phone] NP Right elbow pain (Primary Dx) 08/16/2025 Telephone Adult Medicine [address] [phone] Andrea Huitron PA 08/12/2025 2:00 PM EST Office Visit Adult Medicine [address] [phone] Andrea Huitron PA Hospital discharge follow-up (Primary Dx); Dilated cardiomyopathy (CMS/HCC V24, CMS/HCC V28); Stage 3b chronic kidney disease (CMS/HCC V24, CMS/HCC V28); Congestive heart failure with left ventricular systolic dysfunction (CMS/HCC V24, CMS/HCC V28); Essential hypertension; Iron deficiency anemia, unspecified iron deficiency anemia type; Pure hypercholesterolemia; Left heart failure (CMS/HCC V24, CMS/HCC V28); ETOH abuse 08/08/2025 Telephone Adult Medicine [address] [phone] Andrea Huitron PA 08/02/2025 Telephone Adult Medicine [address] [phone] Vikki Briggs RN 07/31/2025 9:18 AM EST - 08/01/2025 3:01 PM EST Hospital Encounter [facility] [address] [place] [phone] Tong García MD Flores, Carlos M, MD Kela, Kashyap Devendrabhai, MD Dyspnea, unspecified type (Primary Dx) Discharge Disposition: Home or Self Care 2025 Telephone Walk-In Clinic - [address] [phone] Ravin Morrell PA 2025 Telephone Adult Medicine [address] [phone] Dagmar Casanova MA 07/29/2025 11:44 AM EST - 07/29/2025 11:59 PM EST Hospital Encounter Xray - [address] [phone] Discharge Disposition: Home or Self Care 07/29/2025 11:15 AM EST Office Visit Walk-In Clinic - [address] [phone] Prudencio Pedersen PA Chills (without fever) (Primary Dx); Other fatigue 07/26/2025 5:06 PM EST - 07/26/2025 11:30 PM EST Emergency [facility] Emergency [address] [place] [phone] Tom Simpson MD Kokkinos, Erika, MD Dyspnea, unspecified type (Primary Dx); Chills; Postoperative abdominal pain Discharge Disposition: Home or Self Care 07/26/2025 Telephone Adult Medicine [address] [phone] Vikki Briggs RN 07/25/2025 6:53 PM EST - 07/25/2025 11:58 PM EST Emergency [facility] [address] [place] [phone] Discharge Disposition: Left Against Medical Advice 07/23/2025 11:23 AM EST Anesthesia Event [facility] OR [address] [place] [phone] Brooks Paredes MD McAdams, Megan BARREL CENTERER 07/23/2025 10:33 AM EST - 07/23/2025 12:03 PM EST Surgery [facility] OR [address] [place] [phone] Janeth Appiah MD REPAIR HERNIA UMBILICAL- OPEN [[id number] (CPT ) +1 more] 07/21/2025 3:36 PM EST - 07/24/2025 5:35 PM EST Hospital Encounter [facility] Urology Unit [address] [place] [phone] Nirav Bui MD Zipagan, James T, MD Postoperative abdominal pain (Primary Dx); Umbilical hernia without obstruction and without gangrene Discharge Disposition: Home or Self Care 07/21/2025 Results Follow-Up General Surgery [facility] [address] [place] [phone] Rashaad De La Rosa MD 07/18/2025 9:17 AM EST - 07/18/2025 5:[address] [facility] Emergency [address] [place] [phone] Kel Pruett MD Abdominal hematoma (Primary Dx) Discharge Disposition: Home or Self Care 07/16/2025 11:20 AM EST Lab Draw Station - [address] Hospital discharge follow-up; S/P cholecystectomy; Abdominal hematoma; Chills 07/16/2025 Results Follow-Up Adult [address] [phone] Andrea Huitron PA 07/15/2025 10:50 AM EST Lab Draw [facility] - [address] Hospital discharge follow-up; S/P cholecystectomy; Abdominal hematoma; Chills 07/15/2025 10:00 AM EST Office Visit Adult [address] [phone] Andrea Huitron PA Hospital discharge follow-up (Primary Dx); S/P cholecystectomy; Abdominal hematoma; Chills 07/13/2025 10:40 AM EST - 07/13/2025 5:[address] [facility] Emergency [address] [place] [phone] Postoperative pain (Primary Dx) Discharge Disposition: Home or Self Care 07/11/2025 Telephone Adult Medicine [address] [phone] Melissa Lawrence RN 07/09/2025 9:36 AM EST Anesthesia Event [facility] OR [address] [place] [phone] Sergei Lo MD 07/09/2025 9:00 AM EST - 07/09/2025 11:00 AM EST Surgery [facility] OR [address] [place] [phone] Rashaad De La Rosa MD CHOLECYSTECTOMY LAPAROSCOPIC 07/06/2025 3:16 PM EST - 07/10/2025 6:09 PM EST Hospital Encounter [facility] Unit [address] [place] [phone] Balaji Santana MD Jones, Christopher, MD Alam, Aroosa, MD Santoyo-Pacheco, Omar D, MD Generalized abdominal pain (Primary Dx); Abdominal pain; H/O mechanical aortic valve replacement Discharge Disposition: Home or Self Care 07/05/2025 11:00 AM EST Office Visit [address] [phone] Sergei Tracey MD Right upper quadrant abdominal pain (Primary Dx) 07/05/[address] [phone] Sergei Tracey MD 07/02/2025 8:50 AM EST Lab Draw [address] Hospital discharge follow-up; IRENE (acute kidney injury) (CMS/HCC V24); Gallbladder sludge; Aortic valve replaced; Stage 3a chronic kidney disease (CMS/HCC V24, CMS/HCC V28) 07/02/2025 Results Follow-Up Adult Medicine [address] [phone] Andrea Huitron PA 07/01/2025 9:30 AM EST Office Visit Adult Medicine [address] [phone] Andrea Huitron PA Hospital discharge follow-up (Primary Dx); IRENE (acute kidney injury) (CMS/HCC V24); Gallbladder sludge; Chronic combined systolic and diastolic heart failure ([facility]/HCC V24, CMS/HCC V28); Dilated cardiomyopathy (CMS/HCC V24, CMS/HCC V28); Chronic obstructive pulmonary disease, unspecified COPD type ([facility]/HCC V24, [facility]/HCC V28); Essential hypertension 07/01/2025 Telephone Adult [address] [phone] Andrea Huitron PA 06/24/2025 Telephone Adult [address] [phone] Andrea Huitron PA 06/21/2025 4:46 PM EDT - 06/23/2025 12:38 PM EST Hospital Encounter [facility] [address] [place] [phone] Tong García MD Sondhi, Vikram, MD Surendran, Anupama, MD Japaridze, Anna, MD IRENE (acute kidney injury) ([facility] V24) (Primary Dx); Viral gastroenteritis; Biliary colic symptom; Stage 3a chronic kidney disease ([facility]/HCC V24, CMS/HCC V28); Aortic valve replaced Discharge Disposition: Home or Self Care 06/21/2025 9:30 AM EDT Office Visit [address] [phone] Abimbola Rice PA Nausea and vomiting, unspecified vomiting type (Primary Dx); Diarrhea of presumed infectious origin; Rhinosinusitis; Chills; Stage 3b chronic kidney disease ([facility]/HCC V24, CMS/HCC V28); Chronic obstructive pulmonary disease, unspecified COPD type ([facility]/HCC V24, CMS/HCC V28) 06/20/2025 9:30 AM EDT Lab Draw Station - [address] [phone] Upper respiratory symptom; Chills (without fever); Cold sweat 06/20/2025 9:15 AM EDT Office Visit Walk-In Clinic - [address] [phone] Andrea Copeland, NAPOLEON Chills (without fever) (Primary Dx); Upper respiratory symptom; Cold sweat 06/20/2025 Results Follow-Up Walk-In Clinic - [address] [phone] Andrea Copeland NP 06/19/2025 Results Follow-Up Gastroenterology - [place] 175 [facility] [address] [phone] Savanna Dumont NP 06/18/2025 7:53 AM EDT - 06/18/2025 11:59 PM EDT Hospital Encounter [facility] [address] [place] [phone] Early satiety; Chronic nausea; Abdominal bloating Discharge Disposition: Home or Self Care 05/27/2025 3:04 PM EDT - 05/27/2025 11:59 PM EDT Hospital Encounter Xray - [address] [phone] Subacute cough Discharge Disposition: Home or Self Care 05/27/2025 2:45 PM EDT Office Visit Walk-In [facility] - [address] [phone] Hal Mendoza NP Subacute cough (Primary Dx) 05/27/2025 Telephone Adult Medicine [address] [phone] Andrea Huitron PA 05/23/2025 Telephone Adult Medicine [address] [phone] Andrea Huitron PA 05/21/2025 Telephone Adult Medicine [address] [phone] Andrea Huitron, PA from Last 3 Months Immunizations Immunization Administration [...] HISTORICAL ICD OTHER SURGICAL HISTORY 09/2008 PROCEDURE: LA RPLCMT AORTIC VALVE ANNULUS ENLGMENT NONC SINUS; 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 smith VENTRAL HERNIA REPAIR 02/07/2023 PROCEDURE: HISTORICAL VTRL WALL HERNIA RE; COMMENT: Incisional hernia repair Dr. Tracey CHOLECYSTECTOMY 07/09/2025 Medical History Medical History Date Comments Presence of cardiac defibrillator 08/09/2019 DX:Presence of cardiac defibrillator; COMMENT: History of decreased ejection fraction History of colon polyps DX:Histo ry of colon polyps Hypertension Chronic kidney disease Hypercholesteremia Asthma-chronic obstructive p ulmonary disease overlap syndrome ([facility] V24, [facility] V28) Combined systolic and diasto lic heart failure ([facility] V24, [facility] V28) Descending thoracic aortic a neurysm ([facility] V24) Aneurysm of infrarenal abdom inal aorta ([facility] V24) Iliac artery aneurysm, left ([facility] V24) Alcohol use disorder in remission Tobacco dependence in remission Dilated cardiomyopathy ([facility] V24, [facility] V28) History of mechanical aortic valve replacement AICD (automatic cardioverter/defibrillator) present Family History Medical History Relation Name Comments Alcohol/Drug Father Other cancer Father throat cancer Gallbladder disease Mother Hypertension Mother Lung cancer Neg Hx Relation [...] for your loved ones. For example, child and youth program assistant or elderly care for an older [...] Orientation Straight 10/26/2024 3: 34 PM EST Last Filed Vital Signs Vital Sign Reading Time Taken Comments Blood Pressure 144/88 08/16/2025 2:02 PM EST Pulse 67 08/16/2025 2:02 PM EST Temperature 36.6 C (97.8 F) 08/16/2025 2:02 PM EST Respiratory Rate 17 08/12/2025 2:07 PM EST Oxygen Saturation 94% 08/12/2025 2:07 PM EST Inhaled Oxygen Concentration - - Weight 106 kg (234 lb) 08/12/2025 2:07 PM EST Height 180.3 cm (5' 11 ) 08/12/2025 2:07 PM EST Body Mass Index 32.64 08/12/2025 2:07 PM EST Plan of Treatment Upcoming Encounters Date Type Department Care Team (Late st Contact Info) Description 09/10/2025 10:45 AM EST Office Visit Adult Medicine [address] [phone] Andrea Huitron PA [facility] [place] [phone] Health Maintenance Due Date Last Done Comments Naloxone Order 1955 Pain Assessment 1955 Hepatitis A Vaccines (1 of 2 - Risk 2-dose series) 1974 Zoster Vaccines (2 of 2) 05/21/2024 03/26/2024 Medicare Annual Wellness Visit 03/27/2025 03/27/2024 COVID-19 Vaccine ( season) 2025 07/11/2023, 07/01/2022, 06/04/2021, Additional history exists Opioid Substance Agreement 07/22/2025 07/21/2025 Lung Cancer Screening (Low Dose CT) 10/12/2025 10/12/2024, 10/04/2022, 12/16/2020 Colorectal Cancer Screening: Colonoscopy 11/13/2025 11/13/2020 Drug Screen 07/31/2026 07/31/2025, 06/24, 07/07/2025, Additional history exists Social Influencers of Health Screening 07/31/2026 07/31/2025, 07/13/2024 Falls Risk Assessment 08/01/2026 08/01/2025 , 11/07/2024, 08/26/2023 Hypertension/CHF/CAD Annual BMP Blood Test 08/06/2026 08/06/2025, 08/02/2025, 08/01/2025, Additional history exists Cholesterol Screening (Lipid Panel) 09/26/2029 09/26/2024, 02/22/2024, 02/22/2024 DTaP,Tdap,and Td Vaccines (5 - Td or Tdap) 04/29/2033 04/29/2023, 04/24/2013, 02/03/2001, Additional history exists Pneumococcal Vaccine: 50+ Years Completed 03/26/2024, 03/08/2020 Hepatitis C Screening Completed 07/06/2024, 008 Influenza Vaccine Discontinued 05/05/2025, , 05/27/2022, Additional history exists RSV Immunization Adult Patients Completed 05/05/2025 Depression Screening Completed 06/21/2025, 03/27/20 24 HIB Vaccines Aged Out No [...] on patient's age to complete this topic Goals Goal Patient Goal Type Associated Problems Recent Progress Patient-Stated? Author Autogenerat ed Goal Care Plan Autogenerated Problem No Betsy Lay PA Autogenerat ed Goal Care Plan Autogenerated Problem No Tammy Hines PA Medical Devices Implanted Type Area Agile Test Lead Device Identifier Shelf Expiration Date Model / Serial / Lot Kit Surgiflo W 2000 Units Ster Lyo - Sn/A - [id number] Implanted:Qty: 1 on 07/09/2025 by Rashaad De La Rosa MD at [facility] Hemostasis N/A: Bile [employer]ct [employer] 09/21/2026 [id number] / N/A / [id number] Procedures Procedure Name Priority Date/Time Associated Diagnosis Comments ECG ANNOTATED 08/02/2025 CBC WITH AUTO DIFFERENTIAL Routine 08/01/2025 5:55 AM EST CBC AND DIFFERENTIAL Routine 08/01/2025 5:55 AM EST MAGNESIUM Routine 08/01/2025 5:55 AM EST BASIC METABOLIC PANEL Routine 08/01/2025 5:55 AM EST ECG ANNOTATED 08/01/2025 ECG 12-LEAD STAT 07/31/2025 8:50 PM EST LT BLUE - NA CITRATE Routine 07/31/2025 3:04 PM EST EXTRA TUBES Routine 07/31/2025 3:04 PM EST TROPONIN I HIGH SENSITIVITY STAT 07/31/2025 3:04 PM EST URINALYSIS WITH REFLEX MICROSCOPIC Routine 07/31/2025 2:52 PM EST URINALYSIS WITH REFLEX MICROSCOPIC Routine 07/31/2025 2:52 PM EST ECG 12-LEAD Routine 07/31/2025 2:18 PM EST DRUG ABUSE SCREEN 8A PANEL, URINE STAT 07/31/2025 2:13 PM EST NORTH URINE CULTURE TUBE Routine 07/31/2025 2:00 PM EST EXTRA TUBES Routine 07/31/2025 2:00 PM EST OXYGEN THERAPY, ADULT Routine 07/31/2025 12:59 PM EST OXYGEN THERAPY, ADULT Routine 07/31/2025 12:59 PM EST XR CHEST 1 VIEW STAT 07/31/2025 11:15 AM EST ECG 12-LEAD STAT 07/31/2025 10:58 AM EST CBC WITH AUTO DIFFERENTIAL STAT 07/31/2025 10:53 AM EST TROPONIN I HIGH SENSITIVITY STAT 07/31/2025 10:53 AM EST B-TYPE NATRIURETIC PEPTIDE STAT 07/31/2025 10:53 AM EST COMPREHENSIVE METABOLIC PANEL STAT 07/31/2025 10:53 AM EST PROTHROMBIN TIME WITH INR STAT 07/31/2025 10:53 AM EST CBC AND DIFFERENTIAL STAT 07/31/2025 10:53 AM EST RESPIRATORY VIRUS PANEL MOLECULAR STUDY STAT 07/31/2025 9:54 AM EST CBC WITH AUTO DIFFERENTIAL Routine 07/29/2025 1:13 PM EST Chills (without fever) Other fatigue CBC AND DIFFERENTIAL Routine 07/29/2025 1:13 PM EST Chills (without fever) Other fatigue COMPREHENSIVE METABOLIC PANEL Routine 07/29/2025 1:13 PM EST Chills (without fever) Other fatigue XR CHEST 2 VIEWS Routine 07/29/2025 11:52 AM EST Chills (without fever) Other fatigue POC RAPID [id number], MOLECULAR Routine 07/29/2025 11:48 AM EST Chills (without fever) CT ANGIO CHEST WO AND/OR W CONTRAST STAT 07/26/2025 8:30 PM EST Dyspnea, unspecified type XR CHEST 2 VIEWS STAT 07/26/2025 1:42 PM EST RESPIRATORY VIRUS PANEL MOLECULAR STUDY STAT 07/26/2025 1:20 PM EST CBC WITH AUTO DIFFERENTIAL STAT 07/26/2025 1:11 PM EST D-DIMER STAT 07/26/2025 1:11 PM EST COMPREHENSIVE METABOLIC PANEL STAT 07/26/2025 1:11 PM EST CBC AND DIFFERENTIAL STAT 07/26/2025 1:11 PM EST PROTHROMBIN TIME WITH INR Routine 07/24/2025 5:53 AM EST MAGNESIUM Routine 07/24/2025 5:53 AM EST BASIC METABOLIC PANEL Routine 07/24/2025 5:53 AM EST POCT GLUCOSE BLOOD Routine 07/23/2025 12:41 PM EST OXYGEN THERAPY, ADULT Routine 07/23/2025 12:30 PM EST OXYGEN THERAPY, ADULT Routine 07/23/2025 12:30 PM EST OXYGEN THERAPY, ADULT Routine 07/23/2025 12:30 PM EST OXYGEN THERAPY, ADULT Routine 07/23/2025 12:30 PM EST OXYGEN THERAPY, ADULT Routine 07/23/2025 12:30 PM EST OXYGEN THERAPY, ADULT Routine 07/23/2025 12:30 PM EST TH AN LMA(NO CHARGE) Routine 07/23/2025 11:40 AM EST LA INCISION & DRAINAGE HEMATOMA/SEROMA/FLUI D COLLECTION 07/23/2025 11:23 AM EST Umbilical hernia without obstruction and without gangrene LA REPR ANT ABD HERNIA(S) ANY APPR INIT INCL IMPL < 3 CM INCARCERATED/STRG 07/23/2025 11:23 AM EST Umbilical hernia without obstruction and without gangrene CBC WITH AUTO DIFFERENTIAL Routine 07/23/2025 5:57 AM EST PROTHROMBIN TIME WITH INR Routine 07/23/2025 5:57 AM EST CBC AND DIFFERENTIAL Routine 07/23/2025 5:57 AM EST BASIC METABOLIC PANEL Routine 07/23/2025 5:57 AM EST MAGNESIUM Routine 07/23/2025 5:57 AM EST PHOSPHORUS Routine 07/23/2025 5:57 AM EST CPAP NIV Routine 07/22/2025 10:00 PM EST PROTHROMBIN TIME WITH INR Routine 07/22/2025 6:10 PM EST CPAP NIV Routine 07/22/2025 8:41 AM EST CBC WITH AUTO DIFFERENTIAL Routine 07/22/2025 6:29 AM EST BASIC METABOLIC PANEL Routine 07/22/2025 6:29 AM EST PROTHROMBIN TIME WITH INR Routine 07/22/2025 6:29 AM EST CBC AND DIFFERENTIAL Routine 07/22/2025 6:29 AM EST OPIATES CONFIRMATION, URINE Routine 07/21/2025 10:05 PM EST DRUG ABUSE SCREEN EXPANDED WITH REFLEX CONFIRMATION, URINE Routine 07/21/2025 10:05 PM EST NORTH URINE CULTURE TUBE STAT 07/21/2025 10:05 PM EST URINALYSIS WITH REFLEX MICROSCOPIC AND CULTURE STAT 07/21/2025 10:05 PM EST URINALYSIS WITH REFLEX MICROSCOPIC AND CULTURE STAT 07/21/2025 10:05 PM EST CULTURE URINE STAT 07/21/2025 10:05 PM EST CBC WITH AUTO DIFFERENTIAL STAT 07/21/2025 7:12 PM EST LIPASE STAT 07/21/2025 7:12 PM EST PROTHROMBIN TIME WITH INR STAT 07/21/2025 7:12 PM EST PHOSPHORUS STAT 07/21/2025 7:12 PM EST MAGNESIUM STAT 07/21/2025 7:12 PM EST COMPREHENSIVE METABOLIC PANEL STAT 07/21/2025 7:12 PM EST CBC AND DIFFERENTIAL STAT 07/21/2025 7:12 PM EST CULTURE BLOOD STAT 07/21/2025 7:12 PM EST CULTURE BLOOD STAT 07/21/2025 7:12 PM EST ECG ANNOTATED 07/19/2025 URINALYSIS WITH REFLEX MICROSCOPIC STAT 07/18/2025 12:49 PM EST URINALYSIS WITH REFLEX MICROSCOPIC STAT 07/18/2025 12:49 PM EST CULTURE BLOOD STAT 07/18/2025 12:49 PM EST ECG 12-LEAD STAT 07/18/2025 12:31 PM EST XR CHEST 1 VIEW STAT 07/18/2025 12:[address] ABDOMEN PELVIS W CONTRAST STAT 07/18/2025 10:45 AM EST TROPONIN I HIGH SENSITIVITY STAT 07/18/2025 10:40 AM EST LACTATE STAT 07/18/2025 10:40 AM EST ACTIVATED PARTIAL THROMBOPLASTIN TIME STAT 07/18/2025 10:40 AM EST PROTHROMBIN TIME WITH INR STAT 07/18/2025 10:40 AM EST CBC WITH AUTO DIFFERENTIAL STAT 07/18/2025 9:14 AM EST LIPASE STAT 07/18/2025 9:14 AM EST COMPREHENSIVE METABOLIC PANEL STAT 07/18/2025 9:14 AM EST CBC AND DIFFERENTIAL STAT 07/18/2025 9:14 AM EST CBC WITH AUTO DIFFERENTIAL Routine 07/16/2025 11:33 AM EST Hospital discharge follow-up S/P cholecystectomy Abdominal hematoma Chills CBC AND DIFFERENTIAL Routine 07/16/2025 11:33 AM EST Hospital discharge follow-up S/P cholecystectomy Abdominal hematoma Chills COMPREHENSIVE METABOLIC PANEL Routine 07/16/2025 11:33 AM EST Hospital discharge follow-up S/P cholecystectomy Abdominal hematoma Chills LIPASE Routine 07/16/2025 11:33 AM EST Hospital discharge follow-up S/P cholecystectomy Abdominal hematoma Chills CT ABDOMEN PELVIS W CONTRAST STAT 07/13/2025 1:40 PM EST LACTATE, WITH REFLEX STAT 07/13/2025 12:26 PM EST PROTHROMBIN TIME WITH INR STAT 07/13/2025 12:22 PM EST ACTIVATED PARTIAL THROMBOPLASTIN TIME STAT 07/13/2025 12:22 PM EST TYPE AND SCREEN STAT 07/13/2025 12:22 PM EST CBC WITH AUTO DIFFERENTIAL STAT 07/13/2025 12:22 PM EST CBC AND DIFFERENTIAL STAT 07/13/2025 12:22 PM EST COMPREHENSIVE METABOLIC PANEL STAT 07/13/2025 12:22 PM EST CULTURE BLOOD STAT 07/13/2025 12:22 PM EST CULTURE BLOOD STAT 07/13/2025 12:22 PM EST HEPARIN AND LOW MOLECULAR WEIGHT ANTI XA LEVEL Timed 07/10/2025 6:46 AM EST PROTHROMBIN TIME WITH INR Routine 07/10/2025 6:46 AM EST CBC WITH AUTO DIFFERENTIAL Routine 07/10/2025 5:14 AM EST BASIC METABOLIC PANEL Routine 07/10/2025 5:14 AM EST CBC AND DIFFERENTIAL Routine 07/10/2025 5:14 AM EST COMPLETE BLOOD COUNT Timed 07/10/2025 5:14 AM EST HEPARIN AND LOW MOLECULAR WEIGHT ANTI XA LEVEL Timed 07/10/2025 1:05 AM EST HEPARIN AND LOW MOLECULAR WEIGHT ANTI XA LEVEL Timed 07/09/2025 6:48 PM EST OXYGEN THERAPY, ADULT Routine 07/09/2025 11:21 AM EST TISSUE EXAM Routine 07/09/2025 10:51 AM EST Generalized abdominal pain TH AN ENDOTRACHEAL(NO CHARGE) Routine 07/09/2025 10:02 AM EST CHOLECYSTECTOMY LAPAROSCOPIC 07/09/2025 9:36 AM EST Generalized abdominal pain Chronic cholecystitis HEPARIN AND LOW MOLECULAR WEIGHT ANTI XA LEVEL STAT Add-on 07/09/2025 8:52 AM EST ACTIVATED PARTIAL THROMBOPLASTIN TIME STAT Add-on 07/09/2025 8:52 AM EST PROTHROMBIN TIME WITH INR STAT 07/09/2025 8:52 AM EST CBC WITH AUTO DIFFERENTIAL Routine 07/09/2025 5:44 AM EST PHOSPHORUS Routine 07/09/2025 5:44 AM EST MAGNESIUM Routine 07/09/2025 5:44 AM EST CBC AND DIFFERENTIAL Routine 07/09/2025 5:44 AM EST BASIC METABOLIC PANEL Routine 07/09/2025 5:44 AM EST PROTHROMBIN TIME WITH INR Routine 07/09/2025 5:44 AM EST ECG ANNOTATED 07/09/2025 CPAP NIV Routine 07/08/2025 10:00 PM EST TYPE AND SCREEN Routine 07/08/2025 4:42 PM EST POCT GLUCOSE BLOOD Routine 07/08/2025 4:12 PM EST POCT GLUCOSE BLOOD Routine 07/08/2025 2:27 PM EST NM HEPATOBILIARY SYSTEM IMAGING W DRUG Routine 07/08/2025 2:00 PM EST CPAP NIV Routine 07/08/2025 12:24 PM EST POCT GLUCOSE BLOOD Routine 07/08/2025 11:36 AM EST POCT GLUCOSE BLOOD Routine 07/08/2025 10:00 AM EST CBC WITH AUTO DIFFERENTIAL Routine 07/08/2025 8:06 AM EST CBC AND DIFFERENTIAL Routine 07/08/2025 8:06 AM EST COMPREHENSIVE METABOLIC PANEL Routine 07/08/2025 8:06 AM EST PROTHROMBIN TIME WITH INR Routine 07/08/2025 8:06 AM EST DRUG ABUSE SCREEN 8A PANEL, URINE Routine 07/07/2025 12:05 PM EST URINALYSIS WITH REFLEX MICROSCOPIC STAT 07/07/2025 12:05 PM EST URINALYSIS WITH REFLEX MICROSCOPIC STAT 07/07/2025 12:05 PM EST CBC WITH AUTO DIFFERENTIAL Routine 07/07/2025 5:57 AM EST COMPREHENSIVE METABOLIC PANEL Routine 07/07/2025 5:57 AM EST PROTHROMBIN TIME WITH INR Routine 07/07/2025 5:57 AM EST CBC AND DIFFERENTIAL Routine 07/07/2025 5:57 AM EST ECG 12-LEAD STAT 07/06/2025 8:[address] ANGIO CHEST/ABDOMEN/PELVIS WO AND/OR W CONTRAST STAT 07/06/2025 8:19 PM EST Generalized abdominal pain TROPONIN I HIGH SENSITIVITY STAT 07/06/2025 7:59 PM EST LACTATE STAT 07/06/2025 7:59 PM EST TYPE AND SCREEN STAT 07/06/2025 7:59 PM EST PROTHROMBIN TIME WITH INR STAT 07/06/2025 7:59 PM EST ACTIVATED PARTIAL THROMBOPLASTIN TIME STAT 07/06/2025 7:59 PM EST US ABDOMEN LIMITED STAT 07/06/2025 5:54 PM EST CBC WITH AUTO DIFFERENTIAL STAT 07/06/2025 3:49 PM EST LIPASE STAT 07/06/2025 3:49 PM EST CBC AND DIFFERENTIAL STAT 07/06/2025 3:49 PM EST COMPREHENSIVE METABOLIC PANEL STAT 07/06/2025 3:49 PM EST PROTHROMBIN TIME WITH INR Routine 07/02/2025 9:08 AM EST Hospital discharge follow-up IRENE (acute kidney injury) (CMS/HCC V24) Gallbladder sludge Aortic valve replaced Stage 3a chronic kidney disease (CMS/HCC V24, CMS/HCC V28) COMPREHENSIVE METABOLIC PANEL Routine 07/02/2025 9:08 AM EST Hospital discharge follow-up IRENE (acute kidney injury) ([facility] V24) Gallbladder sludge Aortic valve replaced Stage 3a chronic kidney disease ([facility] V24, [facility] V28) CBC WITH AUTO DIFFERENTIAL Routine 06/23/2025 6:00 AM EST PROTHROMBIN TIME WITH INR Routine 06/23/2025 6:00 AM EST MAGNESIUM Timed 06/23/2025 6:00 AM EST CBC AND DIFFERENTIAL Routine 06/23/2025 6:00 AM EST BASIC METABOLIC PANEL Routine 06/23/2025 6:00 AM EST DRUG ABUSE SCREEN 8A PANEL, URINE STAT 06/22/2025 11:01 AM EDT URINALYSIS WITH REFLEX MICROSCOPIC STAT 06/22/2025 11:01 AM EDT SODIUM, URINE, RANDOM STAT 06/22/2025 11:01 AM EDT CREATININE, URINE, RANDOM STAT 06/22/2025 11:01 AM EDT URINALYSIS WITH REFLEX MICROSCOPIC STAT 06/22/2025 11:01 AM EDT HEMOGLOBIN A1C Add-On 06/22/2025 6:18 AM EDT HEPATIC FUNCTION PANEL STAT Add-on 06/22/2025 6:18 AM EDT PROTHROMBIN TIME WITH INR Routine 06/22/2025 6:18 AM EDT COMPLETE BLOOD COUNT Routine 06/22/2025 6:18 AM EDT BASIC METABOLIC PANEL Routine 06/22/2025 6:18 AM EDT PROTHROMBIN TIME WITH INR STAT 06/21/2025 8:49 PM EDT US ABDOMEN LIMITED STAT 06/21/2025 8:23 PM EDT XR CHEST 2 VIEWS STAT 06/21/2025 8:02 PM EDT TROPONIN I HIGH SENSITIVITY STAT 06/21/2025 7:[address] ABDOMEN PELVIS WO CONTRAST STAT 06/21/2025 6:58 PM EDT B-TYPE NATRIURETIC PEPTIDE STAT 06/21/2025 6:36 PM EDT RESPIRATORY VIRUS PANEL MOLECULAR STUDY STAT 06/21/2025 5:10 PM EDT ETHANOL Add-On 06/21/2025 3:28 PM EDT MAGNESIUM STAT Add-on 06/21/2025 3:28 PM EDT CBC WITH AUTO DIFFERENTIAL STAT 06/21/2025 3:28 PM EDT COMPREHENSIVE METABOLIC PANEL STAT 06/21/2025 3:28 PM EDT CBC AND DIFFERENTIAL STAT 06/21/2025 3:28 PM EDT RESPIRATORY VIRUS PANEL MOLECULAR STUDY STAT 06/21/2025 2:39 PM EDT ETHANOL Add-On 06/20/2025 9:30 AM EDT CBC WITH AUTO DIFFERENTIAL Routine 06/20/2025 9:30 AM EDT Upper respiratory symptom Chills (without fever) Cold sweat THYROID STIMULATING HORMONE WITH REFLEX TO FREE T4 AND FREE T3 Routine 06/20/2025 9:30 AM EDT Upper respiratory symptom Chills (without fever) Cold sweat CBC AND DIFFERENTIAL Routine 06/20/2025 9:30 AM EDT Upper respiratory symptom Chills (without fever) Cold sweat COMPREHENSIVE METABOLIC PANEL Routine 06/20/2025 9:30 AM EDT Upper respiratory symptom Chills (without fever) Cold sweat MAGNESIUM Routine 06/20/2025 9:30 AM EDT Upper respiratory symptom Chills (without fever) Cold sweat POC INFLUENZA A/B Routine 06/20/2025 9:25 AM EDT Upper respiratory symptom POC RAPID [id number], MOLECULAR Routine 06/20/2025 9:25 AM EDT Upper respiratory symptom NM GASTRIC EMPTYING STUDY Routine 06/18/2025 11:44 AM EDT Early satiety Chronic nausea Abdominal bloating XR CHEST 2 VIEWS STAT 05/27/2025 3:09 PM EDT Subacute cough CT LUNG SCREENING Routine 10/12/2024 11:57 AM EST Encounter for screening for malignant neoplasm of respiratory organs Personal history of nicotine dependence LIPID PANEL WITH REFLEX TO DIRECT LDL Routine 09/26/2024 2:35 PM EST Pure hypercholesterolemia HEPATITIS C ANTIBODY Routine 07/06/2024 5:16 PM EST Other fatigue HM DEPRESSION SCREENING Routine 03/27/2024 FALLS RISK ASSESSMENT Routine 08/26/2023 HM COLONOSCOPY Routine 11/13/2020 from Last 3 Months or Most Recently Relevant to Health Maintenance Results * ECG-Annotated (08/02/2025) Only the most recent of4 resultswithin the time period is included. us Provider Onbase MD ECG ORDERABLES Final Result * (ABNORMAL) CBC auto differential (08/01/2025 5:55 AM EST) Only the most recent of18 resultswithin the time period is included. [facility] WBC 5.4 4.8 - 10.8 K/mcL LAB HEMETOLOGY METHOD 08/01/2025 6:42 AM [facility] RBC 3.90(L) 4.50 - 5.50 M/mcL LAB HEMETOLOGY METHOD 08/01/2025 6:42 AM [facility] Hemoglobin 12.8(L) 13.5 - 17.5 g/dL LAB HEMETOLOGY METHOD 08/01/2025 6:42 AM [facility] Hematocrit 37.5(L) 42.0 - 54.0 % LAB HEMETOLOGY METHOD 08/01/2025 6:42 AM [facility] MCV 96.2 79.0 - 98.0 FL LAB HEMETOLOGY METHOD 08/01/2025 6:42 AM [facility] MCH 32.8(H) 27.0 - 32.0 pcg LAB HEMETOLOGY METHOD 08/01/2025 6:42 AM [facility] MCHC 34.1 32.0 - 37.0 g/dL LAB HEMETOLOGY METHOD 08/01/2025 6:42 AM [facility] RDW 13.7 11.0 - 15.0 % LAB HEMETOLOGY METHOD 08/01/2025 6:42 AM [facility] Platelets 376 130 - 400 K/mcL LAB HEMETOLOGY METHOD 08/01/2025 6:42 AM [facility] MPV 10.1 7.0 - 11.0 FL LAB HEMETOLOGY METHOD 08/01/2025 6:42 AM [facility] NRBC 0.0 <1.0 % LAB HEMETOLOGY METHOD 08/01/2025 6:42 AM [facility] NRBC Absolute 0.00 <0.10 K/mcL LAB HEMETOLOGY METHOD 08/01/2025 6:42 AM [facility] Neutrophils Relative 57.3 % LAB HEMETOLOGY METHOD 08/01/2025 6:42 AM [facility] Lymphocytes Relative 28.3 % LAB HEMETOLOGY METHOD 08/01/2025 6:42 AM [facility] Monocytes Relative 10.1 % LAB HEMETOLOGY METHOD 08/01/2025 6:42 AM [facility] Eosinophils Relative 3.3 % LAB HEMETOLOGY METHOD 08/01/2025 6:42 AM [facility] Basophils Relative 0.6 % LAB HEMETOLOGY METHOD 08/01/2025 6:42 AM [facility] Immature Granulocytes Relative 0.4 % LAB HEMETOLOGY METHOD 08/01/2025 6:42 AM [facility] Neutrophils Absolute 3.12 1.50 - 7.00 K/mcL LAB HEMETOLOGY METHOD 08/01/2025 6:42 AM [facility] Lymphocytes Absolute 1.54 1.00 - 5.00 K/mcL LAB HEMETOLOGY METHOD 08/01/2025 6:42 AM [facility] Monocytes Absolute 0.55 0.20 - 1.00 K/mcL LAB HEMETOLOGY METHOD 08/01/2025 6:42 AM [facility] Eosinophils Absolute 0.18 0.00 - 0.50 K/mcL LAB HEMETOLOGY METHOD 08/01/2025 6:42 AM [facility] Basophils Absolute 0.03 0.00 - 0.20 K/mcL LAB HEMETOLOGY METHOD 08/01/2025 6:42 AM [facility] Immature Granulocytes Absolute 0.02 0.00 - 0.03 K/mcL LAB HEMETOLOGY METHOD 08/01/2025 6:42 AM [facility] Blood Venous blood specimen / Unknown Venipuncture / Unknown 08/01/2025 5:55 AM EST 08/01/2025 6:23 AM EST us Rolly Plasencia MD LAB BLOOD ORDERABLES Final Re sult Performing Organization Address [facility]/ZIP Co de Phone Number [facility] [address] [place] [address], [place] [phone] * Magnesium (08/01/2025 5:55 AM EST) Only the most recent of8 resultswithin the time period is included. Magnesium 1.9 1.9 - 2.6 mg/dL 08/01/2025 7:16 AM [facility] Blood Venous blood specimen / Unknown Venipuncture / Unknown 08/01/2025 5:55 AM EST 08/01/2025 6:23 AM EST us Rolly Plasencia MD LAB BLOOD ORDERABLES Final Re sult Performing Organization Address [facility] Co de Phone Number [facility] [address] [place] [address], [place] [phone] * (ABNORMAL) Basic metabolic panel (08/01/2025 5:55 AM EST) Only the most recent of8 resultswithin the time period is included. Sodium 140 133 - 145 mmol/L 08/01/2025 7:33 AM [facility] Potassium 4.4 3.5 - 5.5 mmol/L 08/01/2025 7:33 AM [facility] Comment:Hemolysis present Chloride 106 96 - 110 mmol/L 08/01/2025 7:33 AM [facility] CO2 24 21 - 32 mmol/L 08/01/2025 7:33 AM [facility] Anion Gap 10 3 - 11 08/01/2025 7:33 AM [facility] Glucose 87 70 - 100 mg/dL 08/01/2025 7:33 AM EST [facility] BUN 11 5 - 25 mg/dL 08/01/2025 7:33 AM [facility] Creatinine 1.85(H) 0.70 - 1.30 mg/dL 08/01/2025 7:33 AM [facility] eGFR 39(L) >=60 mL/min/1. 73m2 08/01/2025 7:33 AM [facility] Comment:Calculation based on the Chronic Kidney Disease Epidemiology Collaboration (CKD-EPI) equation refit without adjustment for race. BUN/Creatinine Ratio 5.9 08/01/2025 7:33 AM [facility] Calcium 8.7 8.5 - 10.5 mg/dL 08/01/2025 7:33 AM [facility] Blood Venous blood specimen / Unknown Venipuncture / Unknown 08/01/2025 5:55 AM EST 08/01/2025 6:23 AM EST us Rolly Plasencia MD LAB BLOOD ORDERABLES Final Re sult [facility] [address] [place] [address], * ECG 12 lead (07/31/2025 8:50 PM EST) Only the most recent of5 resultswithin the time period is included. Ventricular Rate ECG 77 BPM [facility] Atrial Rate 77 BPM [facility] P-R Interval 166 ms [facility] QRS Duration 180 ms [facility] Q-T Interval 472 ms [facility] QTc 534 ms [facility] P Wave [place] 7 degrees GEMUSE R [place] -64 degrees GEMUSE T [place] 34 degrees GEM[facility] ECG Interpretation Normal sinus rhythm Right bundle branch block Left anterior fascicular block Moderate voltage criteria for LVH, may be normal variant When compared with ECG of 31-JUL-2025 14:18, (unconfirmed) No significant change was found Confirmed by LENNY CUNHA ([id number]) on 08/01/2025 5:47:01 AM [facility] 07/31/2025 8:50 PM EST 08/01/2025 5:47 AM EST Rolly Plasencia MD ECG ORDERABLES Final Result Performing Organization Address City/[facility]/ZIP Co de Phone Number [facility] * Troponin I high sensitivity (07/31/2025 3:04 PM EST) Only the most recent of5 resultswithin the time period is included. Pathologist [facility] High Sensitivity Troponin I 20 <=53 ng/L 07/31/2025 4:17 PM EST [facility] Blood Venous blood specimen / Unknown Venipuncture / Unknown 07/31/2025 3:04 PM EST 07/31/2025 3:47 PM EST Thomas GREEN LAB BLOOD ORDERABLES Janie l Result Performing Organization Address [facility] Co de Phone Number [facility] [address] [place] [address], [place] [phone] * Light blue tube (07/31/2025 3:04 PM EST) [facility] Extra Tube Hold for add-ons. 07/31/2025 5:01 PM EST [facility] Comment:Auto resulted. Blood Venous blood specimen / Unknown 07/31/2025 3:04 PM EST 07/31/2025 3:47 PM EST Tong García MD LAB BLOOD ORDERABLES Final Result Performing Organization Address [facility] Co de Phone Number [facility] [address] [place] [address], [place] [phone] * Urinalysis with reflex microscopic (07/31/2025 2:52 PM EST) Only the most recent of4 resultswithin the time period is included. Specific [place] Urine 1.006 1.003 - 1.030 LAB URINALYSIS - AUTOMATED METHOD 08/01/2025 7:08 AM [facility] pH, Urine 7.5 5.0 - 8.0 pH LAB URINALYSIS - AUTOMATED METHOD 08/01/2025 7:08 AM [facility] Leukocytes, Urine Negative Negative LAB URINALYSIS - AUTOMATED METHOD 08/01/2025 7:08 AM [facility] Nitrite, Urine Negative Negative LAB URINALYSIS - AUTOMATED METHOD 08/01/2025 7:08 AM [facility] Protein, Urine Negative <=Trace mg/dL LAB URINALYSIS - AUTOMATED METHOD 08/01/2025 7:08 AM [facility] Glucose, Urine Negative Negative mg/dL LAB URINALYSIS - AUTOMATED METHOD 08/01/2025 7:08 AM [facility] Ketones, Urine Negative Negative mg/dL LAB URINALYSIS - AUTOMATED METHOD 08/01/2025 7:08 AM [facility] Urobilinogen, Urine 0.2 0.2 - 1.0 mg/dL LAB URINALYSIS - AUTOMATED METHOD 08/01/2025 7:08 AM [facility] Bilirubin, Urine Negative Negative LAB URINALYSIS - AUTOMATED METHOD 08/01/2025 7:08 AM [facility] Blood, Urine Negative Negative LAB URINALYSIS - AUTOMATED METHOD 08/01/2025 7:08 AM [facility] Urine Urine specimen obtained by clean catch procedure / Unknown Non-blood Collection / Unknown 07/31/2025 2:52 PM EST 08/01/2025 6:50 AM EST us Thomas GREEN LAB URINE ORDERABLES Janie phoebe Result [facility] [address] [place] [address], [place] [phone] * (ABNORMAL) Drug abuse screen 8a panel, urine (07/31/2025 2:13 PM EST) Only the most recent of3 resultswithin the time period is included. Amphetamine Screen, Ur Negative Negative 07/31/2025 3:59 PM [facility] Comment:Certain OTC medicati ons containing ephedrine, phenylephrine, pseudoephedrine and phenylpropanolamine can cause false positive results. Barbiturate Screen, Ur Negative Negative 07/31/2025 3:59 PM EST [facility] Benzodiazepine Screen, Ur Negative Negative 07/31/2025 3:59 PM [facility] Cocaine Screen, Ur Negative Negative 2024 3:59 PM [facility] Opiate Screen, Ur Positive(A ) Negative 07/31/2025 3:59 PM [facility] Cannabinoid (THC) Screen, Ur Negative Negative 07/31/2025 3:59 PM [facility] Comment:Specimens from patie nts taking pantoprazole sodium (Protonix) have been shown to produce false positive results. Oxycodone Screen, Ur Negative Negative 07/22 3:59 PM [facility] Fentanyl, Ur Negative Negative 07/31/2025 3:59 PM [facility] Urine Urine specimen obtained by clean catch procedure / Unknown Non-blood Collection / Unknown 07/31/2025 2:13 PM EST 07/31/2025 2:50 PM EST [facility] - 07/31/2025 3:59 PM EST Assay cutoffs: Amphetamines 1000 ng/mL Barbiturates 200 ng/mL Benzodiazepines 200 ng/mL Cocaine 300 ng/mL Fentanyl 1 ng/mL Opiates 300 ng/mL Oxycodone 100 ng/mL THC 50 ng/mL Semi-quantitative assay for screening purposes only. Unconfirmed screening result should not be used for non-medical purposes. *ALTERNATE METHOD CONFIRMATION DONE UPON REQUEST ONLY* Tong García MD LAB URINE ORDERABLES Final Result Performing Organization Address [facility]/ZIP Co de Phone Number [facility] [address] [place] [address], [place] [phone] * North urine culture tube (07/31/2025 2:00 PM EST) Only the most recent of2 resultswithin the time period is included. Extra Tube Hold for add-ons. 08/01/2025 8:01 AM EST [facility] [facility] Comment:Auto resulted. Urine Urine specimen obtained by clean catch procedure / Unknown Non-blood Collection / Unknown 07/31/2025 2:00 PM EST 08/01/2025 6:51 AM EST Kunal Alfonso MD LAB URINE ORDERABLE S Final Result Performing Organization Address [facility] de Phone Number [facility] [address] [place] [address], [place] [phone] * XR Chest 1 View (07/31/2025 11:15 AM EST) Only the most recent of2 resultswithin the time period is included. Anatomical Region Laterality Modality Body Radiographic Edith ging 07/31/2025 12:0 5 PM EST Impressions 07/31/2025 12:09 PM EST No evidence of active pulmonary disease. Tortuous aneurysmal thoracic aorta is similar to the prior study and better visualized on recent chest CTA. No significant change from the prior study. -------- FINAL REPORT -------- Dictated By: Yun Martin Dictated Date: 07/31/2025 12:05 ET Assigned Physician: Yun Martin Reviewed and Electronically Signed By: Yun Martin Signed Date: 07/31/2025 12:09 ET Workstation ID: [id number] Transcribed By: Self Edit Transcribed Date: 07/31/2025 12:05 ET Narrative 07/31/2025 12:09 PM EST INDICATION: Shortness of breath FINDINGS: Single portable AP view of the chest obtained. Compared to multiple prior studies most recent from July 26, 2025 at 1:25 PM. Chest CTA from July 26, 2025 reviewed (no pulmonary embolism). Lung jay are clear. Cardiomediastinal silhouette is similar in size and shape with tortuous aneurysmal thoracic aorta better visualized on recent chest CTA. Midline sternotomy noted with aortic valve replacement. Left chest wall single lead defibrillator device overlying the right ventricle, unchanged. Bony structures grossly unchanged with degenerative changes in the right shoulder. Procedure Note Yun Martin MD - 07/31/2025 INDICATION: Shortness of breath FINDINGS: Single portable AP view of the chest obtained. Compared tomultiple prior studies most recent from July 26, 2025 at 1:25 PM. ChestCTA from July 26, 2025 reviewed (no pulmonary embolism). Lung jay are clear. Cardiomediastinal silhouette is similar in size and shape with tortuousaneurysmal thoracic aorta better visualized on recent chest CTA. Midline sternotomy noted with aortic valve replacement. Left chest wall single lead defibrillator device overlying the rightventricle, unchanged. Bony structures grossly unchanged with degenerative changes in the rightshoulder. IMPRESSION: No evidence of active pulmonary disease. Tortuous aneurysmal thoracic aorta is similar to the prior study andbetter visualized on recent chest CTA. No significant change from the prior study. -------- FINAL REPORT -------- Dictated By: Yun Martin Dictated Date: 07/31/2025 12:05 ET Assigned Physician: Yun Martin Reviewed and Electronically Signed By: Yun Martin Signed Date: 07/31/2025 12:09 ET Workstation ID: [id number] Transcribed By: Self Edit Transcribed Date: 07/31/2025 12:05 ET us Tong García MD IMG XR PROCEDURES Final Res ult * (ABNORMAL) Protime-INR (07/31/2025 10:53 AM EST) Only the most recent of18 resultswithin the time period is included. [facility] Protime 31.4(H) 10.6 - 13.9 sec LAB COAGULATION METHOD 07/31/2025 11:34 AM EST [facility] INR 2.6 LAB COAGULATION METHOD 07/31/2025 11:34 AM EST [facility] Blood Venous blood specimen / Unknown Venipuncture / Unknown 07/31/2025 10:53 AM EST 07/31/2025 11:19 AM EST Tong García MD LAB BLOOD ORDERABLES Final Result Performing Organization Address [facility]/ZIP Co de Phone Number [facility] [address] [place] [address], [place] [phone] * (ABNORMAL) B-Type Natriuretic Peptide (BNP) (07/31/2025 10:53 AM EST) Only the most recent of2 resultswithin the time period is included. [facility] BNP 276(H) <=100 pcg/mL 07/31/2025 11:56 AM EST [facility] Blood Venous blood specimen / Unknown Venipuncture / Unknown 07/31/2025 10:53 AM EST 07/31/2025 11:19 AM EST Narrative [facility] - 07/31/2025 11:56 AM EST Over the counter supplements containing high doses of biotin may interfere with this assay. If interference is suspected, patients shoud be retested after refraining from biotin supplements for 72 hours. Tong García MD LAB BLOOD ORDERABLES Final Result Performing Organization Address [facility]/ZIP Co de Phone Number [facility] [address] [place] [address], [place] [phone] * (ABNORMAL) Comprehensive Metabolic Panel (CMP) (07/31/2025 10:53 AM EST) Only the most recent of13 resultswithin the time period is included. [facility] Signature Sodium 141 133 - 145 mmol/L 07/31/2025 11:52 AM [facility] Potassium 3.9 3.5 - 5.5 mmol/L 07/31/2025 11:52 AM [facility] Chloride 106 96 - 110 mmol/L 07/31/2025 11:52 AM [facility] CO2 24 21 - 32 mmol/L 07/31/2025 11:52 AM [facility] Anion Gap 11 3 - 11 07/31/2025 11:52 AM [facility] Glucose 81 70 - 100 mg/dL 07/31/2025 11:52 AM [facility] BUN 8 5 - 25 mg/dL 07/31/2025 11:52 AM [facility] Creatinine 1.85(H) 0.70 - 1.30 mg/dL 07/31/2025 11:52 AM [facility] eGFR 39(L) >=60 mL/min/1. 73m2 07/31/2025 11:52 AM [facility] Comment:Calculation based on the Chronic Kidney Disease Epidemiology Collaboration (CKD-EPI) equation refit without adjustment for race. BUN/Creatinine Ratio 4.3 07/31/2025 11:52 AM [facility] Calcium 9.1 8.5 - 10.5 mg/dL 07/31/2025 11:52 AM [facility] AST (SGOT) 23 10 - 42 unit/L 07/31/2025 11:52 AM [facility] ALT (SGPT) 13 10 - 60 unit/L 07/31/2025 11:52 AM [facility] Alkaline Phosphatase 66 42 - 121 unit/L 07/31/2025 11:52 AM [facility] Total Protein 6.7 6.0 - 8.0 g/dL 07/31/2025 11:52 AM EST [facility] Albumin 3.8 3.2 - 5.0 g/dL 07/31/2025 11:52 AM [facility] Total Bilirubin 0.7 0.0 - 1.4 mg/dL 07/31/2025 11:52 AM [facility] Blood Venous blood specimen / Unknown Venipuncture / Unknown 07/31/2025 10:53 AM EST 07/31/2025 11:20 AM EST us Tong García MD LAB BLOOD ORDERABLES Final Result [facility] [address] [place] [address], [place] [phone] * Respiratory virus panel molecular study (07/31/2025 9:54 AM EST) Only the most recent of4 resultswithin the time period is included. Adenovirus Detection by PCR Not Detected Not Detected LAB MICROBIOLOGY METHOD 07/31/2025 12:34 PM [facility] Influenza A PCR Not Detected Not Detected LAB MICROBIOLOGY METHOD 07/31/2025 12:34 PM [facility] Influenza B PCR Not Detected Not Detected LAB MICROBIOLOGY METHOD 07/31/2025 12:34 PM [facility] Coronavirus 229E Not Detected Not Detected LAB MICROBIOLOGY METHOD 07/31/2025 12:34 PM [facility] Coronavirus HKU1 Not Detected Not Detected LAB MICROBIOLOGY METHOD 07/31/2025 12:34 PM [facility] Coronavirus OC43 Not Detected Not Detected LAB MICROBIOLOGY METHOD 07/31/2025 12:34 PM [facility] Coronavirus NL63 Not Detected Not Detected LAB MICROBIOLOGY METHOD 07/31/2025 12:34 PM [facility] Parainfluenza Virus 1 Not Detected Not Detected LAB MICROBIOLOGY METHOD 07/31/2025 12:34 PM [facility] Parainfluenza Virus 2 Not Detected Not Detected LAB MICROBIOLOGY METHOD 07/31/2025 12:34 PM [facility] Parainfluenza Virus 3 Not Detected Not Detected LAB MICROBIOLOGY METHOD 07/31/2025 12:34 PM [facility] Parainfluenza Virus 4 Not Detected Not Detected LAB MICROBIOLOGY METHOD 07/31/2025 12:34 PM [facility] RSV PCR Not Detected Not Detected LAB MICROBIOLOGY METHOD 07/31/2025 12:34 PM [facility] Human Metapneumovirus A and B Not Detected Not Detected LAB MICROBIOLOGY METHOD 07/31/2025 12:34 PM [facility] Rhinovirus/Entero virus Not Detected Not Detected LAB MICROBIOLOGY METHOD 07/31/2025 12:34 PM [facility] Bordetella pertussis Not Detected Not Detected LAB MICROBIOLOGY METHOD 07/31/2025 12:34 PM [facility] Bordetella parapertussis Not Detected Not Detected LAB MICROBIOLOGY METHOD 07/31/2025 12:34 PM [facility] Mycoplasma pneumo by PCR Not Detected Not Detected LAB MICROBIOLOGY METHOD 07/31/2025 12:34 PM [facility] Chlamydia pneumoniae Not Detected Not Detected LAB MICROBIOLOGY METHOD 07/31/2025 12:34 PM [facility] SARS COV-2 Not Detected Not Detected LAB MICROBIOLOGY METHOD 07/31/2025 12:34 PM [facility] Swab Both anterior nares / Unknown Non-blood Collection / Unknown 07/31/2025 9:54 AM EST 07/31/2025 11:19 AM [facility] - 07/31/2025 12:34 PM EST Testing was performed using the [employer] Respiratory Pathogen PCR Assay. All results must be correlated with the clinical findings. Results should not be used as the sole basis for diagnosis. False Negative results may occur from the presence of sequence variants in the region targeted by the assay or the presence of inhibitors. Results may be affected by concurrent antiviral/antimicrobial therapy or levels of organisms that are below the limit of detection. us Tong García MD LAB MICROBIOLOGY - GENERAL ORDERABLES Final Result [facility] ([email or web address] [address] [place] [address], * XR Chest 2 Views (07/29/2025 11:52 AM EST) Only the most recent of4 resultswithin the time period is included. Anatomical Region Laterality Modality Body Radiographic Edith ging 07/29/2025 8:08 PM EST Impressions 07/29/2025 8:10 PM EST A few faint airspace opacities within the left upper lung zone could represent atelectasis versus pneumonia. -------- FINAL REPORT -------- Dictated By: Kyleigh Paniagua Dictated Date: 07/29/2025 20:08 ET Assigned Physician: Kyleigh Paniagua Reviewed and Electronically Signed By: Kyleigh Paniagua Signed Date: 07/29/2025 20:10 ET Workstation ID: [id number] Transcribed By: Self Edit Transcribed Date: 07/29/2025 20:08 ET Narrative 07/29/2025 8:10 PM EST HISTORY: fatigue. chills TECHNIQUE: PA and lateral radiographs of the chest COMPARISON: Chest radiograph from 05/27/2025 FINDINGS: There is a normal cardiomediastinal silhouette. A few faint airspace opacities within the left upper lung zone. Moderate due to changes of the right shoulder. Left AICD device is present. Sternotomy wires along the midline. Procedure Note Kyleigh Paniagua MD - 07/29/2025 HISTORY: fatigue. chills TECHNIQUE: PA and lateral radiographs of the chest COMPARISON: Chest radiograph from 05/27/2025 FINDINGS: There is a normal cardiomediastinal silhouette. A few faint airspaceopacities within the left upper lung zone. Moderate due to changes of theright shoulder. Left AICD device is present. Sternotomy wires along themidline. IMPRESSION: A few faint airspace opacities within the left upper lung zone couldrepresent atelectasis versus pneumonia. -------- FINAL REPORT -------- Dictated By: Kyleigh Paniagua Dictated Date: 07/29/2025 20:08 ET Assigned Physician: Kyleigh Paniagua Reviewed and Electronically Signed By: Kyleigh Paniagua Signed Date: 07/29/2025 20:10 ET Workstation ID: [id number] Transcribed By: Self Edit Transcribed Date: 07/29/2025 20:08 ET us Prudencio GREEN IMG XR PROCEDURES Final Result * Poc Rapid [id number], MOLECULAR (07/29/2025 11:48 AM EST) Only the most recent of2 resultswithin the time period is included. COVID-19/SARS- COV-2 Rapid POC Negative Negative Swab Nasopharyngeal structure / Unknown 07/29/2025 11:48 AM EST us Prudencio GREEN POINT OF CARE TEST ENTER/EDIT OR DERABLES Final Result * CT Angio Chest wo and/or w Contrast (07/26/2025 8:30 PM EST) Anatomical Region Laterality Modality Body Computed Tomogra phy 07/26/2025 9:33 PM EST Impressions 07/26/2025 9:33 PM EST Impression: 1. Focal nonocclusive radiopaque density redemonstrated eccentrically within a segmental left lower lobe pulmonary arterial branch. This appears more dense than bone and may represent a radiopaque foreign body. A similar finding was present on the 07/06/2025 examination. Otherwise, no pulmonary embolism identified. 2. Borderline cardiomegaly with minimal streaky opacities of the lower lungs bilaterally which may represent subsegmental atelectasis or scattered atypical/viral infiltrates. No focal pulmonary consolidation. 3. Aneurysmal dilation of the descending thoracic aorta redemonstrated, measuring up to 4.5 cm in maximal cross-sectional dimension. 4. Surgically absent gallbladder with edema and minimal free fluid at the gallbladder fossa. This may represent sequela of recent postoperative change. Alternatively, nonspecific inflammatory change may have a similar appearance. Clinical correlation is advised. This document has been electronically signed by: Giancarlo Molina MD on 07/26/2025 21:33:31 Narrative 07/26/2025 9:33 PM EST INDICATION: rule out pulmonary embolism CT angiography chest using contrast. 3-D postprocessing Comparison: DX/SR - XR CHEST 2 VW - 07/26/25 13:[address] - CT ANGIO CHEST ABD PEL WO AND OR W CONTRAST - 07/06/25 20:18 EST Findings: Focal radiopaque density redemonstrated within a segmental left lower lobe pulmonary arterial branch, visualized on axial image number 260 of series 2. A similar finding was present on the prior examination. This appears more dense than bone. There is aneurysmal dilation of the descending thoracic aorta, measuring up to 4.5 cm in maximal cross-sectional dimension. [id number] atherosclerotic calcifications are present at the thoracic aorta. The thoracic aorta appears tortuous. The heart is borderline enlarged. RV/LV ratio normal. Coronary artery calcifications are present. Aortic valve prosthesis in place. No focal pulmonary consolidation, pneumothorax, or pleural effusion. Minimal streaky bilateral lower lung opacities are present. The gallbladder is surgically absent. There appears to be minimal fluid and scattered edema at the gallbladder fossa. Mesh material in place at the anterior abdominal wall, suggesting prior hernia repair. Median sternotomy wires are in place. No acute fracture visualized. Dysmorphic changes of the right humeral head are partially visualized. Procedure Note Giancarlo Molina MD - 07/26/2025 INDICATION: rule out pulmonary embolism CT angiography chest using contrast. 3-D postprocessing Comparison: DX/SR - XR CHEST 2 VW - 07/26/25 13:[address] - CT ANGIO CHEST ABD PEL WO AND OR W CONTRAST - 07/06/25 20:18 EST Findings: Focal radiopaque density redemonstrated within a segmental left lowerlobe pulmonary arterial branch, visualized on axial image number 260 ofseries 2. A similar finding was present on the prior examination. This appears more dense than bone. There is aneurysmal dilation of the descending thoracic aorta, measuring up to 4.5 cm in maximal cross-sectional dimension. Cskb-[id number] atherosclerotic calcifications are present at the thoracic aorta. The thoracic aorta appears tortuous. The heart is borderline enlarged. RV/LV ratio normal. Coronary artery calcifications are present. Aortic valve prosthesis in place. No focal pulmonary consolidation, pneumothorax, or pleural effusion. Minimal streaky bilateral lower lung opacities are present. The gallbladder is surgically absent. There appears to be minimal fluid and scattered edema at the gallbladder fossa. Mesh material in place at the anterior abdominal wall, suggesting prior hernia repair. Median sternotomy wires are in place. No acute fracture visualized. Dysmorphic changes of the right humeral head are partially visualized. IMPRESSION: Impression: 1. Focal nonocclusive radiopaque density redemonstrated eccentrically within a segmental left lower lobe pulmonary arterial branch. Thisappears more dense than bone and may represent a radiopaque foreign body. A similar finding was present on the 07/06/2025 examination. Otherwise, no pulmonary embolism identified. 2. Borderline cardiomegaly with minimal streaky opacities of the lower lungs bilaterally which may represent subsegmental atelectasis or scattered atypical/viral infiltrates. No focal pulmonary consolidation. 3. Aneurysmal dilation of the descending thoracic aorta redemonstrated, measuring up to 4.5 cm in maximal cross-sectional dimension. 4. Surgically absent gallbladder with edema and minimal free fluid atthe gallbladder fossa. This may represent sequela of recent postoperative change. Alternatively, nonspecific inflammatory change may have asimilar appearance. Clinical correlation is advised. This document has been electronically signed by: Giancarlo Molina MD on 07/26/2025 21:33:31 Tom Simpson MD IM CT PROCEDURES Final Result * (ABNORMAL) D-dimer, quantitative (07/26/2025 1:11 PM EST) D-Dimer, Quant (D-DU) 1,305(H) <=230 ng/mL DDU LAB COAGULATION METHOD 07/26/2025 1:42 PM EST [facility] ([facility] [[email or web address] Blood Venous blood specimen / Unknown Venipuncture / Unknown 07/26/2025 1:11 PM EST 07/26/2025 1:19 PM EST Narrative [facility] - 07/26/2025 1:42 PM EST D-Dimer <230 ng/mL (D-Dimer units) is the threshold for exclusion of DVT/PE. D-Dimer may be elevated in: Critically ill, severely infected, trauma patients, DIC, acute CVA, acute VA, unstable angina, AF, old age, , and smoking. D-Dimer may be decreased with: Initiation of heparin therapy and oral anticoagulants. Tom Simpson MD LAB BLOOD ORDERABLES Final Resul t Performing Organization Address [facility]/ZIP Co de Phone Number [facility] [address] [place] [address], [place] [phone] * POCT Glucose, blood (07/23/2025 12:41 PM EST) Only the most recent of5 resultswithin the time period is included. [facility] Glucose POCT 80 70 - 100 mg/dL 07/23/2025 12:42 PM EST [facility] Blood Capillary blood specimen / Unknown 07/23/2025 12:41 PM EST 07/23/2025 12:44 PM EST Orion Aviles MD LAB POINT OF CARE TE ST DOCKED DEVICE UNSOLICITED RESULTS Final Result Performing Organization Address City/[facility]/ZIP Co de Phone Number [facility] [address] [place] [address], [place] [phone] * TH AN LMA(NO CHARGE) (07/23/2025 11:40 AM EST) Narrative Brooks Paredes MD - 07/23/2025 11:40 AM EST Brooks Paredes MD 07/23/2025 11:41 AM General Information and Staff Patient location during procedure: OR Performed by: Brooks Paredes MD Authorized by: Brooks Paredes MD Intubation Reason: elective Final Airway Details LMA Size: 5 LMA Type: LMA Seal Pressure: Final airway type: LMA Indications and Patient Condition Indications for airway management: anesthesia Preoxygenated: yesSoft Tissue Damage: No Patient position: ramp us Brooks Paredes MD ANESTHESIA ORDERABLES Final Re sult * Phosphorus (07/23/2025 5:57 AM EST) Only the most recent of3 resultswithin the time period is included. Pathologist [facility] Phosphorus 2.9 2.5 - 4.5 mg/dL 07/23/2025 6:39 AM [facility] Blood Venous blood specimen / Unknown Venipuncture / Unknown 07/23/2025 5:57 AM EST 07/23/2025 6:08 AM EST us Tammy GREEN LAB BLOOD ORDERABLES Final Resu lt [facility] [address] [place] [address], [place] [phone] * (ABNORMAL) Urinalysis with reflex microscopic and culture (07/21/2025 10:05 PM EST) [facility] Specific [place] Urine 1.010 1.003 - 1.030 LAB URINALYSIS - AUTOMATED METHOD 07/21/2025 11:22 PM [facility] pH, Urine 6.5 5.0 - 8.0 pH LAB URINALYSIS - AUTOMATED METHOD 07/21/2025 11:22 PM [facility] Leukocytes, Urine Trace(A) Negative LAB URINALYSIS - AUTOMATED METHOD 07/21/2025 11:22 PM [facility] Nitrite, Urine Negative Negative LAB URINALYSIS - AUTOMATED METHOD 07/21/2025 11:22 PM [facility] Protein, Urine Negative <=Trace mg/dL LAB URINALYSIS - AUTOMATED METHOD 07/21/2025 11:22 PM [facility] Glucose, Urine Negative Negative mg/dL LAB URINALYSIS - AUTOMATED METHOD 07/21/2025 11:22 PM [facility] Ketones, Urine Negative Negative mg/dL LAB URINALYSIS - AUTOMATED METHOD 07/21/2025 11:22 PM [facility] Urobilinogen, Urine 0.2 0.2 - 1.0 mg/dL LAB URINALYSIS - AUTOMATED METHOD 07/21/2025 11:22 PM [facility] Bilirubin, Urine Negative Negative LAB URINALYSIS - AUTOMATED METHOD 07/21/2025 11:22 PM [facility] Blood, Urine Trace(A) Negative LAB URINALYSIS - AUTOMATED METHOD 07/21/2025 11:22 PM [facility] RBC, Urine 10(H) 0 - 4 /HPF 07/21/2025 11:22 PM [facility] WBC, Urine 10(H) 0 - 4 /HPF 07/21/2025 11:22 PM [facility] Squamous Epithelial, Urine 10 0 - 60 /LPF 07/21/2025 11:22 PM [facility] Bacteria, Urine Negative Negative /HPF 07/21/2025 11:22 PM [facility] Hyaline Casts, Urine 3 0 - 3 /LPF 07/21/2025 11:22 PM [facility] Urine Urine specimen obtained by clean catch procedure / Unknown Non-blood Collection / Unknown 07/21/2025 10:05 PM EST 07/21/2025 10:45 PM EST us Ghulam GREEN LAB URINE ORDERABLES Final R esult [facility] [address] [place] [address], * (ABNORMAL) Drug abuse screen expanded with reflex confirmation, urine (07/21/2025 10:05 PM EST) Amphetamine Screen, Ur Negative Negative 07/21/2025 11:13 PM EST [facility] Comment:Certain OTC medicati ons containing ephedrine, phenylephrine, pseudoephedrine and phenylpropanolamine can cause false positive results. Barbiturate Screen, Ur Negative Negative 07/21/2025 11:13 PM EST [facility] Benzodiazepine Screen, Ur Negative Negative 07/21/2025 11:13 PM [facility] Cocaine Screen, Ur Negative Negative 2024 11:13 PM [facility] Opiate Screen, Ur Positive(A ) Negative 07/21/2025 11:13 PM [facility] Cannabinoid (THC) Screen, Ur Negative Negative 07/21/2025 11:13 PM [facility] Comment:Specimens from patie nts taking pantoprazole sodium (Protonix) have been shown to produce false positive results. Fentanyl, Ur Negative Negative 07/21/2025 11:13 PM [facility] Oxycodone Screen, Ur Positive(A ) Negative 07/21/2025 11:13 PM [facility] Urine Urine specimen obtained by clean catch procedure / Unknown Non-blood Collection / Unknown 07/21/2025 10:05 PM EST 07/21/2025 10:45 PM EST Narrative [facility] - 07/21/2025 11:13 PM EST Assay cutoffs: Amphetamines 1000 ng/mL Barbiturates 200 ng/mL Benzodiazepines 200 ng/mL Cocaine 300 ng/mL Fentanyl 1 ng/mL Opiates 300 ng/mL Oxycodone 100 ng/mL THC 50 ng/mL Semi-quantitative assay for screening purposes only. Unconfirmed screening result should not be used for non-medical purposes. *POSITIVE RESULTS ARE AUTOMATICALLY SENT FOR ALTERNATE METHOD CONFIRMATION* us Ghulam GREEN LAB URINE ORDERABLES Final R esult [facility] [address] [place] [address], [place] [phone] * (ABNORMAL) Opiates confirmation, urine (07/21/2025 10:05 PM EST) Morphine Confirm, Urine 565(H) Negative ng/mL 07/25/2025 4:38 PM EST [facility] Codeine Confirm, Urine >8000 Negative ng/mL 07/25/2025 4:38 PM EST [facility] Hydrocodone Confirm, Urine Negative Negative ng/mL 07/25/2025 4:38 PM EST [facility] Hydromorphone Confirm, Urine 137(H) Negative ng/mL 07/25/2025 4:38 PM EST [facility] Oxycodone Confirm, Urine 146(H) Negative ng/mL 07/25/2025 4:38 PM EST [facility] Oxymorphone Confirm, Urine 172(H) Negative ng/mL 07/25/2025 4:38 PM EST [facility] Creatinine 44 20 - 250 mg/dL 07/25/2025 4:38 PM EST [facility] Adulterants Negative 07/25/2025 4:38 PM EST [facility] Comment: Confirmation (LC/MS/MS) Decision Limits Morphine 25 ng/mL Codeine 25 ng/mL Hydrocodone 25 ng/mL Hydromorphone 25 ng/mL Oxycodone 25 ng/mL Oxymorphone 25 ng/mL Adulterant Decision Limit: General Oxidants 200 ug/mL The adulterant assay tests for General Oxidants, including Chromates and Nitrites. Adulterants are substances either ingested or added directly to a urine specimen to prevent the detection of drug use. If applicable, any drug confirmation testing reported here was developed and the performance characteristics determined by [facility]. This confirmation testing has not been cleared or approved by the FDA. The laboratory is regulated under CLIA as qualified to perform high-complexity testing. This test is used for patient testing purposes. It should not be regarded as investigational or for research. Test performed at [facility], [address], [place] [address] Mary Galdamez MD, PhD - [employer] Urine Urine specimen obtained by clean catch procedure / Unknown Non-blood Collection / Unknown 07/21/2025 10:05 PM EST 07/21/2025 11:13 PM EST us [facility] URINE ORDERABLES Final R esult Performing Organization Address City/[facility]/ZIP Co de Phone Number J[place] [address] [place] [address] [place] [address] * Culture urine (07/21/2025 10:05 PM EST) Culture, Urine No growth 07/23/2025 9:56 AM EST [facility] Urine Urine specimen obtained by clean catch procedure / Unknown Non-blood Collection / Unknown 07/21/2025 10:05 PM EST 07/21/2025 11:22 PM EST us Ghulam GREEN [facility] MICROBIOLOGY - GENERAL O RDERABLES Final Result Performing Organization Address [facility] de Phone Number [facility] [address] [place] [address], [place] [phone] * Blood Culture, Peripheral Draw #2 (07/21/2025 7:12 PM EST) Only the most recent of5 resultswithin the time period is included. Culture, Blood No growth at 5 days LAB MICROBIOLOGY METHOD 07/26/2025 8:01 PM EST [facility] Blood Venous blood specimen / Unknown Venipuncture / Unknown 07/21/2025 7:12 PM EST 07/21/2025 7:37 PM EST [facility] MICROBIOLOGY - GENERAL O RDERABLES Final Result Performing Organization Address [facility] Co de Phone Number [facility] [address] [place] [address], [place] [phone] * Lipase (07/21/2025 7:12 PM EST) Only the most recent of4 resultswithin the time period is included. Lipase 23 12 - 53 unit/L 07/21/2025 7:58 PM EST [facility] Blood Venous blood specimen / Unknown Venipuncture / Unknown 07/21/2025 7:12 PM EST 07/21/2025 7:23 PM EST us Ghulam [facility] BLOOD ORDERABLES Final R esult [facility] ([facility] [[email or web address] [address] [place] [address], [place] [phone] * CT Abdomen Pelvis w Contrast (07/18/2025 10:45 AM EST) Only the most recent of2 resultswithin the time period is included. Anatomical Region Laterality Modality Body Computed Tomogra phy 07/18/2025 11:2 4 AM EST Impressions 07/18/2025 11:29 AM EST No acute findings. Stable exam compared to recent prior CT with findings of recent cholecystectomy as well as stable fat-containing periumbilical hernia and adjacent subcutaneous hematoma. -------- FINAL REPORT -------- Dictated By: SABINO MENA Dictated Date: 07/18/2025 11:24 ET Assigned Physician: SABINO MENA Reviewed and Electronically Signed By: SABINO MENA Signed Date: 07/18/2025 11:29 ET Workstation ID: [id number] Transcribed By: Self Edit Transcribed Date: 07/18/2025 11:24 ET Narrative 07/18/2025 11:29 AM EST PROCEDURE: CT ABDOMEN/PELVIS INDICATION: Pain TECHNIQUE: CT of the abdomen and pelvis following the intravenous administration of 90cc Isovue 370. Multiplanar reformats. The examination was performed utilizing dose reduction techniques. Total DLP 1249 COMPARISON: 07/13/2025 FINDINGS: LOWER THORAX: Left atrial and ventricular dilation. Pacemaker lead noted in the right ventricle. Aortic valve prosthesis. Bibasilar atelectasis HEPATOBILIARY: Hepatic steatosis. No focal liver lesions. Postprocedural changes in the gallbladder fossa related to recent cholecystectomy. No fluid collection or biliary duct dilatation. Appearance is similar compared to the prior exam. SPLEEN: No splenomegaly. PANCREAS: No focal mass or ductal dilatation. ADRENALS: No nodules. KIDNEYS/URETERS: No hydronephrosis, stones, or solid mass. PELVIC ORGANS/BLADDER: Unremarkable. PERITONEUM / RETROPERITONEUM: No ascites, fluid collection, or free air. No retroperitoneal lymphadenopathy. 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 Portal vein is patent. GI TRACT: No bowel obstruction or wall thickening. Moderate stool throughout colon. Normal appendix. 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 Periumbilical fat-containing hernia and hematoma is similar compared to prior. Median sternotomy. Degenerative changes seen throughout the bones. Procedure Note Sabino Mena MD - 07/18/2025 PROCEDURE: CT ABDOMEN/PELVIS INDICATION: Pain TECHNIQUE: CT of the abdomen and pelvis following the intravenousadministration of 90cc Isovue 370. Multiplanar reformats. The examinationwas performed utilizing dose reduction techniques. Total DLP 1249 COMPARISON: 07/13/2025 FINDINGS: LOWER THORAX: Left atrial and ventricular dilation. Pacemaker lead notedin the right ventricle. Aortic valve prosthesis. Bibasilar atelectasis HEPATOBILIARY: Hepatic steatosis. No focal liver lesions. Postproceduralchanges in the gallbladder fossa related to recent cholecystectomy. Nofluid collection or biliary duct dilatation. Appearance is similarcompared to the prior exam. SPLEEN: No splenomegaly. PANCREAS: No focal mass or ductal dilatation. ADRENALS: No nodules. KIDNEYS/URETERS: No hydronephrosis, stones, or solid mass. PELVIC ORGANS/BLADDER: Unremarkable. PERITONEUM / RETROPERITONEUM: No ascites, fluid collection, or free air.No retroperitoneal lymphadenopathy. VESSELS: Infrarenal abdominal aortic aneurysm and left internal iliacartery aneurysm are similar compared to the recent prior exam. Portalvein is patent. GI TRACT: No bowel obstruction or wall thickening. Moderate stoolthroughout colon. Normal appendix. 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 Median sternotomy. Degenerative changes seen throughout thebones. IMPRESSION: No acute findings. Stable exam compared to recent prior CT with findingsof recent cholecystectomy as well as stable fat-containing periumbilicalhernia and adjacent subcutaneous hematoma. -------- FINAL REPORT -------- Dictated By: SABINO MENA Dictated Date: 07/18/2025 11:24 ET Assigned Physician: SABINO MENA Reviewed and Electronically Signed By: SABINO MENA Signed Date: 07/18/2025 11:29 ET Workstation ID: [id number] Transcribed By: Self Edit Transcribed Date: 07/18/2025 11:24 ET us Kel Pruett MD IMG CT PROCEDURES Final Result * (ABNORMAL) APTT (07/18/2025 10:40 AM EST) Only the most recent of4 resultswithin the time period is included. aPTT 54.4(H) 24.1 - 39.3 sec LAB COAGULATION METHOD 07/18/2025 11:00 AM EST [facility] Blood Venous blood specimen / Unknown Venipuncture / Unknown 07/18/2025 10:40 AM EST 07/18/2025 10:42 AM EST us Kel Pruett MD LAB BLOOD ORDERABLES Final Resul t Performing Organization Address [facility] Co de Phone Number [facility] [address] [place] [address], [place] [phone] * Lactate (07/18/2025 10:40 AM EST) Only the most recent of2 resultswithin the time period is included. Pathologist [facility] Lactate 1.1 0.4 - 2.0 mmol/L 07/18/2025 11:07 AM EST [facility] Blood Venous blood specimen / Unknown Venipuncture / Unknown 07/18/2025 10:40 AM EST 07/18/2025 10:42 AM EST us Kel Pruett MD LAB BLOOD ORDERABLES Final Resul t [facility] [address] [place] [address], [place] [phone] * Lactate, with reflex (07/13/2025 12:26 PM EST) [facility] LACTIC ACID 1.4 0.4 - 2.0 mmol/L 07/13/2025 1:08 PM EST [facility] Blood Venous blood specimen / Unknown Venipuncture / Unknown 07/13/2025 12:26 PM EST 07/13/2025 12:36 PM EST us Ronnie GREEN LAB BLOOD ORDERABLES Final Result [facility] [address] [place] [address], [place] [phone] * Type and Screen (07/13/2025 12:22 PM EST) Only the most recent of3 resultswithin the time period is included. [facility] ABO Group O 07/13/2025 1:58 PM EST [facility] Rh Type Positive 07/13/2025 1:58 PM EST [facility] Antibody Screen Negative 07/13/2025 1:58 PM EST [facility] Blood Venous blood specimen / Unknown Venipuncture / Unknown 07/13/2025 12:22 PM EST 07/13/2025 12:36 PM EST us Ronnie GREEN LAB BLOOD BANK TEST ORDERAB LES Final Result [facility] [address] [place] [address], [place] [phone] * (ABNORMAL) Anti-Xa - Every 6 Hours (07/10/2025 6:46 AM EST) Only the most recent of4 resultswithin the time period is included. [facility] Heparin Anti-Xa 0.81(H) 0.30 - 0.70 I Unit/mL LAB COAGULATION METHOD 07/10/2025 7:15 AM [facility] Blood Venous blood specimen / Unknown Venipuncture / Unknown 07/10/2025 6:46 AM EST 07/10/2025 6:51 AM EST [facility] - 07/10/2025 7:15 AM EST Therapeutic range listed is for Unfractionated Heparin. LMW Heparin therapeutic range: 0.50-1.20 IU/mL us Rao Koroma MD LAB BLOOD ORDERABLES F inal Result [facility] [address] [place] [address], [place] [phone] * (ABNORMAL) CBC - Every 3 Days (07/10/2025 5:14 AM EST) Only the most recent of2 resultswithin the time period is included. WBC 8.9 4.8 - 10.8 K/mcL LAB HEMETOLOGY METHOD 07/10/2025 7:01 AM [facility] RBC 3.80(L) 4.50 - 5.50 M/mcL LAB HEMETOLOGY METHOD 07/10/2025 7:01 AM [facility] Hemoglobin 12.6(L) 13.5 - 17.5 g/dL LAB HEMETOLOGY METHOD 07/10/2025 7:01 AM [facility] Hematocrit 38.3(L) 42.0 - 54.0 % LAB HEMETOLOGY METHOD 07/10/2025 7:01 AM [facility] MCV 100.8(H) 79.0 - 98.0 FL LAB HEMETOLOGY METHOD 07/10/2025 7:01 AM [facility] MCH 33.2(H) 27.0 - 32.0 pcg LAB HEMETOLOGY METHOD 07/10/2025 7:01 AM EST [facility] MCHC 32.9 32.0 - 37.0 g/dL LAB HEMETOLOGY METHOD 07/10/2025 7:01 AM [facility] RDW 14.3 11.0 - 15.0 % LAB HEMETOLOGY METHOD 07/10/2025 7:01 AM [facility] Platelets 288 130 - 400 K/mcL LAB HEMETOLOGY METHOD 07/10/2025 7:01 AM [facility] MPV 10.2 7.0 - 11.0 FL LAB HEMETOLOGY METHOD 07/10/2025 7:01 AM [facility] NRBC 0.0 <1.0 % LAB HEMETOLOGY METHOD 07/10/2025 7:01 AM [facility] NRBC Absolute 0.00 <0.10 K/mcL LAB HEMETOLOGY METHOD 07/10/2025 7:01 AM [facility] Blood Venous blood specimen / Unknown Venipuncture / Unknown 07/10/2025 5:14 AM EST 07/10/2025 6:12 AM EST us Rao Koroma MD LAB BLOOD ORDERABLES F inal Result [facility] [address] [place] [address], * Tissue exam (07/09/2025 10:51 AM EST) Final Diagnosis Gallbladder, cholecystectomy: - Chronic cholecystitis. 07/10/2025 11:26 AM EST [facility] at 1126 EST Gross Description A. Gallbladder, GALLBLADDER: Labeled gallbladder . Received in formalin is a 11.2 x 4.8 x 2.9 cm intact gallbladder, including attached cystic duct with a diameter of 0.2 cm at the margin. No periductal lymph node is identified. The lumen contains 20 cc of yellow-brown bile. No choleliths are identified within the specimen lumen or container. The mucosa is ellsworth-green and velvety. The wall (muscularis) thickness measures up to 0.1 cm. The serosa is inked jessica, and the adventitial margin is inked green. Detail Manager sections are submitted in one cassette including gallbladder (fundus, body and neck), duct margin (inked red), and cross section adjacent to duct margin (inked blue), five pieces. GREG 07/10/2025 11:26 AM EST [facility] Disclaimer Unless otherwise specified, all tissue is 10% NB formalin fixed and paraffin embedded. 07/10/2025 11:26 AM EST [facility] Tissue Gallbladder structure / Unknown 07/09/2025 10:51 AM EST 07/09/2025 11:49 AM EST Rashaad De La Rosa MD LAB PATHOLOGY ORDERABLES Final Result [facility] [address] [place] [address], * TH AN ENDOTRACHEAL(NO CHARGE) (07/09/2025 10:02 AM EST) Narrative Ramana Major CRNA - 07/09/2025 10:02 AM EST Ramana Major CRNA 07/09/2025 10:04 AM General Information and Staff Patient location during procedure: OR Performed by: Ramana Major CRNA Authorized by: Sergei Lo MD Consent for Airway (if performed for an anesthetic, see related documentation for consents) Patient identity confirmed: verbally with patient and arm band Consent: No emergent situation. Verbal consent not obtained. Written consent obtained Risks and benefits: risks, benefits and alternatives were discussed Consent given by: patient Intubation Airway not difficult Reason: emergent Final Airway Details Successful airway: ETT Cuffed: yes Successful intubation technique: direct laryngoscopy Adjuncts used in placement: intubating stylet Endotracheal tube insertion site: oral Blade: Ruperto Blade size: #3 ETT size (mm): 7.5 Cormack-Lehane Classification: grade I - full view of glottis Placement verified by: chest auscultation, capnometry and palpation of cuff Measured from: lips ETT to lips (cm): 22 Ventilation between attempts: none Final airway type: endotracheal airway Indications and Patient Condition Indications for airway management: anesthesia Sedation level: Yes Preoxygenated: yesSoft Tissue Damage: No Dentition Unchanged: Yes Patient position: neutral MILS maintained throughout Mask difficulty assessment: 2 - vent by mask + OA or adjuvant +/- NMBA Start Time: 07/09/2025 9:50 AMStop Time: 07/09/2025 9:50 AM us Sergei Lo MD ANESTHESIA ORDERABLES Final Re sult * NM Hepatobiliary System Imaging W Drug (07/08/2025 2:00 PM EST) Anatomical Region Laterality Modality Body Nuclear Medicine 07/08/2025 2:48 PM EST Addenda Addendum by Julio C Crump MD on 07/12/2025 2:02 PM EST Sincalide (KINEVAC) injection 2.2mcg IV -------- ADDENDUM -------- Dictated By: Julio C Crump Dictated Date: 07/12/2025 14:01 ET Assigned Physician: Julio C Crump Reviewed and Electronically Signed By: Julio C Crump Signed Date: 07/12/2025 14:02 ET Workstation ID: [id number] Transcribed By: Self Edit Transcribed Date: 07/12/2025 14:01 ET Impressions 07/08/2025 2:49 PM EST No evidence of cystic duct obstruction. Patent common bile duct. Normal gallbladder ejection fraction -------- FINAL REPORT -------- Dictated By: Julio C Crump Dictated Date: 07/08/2025 14:48 ET Assigned Physician: Julio C Crump Reviewed and Electronically Signed By: Julio C Crump Signed Date: 07/08/2025 14:49 ET Workstation ID: [id number] Transcribed By: Self Edit Transcribed Date: 07/08/2025 14:48 ET Narrative 07/08/2025 2:49 PM EST HISTORY: RUQ pain, cholecystitis suspected FINDINGS: Routine hepatobiliary scintigraphy examination was performed following 4.6 mCi of Tc-99m Choletec IV. No prior relevant studies available for comparison. There is prompt accumulation of radiopharmaceutical by the hepatic parenchyma. There is normal uptake within the common bile duct, gallbladder, and small bowel. There is no biliary obstruction. Calculated gallbladder ejection fraction of 82%is . Procedure Note Julio C Crump MD - 07/08/2025 HISTORY: RUQ pain, cholecystitis suspected FINDINGS: Routine hepatobiliary scintigraphy examination was performedfollowing 4.6 mCi of Tc-99m Choletec IV. No prior relevant studies available for comparison. There is prompt accumulation of radiopharmaceutical by the hepaticparenchyma. There is normal uptake within the common bile duct,gallbladder, and small bowel. There is no biliary obstruction. Calculated gallbladder ejection fraction of 82%is . IMPRESSION: No evidence of cystic duct obstruction. Patent common bile duct. Normal gallbladder ejection fraction -------- FINAL REPORT -------- Dictated By: Julio C Crump Dictated Date: 07/08/2025 14:48 ET Assigned Physician: Julio C Crump Reviewed and Electronically Signed By: Julio C Crump Signed Date: 07/08/2025 14:49 ET Workstation ID: [id number] Transcribed By: Self Edit Transcribed Date: 07/08/2025 14:48 ET us Thomas Myers MD [facility] [place] PROCEDURES Edited Re sult - Final * CT Angio Chest/Abdomen/Pelvis wo and/or w Contrast (07/06/2025 8:19 PM EST) Anatomical Region Laterality Modality Body Computed Tomogra phy 07/06/2025 8:59 PM EST Impressions 07/06/2025 8:59 PM EST Impression: 1. Aneurysmal dilatation of the descending thoracic aorta and abdominal aorta as described above. No evidence of dissection or acute aortic syndrome. 2. Otherwise, no acute abnormalities within the chest, abdomen or pelvis. This document has been electronically signed by: Marquez Villegas MD on 07/06/2025 20:59:37 Narrative 07/06/2025 8:59 PM EST INDICATION: Abdominal pain, evaluate for dissection. Exam: Contrast-enhanced CT angiogram of the chest, abdomen and pelvis. Comparison: CT abdomen pelvis 06/21/2025. Findings: CTA chest: There is aneurysmal dilatation of the mid descending thoracic aorta measuring up to 4.5 cm (measured on 3; 223). There is aneurysmal dilatation of the distal descending thoracic aorta at diaphragmatic hiatus at 3.9 cm AP dimension (3; 372). No evidence of aortic dissection or acute aortic syndrome. Visualized brachiocephalic branches are patent. No central pulmonary embolism. No mediastinal or hilar masses or adenopathy. No pleural or pericardial effusions. Lungs reveal minimal bilateral dependent atelectasis. No focal consolidation or parenchymal lesions. Airways are patent. No pneumothorax. Osseous structures reveal no destructive osseous lesions. Abdomen CTA: Abdominal aorta is within normal upper limits caliber proximally measuring 3.9 cm at celiac artery origin. However, infrarenal abdominal aorta reveals mild aneurysmal dilatation measuring up to 3.3 cm AP dimension (3; 627, and 3.4 cm transverse dimension (3; 709). No aortic dissection. Celiac artery, superior mesenteric artery, bilateral renal arteries and inferior mesenteric artery are patent. Liver is free of focal lesions and ductal dilatation. Gallbladder is unremarkable. Spleen is unremarkable. Pancreas, and adrenal glands appear unremarkable. Kidneys reveal small right renal cysts and subcentimeter hypodensities. Kidneys otherwise unremarkable. No free intraperitoneal fluid or retroperitoneal masses or adenopathy. Bowel loops reveal no abnormal wall thickening or distention. The appendix is unremarkable. CTA pelvis: Common and external iliac arteries are patent and normal caliber. A left internal iliac artery aneurysms measuring up to 3 cm diameter (3; 844) is present. No evidence of leak. No pelvic masses, fluid or adenopathy. Urinary bladder is free of filling defects. Prostate gland and seminal vesicles are stable. Osseous structures reveal no destructive osseous lesions. Procedure Note Marquez Villegas MD - 07/06/2025 INDICATION: Abdominal pain, evaluate for dissection. Exam: Contrast-enhanced CT angiogram of the chest, abdomen and pelvis. Comparison: CT abdomen pelvis 06/21/2025. Findings: CTA chest: There is aneurysmal dilatation of the mid descending thoracic aorta measuring up to 4.5 cm (measured on 3; 223). There is aneurysmal dilatation of the distal descending thoracic aorta at diaphragmatichiatus at 3.9 cm AP dimension (3; 372). No evidence of aortic dissection oracute aortic syndrome. Visualized brachiocephalic branches are patent. No central pulmonary embolism. No mediastinal or hilar masses or adenopathy. No pleural or pericardial effusions. Lungs reveal minimal bilateral dependent atelectasis. No focal consolidation or parenchymal lesions. Airways are patent. Nopneumothorax. Osseous structures reveal no destructive osseous lesions. Abdomen CTA: Abdominal aorta is within normal upper limits caliber proximally measuring 3.9 cm at celiac artery origin. However, infrarenal abdominal aorta reveals mild aneurysmal dilatation measuring up to 3.3cm AP dimension (3; 627, and 3.4 cm transverse dimension (3; 709). Noaortic dissection. Celiac artery, superior mesenteric artery, bilateral renal arteries and inferior mesenteric artery are patent. Liver is free of focal lesions and ductal dilatation. Gallbladder is unremarkable. Spleen is unremarkable. Pancreas, and adrenal glands appear unremarkable. Kidneys reveal small right renal cysts and subcentimeter hypodensities. Kidneys otherwise unremarkable. No free intraperitoneal fluid or retroperitoneal masses or adenopathy. Bowel loops reveal no abnormal wall thickening or distention. Theappendix is unremarkable. CTA pelvis: Common and external iliac arteries are patent and normal caliber. A left internal iliac artery aneurysms measuring up to 3 cm diameter (3; 844) is present. No evidence of leak. No pelvic masses, fluid or adenopathy. Urinary bladder is free offilling defects. Prostate gland and seminal vesicles are stable. Osseous structures reveal no destructive osseous lesions. IMPRESSION: Impression: 1. Aneurysmal dilatation of the descending thoracic aorta and abdominal aorta as described above. No evidence of dissection or acute aortic syndrome. 2. Otherwise, no acute abnormalities within the chest, abdomen orpelvis. This document has been electronically signed by: Marquez Villegas MD on 07/06/2025 20:59:37 Balaji Santana MD IM CT PROCEDURES Final Result * US Abdomen Limited (07/06/2025 5:54 PM EST) Only the most recent of2 resultswithin the time period is included. Anatomical Region Laterality Modality Body Ultrasound 07/06/2025 6:19 PM EST Impressions 07/06/2025 6:19 PM EST Impression: 1. Liver is mildly prominent measuring 17.5 cm craniocaudad dimension. 2. Otherwise, unremarkable. right upper quadrant ultrasound. This document has been electronically signed by: Marquez Villegas MD on 07/06/2025 18:19:17 Narrative 07/06/2025 6:19 PM EST INDICATION: RUQ pain US limited to right upper quadrant Comparison: 06/21/2025 Findings: Liver is somewhat prominent and reveals homogeneous echotexture. No focal hepatic lesions. No intrahepatic ductal dilatation. Right lobe length measures 17.5 cm. Portal vein reveals hepatopetal flow. Common bile duct measures 4 mm. Gallbladder appears unremarkable. No sonographic Tomas's sign. Right kidney is normal texture. No hydronephrosis. Right renal length is 9.3 cm. Procedure Note Marquez Villegas MD - 07/06/2025 INDICATION: RUQ pain US limited to right upper quadrant Comparison: 06/21/2025 Findings: Liver is somewhat prominent and reveals homogeneousechotexture. No focal hepatic lesions. No intrahepatic ductal dilatation. Right lobe length measures 17.5 cm. Portal vein reveals hepatopetal flow. Common bile duct measures 4 mm. Gallbladder appears unremarkable. No sonographic Tomas's sign. Right kidney is normal texture. No hydronephrosis. Right renal length is 9.3 cm. IMPRESSION: Impression: 1. Liver is mildly prominent measuring 17.5 cm craniocaudad dimension. 2. Otherwise, unremarkable. right upper quadrant ultrasound. This document has been electronically signed by: Marquez Villegas MD on 07/06/2025 18:19:17 Michelle GREEN IMG US PROCEDURES Final Result * Sodium, urine, random (06/22/2025 11:01 AM EDT) Sodium, Ur 18 mmol/L LAB CHEMISTRY METHOD 06/22/2025 11:59 AM EDT [facility] ([facility] [[email or web address] Urine Urine specimen obtained by clean catch procedure / Unknown Non-blood Collection / Unknown 06/22/2025 11:01 AM EDT 06/22/2025 11:36 AM EDT Tong García MD LAB URINE ORDERABLES Final Result Performing Organization Address City/[facility]/ZIP Co de Phone Number [facility] [address] [place] [address], [place] [phone] * Creatinine, urine, random (06/22/2025 11:01 AM EDT) Creatinine, Urine 290.0 mg/dL LAB CHEMISTRY METHOD 06/22/2025 11:59 AM EDT [facility] Urine Urine specimen obtained by clean catch procedure / Unknown Non-blood Collection / Unknown 06/22/2025 11:01 AM EDT 06/22/2025 11:36 AM EDT Tong García MD LAB URINE ORDERABLES Final Result Performing Organization Address [facility]/ZIP Co de Phone Number [facility] [address] [place] [address], [place] [phone] * Hemoglobin A1c (06/22/2025 6:18 AM EDT) Hemoglobin A1C 5.0 <6.5 % LAB CHEMISTRY METHOD 06/23/2025 1:42 PM EST [facility] Mean Bld Glu Estim. 97 mg/dL LAB CHEMISTRY METHOD 06/23/2025 1:42 PM [facility] Blood Venous blood specimen / Unknown Venipuncture / Unknown 06/22/2025 6:18 AM EDT 06/22/2025 6:35 AM EDT Viviane GREEN LAB BLOOD ORDERABLES Final Result Performing Organization Address City/[facility]/ZIP Co de Phone Number [facility] [address] [place] [address], [place] [phone] * Hepatic function panel (06/22/2025 6:18 AM EDT) Total Protein 7.0 6.0 - 8.0 g/dL LAB CHEMISTRY METHOD 06/22/2025 7:49 AM [facility] Albumin 3.3 3.2 - 5.0 g/dL LAB CHEMISTRY METHOD 06/22/2025 7:49 AM [facility] Total Bilirubin 0.6 0.0 - 1.4 mg/dL LAB CHEMISTRY METHOD 06/22/2025 7:49 AM [facility] Bilirubin, Direct 0.1 0.0 - 0.3 mg/dL LAB CHEMISTRY METHOD 06/22/2025 7:49 AM [facility] Bilirubin, Indirect 0.5 0.0 - 1.1 mg/dL LAB CHEMISTRY METHOD 06/22/2025 7:49 AM [facility] ALT (SGPT) 16 10 - 60 unit/L LAB CHEMISTRY METHOD 06/22/2025 7:49 AM [facility] AST (SGOT) 17 10 - 42 unit/L LAB CHEMISTRY METHOD 06/22/2025 7:49 AM [facility] Alkaline Phosphatase 71 42 - 121 unit/L LAB CHEMISTRY METHOD 06/22/2025 7:49 AM [facility] Blood Venous blood specimen / Unknown Venipuncture / Unknown 06/22/2025 6:18 AM EDT 06/22/2025 6:35 AM EDT Viviane GREEN LAB BLOOD ORDERABLES Final Result [facility] [address] [place] [address], * CT Abdomen Pelvis wo Contrast (06/21/2025 6:58 PM EDT) Anatomical Region Laterality Modality Body Computed Tomogra phy 06/21/2025 7:28 PM EDT Impressions 06/21/2025 7:28 PM EDT 1. Significantly distended hydropic gallbladder with no definite stones or adjacent inflammatory changes. If clinically indicated follow-up ultrasound could be obtained. 2. Additional stable nonacute findings as described. This document has been electronically signed by: Britt Herrera MD on 06/21/2025 19:28:05 Narrative 06/21/2025 7:28 PM EDT INDICATION: Abdominal pain, acute, no prior medical history CT abdomen and pelvis without contrast Comparison: CT/KO/LA/SR - CT ANGIO ABD PEL WO AND OR W CONTRAST - 11/13/24 16:53 EDT Findings: Limited evaluation without intravenous contrast. No consolidation or effusion. Significantly distended hydropic gallbladder with no definite gallstones and no inflammatory changes adjacent to the gallbladder. No significant biliary ductal dilatation. Unenhanced liver, spleen, pancreas and adrenal glands are within normal limits. No renal or ureteral stones with no hydronephrosis or hydroureter. Right renal posterior cortical 1 cm hypodense lesion suggestive of a cyst. Minimal nonspecific bilateral perinephric stranding. No bowel obstruction, pneumoperitoneum, or pneumatosis. No free fluid. Normal appendix. Fat containing praqv-xm-hqumyiju umbilical hernia and small fat containing supraumbilical hernia. Atherosclerotic vascular disease with ectasia of distal abdominal aorta measuring up to 3.1 cm and 2.9 cm aneurysm of left internal iliac artery appear stable. Pelvic contents unremarkable. Fat attenuation mass in right iliacus muscle consistent with lipoma. No acute fracture. Degenerative changes lumbar spine. Procedure Note Britt Herrera MD - 06/21/2025 INDICATION: Abdominal pain, acute, no prior medical history CT abdomen and pelvis without contrast Comparison: CT/KO/LA/SR - CT ANGIO ABD PEL WO AND OR W CONTRAST -11/13/24 16:53 EDT Findings: Limited evaluation without intravenous contrast. No consolidation or effusion. Significantly distended hydropic gallbladder with no definite gallstones and no inflammatory changes adjacent to the gallbladder. No significant biliary ductal dilatation. Unenhanced liver, spleen, pancreas and adrenal glands are within normal limits. No renal or ureteral stones with no hydronephrosis or hydroureter. Right renal posterior cortical 1 cm hypodense lesion suggestive of a cyst. Minimal nonspecific bilateral perinephric stranding. No bowel obstruction, pneumoperitoneum, or pneumatosis. No free fluid. Normal appendix. Fat containing rbdwq-mh-ytljjiefowlatefyt hernia and small fat containing supraumbilical hernia. Atherosclerotic vascular disease with ectasia of distal abdominal aorta measuring up to 3.1 cm and 2.9 cm aneurysm of left internal iliac artery appear stable. Pelvic contents unremarkable. Fat attenuation mass in right iliacusmuscle consistent with lipoma. No acute fracture. Degenerative changes lumbar spine. IMPRESSION: 1. Significantly distended hydropic gallbladder with no definite stonesor adjacent inflammatory changes. If clinically indicated follow-up ultrasound could be obtained. 2. Additional stable nonacute findings as described. This document has been electronically signed by: Britt Herrera MD on 06/21/2025 19:28:05 Tong García MD IMG CT PROCEDURES Final Res ult * Ethanol (06/21/2025 3:28 PM EDT) Only the most recent of2 resultswithin the time period is included. Ethanol Level 3 0 - 10 mg/dL LAB CHEMISTRY METHOD 06/21/2025 8:20 PM EDT [facility] Blood Venous blood specimen / Unknown Venipuncture / Unknown 06/21/2025 3:28 PM EDT 06/21/2025 3:46 PM EDT oTng García MD LAB BLOOD ORDERABLES Final Result [facility] [address] [place] [address], [place] [phone] * Thyroid stimulating hormone with reflex to free t4 and free t3 (06/20/2025 9:30 AM EDT) TSH 1.67 0.40 - 4.00 mcIU/mL LAB CHEMISTRY METHOD 06/20/2025 3:30 PM EDT [facility] Blood Venous blood specimen / Unknown Venipuncture / Unknown 06/20/2025 9:30 AM EDT 06/20/2025 9:30 AM EDT Andrea Copeland NP LAB BLOOD ORDERABLES Final Re sult [facility] ([facility] [[email or web address]]) [facility] [address] [place] [address], [place] [phone] * POC Influenza A/B manually resulted (06/20/2025 9:25 AM EDT) Rapid Influenza A AGN POC Negative Negative Rapid Influenza B AGN POC Negative Negative Internal Control Pass Yes Yes Swab 06/20/2025 9:25 AM EDT Anrdea Copeland NP POINT OF CARE TEST ENTER/EDIT ORDERABLES Final Result * NM Gastric Emptying Study (06/18/2025 11:44 AM EDT) Anatomical Region Laterality Modality Body Nuclear Medicine 06/18/2025 3:45 PM EDT Impressions 06/18/2025 3:47 PM EDT Normal solid material gastric emptying. Telesingh GREEN ([id number]) -------- FINAL REPORT -------- Dictated By: Karin Marshall Dictated Date: 06/18/2025 15:45 ET Assigned Physician: Karin Marshall Reviewed and Electronically Signed By: Karin Marshall Signed Date: 06/18/2025 15:47 ET Workstation ID: [id number] Transcribed By: Self Edit Transcribed Date: 06/18/2025 15:45 ET Narrative 06/18/2025 3:47 PM EDT HISTORY: Early satiety. Question disordered gastric emptying. FINDINGS: Radionucleotide gastric emptying study performed following ingestion of 1.0 mCi of Tc99m sulfur colloid mixed with eggs for solid food evaluation. Solid food evaluation time to half peak clearance is 52 minutes with normal being less than 90 minutes. Patients 2 hour retention amount was calculated at 5%. Reference normal solid residual activity: less than 90% at 1 hour less than 60% at 2 hours less than 30% at 3 hours less than 10% at 4 hours Procedure Note Karin Marshall MD - 06/18/2025 HISTORY: Early satiety. Question disordered gastric emptying. FINDINGS: Radionucleotide gastric emptying study performed followingingestion of 1.0 mCi of Tc99m sulfur colloid mixed with eggs for solidfood evaluation. Solid food evaluation time to half peak clearance is 52 minutes withnormal being less than 90 minutes. Patients 2 hour retention amount was calculated at 5%. Reference normal solid residual activity: less than 90% at 1 hour less than 60% at 2 hours less than 30% at 3 hours less than 10% at 4 hours IMPRESSION: Normal solid material gastric emptying. Telerad PETER ([id number]) -------- FINAL REPORT -------- Dictated By: Karin Marshall Dictated Date: 06/18/2025 15:45 ET Assigned Physician: Karin Marshall Reviewed and Electronically Signed By: Karin Marshall Signed Date: 06/18/2025 15:47 ET Workstation ID: [id number] Transcribed By: Self Edit Transcribed Date: 06/18/2025 15:45 ET Savanna Dumont TOBACCO BLENDER IMG NM PROCEDURES Final Result * CT Lung Screening (10/12/2024 11:57 AM [...] Signed Date: 10/17/2024 05:50 ET Workstation ID: [id number] Transcribed By: Self Edit Transcribed Date: 10/17/2024 [...] superior segment of the right lower lobe ([id number]); similar to prior Base of the neck, [...] Signed Date: 10/17/2024 05:50 ET Workstation ID: [id number] Transcribed By: Self Edit Transcribed Date: 10/17/2024 05:37 ET Eduarda Chua MD [facility] CT PROCEDURES Final Result * (ABNORMAL) Lipid panel with reflex to direct LDL (09/26/2024 2:35 PM EST) Cholesterol 207(H) 0 - 200 mg/dL LAB CHEMISTRY METHOD 09/26/2024 7:09 PM [facility] Triglycerides 299(H) 0 - 150 mg/dL LAB CHEMISTRY METHOD 09/26/2024 7:09 PM [facility] HDL 49 >=40 mg/dL LAB CHEMISTRY METHOD 09/26/2024 7:09 PM [facility] LDL Calculated 98 0 - 100 mg/dL LAB CHEMISTRY METHOD 09/26/2024 7:09 PM [facility] VLDL Cholesterol Rex 59.8 mg/dL LAB CHEMISTRY METHOD 09/26/2024 7:09 PM [facility] Non HDL Chol. (LDL+VLDL) 158(H) <145 mg/dL LAB CHEMISTRY METHOD 09/26/2024 7:09 PM EST [facility] Chol/HDL Ratio 4.2 0.0 - 4.4 LAB CHEMISTRY METHOD 09/26/2024 7:09 PM EST [facility] Blood Venous blood specimen / Unknown Venipuncture / Unknown 09/26/2024 2:35 PM EST 09/26/2024 2:35 PM EST Niru Herron PA LAB BLOOD ORDERABLES Final Resul t Performing Organization Address City/[facility]/ZIP Co de Phone Number [facility] [address] [place] [address], [place] [phone] * Hepatitis C antibody (07/06/2024 5:16 PM EST) [facility] Hepatitis C Antibody Negative Negative LAB CHEMISTRY METHOD 07/06/2024 8:49 PM EST [facility] Blood Venous blood specimen / Unknown Venipuncture / Unknown 07/06/2024 5:16 PM EST 07/06/2024 5:16 PM EST Hal Mendoza NP LAB BLOOD ORDERABLES Final Re sult Performing Organization Address City/[facility]/ZIP Co de Phone Number [facility] [address] [place] [address], [place] [phone] * Depression Screening (03/27/2024) Pathologist [facility] Depression Screening Abstracted Historical Provider HEALTH MAINTENANCE Final Result * Falls Risk Assessment (08/26/2023) [facility] Falls Risk Assessment Abstracted Historical Provider HEALTH MAINTENANCE Final Result * Colonoscopy (11/13/2020) [facility] Colonoscopy No Interpretation , Abstracted Anatomical Region Laterality Modality Other Historical Misha IRELAND HEALTH MAINTENANCE Final Result from Last 3 Months or Most Recently Relevant to Health Maintenance Additional Health Concerns Active Problems Noted Date Diagnosed Date Autogenerated Problem 07/09/2025 Autogenerated Problem 07/23/2025 Insurance [facility] [employer] Member Subscriber Plan / Payer (Ef fective 2021-Present) Name:Valdez Khalil Jr Relation to Subscriber:Self Name:Valdez Khalil Payer ID:[id number] Group ID:[id number] Type:Not on file Address: [place] [address] [address] [phone] Advance Directives Documents on File Type Date Recorded Patient Detail Manager Expl anation Health Care Decision (hx) 11/28/2017 [...] Care Decision (hx) 11/28/2017 AD SAPP DIRECTIVE * Full Code - Confirmed (Latest Code Status on File) Date Activated Date Inactivated Comments 07/31/2025 3:30 PM 08/01/2025 5:06 PM This code status was ascertained in the following way: Code status discussion: discussion with patient To update the patient's code status, place a code status order. Do not modify or discontinue any currently active code status orders. * Full Code - Default Date Activated Date Inactivated Comments 07/31/2025 2:47 PM 07/31/2025 3:30 PM This is or yomaira is used when code status has not been discussed with the patient, or code status is otherwise unknown/unconfirmed To update the patient's code status, place a code status order. Do not modify or discontinue any currently active code status orders. * Full Code - Confirmed Date Activated Date Inactivated Comments 07/21/2025 8:25 PM 07/24/2025 7:48 PM This code s tatus was ascertained in the following way: Code status discussion: discussion with patient To update the patient's code status, place a code status order. Do not modify or discontinue any currently active code status orders. * Full Code - Default Date Activated Date Inactivated Comments 07/06/2025 10:21 PM 07/10/2025 8:10 PM This is o rder is used when code status has not been discussed with the patient, or code status is otherwise unknown/unconfirmed To update the patient's code status, place a code status order. Do not modify or discontinue any currently active code status orders. * Full Code - Confirmed Date Activated Date Inactivated Comments 06/21/2025 10:31 PM 06/23/2025 2:43 PM This code status was ascertained in the following way: Code status discussion: discussion with patient To update the patient's code status, place a code status order. Do not modify or discontinue any currently active code status orders. Care Teams Top Dyeing Machine Loader Relationship Specialty Start Date End Date Andrea Huitron PA [address] [place] [address] PCP - General Internal Medicine 06/24/25
--- OUTSIDE RECORDS SUMMARY | 2025-08-17 00:24 | XMS_ITS | Continuity of Care Document ---
Author Organization Patient Home Monitoring [facility], [facility] [employer] Address [address] [place] [address] Care Team Providers Care Billing Rep Name Role Phone HIM CCA OTHER SAEIDWINGHarshal DAMIAN Primary Care Provider Assessment Encounter Date Assessment Date Assessment LastModified by Organization Details LastModified Time 07/27/2025 07/27/2025 As noted, we maye e called to see this patient regarding concerns of vomiting and diarrhea. Evaluation in the field was performed by my real estate listing consultant colleague, as noted above, I provided real-time [...] ondansetron 4 mg disintegrat ing tablet 2024 12 025 [facility][id number], [address] [place], [address], 12/16/202 5 05:02:04 ondansetron 4 mg disintegrat ing tablet 2024 025 [facility], [address] [facility], [place], [address], 05:02:04 Patient TargetsNo targets recorded. Patient InstructionsNo instructions recorded. Reason for Referral None Reported. Medical Equipment None Reported. Allergies Allergen ID Allergen Name Allergen Category Reaction Reaction Severity Criticality Documentation Date Start Date Code Code System Note Provider Name and Address Organization Details Recorded Time 38676 lisinopri l medicatio n Not available Not available Not available 04/05/2025 66441 RxNorm Not Available [facility] - production 18:32:47 95919 spironola ctone medicatio n Not available Not available Not available 07/27/2025 9997 RxNorm Not Available [employer] - prod 13:23:30 79225 hydrochlo rothiazid e medicatio n Not available Not available Not available 07/27/2025 5487 RxNorm Not Available [employer] - prod 13:23:30 42602 losartan medicatio n other Not available [facility] 07/27/20252019 75143 RxNorm Not Available [employer] - prod 13:24:49 40528 honey bee venom environme nt hives Not available Not available 07/27/20252004 06303 7 RxNorm Not Available [employer] - prod 13:24:57 Medications Name [...] Available Not Available No t Available dextrometho rphan-guaif enesin ER 60 mg-1,200 mg [...] Not Available No t Available amoxicillin 875 mg-margarethu m clavulanate 125 mg tablet TAKE 1 [...] Available No t Available Vitals Date Recorded Heart rate Respiratory rate Body temperature Oxygen saturation Systolic And Diastolic Provider Name and Address Organization Details Last Updated DateTime 5 66 /min 18 /min 97.9 [degF] 95 % 155/93 mm[Hg] Not Available [facility] - production 5 13:12:26 Social History None recorded. Functional Status None recorded. Mental Status None recorded. Family History Nothing Reported. Medical History No medical history recorded. Past Encounters Encounter ID Performer Location Encounter Start Date Encounter Closed Date Diagnosis/Indication Diagnosis SNOMED-CT Code Diagnosis ICD10 Code Diagnosis IMO Codes Diagnosis Note [id number] Jamal Bee MD [facility] ED Medical [facility] [address] [place] [address] 07/27/2025 13:12:24 07/27/2025 17:31:41 Nausea, vomiting and diarrhea 3220602 R11.2 R19.7 [id number] Health Concerns Section Related Observation LastModified by Organization Detai ls LastModified Time None Recorded Concern Status LastModified by Organization Details LastModified Time None Recorded Payers Encounter Date Sequence Insurance Name Policy Number Policy Siddiqui Covered Member ID Siddiqui Member ID Guarantor Name 07/27/2025 1 [facility] - DOS ON OR AFTER 2022 - DUAL ELIGIBLE - ASSISTED OPTIONS AND ONE CARE (MEDICARE REPLACEMENT/ADV ANTAGE - HMO) Valdez Khalil [id number] Valdez Khalil Notes Date Note Type Note Provider Name and Address Organization Details Recorded Time 07/27/2025 text/html ROS as noted in the [...] .................... .................... .................... .................... .................... .................... . Publications Manager Note From [address]: Arrived at patients [...] broth and liquids and tolerating it well. [facility] contacted approved 4mg of ODT zofran and he is going to send over a RX to patient. RN to follow up with patient in a. Couple of days. No red flag symptoms. [facility] Medication Orders: ondansetron 4 mg disintegrating tablet: Administered .................... .................... .................... .................... .................... .................... .................... . [facility] Consulted: Jamal Bee .................... .................... .................... .................... .................... .................... .................... . Disposition: Fulfilled Jamal Bee MD [address] [facility], [place], [address], [employer] 07/27/2025 13:33:24
--- OUTSIDE RECORDS SUMMARY | 2025-08-17 00:24 | XMS_ITS | Continuity of Care Document ---
Author Name [facility], Medical Address [address] [place] [address] Organization Unknown Address [address] [place] [address] Medications No known medications Problems No known problems
[2025-08-17] MEDS: diazePAM 10 MG/2 ML CARTRIDGE 5 MG IVPUSH (01:49)
[2025-08-17 03:57] LABS: COVID-19 Test Negative (Negative); IDNOW Serial# 152EDE1D; IDNOW Serial# 16C4AD1C; Influenza B2 Negative (Negative)
--- NOTE | 2025-08-17 05:45 | P.HPHOSP_ITS ---
History of Present Illness Date of Service: 08/17/25 Attending physician on admission: Dinorah Bowens Chief Complaint: neuropathic pain Patient is a 70 year old black male, poor historian, with past medical history CDIP PRN infusions of IVIG, alcohol use disorder last admission was at [facility] February 2025 for alcohol withdrawal, previous tobacco user quit 2018, heart valve replacement (mechanical)patient on Coumadin (low likelihood valve is mechanical), cardiac arrhythmia with AICD, COPD, hypertension, hyperlipidemia, MAIKEL, glaucoma presents to the emergency department with complaints of bilateral thigh pain for approximately 1 week. Patient is seeking his IVIG therapy which normally takes 1 week to infuse. Patient states he was in the hospital for pneumonia and missed his scheduled treatment. Patient did not call to reschedule or get back on track with his infusion. In addition patient states he was prescribed 600 mg tablets of gabapentin and stopped taking it because it made him jittery and said he tried to reach out to the doctor but had no success in getting the prescription changed. Patient currently drives and lives alone. Patient does not have any help coming into the home including VNA because he is not considered homebound. Patient is overall poor historian and has difficulty coordinating his healthcare needs. INR today is 2.3, patient has no leukocytosis or acute anemia, no bandemia, electrolytes stable, renal function at baseline, glucose 117, LFTs stable, and viral studies negative for flu COVID and RSV. Patient received 1 dose of IV morphine with minimal effect on his overall neuropathic pain. Blood pressure elevated. Patient unable to receive IVIG in the ED. Admission under observation required. Patient elaborates that normally when he does his infusion therapy he does not over 5 days, Tuesday through Tuesday approximately 4 hours per day. Based on the recommendations per Neurology which is 400 milligrams/kilogram and noting patient currently weighs 107.8 kg, that would be 8624 mg or 8.624 g daily for 5 days. This functional tester typewriters reached out to pharmacy which is currently covered by offsite company and they referred me to the pharmacist that starts at 06:00 to coordinate this care and start the IVIG. Goal would be to have patient infused today and tomorrow and then discharge to the outpatient infusion center to complete the next 3 days. Review of Systems 2 Review of Systems: Patient reports bilateral thigh pain, denies chest pain, shortness breath at rest or with exertion, abdominal pain, nausea/vomiting or constipation/ diarrhea. Patient denies any headache, fever, chills. Patient states he no longer takes eyedrops for his glaucoma. Patient is not a reliable historian regarding his overall health care needs. His INR is 2.3, patient has a mechanical heart valve. pt denies any recent Alcohol use but is overall very vague on ETOH HX. Yes all other systems are reviewed and are negative [facility] Medical History (Updated 08/17/25 @ 05:56 by FREDY Villaseñor) Hyperlipidemia Alcohol use disorder Restrictive lung disease Cough present for greater than 3 weeks History of smoking at least 1 pack per day for at least 30 years COPD (chronic obstructive pulmonary disease) HTN (hypertension) Chronic inflammatory demyelinating polyneuropathy Pacemaker Cognitive capacity: Alert and orientated x3 Functional capacity: independent ambulation Surgical History (Updated 08/17/25 @ 05:56 by FREDY Villaseñor) AICD (automatic cardioverter/defibrillator) present Heart valve replaced Social History Patient Tobacco Use Status: Former Tobacco user Advance Directives: No Advance Directives Information Provided: Yes Do you have a plan to hurt others: No Plan Nutrition Risks: No Nutritional Risk Meds Allergies Allergy/AdvReac Type Severity Reaction Status Date / Time hydrochlorothiazide Allergy Mild Cough Verified 08/16/25 22:43 Active Medications: Current Medications Acetaminophen (Acetaminophen 325 Mg Tablet) 650 mg PO Q6H PRN PRN Reason: Pain, Mild 1-3,fever,headache Albuterol/Ipratropium (Albuterol/Iprat 2.5/0.5mg 3 Ml Ampul.Neb) 3 ml INHALE Q4H PRN PRN Reason: Shortness of Breath/Wheezing Calcium Carbonate (Calcium Carbonate 750 Mg Tab.Chew) 750 mg PO Q4H PRN PRN Reason: Heartburn Immune Globulin (Desired Daily Dose- Immune Globulin) 8.624 gm IV DAILY BRICE; Protocol Stop: 08/22/25 08:59 Magnesium Hydroxide (Milk Of Magnesia 30 Ml Oral.Susp) 30 ml PO DAILY PRN PRN Reason: Constipation Melatonin (Melatonin 3 Mg Tablet) 6 mg PO BEDTIME PRN PRN Reason: Insomnia Ondansetron HCl (Ondansetron Hcl 4 Mg/2 Ml Vial) 4 mg IVPUSH Q8H PRN PRN Reason: Nausea and Vomiting Polyethylene Glycol (Polyethylene Glycol 3350 17 Gm Powd.Pack) 17 gm PO DAILY PRN PRN Reason: Constipation Senna (Sennosides 8.6 Mg Tablet) 17.2 mg PO BEDTIME BRICE Sodium Chloride (0.9 % Sodium Chloride Flush 10 Ml Syringe) 5 ml IVFLUSH ONCE PRN PRN Reason: Infusion Center Stop: 08/17/26 04:08 Sodium Chloride (0.9 % Sodium Chloride Flush 10 Ml Syringe) 5 ml IVFLUSH ONCE PRN PRN Reason: Infusion Center Stop: 08/17/26 05:33 Sodium Chloride (0.9 % Sodium Chloride Flush 3 Ml Syringe) 3 ml IVFLUSH QSHIFT [facility] Home Medications ?Medication ?Instructions ?Recorded ?Confirmed ?Last Taken ?Type albuterol sulfate 90 mcg/actuation 2 puff inhalation Q 6H PRN wheezing 05/14/25 08/17/25 Unknown History aerosol inhaler amiodarone 200 mg tablet 100 mg PO DAILY 05/14/25 Unknown History atorvastatin 40 mg tablet 40 mg PO DAILY 05/14/2507/23 Unknown History empagliflozin 10 mg tablet 10 mg PO QAM 05/14/2508/17 Unknown History (Jardiance) fluticasone propionate 50 2 spray intranasal DAILY PRN 05/14/25 08/17/25 Unknown History mcg/actuation nasal allergies spray,suspension multivitamin-iron sulfate 15 1 tab PO DAILY 05/14/25 1 10/18/24 Unknown History mg-folic acid 400 mcg tablet (Tab-A-Rashaun Multivitamin w-iron) torsemide 20 mg tablet 20 mg PO DAILY PRN Weight Ga in 05/14/25 08/17/25 Unknown History warfarin 2 mg tablet 3 mg PO Q48H 05/14/25 Unknown History folic acid 1 mg tablet 1 mg PO DAILY 08/17/2508/17 Unknown History gabapentin 300 mg capsule 600 mg PO TID PRN nerve pain 08/17/25 08/17/25 Unknown History ondansetron 8 mg disintegrating 8 mg PO TID 08/17/25 1 10/18/24 Unknown History tablet prednisone 20 mg tablet 20 mg PO BID 08/17/25 Unknown History warfarin 2 mg tablet 4 mg PO Q48H 08/17/25 Unknown History Physical Exam 2 Vital Signs and Narrative: Vital Signs: Last Vital Signs Temp 97.9 F 08/17/25 04:21 Pulse 74 08/17/25 04:21 Resp 19 08/17/25 04:21 BP 168/96 H 08/17/25 04:21 Pulse Ox 95 08/17/25 02:07 O2 Del Method Room Air 08/17/25 04:21 O2 Flow Rate 2 08/17/25 02:07 BMI result Body Mass Index 33.1 Alert and orientated X3, able to give good history. Neuro: CN II-X11 intact, no deficits, visual acuity intact EYES: PERRLA, EOM intact, sclerae nonicteric, conjunctiva pink ENT: hearing intact, no issues with swallowing, uvula midline, lips moist, nares patent no epistaxis Cardiac: S1 S2 RRR, rhythmic click heard, no murmur, no JVD, no edema in Lower ext, sternal incision closed and healed Pulmonary: lungs clear to auscultation B Abdominal: BS active in all 4 quadrants, no guarding, tenderness, rebounding MSK: strength 5/5 upper and lower extremities : no CVA tenderness no bladder distension Extremities: no edema in lower extremities, PT and DP pulses palpable +2 Psych: mood stable, judgement and insight fair Skin: No new lesions or rashes Results Labs 08/16/25 22:49 08/16/25 22:49 Labs: Laboratory Results - last 24 hr 08/16/25 08/17/25 22:49 03:31 MCV 95.6 MCH 32.8 MCHC 34.3 RDW 13.1 Plt Count 263 MPV 9.7 Immature Gran % (Auto) 0.3 Neut % (Auto) 87.3 H Lymph % (Auto) 10.4 L Barber % (Auto) 1.4 L Eos % (Auto) 0.3 Baso % (Auto) 0.3 Lymph # (Auto) 0.7 L Barber # (Auto) 0.1 Eos # (Auto) 0.0 Baso # (Auto) 0.0 Abs Immat Gran (auto) 0.02 Absolute Neuts (auto) 5.8 Absolute Nucleated RBC 0.000 Nucleated RBC % (auto) 0.0 PT 28.1 H INR 2.3 H Anion Gap 14 Estim Creat Clear Calc 60.4 Estimated GFR 49 Random Glucose 117 H Calcium 9.3 Total Bilirubin 0.5 Direct Bilirubin 0.2 AST 24 ALT 15 Alkaline Phosphatase 79 Total Protein 7.2 Albumin 4.1 COVID-19 (YARELIS) Negative COVID-19 Clin Com See Note Influenza Type A (KATHERIN) Negative Influenza Type B (KATHERIN) Negative Influenza A & B Note See Note Imaging Radiologist's Impressions: Chest x-ray Negative for acute findings Assessment and Plan (1) Chronic inflammatory demyelinating polyneuropathy: Status: Acute Plan Patient is a 70 year old black male, poor historian, with past medical history CDIP PRN infusions of IVIG, alcohol use disorder last admission was at [facility] February 2025 for alcohol withdrawal, previous tobacco user quit 2018, heart valve replacement (mechanical) patient on Coumadin (low likelihood valve is mechanical), cardiac arrhythmia with AICD, COPD, hypertension, hyperlipidemia, MAIKEL, glaucoma presents to the emergency department with complaints of bilateral thigh pain for approximately 1 week. Patient is seeking his IVIG therapy which normally takes 1 week to infuse. CDIP Recommendations per Neurology which is 400 milligrams/kilogram and noting patient currently weighs 107.8 kg, that would be 8624 mg or 8.624 g daily for 5 days. First 2 days can be done here, pt can discharge and complete last 3 days at outpatient infusion clinic No answer at in house pharmacy, day provider will need to follow up and coordinate IVIG Order is placed based on recommendation and therapy over 5 days Prednisone ordered, Gabapentin 300 mg X1 Neurology consulted update: This functional tester typewriters was able to reach pharmacist, they are able to see the actual outpatient order which is 30 g per day for 5 days. Order has been updated. Patient will receive 30 g today and potentially tomorrow and then hopefully can be discharged after Sundays infusion and continue infusion Tuesday, Tuesday, Tuesday in the outpatient infusion clinic. HTN Hydralazine PRN Once med rec completed continue home meds HX of mechanical heart valve, Arrythmia on coumadin INR 2.3 MED REC PENDING INR AM Dose coumadin accordingly ETOH use disorder Patient states he has not had any alcohol recently Denies seizures with withdrawal Documented in patient's chart that he was admitted to [facility] February 2025 for alcohol withdrawal CIWA protocol in place No phenobarb indicated Thiamine and folic acid DVT prophylaxis: Coumadin Med rec pending Full code status Patient will require observation for IVIG therapy for CDIP. Quality Stroke Does the patient have a stroke diagnosis?: No Reason for No Anti-thrombotic by Day Two: N/A - Med Ordered VTE Prior VTE?: No VTE Risk Level:: Medical - low VTE Device Contraindication: Treatment Not Indicated VTE Drug Contraindication: Treatment Not Indicated
[2025-08-17] MEDS: Immune Globulin 10% Gammagard 30 GM/300 ML VIAL IV (07:48)
--- NOTE | 2025-08-17 08:54 | PHA.MEDREC ---
Pharmacy Consult ? Medication Reconciliation Pharmacy has completed the medication reconciliation. Patient states he takes half his amiodarone daily. Patient admitted to discontinuing hydroxyzine, azelastine, flomax, lantanoprost, timolol, entresto, breo eplerenone and carvedilol. Patient stated he alternates between 3 and 4 mg daily for his warfarin. Patient did not know the last time they took their warfarin but admitted it was not yesterday however states he should be due for 3 mg today,
--- NOTE | 2025-08-17 12:07 | PM.NEUROCN ---
History of Present Illness Data of Consult Service Date: 08/17/25 Primary Care Provider: PETER John HPI Reason for consult: Leg pain and weakness 70 yo man with artificial heart valve, and CIDP. Diagnosis was made in December of 2020 when he presented with bilateral leg numbness, and weakness. EMG/NCS revealed axonal and demylinating type peripheral neuropathy. CSF protein was 145. He was treated wtih prednisone and ivIg. IVIG was helping him to maintain strength and minimize leg pain. He said that he ran out of gabapentin prescription in his both legs were hurting and he was feeling weak. There was no swallowing or breathing difficulty. There was no recent cold or flu-like illness. No change in bowel bladder pattern. Review of Systems Review of Systems: General: Feeling weak and fatigued Neurological: Complain of numbness and pain in both legs feet and hands and generalized weakness Psychological: Feeling depressed Cardiovascular: No palpitation or chest pain Respiratory: No shortness of breath GI: No difficulty swallowing Genitourinary: No loss of bowel bladder control [facility] Past Medical History Medical History (Updated 08/17/25 @ 05:56 by FREDY Villaseñor) Hyperlipidemia Alcohol use disorder Restrictive lung disease Cough present for greater than 3 weeks History of smoking at least 1 pack per day for at least 30 years COPD (chronic obstructive pulmonary disease) HTN (hypertension) Chronic inflammatory demyelinating polyneuropathy Pacemaker Surgical History Surgical History (Updated 08/17/25 @ 05:56 by FREDY Villaseñor) AICD (automatic cardioverter/defibrillator) present Heart valve replaced Social History Social History Patient Tobacco Use Status: Former Tobacco user Advance Directives: No Advance Directives Information Provided: Yes Do you have a plan to hurt others: No Plan Meds Allergies Allergy/AdvReac Type Severity Reaction Status Date / Time hydrochlorothiazide Allergy Mild Cough Verified 08/16/25 22:43 Active Medications: Current Medications Acetaminophen (Acetaminophen 325 Mg Tablet) 650 mg PO Q6H PRN PRN Reason: Pain, Mild 1-3,fever,headache Albuterol/Ipratropium (Albuterol/Iprat 2.5/0.5mg 3 Ml Ampul.Neb) 3 ml INHALE Q4H PRN PRN Reason: Shortness of Breath/Wheezing Calcium Carbonate (Calcium Carbonate 750 Mg Tab.Chew) 750 mg PO Q4H PRN PRN Reason: Heartburn Folic Acid (Folic Acid 1 Mg Tablet) 1 mg PO DAILY [facility] Hydralazine HCl (Hydralazine Hcl 20 Mg/Ml Vial) 10 mg IVPUSH Q6H PRN; Protocol PRN Reason: SBP > 160 Immune Globulin (Gammagard 10%) 30 gm in 300 mls @ 53.9 mls/hr IV DAILY@0700 [facility] Stop: 08/18/25 12:34 Immune Globulin (Desired Daily Dose- Immune Globulin) 30 gm IV DAILY [facility]; Protocol Stop: 08/18/25 09:01 Magnesium Hydroxide (Milk Of Magnesia 30 Ml Oral.Susp) 30 ml PO DAILY PRN PRN Reason: Constipation Melatonin (Melatonin 3 Mg Tablet) 6 mg PO BEDTIME PRN PRN Reason: Insomnia Ondansetron HCl (Ondansetron Hcl 4 Mg/2 Ml Vial) 4 mg IVPUSH Q8H PRN PRN Reason: Nausea and Vomiting Polyethylene Glycol (Polyethylene Glycol 3350 17 Gm Powd.Pack) 17 gm PO DAILY PRN PRN Reason: Constipation Senna (Sennosides 8.6 Mg Tablet) 17.2 mg PO BEDTIME [facility] Sodium Chloride (0.9 % Sodium Chloride Flush 10 Ml Syringe) 5 ml IVFLUSH ONCE PRN PRN Reason: Infusion Center Stop: 08/17/26 04:08 Sodium Chloride (0.9 % Sodium Chloride Flush 10 Ml Syringe) 5 ml IVFLUSH ONCE PRN PRN Reason: Infusion Center Stop: 08/17/26 05:33 Sodium Chloride (0.9 % Sodium Chloride Flush 3 Ml Syringe) [facility] Last Admin: 08/17/25 07:52 Dose: Not Given Thiamine HCl (Thiamine Hcl 100 Mg Tablet) 100 mg PO DAILY [facility] Home Medications ?Medication ?Instructions ?Recorded ?Confirmed ?Last Taken ?Type albuterol sulfate 90 mcg/actuation 2 puff inhalation Q6H PRN wheezing 05/14/25 08/17/25 Unknown History aerosol inhaler amiodarone 200 mg tablet 100 mg PO DAILY 05/14/25 08/17/25 Unknown History atorvastatin 40 mg tablet 40 mg PO DAILY 05/14/25 08/17/25 Unknown History empagliflozin 10 mg tablet 10 mg PO QAM 05/14/25 08/17/25 Unknown History (Jardiance) fluticasone propionate 50 2 spray intranasal DAILY PRN 05/14/25 08/17/25 Unknown History mcg/actuation nasal allergies spray,suspension multivitamin-iron sulfate 15 1 tab PO DAILY 05/14/25 08/17/25 Unknown History mg-folic acid 400 mcg tablet (Tab-A-Rashaun Multivitamin w-iron) sacubitril 97 mg-valsartan 103 mg 1 tab PO BID 05/14/25 08/17/25 Unknown History tablet (Entresto) torsemide 20 mg tablet 20 mg PO DAILY PRN Weight Gain 05/14/25 08/17/25 Unknown History warfarin 2 mg tablet 3 mg PO Q48H 05/14/25 08/17/25 Unknown History folic acid 1 mg tablet 1 mg PO DAILY 08/17/25 08/17/25 Unknown History gabapentin 300 mg capsule 600 mg PO TID PRN nerve pain 08/17/25 08/17/25 Unknown History ondansetron 8 mg disintegrating 8 mg PO TID 08/17/25 08/17/25 Unknown History tablet prednisone 20 mg tablet 20 mg PO BID 08/17/25 08/17/25 Unknown History warfarin 2 mg tablet 4 mg PO Q48H 08/17/25 08/17/25 Unknown History Physical Exam Vital Signs: Vital Signs: Last Vital Signs Temp 97.9 F 08/17/25 04:21 Pulse 76 08/17/25 07:52 Resp 16 08/17/25 07:52 BP 159/105 H 08/17/25 07:52 Pulse Ox 94 08/17/25 07:52 O2 Del Method Room Air 08/17/25 07:52 O2 Flow Rate 2 08/17/25 02:07 BMI result Body Mass Index 33.1 Neuro: Other: Mental Status: He is alert and awake with normal spontaneity of speech fluency comprehension and flat affect. Cranial Nerves: CN II: Visual jay full to confrontation, visual acuity intact. CN III, IV, : Pupils equal, round, reactive to light and accommodation. Extraocular movements are normal. CN V: Facial sensation is normal. CN VII: Facial movements symmetrical. CN VIII: Hearing intact to bedside conversation is normal. CN IX, X: Palate elevates symmetrically. CN XI: Shoulder shrug and head turn symmetrical. CN XII: Tongue midline without atrophy or fasciculations. Motor: He is able to lift each leg up against gravity up to 45 degrees. No obvious arm weakness. Reflexes: Deep tendon reflexes are 1+ with flexor plantars. Coordination: [id number] is okay. Gait and Station: Has difficulty standing on heels and toes. Extrapyramidal: Full facial expressions and blinking. No rigidity. Movements are appropriate with no tremor or abnormality. Speech: Normal; no dysarthria or tremor. Results Labs 08/16/25 22:49 08/16/25 22:49 Labs: Short CBC 08/16/25 Range/Units 22:49 WBC 6.6 (4.8-10.8) X10*3/uL Hgb 14.3 (14.0-18.0) g/dl Hct 41.7 L (42.0-52.0) % Plt Count 263 (160-400) X10*3/uL BMP 08/16/25 22:49 Sodium 137 Potassium 4.0 Chloride 108 Carbon Dioxide 19 L BUN 13 Creatinine 1.42 H Calcium 9.3 Liver Function 08/16/25 Range/Units 22:49 Total Bilirubin 0.5 (0.0-1.0) mg/dL Direct Bilirubin 0.2 (0.0-0.5) mg/dL AST 24 (5-37) U/L ALT 15 (0-40) U/L Alkaline Phosphatase 79 (39-117) U/L Albumin 4.1 (3.5-5.0) g/dL [place] [id number] XRay Report Signed Patient: Valdez Khalil MR#: [id number] : 1955 Acct:[id number] Age/Sex: 70 / M ADM Date: 08/17/25 Loc: .ED Attending Dr: Ordering Physician: Hillary Crawford DO Date of Service: 08/17/25 Procedure(s): XR chest 2V Accession Number(s): [id number] cc: Hillary Crawford DO; Andrea Huitron~ Reason for Exam: cough, recent pneumonia CLINICAL HISTORY: cough, recent pneumonia 2 view chest x-ray Comparison: None provided Findings: Left chest wall pacemaker/AICD with single lead overlying the right ventricle. Median sternotomy wires status post aortic valve replacement. Normal size heart. Ectatic aorta. No focal consolidation, pleural effusion, or pneumothorax. Cholecystectomy clips in the right upper quadrant. Chronic appearing deformity of the right humeral head. IMPRESSION: No acute findings. Assessment and Plan (1) Chronic inflammatory demyelinating polyneuropathy: Status: Acute 70 years old man with chronic inflammatory demyelinating polyneuropathy resulting in leg weakness and pain. My recommendation is to gave him a course of IVIG and gabapentin 300 mg 3 times a day. PT OT evaluation is also recommended (2) Neuropathic pain: Status: Acute Procedures Date of Service Date of Service: 08/17/25
[2025-08-17 14:08] LABS: Cannabinoid Screen Urine Not Detected (Not Detect)
[2025-08-17 15:01] LABS: INTERNATIONAL NORM RATIO 2.7 (0.9-1.1); Prothrombin Time 32.3 SEC (11.2-13.5)
[2025-08-17] MEDS: 0.9 % Sodium Chloride Flush 3 ML SYRINGE IVFLUSH (15:30)
--- NOTE | 2025-08-17 17:26 | P.EN_ITS ---
Event Note Date of Service: 08/17/25 Event Note: 70-year-old male?with a history of?chronic inflammatory demyelinating polyneuropathy (CIDP) on intermittent IVIG,?bioprosthetic aortic valve on warfarin,?cardiac arrhythmia with AICD,?COPD,?hypertension,?hyperlipidemia, and?alcohol use disorder, admitted for?acute CIDP flare presenting with bilateral thigh pain and weakness after missed IVIG and interruption of gabapentin, currently undergoing inpatient IVIG initiation with plan for transition to outpatient completion. Chronic Inflammatory Demyelinating Polyneuropathy (CIDP) ? Acute Flare Missed scheduled IVIG following recent pneumonia admission and ran out of gabapentin, resulting in worsening bilateral thigh pain and weakness. Neurology consulted; exam without bulbar or respiratory involvement. IVIG restarted inpatient with clinical stability. Plan: * Continue?IVIG 30 g IV daily?per Neurology (goal total 5-day course). * Complete?first 2 doses inpatient, then discharge to outpatient infusion center for remaining 3 doses if clinically stable (Tuesday evening or Tuesday morning) * Continue?prednisone 20 mg PO BID?as ordered. * Resume?gabapentin 600 mg PO TID?(home dose). * Monitor for IVIG-related adverse effects (headache, IRENE, thrombosis). * PT/OT evaluation for strength, gait, and discharge safety. Neuropathic Pain Likely secondary to CIDP flare and gabapentin interruption. Minimal response to opioids in ED. Plan: * Continue?gabapentin 600 mg PO TID. * Avoid escalation of opioids; acetaminophen PRN. * Reassess pain daily with neurologic exam correlation. Hypertension Elevated BPs on admission, likely pain/stress-related. Home antihypertensives recently self-discontinued per medication reconciliation. Plan: * Resume home antihypertensives as tolerated once regimen clarified. * Hydralazine IV PRN?for SBP >160. * Monitor BP qshift. History of Aortic Valve Replacement / Arrhythmia with AICD on Warfarin Valve type likely bioprosthetic; indication for anticoagulation possibly atrial arrhythmia. INR therapeutic on admission. Plan: * Continue?warfarin, dose per pharmacy reconciliation (alternating 3 mg / 4 mg). * Daily INR monitoring?while inpatient. * Avoid interacting medications. * Clarify long-term anticoagulation indication with cardiology records. Chronic Kidney Disease (Stage 3a) Baseline creatinine 1.4, eGFR 49; stable. Plan: * Monitor renal function during IVIG therapy. * Avoid nephrotoxins. * Ensure adequate hydration. COPD / Restrictive Lung Disease No acute exacerbation. Chest X-ray without acute findings. Plan: * Continue home inhalers. * Albuterol/ipratropium PRN. * Monitor respiratory status during IVIG. Alcohol Use Disorder History of withdrawal requiring admission February 2025. Denies recent use. Plan: * Continue?CIWA monitoring. * Thiamine and folic acid daily. * No phenobarbital indicated at this time. Hyperlipidemia On atorvastatin per home meds; adherence unclear. Plan: * Resume statin if previously tolerated. * No acute inpatient intervention. [employer] * VTE:?Therapeutic anticoagulation with warfarin * CODE STATUS:?Full Code * DIET:?Regular * LINES/TUBES:?Peripheral IV * DISPOSITION BARRIER:?Completion/coordination of IVIG * FOLLOW-UP NEEDS:?Neurology, outpatient infusion center Time Spent With Patient Time: Total time managing care of this patient today ____ minutes.
--- NOTE | 2025-08-17 17:26 | PM.EVENT ---
Event Note Date of Service: 08/17/25 Event Note: 70-year-old male?with a history of?chronic inflammatory demyelinating polyneuropathy (CIDP) on intermittent IVIG,?bioprosthetic aortic valve on warfarin,?cardiac arrhythmia with AICD,?COPD,?hypertension,?hyperlipidemia, and?alcohol use disorder, admitted for?acute CIDP flare presenting with bilateral thigh pain and weakness after missed IVIG and interruption of gabapentin, currently undergoing inpatient IVIG initiation with plan for transition to outpatient completion. Chronic Inflammatory Demyelinating Polyneuropathy (CIDP) ? Acute Flare Missed scheduled IVIG following recent pneumonia admission and ran out of gabapentin, resulting in worsening bilateral thigh pain and weakness. Neurology consulted; exam without bulbar or respiratory involvement. IVIG restarted inpatient with clinical stability. Plan: Continue?IVIG 30 g IV daily?per Neurology (goal total 5-day course). Complete?first 2 doses inpatient, then discharge to outpatient infusion center for remaining 3 doses if clinically stable (Tuesday evening or Tuesday morning) Continue?prednisone 20 mg PO BID?as ordered. Resume?gabapentin 600 mg PO TID?(home dose). Monitor for IVIG-related adverse effects (headache, IRENE, thrombosis). PT/OT evaluation for strength, gait, and discharge safety. Neuropathic Pain Likely secondary to CIDP flare and gabapentin interruption. Minimal response to opioids in ED. Plan: Continue?gabapentin 600 mg PO TID. Avoid escalation of opioids; acetaminophen PRN. Reassess pain daily with neurologic exam correlation. Hypertension Elevated BPs on admission, likely pain/stress-related. Home antihypertensives recently self-discontinued per medication reconciliation. Plan: Resume home antihypertensives as tolerated once regimen clarified. Hydralazine IV PRN?for SBP >160. Monitor BP qshift. History of Aortic Valve Replacement / Arrhythmia with AICD on Warfarin Valve type likely bioprosthetic; indication for anticoagulation possibly atrial arrhythmia. INR therapeutic on admission. Plan: Continue?warfarin, dose per pharmacy reconciliation (alternating 3 mg / 4 mg). Daily INR monitoring?while inpatient. Avoid interacting medications. Clarify long-term anticoagulation indication with cardiology records. Chronic Kidney Disease (Stage 3a) Baseline creatinine 1.4, eGFR 49; stable. Plan: Monitor renal function during IVIG therapy. Avoid nephrotoxins. Ensure adequate hydration. COPD / Restrictive Lung Disease No acute exacerbation. Chest X-ray without acute findings. Plan: Continue home inhalers. Albuterol/ipratropium PRN. Monitor respiratory status during IVIG. Alcohol Use Disorder History of withdrawal requiring admission February 2025. Denies recent use. Plan: Continue?CIWA monitoring. Thiamine and folic acid daily. No phenobarbital indicated at this time. Hyperlipidemia On atorvastatin per home meds; adherence unclear. Plan: Resume statin if previously tolerated. No acute inpatient intervention. QUAL[employer] VTE:?Therapeutic anticoagulation with warfarin CODE STATUS:?Full Code DIET:?Regular LINES/TUBES:?Peripheral IV DISPOSITION BARRIER:?Completion/coordination of IVIG FOLLOW-UP NEEDS:?Neurology, outpatient infusion center Time Spent With Patient Time: Total time managing care of this patient today ____ minutes.
--- NOTE | 2025-08-17 17:59 | PC.NURSE ---
Pt is alert and oriented. Reports minimal pain relief from Gabapentin given by prior RN, Dr Fan aware, no new orders at this time. Pt speaking full sentences, skin color normal for ethnicity and dry. NSR on tele. NAD, able to make needs known
--- NOTE | 2025-08-17 18:55 | MHC.EDTECH ---
Pt OOB to the bathroom with steady gait.
--- NOTE | 2025-08-17 20:28 | PC.NURSE ---
assumed care of pt, pt resting in stretcher with eyes closed laying on his side. respirations even and unlabored.
--- NOTE | 2025-08-17 20:37 | PC.NURSE ---
pt declined Senna. medication returned
--- NOTE | 2025-08-17 20:50 | PC.NURSE ---
pt reports b/l leg pain, offered PRN Gabapentin, pt asked if he could have anything else as it did not help uch when it was given earlier today. Hospitalist advised, awaiting new orders.
[2025-08-17] MEDS: oxyCODONE HCl Immed Release 5 MG TABLET PO (21:33)
--- NOTE | 2025-08-17 22:29 | PC.NURSE ---
pt given PRN gabapentin for neuropathy in legs.
[2025-08-18] VITALS (8 sets, daily range): BP systolic 135–181; BP diastolic 77–106; PULSE 62–76; RESP 16–18; TEMP 36–36.9; O2SAT 92–98; BMI 33.2; BMI 32.6
[2025-08-18] MEDS: 0.9 % Sodium Chloride Flush 3 ML SYRINGE IVFLUSH ×2 (01:03→09:02)
[2025-08-18 06:03] LABS: MANUAL DIFF FLAG NO
[2025-08-18 06:04] LABS: Hematocrit 39.5 % (42.0-52.0); Hemoglobin 13.1 g/dl (14.0-18.0); Imm Gran Abs Auto 0.02 X10*3/uL (0.00-0.03); Imm Gran Pct Auto 0.4 % (0.0-0.4); Lymphocytes Absolute Auto 0.5 X10*3/uL (1.2-4.9); Mean Corpuscular HGB Conc 33.2 g/dl (31.0-36.0); Mean Corpuscular Hemoglobin 32.1 pg (27.0-33.0); Mean Corpuscular Volume 96.8 fL (80.0-98.0); NRBC Abs Auto 0.000 X10*3/uL (0.0-0.012); NRBC Pct Auto 0.0 /100WBC (0.0-0.2); Platelet Count 237 X10*3/uL (160-400); Red Blood Count 4.08 X10*6/uL (4.60-5.80); White Blood Count 5.5 X10*3/uL (4.8-10.8)
[2025-08-18 06:16] LABS: Anion Gap 11 (12-20); Blood Urea Nitrogen 22 mg/dL (9-16); Calcium 8.7 mg/dL (8.4-10.2); Carbon Dioxide 21 mmol/L (22-29); Chloride 111 mmol/L (96-108); Creatinine Clr Calc Pharmacy 51.3; Estimated Glomerular Filt Rate 41; Potassium 4.5 mmol/L (3.3-5.1); Sodium 138 mmol/L (135-145)
[2025-08-18 06:33] LABS: INTERNATIONAL NORM RATIO 3.1 (0.9-1.1); Prothrombin Time 37.1 SEC (11.2-13.5)
[2025-08-18] MEDS: Immune Globulin 10% Gammagard 30 GM/300 ML VIAL IV (09:03)
--- NOTE | 2025-08-18 09:15 | P.DS_ITS ---
DS: Providers Provider Date of admission: 08/17/25 04:40 Date of discharge: 08/18/25 Primary care physician: PETER John Consults: 08/17/25 04:41 Consult to Neurology Routine Consulting Provider: [facility] Reason for consultation: CIDP, missed IVIG Has provider been notified: No 08/17/25 06:13 Consult to Neurology Routine Consulting Provider: [facility] Reason for consultation: IVIG dosing for CDIP Has provider been notified: No DS: Diagnosis Discharge Diagnosis (1) Chronic inflammatory demyelinating polyneuropathy: Status: Acute DS: Summary Hospital Course Hospital Course: 70-year-old male?with a history of?chronic inflammatory demyelinating polyneuropathy (CIDP) on intermittent IVIG,?bioprosthetic aortic valve on warfarin,?cardiac arrhythmia with AICD,?COPD,?hypertension,?hyperlipidemia, and?alcohol use disorder, admitted for?acute CIDP flare?manifested by?worsening bilateral thigh pain and weakness?after?missed scheduled IVIG and interruption of gabapentin, now?clinically stable after initiation of IVIG inpatient?with plan to?complete remaining doses as outpatient?and discharge home. Chronic Inflammatory Demyelinating Polyneuropathy (CIDP) ? Acute Flare Missed scheduled IVIG following recent pneumonia admission and ran out of gabapentin, leading to progressive neuropathic pain and weakness. Neurology consulted; exam without bulbar or respiratory involvement. IVIG restarted inpatient with good tolerance and clinical stability.? Plan: * Completed?initial inpatient IVIG doses?(30 g IV daily per Neurology). * Discharge today?with plan to complete?remaining IVIG doses at outpatient infusion center. * Continue?prednisone 20 mg PO BID. * Continue?gabapentin 600 mg PO TID. * Monitor for IVIG-related adverse effects (headache, IRENE, thrombosis). * Outpatient Neurology follow-up?arranged. * Continue?PT/OT recommendations?as outpatient for strength and gait stability. Neuropathic Pain Pain attributed to CIDP flare and gabapentin interruption; minimal response to opioids.? Plan: * Continue?gabapentin 600 mg PO TID. * Avoid opioid escalation. * Acetaminophen PRN. * Reassess pain at outpatient follow-up. History of Aortic Valve Replacement / Arrhythmia with AICD on Warfarin Valve likely bioprosthetic; anticoagulation likely for atrial arrhythmia. INR therapeutic during admission.? Plan: * Continue?warfarin per home alternating regimen (3 mg / 4 mg). * Outpatient INR monitoring?arranged. * Avoid medication interactions. * Follow with cardiology as outpatient. Hypertension Elevated blood pressures during admission, likely pain-related; no end-organ damage.? Plan: * Resume?home antihypertensive regimen. * Home BP monitoring. * PCP follow-up for medication reconciliation and adjustment. Chronic Kidney Disease (Stage 3a) Baseline creatinine 1.4, stable throughout admission.? Plan: * Encourage adequate oral hydration. * Avoid nephrotoxins. * Monitor renal function as outpatient, especially during IVIG completion. COPD / Restrictive Lung Disease No evidence of acute exacerbation; chest imaging negative.? Plan: * Continue?home inhalers. * Albuterol PRN. * Smoking cessation reinforced. Alcohol Use Disorder History of withdrawal requiring admission February 2025; no withdrawal symptoms this admission.? Plan: * Continue?thiamine and folic acid. * Encourage abstinence. * PCP follow-up for longitudinal support. Status at Discharge Functional status at discharge: independent ambulation Overall status at discharge: patient is back to baseline Time Attestation Total time managing care of this patient today: 45 mintues. Discharge Coordination Time (in mins): 45 Quality: Safe Use of Opioids Does Pt have an Active Cancer Diagnosis on the Problem List?: No Quality: Stroke Does the patient have a stroke diagnosis?: No Physical Exam Exam: Exam: Vital Signs:?Afebrile. Hemodynamically stable. Oxygen saturation adequate on room air. General:?Alert, cooperative, no acute distress. HEENT:?Normocephalic, atraumatic. PERRLA. EOMI. Oropharynx clear, mucous membranes moist. Neck:?Supple. No JVD. No lymphadenopathy. Cardiovascular:?Regular rate and rhythm. Normal S1/S2 with mechanical-sounding click consistent with prior valve replacement. No murmurs, rubs, or gallops. No peripheral edema. Pulmonary:?Clear to auscultation bilaterally. No wheezes, rales, or rhonchi. Non-labored breathing. Abdomen:?Soft, non-tender, non-distended. Bowel sounds present. No guarding or rebound. Extremities:?No clubbing, cyanosis, or edema. Peripheral pulses palpable. Neurologic:?Alert and oriented ?3. Cranial nerves II?XII intact. Motor strength 5/5 in upper extremities; mild proximal lower extremity weakness but able to lift legs against gravity. Sensation decreased in bilateral lower extremities consistent with known neuropathy. Reflexes diminished (1+). Gait mildly unsteady but ambulatory. Musculoskeletal:?No joint swelling or deformity. Full range of motion. Skin:?Warm, dry, intact. No rashes or lesions. Psychiatric:?Mood appropriate. Affect flat. Judgment and insight fair. Vital Signs: Vital Signs: Last Vital Signs Temp 98.5 F 08/18/25 07:37 Pulse 75 08/18/25 07:37 Resp 18 08/18/25 07:37 BP 145/88 H 08/18/25 07:37 Pulse Ox 95 08/18/25 07:37 O2 Del Method Room Air 08/18/25 07:37 O2 Flow Rate 2 08/17/25 02:07 BMI result Body Mass Index 32.6 DS: Data Data Completed and Pending Labs on day of discharge: Laboratory Results - last 24 hr 08/17/25 08/17/25 08/18/25 12:00 14:38 05:33 WBC 5.5 RBC 4.08 L Hgb 13.1 L Hct 39.5 L MCV 96.8 MCH 32.1 MCHC 33.2 RDW 13.2 Plt Count 237 MPV 9.9 Immature Gran % (Auto) 0.4 Neut % (Auto) 88.2 H Lymph % (Auto) 8.2 L [place] % (Auto) 2.7 Eos % (Auto) 0.0 Baso % (Auto) 0.5 Lymph # (Auto) 0.5 L [place] # (Auto) 0.2 Eos # (Auto) 0.0 Baso # (Auto) 0.0 Abs Immat Gran (auto) 0.02 Absolute Neuts (auto) 4.9 Absolute Nucleated RBC 0.000 Nucleated RBC % (auto) 0.0 PT 32.3 H 37.1 H INR 2.7 H 3.1 H Sodium 138 Potassium 4.5 Chloride 111 H Carbon Dioxide 21 L Anion Gap 11 L BUN 22 H Creatinine 1.66 H Estim Creat Clear Calc 51.3 Estimated GFR 41 Random Glucose 107 Calcium 8.7 D Urine Opiates Screen POSITIVE H Ur Buprenorphine Scrn Not Detected Ur Oxycodone Screen Not Detected Urine Methadone Screen Not Detected Urine Fentanyl Screen Not Detected Ur Barbiturates Screen Not Detected Ur Phencyclidine Scrn Not Detected Ur Amphetamines Screen Not Detected U Benzodiazepines Scrn POSITIVE H Urine Cocaine Screen Not Detected U Marijuana (THC) Screen Not Detected Discharge Plan Discharge Patient Disposition: Home, Self-Care Discharge Diagnosis: CIDP flare Referrals: Andrea Huitron PA [Primary Care Provider, Internal Medicine] - 1 Week Discharge Medications: Continued prednisone 20 mg tablet 20 mg PO BID ondansetron 8 mg tablet,disintegrating 8 mg PO TID warfarin 2 mg tablet 4 mg PO Q48H folic acid 1 mg tablet 1 mg PO DAILY atorvastatin 40 mg tablet 40 mg PO DAILY torsemide 20 mg tablet 20 mg PO DAILY PRN (Reason: Weight Gain) amiodarone 200 mg tablet 100 mg PO DAILY warfarin 2 mg tablet 3 mg PO Q48H albuterol sulfate 90 mcg/actuation HFA aerosol inhaler 2 puff inhalation Q6H PRN (Reason: wheezing) fluticasone propionate 50 mcg/actuation spray,suspension 2 spray intranasal DAILY PRN (Reason: allergies) Jardiance 10 mg tablet 10 mg PO QAM Tab-A-Rashaun Multivitamin w-iron 15 mg iron- 400 mcg tablet 1 tab PO DAILY duloxetine 30 mg capsule,delayed release(DR/EC) 30 mg PO DAILY Qty: 90 0RF Changed gabapentin 300 mg capsule 600 mg PO TID PRN (Reason: nerve pain) 7 Days Qty: 42 0RF Discharge Orders: Discharge Order (Routine); Ordered 08/18/25 Ordered By: Fabrizio Fan Diet: Advance to usual diet Activity on Discharge: As tolerated Stand Alone Forms: Patient Portal Discharge page Print Language: Khmer Care Plan Goals: as above Health Concerns: as above Plan of Treatment: as above Assessment: as above
--- NOTE | 2025-08-18 11:18 | MHC.CM.PN ---
PT REPORTS HE LIVES ALONE AND IS INDEPENDENT WITH CARE HE HAS A [facility] CM THAT CHECKS IN PERIODICALLY, NO OTHER SERVICES AND NO DME HE DECLINES A HCP AT THIS TIME PCP: [facility] NOTICE DELIVERED DCP: HOME TODAY VIA SELF TRANSPORT
--- NOTE | 2025-08-18 16:22 | PC.NURSE ---
Discharge instructions reviewed with patient. Dr. Fan aware of patient's vital signs and BP, patient asymptomatic and feels ready to leave. Patient educated to hold on Warfarin due to INR level per provider Mita. Patient is aware of follow up appointment for IVIG and when to get his labs drawn for INR. Patient had no questions regarding discharge.
[2025-08-26 10:52] LABS: Alcohol, Ethyl Urine Screen NEGATIVE
== END 2025-08-18 16:26 | disposition home or self-care (01) ==
LOC: HO.ED 08-17 03:55 → HO.EDOVER 08-17 05:10 → HO.S3 08-17 23:51
PROVIDERS: Nurse Practitioner Family; Admitting Provider Internal Medicine; Emergency Provider Emergency Medicine; PCP Physician Assistant Medical; Visit Provider Hospitalist
DX: G61.81 Chronic inflammatory demyelinating polyneuritis (principal); R05.9 Cough, unspecified; R11.0 Nausea; R19.7 Diarrhea, unspecified; J44.9 Chronic obstructive pulmonary disease, unspecified; G62.9 Polyneuropathy, unspecified; I12.9 Hypertensive chronic kidney disease with stage 1 through stage 4 chronic kidney disease, or unspecified chronic kidney disease; N18.31 Chronic kidney disease, stage 3a; Z79.899 Other long term (current) drug therapy; Z95.0 Presence of cardiac pacemaker; Z79.01 Long term (current) use of anticoagulants; Z03.818 Encounter for observation for suspected exposure to other biological agents ruled out
CPT/HCPCS: 36415; 71046; 80048; 80076; 80307; 85025; 85610; 87502; 87635; 96365; 96366; 96375; 99221; 99285; J0360; J1569; J2270; J3360

== ENCOUNTER → 2025-08-17 02:43 | Outpatient (BNV) | payer OTHER, SELFPAY | PROVIDERS: Emergency Provider Emergency Medicine; PCP Physician Assistant Medical; Visit Provider Student in an Organized Health Care Education/Training Program | DX: J18.9 Pneumonia, unspecified organism (principal) | CPT/HCPCS: 71046 ==

== ENCOUNTER → 2025-08-17 04:40 | Outpatient (BNV) | payer OTHER, SELFPAY | PROVIDERS: Admitting Provider Internal Medicine; Emergency Provider Emergency Medicine; PCP Physician Assistant Medical; Visit Provider Psychiatry & Neurology Neurology | DX: G61.81 Chronic inflammatory demyelinating polyneuritis (principal); M79.2 Neuralgia and neuritis, unspecified | CPT/HCPCS: 99222 ==

== ENCOUNTER → 2025-08-17 04:40 | Outpatient (BNV) | payer OTHER, SELFPAY | PROVIDERS: Admitting Provider Internal Medicine; Emergency Provider Emergency Medicine; PCP Physician Assistant Medical; Visit Provider Hospitalist | DX: G61.81 Chronic inflammatory demyelinating polyneuritis (principal) | CPT/HCPCS: 99223; 99358 ==